=== PATIENT | male | born 1945 | race African-American/Black ===

== ENCOUNTER 2016-08-15 20:26 | Inpatient (IN) | payer MEDICAID, MEDICARE ==
[~2016-08-15] VITALS: Ht 175.3 cm; Wt 67.1 kg
[2016-08-15 20:23] VITALS: BP 127/107
[~2016-08-15 20:26] MED LIST: ADVAIR 100-501 EACH INH; ADVAIR 250-501 EACH INH; ALDACTONE25 MG ORAL; AMLODIPINE BESYL5 MG ORAL; ANTI-ITCH28 G1 TP; ASPIR 8181 MG ORAL; ASPIRIN81 MG ORAL; ATARAX25 MG ORAL; CEPHALEXIN250 MG ORAL; COREG25 MG ORAL; FUROSEMIDE20 M1 ORAL; FUROSEMIDE40 MG ORAL; HYDROCHLOROTHIA25 MG ORAL; LISINOPRIL10 MG ORAL; LISINOPRIL5 MG ORAL; NORCO 5-325 TA1 EAC1 ORAL; NORCO 5-325 TA1 EACH ORAL; TRAMADOL HCL50 MG ORAL; ZOFRAN ODT4 MG ORAL
[2016-08-15 21:15] LABS: BASOPHILS % (AUTO) 1.4 % (0.0-2.0); EOSINOPHILS % (AUTO) 1.1 % (0.0-3.0); LYMPHOCYTES % (AUTO) 50.2 % (20.0-45.0); MEAN CORPUSCULAR HEMOGLOBIN 34.8 PG (27.0-31.0); MEAN CORPUSCULAR HGB CONC 33.9 G/DL (32.0-36.0); MEAN CORPUSCULAR VOLUME 103 FL (80-99); MEAN PLATELET VOLUME 8.1 FL (6.5-10.1); MONOCYTES % (AUTO) 10.8 % (1.0-10.0); NEUTROPHILS % (AUTO) 36.4 % (45.0-75.0); PLATELET COUNT 177 K/UL (150-450); RED BLOOD COUNT 4.26 M/UL (4.70-6.10); RED CELL DISTRIBUTION WIDTH 13.6 % (11.6-14.8); WHITE BLOOD COUNT 6.7 K/UL (4.8-10.8)
[2016-08-15 22:02] LABS: TROPONIN I < 0.30 ng/mL (<=0.30)
[2016-08-15 22:06] LABS: ALANINE AMINOTRANSFERASE 31 U/L (3-41); ANION GAP 14 (5-15); ASPARTATE AMINO TRANSFERASE 52 U/L (5-40); CALCIUM 9.3 mg/dL (8.6-10.2); CARBON DIOXIDE 25 mEQ/L (20-30); CHLORIDE 107 mEQ/L (98-107); CREATININE 1.2 mg/dL (0.7-1.2); HEMOLYSIS 29; POTASSIUM 4.4 mEQ/L (3.4-4.9); SODIUM 146 mEQ/L (135-145); TOTAL PROTEIN 6.8 g/dL (6.6-8.7)
[2016-08-15 22:16] LABS: CKMB 2.5 ng/mL (< 6.7)
[2016-08-15 22:17] LABS: APPEARANCE,URINE SLIGHTLY CLOUDY; KETONES,URINE NEGATIVE (NEGATIVE); LEUKOCYTE ESTERASE ,URINE 2+ (NEGATIVE); NITRITE,URINE NEGATIVE (NEGATIVE); PH,URINE 5 (4.5-8.0); PROTEIN,URINE 3+ (NEGATIVE); UROBILINOGEN,URINE 1 MG/DL (0.0-1.0)
[2016-08-15 22:29] LABS: BACTERIA,URINE FEW /HPF; RBC,URINE 0 /HPF (0 - 0); WBC,URINE 40-60 /HPF (0 - 0)
[2016-08-15 22:50] VITALS: BP 157/79
--- NOTE | 2016-08-15 23:09 | Emergency Room Report ---
History of Present Illness General Chief Complaint: Dyspnea/Respdistress Source: Patient, EMS (YARELI ROMO M.D.) Present Illness HPI 71-year-old male presents ED complaining of shortness of breath. States symptoms started today. EMS states patient is on home oxygen but patient states suddenly today he fell more short of breath. Notes history of COPD. Denies any fevers or chills. Denies cough. Denies chest pain or shortness of breath. No other aggravating relieving factors. Denies any other associated symptoms (YARELI ROMO M.D.) Allergies: Coded Allergies: No Known Allergies (Unverified , 12/12/15) Patient History Past Medical History: HTN, CAD, CVA/TIA Past Surgical History: none, pacemaker Pertinent Family History: none Social History: Denies: alcohol use, drug use, smoking Immunizations: UTD Reviewed Nursing Documentation: PMH: Agreed, PSxH: Agreed (YARELI ROMO M.D.) Nursing Documentation-PMH Hx Cardiac Problems: Yes - Quadrupal bipass 2012, Left foot fracture 2016 Hx Hypertension: Yes Hx Pacemaker: Yes - L chest Hx COPD: Yes Hx Cancer: No Hx Gastrointestinal Problems: No Hx Cerebrovascular Accident: Yes - 2009 (YARELI ROMO M.D.) Review of Systems All Other Systems: negative except mentioned in HPI (YARELI ROMO M.D.) Physical Exam Vital Signs Date Time Temp Pulse Resp B/P Pulse Ox O2 Delivery O2 Flow Rate FiO2 08/15/16 20:12 69 22 127/107 90 Nasal Cannula 2.0 08/15/16 20:23 98.2 Sp02 EP Interpretation: reviewed, normal General Appearance: no apparent distress, alert, GCS 15, non-toxic Head: normocephalic, atraumatic Eyes: bilateral eye PERRL, bilateral eye normal inspection ENT: hearing grossly normal, normal pharynx, no angioedema, normal voice Neck: full range of motion, supple/symm/no masses Respiratory: chest non-tender, lungs clear, normal breath sounds, speaking full sentences Cardiovascular #1: regular rate, rhythm, no edema Cardiovascular #2: 2+ carotid (R), 2+ carotid (L), 2+ radial (R), 2+ radial (L) , 2+ dorsalis pedis (R), 2+ dorsalis pedis (L) Gastrointestinal: normal bowel sounds, non tender, soft, non-distended, no guarding, no rebound Rectal: deferred Genitourinary: normal inspection, no CVA tenderness Musculoskeletal: back normal, gait/station normal, normal range of motion, non- tender Neurologic: alert, oriented x3, responsive, motor strength/tone normal, sensory intact, speech normal Psychiatric: judgement/insight normal, memory normal, mood/affect normal, no suicidal/homicidal ideation Reflexes: 3+ bicep (R), 3+ bicep (L), 3+ tricep (R), 3+ tricep (L), 3+ knee (R) , 3+ knee (L) Skin: normal color, no rash, warm/dry, well hydrated Lymphatic: no adenopathy (YARELI ROMO M.D.) Medical Decision Making Diagnostic Impression: Primary Impression: CHF exacerbation Qualified Codes: I50.9 - Heart failure, unspecified Additional Impressions: COPD exacerbation Shortness of breath Pneumonia Labs Test 08/15/16 20:55 08/15/16 21:40 White Blood Count 6.7 K/UL (4.8-10.8) Red Blood Count 4.26 M/UL (4.70-6.10) Hemoglobin 14.8 G/DL (14.2-18.0) Hematocrit 43.7 % (42.0-52.0) Mean Corpuscular Volume 103 FL (80-99) Mean Corpuscular Hemoglobin 34.8 PG (27.0-31.0) Mean Corpuscular Hemoglobin Concent 33.9 G/DL (32.0-36.0) Red Cell Distribution Width 13.6 % (11.6-14.8) Platelet Count 177 K/UL (150-450) Mean Platelet Volume 8.1 FL (6.5-10.1) Neutrophils (%) (Auto) 36.4 % (45.0-75.0) Lymphocytes (%) (Auto) 50.2 % (20.0-45.0) Monocytes (%) (Auto) 10.8 % (1.0-10.0) Eosinophils (%) (Auto) 1.1 % (0.0-3.0) Basophils (%) (Auto) 1.4 % (0.0-2.0) D-Dimer 1181 ng/mL (<500) Sodium Level 146 mEQ/L (135-145) Potassium Level 4.4 mEQ/L (3.4-4.9) Chloride Level 107 mEQ/L (98-107) Carbon Dioxide Level 25 mEQ/L (20-30) Anion Gap 14 (5-15) Blood Urea Nitrogen 22 mg/dL (7-23) Creatinine 1.2 mg/dL (0.7-1.2) Estimat Glomerular Filtration Rate mL/min (>60) Glucose Level 89 mg/dL (74-106) Lactic Acid Level 1.30 mmol/L (0.66-2.22) Calcium Level 9.3 mg/dL (8.6-10.2) Total Bilirubin 0.6 mg/dL (0.0-1.2) Aspartate Amino Transf (AST/SGOT) 52 U/L (5-40) Alanine Aminotransferase (ALT/SGPT) 31 U/L (3-41) Alkaline Phosphatase 97 U/L (40-129) Total Creatine Kinase 51 U/L (38-174) Creatine Kinase MB 2.5 ng/mL (< 6.7) Creatine Kinase MB Relative Index 4.9 Troponin I < 0.30 ng/mL (<=0.30) Pro-B-Type Natriuretic Peptide 9311 pg/mL (0-125) Total Protein 6.8 g/dL (6.6-8.7) Albumin 3.5 g/dL (3.5-5.2) Globulin 3.3 g/dL Albumin/Globulin Ratio 1.0 (1.0-2.7) Urine Color Yellow Urine Appearance Slightly cloudy Urine pH 5 (4.5-8.0) Urine Specific [place] 1.025 (1.005-1.035) Urine Protein 3+ (NEGATIVE) Urine Glucose (UA) Negative (NEGATIVE) Urine Ketones Negative (NEGATIVE) Urine Occult Blood 1+ (NEGATIVE) Urine Nitrite Negative (NEGATIVE) Urine Bilirubin Negative (NEGATIVE) Urine Urobilinogen 1 MG/DL (0.0-1.0) Urine Leukocyte Esterase 2+ (NEGATIVE) Urine RBC 0 /HPF (0 - 0) Urine WBC 40-60 /HPF (0 - 0) Urine Squamous Epithelial Cells None /LPF (NONE/OCC) Urine Bacteria Few /HPF (NONE) (YARELI ROMO M.D.) ER Course received signout from Dr Romo to endorse this 71 YO M with acute on chronic CHF and also possible RLL infiltate fro admission VSS. Afebrile. Was tx with lasix and Levaquin UA also significant for large amount of WBCs - covered by levaquin. Never required BIPAP VS remained stable in ED Endorsed to Dr Olivarez at 1213am (and also to Dr Mishra who is covering) (DELORES STAHL M.D.) EKG Diagnostic Results Rate: normal Rhythm: NSR ST Segments: no acute changes ASA given to the pt in ED: No (YARELI ROMO M.D.) Rhythm Strip Diag. Results EP Interpretation: yes Rhythm: NSR, no PVC's, no ectopy (YARELI ROMO M.D.) EP Interpretation: yes Rate: 78 Rhythm: NSR, no PVC's, no ectopy (DELORES STAHL M.D.) Chest X-Ray Diagnostic Results EP Interpretation: Yes Findings: no pneumothorax, no acute cardiopulmonary disease, other - cardiomegaly. R and L sided effusion. pacemaker Number of Views: 1 (YARELI ROMO M.D.) EP Interpretation: Yes Findings: no pneumothorax, no acute cardiopulmonary disease, other - Bilateral pulm congestion. Possible RLL infilitate (DELORES STAHL M.D.) Last Vital Signs Date Time Temp Pulse Resp B/P Pulse Ox O2 Delivery O2 Flow Rate FiO2 08/15/16 22:50 98.2 79 30 157/79 100 Nasal Cannula 2.0 Status: improved (YARELI ROMO M.D.) Status: improved (DELORES STAHL M.D.) Disposition: ADMITTED INPATIENT Condition: Serious Referrals: NOT CHOSEN IPA/,REFERRING (PCP) YARELI ROMO M.D. Aug 15, 2016 23:09 DELORES STAHL M.D. Aug 16, 2016 00:14
[2016-08-15 23:51] VITALS: BP 157/79
[2016-08-16] VITALS (8 sets, daily range): BP systolic 98–150; BP diastolic 58–100
[2016-08-16] MEDS ORDERED: DuoNeb 0.5-3(2.5)mg/3ml neb HHN PRN (00:30)
[2016-08-16] MEDS ORDERED: Miralax 17gm pkt ORAL PRN (00:30)
[2016-08-16] MEDS: NovoLOG Insulin Flexpen SUBQ SCH ×4 (06:30→20:52)
[2016-08-16] MEDS ORDERED: Furosemide 40mg tab ORAL SCH (09:00)
[2016-08-16] MEDS: Carvedilol 25mg Tab ORAL SCH ×2 (09:00→20:50)
[2016-08-16] MEDS: Heparin 5000 units/ml inj SUBQ SCH ×2 (09:00→20:50)
--- NOTE | 2016-08-16 11:46 | Diagnostic Imaging Report ---
Indication: Shortness of breath Technique: XRAY CHEST 1 V Comparison: 07/02/16 Findings: Cardiac silhouette is prominent with mild interstitial edema. Left chest pacemaker and sternotomy wires are seen. Costophrenic angles are not included. Impression: Cardiomegaly and interstitial edema. Clinical correlation/followup recommended.
--- NOTE | 2016-08-16 15:34 | Consultation ---
History of Present Illness General Date patient seen: Aug 16, 2016 Time patient seen: 10:00 Chief Complaint: Dyspnea/Respdistress Referring physician: dr Estes Reason for Consultation: SOB Present Illness HPI 71 y/old male presents with increased SOB x 1 day patient is chronically O2 dependent, has oxygen at home, he was getting progressively worse and came for evaluation denies chest pain, palpitations, dizziness, syncope denies cough, wheezing, congestion, hemoptysis denies fevers, chills patient with underlying medical history of CHF, cardiomyopathy, COPD, CABG workup in ED revealed negative troponin ECG with NSR, CXR with cardiomegaly, interstitial edema,L chest pacemaker , possible RLL infiltrate pro BNP elevated - D dimer elevated prior ECHO in 2016 with EF 20-25% and RVSP of 48 c/w moderate pulmonary HTN patient admitted to [facility] for further management Allergies: Coded Allergies: No Known Allergies (Unverified , 12/12/15) Medication History Scheduled Aspirin* (Aspir 81*), 81 MG ORAL DAILY, (Reported) Carvedilol (Coreg), 25 MG ORAL EVERY 12 HOURS, (Reported) Fluticasone/Salmeterol (Advair 250-50 Diskus), 1 PUFF INH EVERY 12 HOURS, ( Reported) Fluticasone/Salmeterol (Advair 100-50 Diskus), PUFF INH EVERY 12 HOURS, ( Reported) Furosemide* (Lasix*), 40 MG ORAL DAILY Furosemide* (Lasix*), MG ORAL DAILY, (Reported) Hydrocortisone 2% Cream (Anti-Itch 2% Cream), 28 GM TP DAILY Hydroxyzine HCl (Hydroxyzine HCl), 25 MG ORAL FOUR TIMES A DAY Lisinopril (Lisinopril*), 2.5 MG ORAL DAILY, (Reported) Lisinopril (Lisinopril*), MG ORAL DAILY, (Reported) Spironolactone (Aldactone), 25 MG ORAL DAILY Scheduled PRN Hydrocodone Bit/Acetaminophen 5-325* ([place] 5-325 Tablet*), 1 TAB ORAL Q4H PRN for For Pain, (Reported) Tramadol Hcl* (Ultram*), 50 MG ORAL Q6H PRN for For Pain, (Reported) Patient History History Provided By: Patient Healthcare decision maker N Resuscitation status Full Code Advanced Directive on File Past Medical/Surgical History Past Medical/Surgical History: (1) History of CVA (cerebrovascular accident) (2) S/P CABG (coronary artery bypass graft) (3) Diabetes (4) CHF (congestive heart failure) (5) COPD (chronic obstructive pulmonary disease) (6) Cardiomyopathy (7) HTN (hypertension) (8) CAD (coronary artery disease) Review of Systems Constitutional: Reports: weakness Eye: Reports: no symptoms ENT: Reports: no symptoms Respiratory: Reports: see HPI Cardiovascular: Reports: see HPI Gastrointestinal: Reports: no symptoms Genitourinary: Reports: retention Musculoskeletal: Reports: no symptoms Skin: Reports: no symptoms Psychiatric: Reports: no symptoms Neurological: Reports: other Endocrine: Reports: other - DM Hematologic/Lymphatic: Reports: no symptoms Physical Exam General Appearance: no apparent distress, cachetic - A/A/O x 3 Lines, tubes and drains: peripheral HEENT: normocephalic, atraumatic, anicteric, mucous membranes moist Neck: non-tender, normal alignment, supple, normal inspection Respiratory/Chest: decreased breath sounds, other - left chest pacemaker Cardiovascular/Chest: normal rate, regular rhythm Abdomen: normal bowel sounds, non tender, soft, no organomegaly Extremities: normal range of motion, non-tender, no calf tenderness, normal capillary refill, other - trace edema Skin Exam: warm/dry Neurologic: no motor/sensory deficits, alert, oriented x 3, responsive Musculoskeletal: normal muscle bulk Last 24 Hour Vital Signs Date Time Temp Pulse Resp B/P Pulse Ox O2 Delivery O2 Flow Rate FiO2 08/16/16 12:00 97.2 56 20 98/58 98 Nasal Cannula 2.0 08/16/16 12:00 56 08/16/16 09:36 Nasal Cannula 2.0 28 08/16/16 09:36 63 20 Nasal Cannula 2.0 28 08/16/16 09:36 96 Nasal Cannula 2.0 28 08/16/16 09:00 69 141/73 08/16/16 08:00 59 08/16/16 08:00 97.5 59 20 141/73 99 Nasal Cannula 2.0 08/16/16 06:03 51 18 99 Nasal Cannula 2.0 08/16/16 05:54 47 18 99 Nasal Cannula 2.0 28 08/16/16 04:00 97.4 76 28 150/96 100 Nasal Cannula 2.0 08/16/16 03:54 76 08/16/16 02:35 97.2 86 24 150/94 100 Nasal Cannula 2.0 08/16/16 02:30 98.0 91 22 134/100 100 Nasal Cannula 2.0 08/16/16 01:53 98.0 91 22 134/100 100 Nasal Cannula 2.0 08/16/16 00:53 78 24 133/85 100 Nasal Cannula 2.0 08/15/16 23:51 98.0 84 18 157/79 100 Nasal Cannula 2.0 08/15/16 22:50 98.2 79 30 157/79 100 Nasal Cannula 2.0 08/15/16 21:12 81 19 Nasal Cannula 2.0 08/15/16 20:23 98.2 81 19 127/107 100 Nasal Cannula 2.0 08/15/16 20:12 69 22 127/107 90 Nasal Cannula 2.0 Intake and Output 08/15/16 08/16/16 19:00 07:00 Intake Total 690 ml Output Total 2150 ml Balance -1460 ml Intake Oral 540 ml IV Total 150 ml Output Urine Total 2150 ml # Bowel Movements 1 Laboratory Tests Test 08/15/16 20:55 08/15/16 21:40 White Blood Count 6.7 K/UL (4.8-10.8) Red Blood Count 4.26 M/UL (4.70-6.10) L Hemoglobin 14.8 G/DL (14.2-18.0) Hematocrit 43.7 % (42.0-52.0) Mean Corpuscular Volume 103 FL (80-99) H Mean Corpuscular Hemoglobin 34.8 PG (27.0-31.0) H Mean Corpuscular Hemoglobin Concent 33.9 G/DL (32.0-36.0) Red Cell Distribution Width 13.6 % (11.6-14.8) Platelet Count 177 K/UL (150-450) Mean Platelet Volume 8.1 FL (6.5-10.1) Neutrophils (%) (Auto) 36.4 % (45.0-75.0) L Lymphocytes (%) (Auto) 50.2 % (20.0-45.0) H Monocytes (%) (Auto) 10.8 % (1.0-10.0) H Eosinophils (%) (Auto) 1.1 % (0.0-3.0) Basophils (%) (Auto) 1.4 % (0.0-2.0) D-Dimer 1181 ng/mL (<500) H Sodium Level 146 mEQ/L (135-145) H Potassium Level 4.4 mEQ/L (3.4-4.9) Chloride Level 107 mEQ/L (98-107) Carbon Dioxide Level 25 mEQ/L (20-30) Anion Gap 14 (5-15) Blood Urea Nitrogen 22 mg/dL (7-23) Creatinine 1.2 mg/dL (0.7-1.2) Estimat Glomerular Filtration Rate mL/min (>60) Glucose Level 89 mg/dL (74-106) Lactic Acid Level 1.30 mmol/L (0.66-2.22) Calcium Level 9.3 mg/dL (8.6-10.2) Total Bilirubin 0.6 mg/dL (0.0-1.2) Aspartate Amino Transf (AST/SGOT) 52 U/L (5-40) H Alanine Aminotransferase (ALT/SGPT) 31 U/L (3-41) Alkaline Phosphatase 97 U/L (40-129) Total Creatine Kinase 51 U/L (38-174) Creatine Kinase MB 2.5 ng/mL (< 6.7) Creatine Kinase MB Relative Index 4.9 Troponin I < 0.30 ng/mL (<=0.30) Pro-B-Type Natriuretic Peptide 9311 pg/mL (0-125) H Total Protein 6.8 g/dL (6.6-8.7) Albumin 3.5 g/dL (3.5-5.2) Globulin 3.3 g/dL Albumin/Globulin Ratio 1.0 (1.0-2.7) Urine Color Yellow Urine Appearance Slightly cloudy Urine pH 5 (4.5-8.0) Urine Specific [place] 1.025 (1.005-1.035) Urine Protein 3+ (NEGATIVE) H Urine Glucose (UA) Negative (NEGATIVE) Urine Ketones Negative (NEGATIVE) Urine Occult Blood 1+ (NEGATIVE) H Urine Nitrite Negative (NEGATIVE) Urine Bilirubin Negative (NEGATIVE) Urine Urobilinogen 1 MG/DL (0.0-1.0) H Urine Leukocyte Esterase 2+ (NEGATIVE) H Urine RBC 0 /HPF (0 - 0) Urine WBC 40-60 /HPF (0 - 0) H Urine Squamous Epithelial Cells None /LPF (NONE/OCC) Urine Bacteria Few /HPF (NONE) Microbiology Date/Time Source Procedure Growth Status 08/15/16 21:40 Urine,Clean Catch Urine Culture - Preliminary Resulted Height (Feet): 5 Height (Inches): 9.00 Weight (Pounds): 148 Medications Current Medications Medications (Trade) Dose Ordered Sig/Elsa Route PRN Reason Start Time Stop Time Status Last Admin Dose Admin Acetaminophen (Tylenol) 650 mg Q4H PRN ORAL Fever 08/16/16 00:30 09/15/16 00:29 Albuterol/ Ipratropium (DuoNeb 0.5-3(2.5)mg/3ml) 3 ml EVERY 4 HOURS PRN HHN Shortness of Breath 08/16/16 00:30 08/21/16 00:29 Carvedilol (Coreg) 25 mg EVERY 12 HOURS ORAL 08/16/16 09:00 09/15/16 08:59 08/16/16 09:00 Dextrose (Dextrose 50%) STAT PRN IV Hypoglycemia 08/16/16 00:30 09/15/16 00:29 Furosemide (Lasix) 40 mg EVERY 8 HOURS IV 08/16/16 06:00 09/15/16 05:59 08/16/16 13:29 Heparin Sodium (Porcine) (Heparin 5000 units/ml) 5,000 units EVERY 12 HOURS SUBQ 08/16/16 09:00 09/15/16 08:59 08/16/16 09:00 Insulin Aspart BEFORE MEALS AND HS SUBQ 08/16/16 06:30 09/15/16 06:29 Levofloxacin (Levaquin) 100 ml @ 100 mls/hr Q24H IVPB 08/16/16 23:00 08/23/16 22:59 Ondansetron HCl (Zofran) 4 mg Q6H PRN IVP Nausea & Vomiting 08/16/16 00:30 09/15/16 00:29 08/16/16 10:40 Polyethylene Glycol (Miralax) 17 gm DAILYPRN PRN ORAL Constipation 08/16/16 00:30 09/15/16 00:29 Temazepam (Restoril) 15 mg HSPRN PRN ORAL Insomnia 08/16/16 00:30 08/23/16 00:29 Assessment/Plan Assessment/Plan ASSESSMENT acute on chronic respiratory failure chronic hypoxemia ( home O2 dependent) CHF exacerbation COPD possible PNA cardiomyopathy moderate pulmonary HTN CAD with hx of CABG HTN Hx of CVA/TIA pacemaker elevated D dimer Pyuria, possible UTI PLAN OF CARE [facility] O2 HHN titrate to keep sat above 92%, has O2 at home initial CXR with cardiomegaly and interstitial edema fup with CXR and pro BNP in am prior ECHO with EF 25-30% and RVSP of 48 c/w moderate pulmonary HTN repeat ECHO today cardio eval per PMD discretion medical management of CHF with BB and diuretic diuresis with Lasix , monitor renal parameters, lytes, I/O BP management with BB, optimize as needed continue ASA empiric abx, fup with urine cx and CXR venous Duplex BLE DVT prophylaxis case discussed and evaluated by supervising physician Naveed Fall),Roxann NIXON Aug 16, 2016 15:34
[2016-08-16 15:37] LABS: BASOPHILS % (AUTO) 1.6 % (0.0-2.0); EOSINOPHILS % (AUTO) 0.7 % (0.0-3.0); LYMPHOCYTES % (AUTO) 45.6 % (20.0-45.0); MEAN CORPUSCULAR HEMOGLOBIN 33.2 PG (27.0-31.0); MEAN CORPUSCULAR HGB CONC 32.2 G/DL (32.0-36.0); MEAN CORPUSCULAR VOLUME 103 FL (80-99); MEAN PLATELET VOLUME 7.9 FL (6.5-10.1); MONOCYTES % (AUTO) 14.1 % (1.0-10.0); PLATELET COUNT 158 K/UL (150-450); RED BLOOD COUNT 4.17 M/UL (4.70-6.10); RED CELL DISTRIBUTION WIDTH 13.5 % (11.6-14.8); WHITE BLOOD COUNT 6.6 K/UL (4.8-10.8)
[2016-08-16 16:28] LABS: ANION GAP 13 (5-15); CALCIUM 8.8 mg/dL (8.6-10.2); CARBON DIOXIDE 30 mEQ/L (20-30); CHLORIDE 101 mEQ/L (98-107); CREATININE 1.3 mg/dL (0.7-1.2); HEMOLYSIS 13; MAGNESIUM 1.7 mg/dL (1.7-2.5); PHOSPHORUS 4.1 mg/dL (2.5-4.8); POTASSIUM 3.5 mEQ/L (3.4-4.9); SODIUM 144 mEQ/L (135-145)
[2016-08-16 16:29] LABS: TROPONIN I < 0.30 ng/mL (<=0.30)
[2016-08-16 16:31] LABS: HEMOGLOBIN A1C 5.6 % (< 6.0)
[2016-08-16] MEDS: Aspirin EC 81mg tab ORAL SCH (17:06)
--- NOTE | 2016-08-16 17:26 | History & Physical ---
History and Physical History & Physicial Dictated fo Int Med - Dr Olivarez no. [id number]. SURINDER HELMS Aug 16, 2016 17:26
[2016-08-17] VITALS: BP 122/77
[2016-08-17 04:00] VITALS: BP 124/80
[2016-08-17] MEDS: NovoLOG Insulin Flexpen SUBQ SCH ×4 (05:48→22:38)
--- NOTE | 2016-08-17 07:07 | History and Physical Report ---
DATE OF ADMISSION: 08/15/2016 CHIEF COMPLAINT: The patient is a 71-year-old male with a history of congestive heart failure, presents with complaint of shortness of breath. HISTORY OF PRESENT ILLNESS: The patient states he began to have left shoulder pain one day prior to admission. Pain is constant. The patient denies chest pain or jaw pain. The patient states he has become increasingly short of breath. The patient is unable to walk more than a few feet without getting short of breath. The patient presented to [facility]. The patient was found to have a BNP elevated at 9311. The patient was admitted for shortness of breath and congestive heart failure. REVIEW OF SYSTEMS: Constitutional: The patient denies weight loss or gain. The patient denies fevers or chills. HEENT: The patient denies ear or throat pain. The patient has headache. Cardiovascular: The patient denies palpitations or chest pain. Chest: The patient complains of shortness of breath as above. The patient denies wheezes. Abdomen: The patient denies nausea, vomiting, or constipation. Genitourinary: The patient denies dysuria or increased frequency of urination. Neuromuscular: The patient denies seizures or generalized weakness. The patient does have a history of right hemiplegia. PAST MEDICAL HISTORY: Significant For 1. Congestive heart failure. 2. Hypertension. 3. Chronic obstructive pulmonary disease. 4. Coronary artery disease. 5. Right hemiplegia. 6. Cerebrovascular disease, status post cerebrovascular accident in 2009. 7. History of left renal calculus. PAST SURGICAL HISTORY: 1. Significant for coronary artery bypass graft in 03/2013. 2. Lithotripsy for left renal calculi. CURRENT MEDICATIONS: 1. Aspirin 81 mg one tablet p.o. daily. 2. Coreg 25 mg one tablet p.o. twice daily. 3. Advair 250/50 one puff p.o. twice daily. 4. Lasix 40 mg one tablet p.o. daily. 5. [place] 5/325 mg one tablet p.o. hours as needed. 6. Restoril 25 mg one tablet p.o. times a day. 7. Lisinopril 5 mg one tablet p.o. daily. 8. Spironolactone 25 mg one tablet p.o. daily. 9. Tramadol 50 mg one tablet p.o. every 6 hours as needed. ALLERGIES: No known drug allergies. 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 The patient denies tobacco use having quit 2012. The patient denies alcohol use having quit in 2012. PHYSICAL EXAMINATION: VITAL SIGNS: Temperature 97.5, respirations 20, pulse 59, blood pressure 141/73, pulse ox 99% on two liters nasal cannula. GENERAL: The patient is a well-developed and well-nourished thin-appearing male, in no apparent distress. HEENT: Eyes, pupils are equal and responsive to light and accommodation. Extraocular movements are intact. NECK: Supple without lymphadenopathy. CHEST: Crackles on bilateral bases. Otherwise, clear to auscultation without wheezes or rales. CARDIOVASCULAR: S1, S2. No murmurs, rubs, or gallops. ABDOMEN: Soft, nontender, and nondistended. Positive bowel sounds. No evidence of hepatosplenomegaly. Currently, no rebound or guarding. EXTREMITIES: Negative for clubbing, cyanosis, or edema. RECTAL/GENITAL: Refused. NEUROLOGICAL: Cranial nerves II through XII are grossly intact without focal deficits. Motor strength is 5/5 bilaterally. Deep tendon reflexes are 2+ plantar. LABORATORY STUDIES: WBC 6.7, hemoglobin 14.8, hematocrit 42.7, platelets 177,000. Sodium 146, potassium 4.4, chloride 107, CO2 25, BUN 22, creatinine 1.2, glucose 89. BNP elevated at 9311. Troponin normal at less than 0.3. ASSESSMENT: This is a 71-year-old male: 1. Shortness of breath. 2. Left shoulder pain. 3. Congestive heart failure. 4. Hypertension. 5. Chronic obstructive pulmonary disease. 6. Coronary artery disease. 7. Right hemiplegia. 8. Cerebrovascular disease. 9. History of renal calculus. TREATMENT: 1. Shortness of breath/congestive heart failure. Cardiology consultation with Dr. Pineda Crooks. An echocardiogram is pending. The patient is currently receiving intravenous Lasix. We will follow recommendation of Cardiology. 2. Left shoulder pain. Left shoulder x-ray is pending. 3. Hypertension. Continue Coreg as above. 4. Chronic obstructive pulmonary disease. Continue Advair as above. DuoNeb have been added as needed p.r.n every four hours. 5. Coronary artery disease as above. A Cardiology consultation was obtained with Dr. Pineda Crooks. Serial troponin levels will be run. 6. Right hemiplegia. A physical therapy consultation is pending. 7. Cerebrovascular disease, status post cerebrovascular accident. 8. History of renal calculi. Royce Davila M.D. DR: MIHIR JOB#: [id number] CC:
[2016-08-17 07:51] LABS: BASOPHILS % (AUTO) 0.8 % (0.0-2.0); EOSINOPHILS % (AUTO) 1.1 % (0.0-3.0); LYMPHOCYTES % (AUTO) 45.6 % (20.0-45.0); MEAN CORPUSCULAR HEMOGLOBIN 33.4 PG (27.0-31.0); MEAN CORPUSCULAR HGB CONC 32.6 G/DL (32.0-36.0); MEAN CORPUSCULAR VOLUME 102 FL (80-99); MEAN PLATELET VOLUME 8.4 FL (6.5-10.1); MONOCYTES % (AUTO) 14.3 % (1.0-10.0); NEUTROPHILS % (AUTO) 38.1 % (45.0-75.0); PLATELET COUNT 173 K/UL (150-450); RED BLOOD COUNT 4.39 M/UL (4.70-6.10); RED CELL DISTRIBUTION WIDTH 12.9 % (11.6-14.8); WHITE BLOOD COUNT 5.8 K/UL (4.8-10.8)
[2016-08-17 08:00] VITALS: BP 131/82
[2016-08-17 08:03] LABS: TROPONIN I < 0.30 ng/mL (<=0.30)
[2016-08-17] MEDS: Aspirin EC 81mg tab ORAL SCH (08:24)
[2016-08-17] MEDS: Carvedilol 25mg Tab ORAL SCH (08:25)
[2016-08-17] MEDS: Heparin 5000 units/ml inj SUBQ SCH ×2 (08:26→22:37)
[2016-08-17 08:30] LABS: ANION GAP 16 (5-15); CALCIUM 9.2 mg/dL (8.6-10.2); CARBON DIOXIDE 28 mEQ/L (20-30); CHLORIDE 99 mEQ/L (98-107); CREATININE 1.4 mg/dL (0.7-1.2); HEMOLYSIS 4; POTASSIUM 3.6 mEQ/L (3.4-4.9); SODIUM 143 mEQ/L (135-145)
--- NOTE | 2016-08-17 10:38 | Diagnostic Imaging Report ---
Indication: Dyspnea Comparison: 08/15/16 A single view chest radiograph was obtained. Findings: No definite infiltrate or pulmonary vascular congestion identified. Lungs are hyperexpanded. The heart is enlarged. The aorta is mildly enlarged consistent with atherosclerotic vascular disease. The bones are osteopenic. Impression: No acute disease
--- NOTE | 2016-08-17 11:33 | Consultation ---
Consult Note Assessment/Plan ID [facility] # [id number] TOOTIE ALVAREZ M.D. Aug 17, 2016 11:33
[2016-08-17 12:00] VITALS: BP 104/66
--- NOTE | 2016-08-17 13:06 | Internal Med Progress Note ---
Subjective Date of Service: Aug 17, 2016 Physician Name Surinder Helms Attending Physician Barrett Olivarez MD Current Medications Medications (Trade) Dose Ordered Sig/Elsa Route PRN Reason Start Time Stop Time Status Last Admin Dose Admin Acetaminophen (Tylenol) 650 mg Q4H PRN ORAL Fever 08/16/16 00:30 09/15/16 00:29 Albuterol/ Ipratropium (DuoNeb 0.5-3(2.5)mg/3ml) 3 ml EVERY 4 HOURS PRN HHN Shortness of Breath 08/16/16 00:30 08/21/16 00:29 Aspirin (Ecotrin) 81 mg DAILY ORAL 08/16/16 17:00 09/15/16 16:59 08/17/16 08:24 Carvedilol (Coreg) 25 mg EVERY 12 HOURS ORAL 08/16/16 09:00 09/15/16 08:59 08/17/16 08:25 Dextrose (Dextrose 50%) STAT PRN IV Hypoglycemia 08/16/16 00:30 09/15/16 00:29 Furosemide (Lasix) 40 mg EVERY 8 HOURS IV 08/16/16 06:00 09/15/16 05:59 08/17/16 05:40 Heparin Sodium (Porcine) (Heparin 5000 units/ml) 5,000 units EVERY 12 HOURS SUBQ 08/16/16 09:00 09/15/16 08:59 08/17/16 08:26 Insulin Aspart BEFORE MEALS AND HS SUBQ 08/16/16 06:30 09/15/16 06:29 08/16/16 20:52 Levofloxacin (Levaquin) 100 ml @ 100 mls/hr Q24H IVPB 08/16/16 23:00 08/23/16 22:59 08/16/16 22:28 Ondansetron HCl (Zofran) 4 mg Q6H PRN IVP Nausea & Vomiting 08/16/16 00:30 09/15/16 00:29 08/16/16 10:40 Polyethylene Glycol (Miralax) 17 gm DAILYPRN PRN ORAL Constipation 08/16/16 00:30 09/15/16 00:29 Temazepam (Restoril) 15 mg HSPRN PRN ORAL Insomnia 08/16/16 00:30 08/23/16 00:29 Allergies: Coded Allergies: No Known Allergies (Unverified , 5/19/16) ROS Limited/Unobtainable: No Constitutional: Reports: no symptoms HEENT: Reports: no symptoms Cardiovascular: Reports: no symptoms Respiratory: Reports: shortness of breath Gastrointestinal/Abdominal: Reports: no symptoms Genitourinary: Reports: no symptoms Neurologic/Psychiatric: Reports: no symptoms Subjective 71 YO M admitted with shortness of breath and congestive heart failure. Cover for Int Pool-Dr Olivarez. Objective Last Vital Signs Date Time Temp Pulse Resp B/P Pulse Ox O2 Delivery O2 Flow Rate FiO2 08/17/16 12:00 96.9 63 17 104/66 98 Nasal Cannula 2.0 08/16/16 22:03 28 General Appearance: WD/WN, alert, mild distress, thin EENT: PERRL/EOMI, normal ENT inspection Neck: non-tender, normal alignment, supple Cardiovascular: normal peripheral pulses, normal rate, regular rhythm, no gallop/murmur, no JVD Respiratory/Chest: no accessory muscle use, respiratory distress, crackles/ rales, rhonchi - bilaterally, expiratory wheezing Abdomen: normal bowel sounds, non tender, soft, no organomegaly, no mass Extremities: normal range of motion 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, no motor/sensory deficits Skin: normal pigmentation, warm/dry Laboratory Tests Test 08/16/16 14:55 08/17/16 06:35 White Blood Count 6.6 K/UL (4.8-10.8) 5.8 K/UL (4.8-10.8) Red Blood Count 4.17 M/UL (4.70-6.10) L 4.39 M/UL (4.70-6.10) L Hemoglobin 13.8 G/DL (14.2-18.0) L 14.6 G/DL (14.2-18.0) Hematocrit 43.0 % (42.0-52.0) 44.9 % (42.0-52.0) Mean Corpuscular Volume 103 FL (80-99) H 102 FL (80-99) H Mean Corpuscular Hemoglobin 33.2 PG (27.0-31.0) H 33.4 PG (27.0-31.0) H Mean Corpuscular Hemoglobin Concent 32.2 G/DL (32.0-36.0) 32.6 G/DL (32.0-36.0) Red Cell Distribution Width 13.5 % (11.6-14.8) 12.9 % (11.6-14.8) Platelet Count 158 K/UL (150-450) 173 K/UL (150-450) Mean Platelet Volume 7.9 FL (6.5-10.1) 8.4 FL (6.5-10.1) Neutrophils (%) (Auto) 38.0 % (45.0-75.0) L 38.1 % (45.0-75.0) L Lymphocytes (%) (Auto) 45.6 % (20.0-45.0) H 45.6 % (20.0-45.0) H Monocytes (%) (Auto) 14.1 % (1.0-10.0) H 14.3 % (1.0-10.0) H Eosinophils (%) (Auto) 0.7 % (0.0-3.0) 1.1 % (0.0-3.0) Basophils (%) (Auto) 1.6 % (0.0-2.0) 0.8 % (0.0-2.0) Sodium Level 144 mEQ/L (135-145) 143 mEQ/L (135-145) Potassium Level 3.5 mEQ/L (3.4-4.9) 3.6 mEQ/L (3.4-4.9) Chloride Level 101 mEQ/L (98-107) 99 mEQ/L (98-107) Carbon Dioxide Level 30 mEQ/L (20-30) 28 mEQ/L (20-30) Anion Gap 13 (5-15) 16 (5-15) H Blood Urea Nitrogen 21 mg/dL (7-23) 24 mg/dL (7-23) H Creatinine 1.3 mg/dL (0.7-1.2) H 1.4 mg/dL (0.7-1.2) H Estimat Glomerular Filtration Rate mL/min (>60) mL/min (>60) Glucose Level 102 mg/dL (74-106) 95 mg/dL (74-106) Hemoglobin A1c 5.6 % (< 6.0) Calcium Level 8.8 mg/dL (8.6-10.2) 9.2 mg/dL (8.6-10.2) Phosphorus Level 4.1 mg/dL (2.5-4.8) 5.0 mg/dL (2.5-4.8) H Magnesium Level 1.7 mg/dL (1.7-2.5) Troponin I < 0.30 ng/mL (<=0.30) < 0.30 ng/mL (<=0.30) Pro-B-Type Natriuretic Peptide 5443 pg/mL (0-125) H Albumin 3.6 g/dL (3.5-5.2) Microbiology Date/Time Source Procedure Growth Status 08/15/16 21:00 Blood Blood Culture - Preliminary NO GROWTH AFTER 24 HOURS Resulted 08/15/16 20:45 Blood Blood Culture - Preliminary NO GROWTH AFTER 24 HOURS Resulted 08/15/16 21:40 Urine,Clean Catch Urine Culture - Preliminary Gram Positive Cocci Resulted Intake and Output 08/16/16 08/17/16 19:00 07:00 Intake Total 620 ml 400 ml Output Total 3350 ml 2750 ml Balance -2730 ml -2350 ml Intake Oral 620 ml 350 ml IV Total 50 ml Output Urine Total 3350 ml 2750 ml # Bowel Movements 1 Assessment/Plan Problem List: (1) Hemiplegia affecting right dominant side (2) CHF exacerbation Assessment & Plan: EF=20-25%. Await cardiology consult. (3) Shortness of breath (4) HTN (hypertension) Assessment & Plan: Cont coreg (5) COPD (chronic obstructive pulmonary disease) Assessment & Plan: Cont duoneb and levaquin (6) Cardiomyopathy (7) CAD (coronary artery disease) (8) Nephrolithiasis (9) Cerebral vascular disease Status: not improved SURINDER HELMS Aug 17, 2016 13:06
[2016-08-17 16:00] VITALS: BP 110/73
[2016-08-17] MEDS ORDERED: NS 275ml ONE (16:37)
[2016-08-17] MEDS ORDERED: Tubing IV Secondary IV ONE (16:37)
[2016-08-17] MEDS ORDERED: Morphine Sulfate 4mg/ml Inj IVP PRN (17:30)
--- NOTE | 2016-08-17 17:56 | Cardiac Electrophysiology PN ---
Subjective Subjective [id number]. EF 25%, CABG , SJ ICD, CHF, Cocaine use. Objective Last 24 Hour Vital Signs Date Time Temp Pulse Resp B/P Pulse Ox O2 Delivery O2 Flow Rate FiO2 08/17/16 16:00 97.0 63 15 110/73 99 Nasal Cannula 2.0 08/17/16 12:00 96.9 63 17 104/66 98 Nasal Cannula 2.0 08/17/16 12:00 70 08/17/16 08:25 64 131/82 08/17/16 08:00 96.6 64 17 131/82 98 Nasal Cannula 2.0 08/17/16 08:00 80 08/17/16 04:00 70 08/17/16 04:00 97.0 66 20 124/80 100 Nasal Cannula 2.0 08/17/16 00:00 78 08/17/16 00:00 97.9 65 20 122/77 99 Nasal Cannula 2.0 08/16/16 22:03 Nasal Cannula 2.0 28 08/16/16 22:03 68 18 Nasal Cannula 2.0 28 08/16/16 22:03 97 Nasal Cannula 2.0 28 08/16/16 20:50 63 115/63 08/16/16 20:00 85 08/16/16 20:00 97.2 63 20 115/63 98 Nasal Cannula 2.0 Intake and Output 08/16/16 08/17/16 19:00 07:00 Intake Total 620 ml 400 ml Output Total 3350 ml 2750 ml Balance -2730 ml -2350 ml Intake Oral 620 ml 350 ml IV Total 50 ml Output Urine Total 3350 ml 2750 ml # Bowel Movements 1 Laboratory Tests Test 08/17/16 06:35 White Blood Count 5.8 K/UL (4.8-10.8) Red Blood Count 4.39 M/UL (4.70-6.10) L Hemoglobin 14.6 G/DL (14.2-18.0) Hematocrit 44.9 % (42.0-52.0) Mean Corpuscular Volume 102 FL (80-99) H Mean Corpuscular Hemoglobin 33.4 PG (27.0-31.0) H Mean Corpuscular Hemoglobin Concent 32.6 G/DL (32.0-36.0) Red Cell Distribution Width 12.9 % (11.6-14.8) Platelet Count 173 K/UL (150-450) Mean Platelet Volume 8.4 FL (6.5-10.1) Neutrophils (%) (Auto) 38.1 % (45.0-75.0) L Lymphocytes (%) (Auto) 45.6 % (20.0-45.0) H Monocytes (%) (Auto) 14.3 % (1.0-10.0) H Eosinophils (%) (Auto) 1.1 % (0.0-3.0) Basophils (%) (Auto) 0.8 % (0.0-2.0) Sodium Level 143 mEQ/L (135-145) Potassium Level 3.6 mEQ/L (3.4-4.9) Chloride Level 99 mEQ/L (98-107) Carbon Dioxide Level 28 mEQ/L (20-30) Anion Gap 16 (5-15) H Blood Urea Nitrogen 24 mg/dL (7-23) H Creatinine 1.4 mg/dL (0.7-1.2) H Estimat Glomerular Filtration Rate mL/min (>60) Glucose Level 95 mg/dL (74-106) Calcium Level 9.2 mg/dL (8.6-10.2) Phosphorus Level 5.0 mg/dL (2.5-4.8) H Troponin I < 0.30 ng/mL (<=0.30) Pro-B-Type Natriuretic Peptide 5443 pg/mL (0-125) H Albumin 3.6 g/dL (3.5-5.2) Microbiology Date/Time Source Procedure Growth Status 08/15/16 21:00 Blood Blood Culture - Preliminary NO GROWTH AFTER 24 HOURS Resulted 08/15/16 20:45 Blood Blood Culture - Preliminary NO GROWTH AFTER 24 HOURS Resulted 08/15/16 21:40 Urine,Clean Catch Urine Culture - Preliminary Gram Positive Cocci Resulted BRYAN BOYD Aug 17, 2016 17:56
[2016-08-17 20:00] VITALS: BP 132/88
[2016-08-18] VITALS: BP 127/88
--- NOTE | 2016-08-18 01:17 | Consultation ---
DATE OF CONSULTATION: 08/17/2016 CARDIOLOGY CONSULTATION REFERRING PHYSICIAN: Barrett Olivarez M.D. REASON FOR CONSULTATION: Management of the patient's congestive heart failure as well as evaluation of the patient's defibrillator. HISTORY OF PRESENT ILLNESS: The patient is a very pleasant 71-year-old gentleman with history of hypertension, congestive heart failure with a history of defibrillator implantation, who has had a recent of foot fracture. The patient came to emergency room with increasing shortness of breath and dyspnea on exertion. His labs show BNP of more than 9000 and a Cardiology consultation was obtained for further evaluation and management. His troponin, however, was negative. REVIEW OF SYSTEMS: Review of systems was thoroughly performed and was negative other than what was mentioned in the history of present illness. PAST MEDICAL HISTORY: 1. Hypertension. 2. Congestive heart failure, ejection fraction only 10%. 3. History of coronary artery bypass graft in 2012. 4. History of [employer] defibrillator implantation in 2013. 5. History of SVT. 6. History of CVA. 7. History of cocaine use. FAMILY HISTORY: Noncontributory. PHYSICAL EXAMINATION: VITAL SIGNS: Blood pressure is 110/70, pulse is 60, respirations 16, and he is afebrile. HEAD AND NECK: No JVD. LUNGS: Decreased breath sounds. CARDIOVASCULAR: Regular S1 and S2 with no gallop or murmur. ABDOMEN: Soft. EXTREMITIES: There is 1+ pitting edema. LABORATORY AND DIAGNOSTIC DATA: His echocardiogram on 07/03/2016 shows ejection fraction only 25%. His chest x-ray showed blunting of right costophrenic angle and left-sided dual chamber defibrillator implantation. ASSESSMENT AND PLAN: 1. Congestive heart failure with ejection fraction of 25% with more than 5000. Continue current medical regimen including Lasix 40 mg IV daily. In the meantime, I would discontinue Coreg, as the patient has history of cocaine use. Check urine toxicology screen. If the urine toxicology screen is negative, then we will resume his Coreg. In the meantime, put him on lisinopril, Lasix, and Aldactone and watch his potassium carefully, as his creatinine is 1.4. 2. Status post [employer] defibrillator implantation. 3. History of cocaine use. 4. History of coronary artery bypass graft in 2012. 5. History of cerebrovascular accident in 2009. Thank you very much, Dr. Olivarez, for allowing me to participate in the care of this patient. Please do not hesitate to contact me for any questions regarding my evaluation. Pineda Crooks M.D. DR: STANTON JOB#: [id number] CC:
--- NOTE | 2016-08-18 01:37 | Consultation ---
DATE OF CONSULTATION: INFECTIOUS DISEASE CONSULTATION CONSULTING PHYSICIAN: Heber Samson M.D. REASON FOR CONSULTATION: Evaluation of patient for possible pneumonia, bronchitis and antibiotic management. HISTORY OF PRESENT ILLNESS: The patient is a 71-year-old old male with multiple medical problems, who was admitted to this medical center due to shortness of breath. The patient has some sputum production. Infectious Disease consultation has been requested for further evaluation of the patient's antibiotic management. PAST MEDICAL HISTORY: 1. CHF. 2. Hypertension. 3. COPD. 4. Coronary artery disease. 5. History of right hemiplegia. 6. History of CVA. 7. History of left renal calculi. 8. History of fracture of the left leg . PAST SURGICAL HISTORY: Significant for bypass surgery and . MEDICATIONS: The patient is on Levaquin. ALLERGIES: No known drug allergies. SOCIAL HISTORY: Significant for smoking, quit in 2012. PHYSICAL EXAMINATION: VITAL SIGNS: Temperature 96.6 degrees, blood pressure 131/82, pulse 64, respiratory rate 18. HEENT: Mild pale conjunctivae. No icterus. NECK: No lymphadenopathy. CHEST: Coarse breathing sounds. HEART: S1 and S2. ABDOMEN: Soft and nontender. EXTREMITIES: No cyanosis. The patient's left leg is in the cast. NEUROLOGIC: Awake and alert. LABORATORY AND DIAGNOSTIC DATA: White blood cells 5.8, hemoglobin 14 and platelet 173,000. Urinalysis unremarkable. BUN 24 and creatinine 1.4. ALT, AST, and alkaline phosphatase unremarkable. Urine culture is growing gram-positive cocci. Blood culture is pending. Chest x-ray showed no acute pulmonary disease. Doppler of the lower extremity, no DVT. ASSESSMENT: The patient is a 71-year-old male with multiple medical problems as below, who was admitted to this medical center with shortness of breath, cough and sputum production. The patient had x-ray is unremarkable. The patient underlying viral bronchitis appropriately on Levaquin. The patient may benefit from ruling out influenza. PLAN: 1. We will continue the patient on Levaquin. 2. Monitor CBC. 3. Monitor BMP. 4. Monitor cultures (blood, urine and sputum). 5. Rapid influenza test. 6. Monitor chest x-ray. Based on patient's clinical course and laboratories, we do further recommendations. Thank you, Dr. Mishra and for allowing me to participate in the care of this patient. I will follow the patient during this hospitalization. Heber Samson M.D. DR: JOSE JOB#: [id number] CC:
[2016-08-18 04:00] VITALS: BP 111/77
[2016-08-18] MEDS: NovoLOG Insulin Flexpen SUBQ SCH ×4 (06:12→20:32)
[2016-08-18 07:41] VITALS: BP 130/82
--- NOTE | 2016-08-18 08:22 | Infectious Diseases Prog Note ---
Assessment/Plan Assessment/Plan ASSESSMENT: 71 y/o male with: // COPD exacerbation r/o influenza - SCx NRF - CXR 08/17: No definite infiltrate or pulmonary vascular congestion identified. 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 breathing improved Objective Vital Signs Last 24 Hour Vital Signs Date Time Temp Pulse Resp B/P Pulse Ox O2 Delivery O2 Flow Rate FiO2 08/18/16 07:41 97.0 73 20 130/82 98 Nasal Cannula 2.0 08/18/16 04:00 97.7 70 18 111/77 96 Nasal Cannula 2.0 08/18/16 04:00 91 08/18/16 00:00 90 08/18/16 00:00 97.7 71 18 127/88 97 Nasal Cannula 2.0 08/17/16 20:06 Nasal Cannula 2.0 28 08/17/16 20:06 47 18 Nasal Cannula 2.0 28 08/17/16 20:06 97 Nasal Cannula 2.0 28 08/17/16 20:00 95.9 42 15 132/88 98 Nasal Cannula 2.0 08/17/16 20:00 88 08/17/16 16:00 74 08/17/16 16:00 97.0 63 15 110/73 99 Nasal Cannula 2.0 08/17/16 12:00 96.9 63 17 104/66 98 Nasal Cannula 2.0 08/17/16 12:00 70 08/17/16 08:25 64 131/82 Height (Feet): 5 Height (Inches): 9.00 Weight (Pounds): 148 General Appearance: no acute distress Respiratory/Chest: no respiratory distress Cardiovascular: normal rate, regular rhythm Abdomen: normal bowel sounds, soft, non tender, non distended Microbiology Date/Time Source Procedure Growth Status 08/15/16 21:00 Blood Blood Culture - Preliminary NO GROWTH AFTER 48 HOURS Resulted 08/15/16 20:45 Blood Blood Culture - Preliminary NO GROWTH AFTER 48 HOURS Resulted 08/17/16 06:49 Sputum Gram Stain Pending Resulted 08/17/16 06:49 Sputum Sputum Culture - Preliminary NORMAL ANEESH PRESENT Resulted 08/15/16 21:40 Urine,Clean Catch Urine Culture - Preliminary Gram Positive Cocci Resulted Laboratory Tests Test 08/17/16 18:20 Urine Opiates Screen Positive (NEGATIVE) H Urine Barbiturates Screen Negative (NEGATIVE) Phencyclidine (PCP) Screen Negative (NEGATIVE) Urine Amphetamines Screen Negative (NEGATIVE) Urine Benzodiazepines Screen Negative (NEGATIVE) Urine Cocaine Screen Negative (NEGATIVE) Urine Marijuana (THC) Screen Negative (NEGATIVE) Current Medications Medications (Trade) Dose Ordered Sig/Elsa Route PRN Reason Start Time Stop Time Status Last Admin Dose Admin Acetaminophen (Tylenol) 650 mg Q4H PRN ORAL Fever 08/16/16 00:30 09/15/16 00:29 Albuterol/ Ipratropium (DuoNeb 0.5-3(2.5)mg/3ml) 3 ml EVERY 4 HOURS PRN HHN Shortness of Breath 08/16/16 00:30 08/21/16 00:29 Aspirin (Ecotrin) 81 mg DAILY ORAL 08/16/16 17:00 09/15/16 16:59 08/17/16 08:24 Carvedilol (Coreg) 3.125 mg EVERY 12 HOURS ORAL 08/18/16 09:00 09/17/16 08:59 Dextrose (Dextrose 50%) STAT PRN IV Hypoglycemia 08/16/16 00:30 09/15/16 00:29 Furosemide (Lasix) 40 mg DAILY IV 08/18/16 09:00 09/17/16 08:59 Heparin Sodium (Porcine) (Heparin 5000 units/ml) 5,000 units EVERY 12 HOURS SUBQ 08/16/16 09:00 09/15/16 08:59 08/17/16 22:37 Insulin Aspart BEFORE MEALS AND HS SUBQ 08/16/16 06:30 09/15/16 06:29 08/18/16 06:12 Levofloxacin (Levaquin) 100 ml @ 100 mls/hr Q24H IVPB 08/16/16 23:00 08/23/16 22:59 08/17/16 22:35 Lisinopril (Zestril) 10 mg DAILY ORAL 08/18/16 09:00 09/17/16 08:59 Morphine Sulfate (Morphine Sulfate) 4 mg Q4H PRN IVP For Pain 08/17/16 17:30 08/24/16 17:29 08/17/16 17:15 Ondansetron HCl (Zofran) 4 mg Q6H PRN IVP Nausea & Vomiting 08/16/16 00:30 09/15/16 00:29 08/18/16 06:13 Polyethylene Glycol (Miralax) 17 gm DAILYPRN PRN ORAL Constipation 08/16/16 00:30 09/15/16 00:29 Spironolactone (Aldactone) 25 mg DAILY ORAL 08/18/16 09:00 09/17/16 08:59 Temazepam (Restoril) 15 mg HSPRN PRN ORAL Insomnia 08/16/16 00:30 08/23/16 00:29 WESLEY WRIGHT Aug 18, 2016 08:22
[2016-08-18 08:32] LABS: BASOPHILS % (AUTO) 0.9 % (0.0-2.0); EOSINOPHILS % (AUTO) 0.3 % (0.0-3.0); LYMPHOCYTES % (AUTO) 38.4 % (20.0-45.0); MEAN CORPUSCULAR HEMOGLOBIN 33.5 PG (27.0-31.0); MEAN CORPUSCULAR HGB CONC 33.5 G/DL (32.0-36.0); MEAN CORPUSCULAR VOLUME 100 FL (80-99); MEAN PLATELET VOLUME 7.4 FL (6.5-10.1); MONOCYTES % (AUTO) 13.8 % (1.0-10.0); NEUTROPHILS % (AUTO) 46.6 % (45.0-75.0); PLATELET COUNT 178 K/UL (150-450); RED BLOOD COUNT 4.66 M/UL (4.70-6.10); RED CELL DISTRIBUTION WIDTH 12.6 % (11.6-14.8)
[2016-08-18 08:44] LABS: TROPONIN I < 0.30 ng/mL (<=0.30)
[2016-08-18] MEDS: Lisinopril 10mg tab ORAL SCH (08:46)
[2016-08-18] MEDS: Spironolactone 25mg tab ORAL SCH (08:46)
[2016-08-18] MEDS: Aspirin EC 81mg tab ORAL SCH (08:46)
[2016-08-18] MEDS: Heparin 5000 units/ml inj SUBQ SCH ×2 (08:47→20:30)
[2016-08-18 09:00] LABS: ANION GAP 15 (5-15); CALCIUM 9.2 mg/dL (8.6-10.2); CARBON DIOXIDE 27 mEQ/L (20-30); CHLORIDE 96 mEQ/L (98-107); CREATININE 1.2 mg/dL (0.7-1.2); HEMOLYSIS 8; SODIUM 138 mEQ/L (135-145)
--- NOTE | 2016-08-18 09:33 | Cardiology Report ---
APPROVED REPORT EKG Measurement Heart [id number] Sinus rhythm as well as atrial paced on demand with frequent premature ventricular complexes Voltage criteria for left ventricular hypertrophy Cannot rule out Septal infarct, age undetermined T wave abnormality, consider lateral ischemia Prolonged QT Abnormal ECG
[2016-08-18 12:47] VITALS: BP 119/56
--- NOTE | 2016-08-18 15:14 | Cardiac Electrophysiology PN ---
Assessment/Plan Assessment/Plan 1. Congestive heart failure with ejection fraction of 25% with BNP more than 5500.Now down to 3700. Continue Lasix 40 mg IV daily. Resume Coreg, as the patient toxicology screen was negative for cocaine.Continue lisinopril, and Aldactone and watch his potassium carefully, as his creatinine is 1.4. 2. Status post [employer] defibrillator implantation. 3. History of cocaine use.Urine Tox screen is negaive for Cocaine. 4. History of coronary artery bypass graft in 2012. 5. History of cerebrovascular accident in 2009. 6. CKD. Creatinine down to 1.[address] Mishra Subjective Subjective Alert in NAD. No chest pain or SOB. Objective Last 24 Hour Vital Signs Date Time Temp Pulse Resp B/P Pulse Ox O2 Delivery O2 Flow Rate FiO2 08/18/16 14:30 Nasal Cannula 2.0 28 08/18/16 14:30 62 18 Nasal Cannula 2.0 28 08/18/16 14:30 97 Nasal Cannula 2.0 28 08/18/16 12:47 97.0 64 20 119/56 97 Nasal Cannula 2.0 08/18/16 08:46 73 130/82 08/18/16 08:46 130/82 08/18/16 08:00 76 08/18/16 07:41 97.0 73 20 130/82 98 Nasal Cannula 2.0 08/18/16 04:00 97.7 70 18 111/77 96 Nasal Cannula 2.0 08/18/16 04:00 91 08/18/16 00:00 90 08/18/16 00:00 97.7 71 18 127/88 97 Nasal Cannula 2.0 08/17/16 20:06 Nasal Cannula 2.0 28 08/17/16 20:06 47 18 Nasal Cannula 2.0 28 08/17/16 20:06 97 Nasal Cannula 2.0 28 08/17/16 20:00 95.9 42 15 132/88 98 Nasal Cannula 2.0 08/17/16 20:00 88 08/17/16 16:00 74 08/17/16 16:00 97.0 63 15 110/73 99 Nasal Cannula 2.0 Intake and Output 08/17/16 08/18/16 19:00 07:00 Intake Total 560 ml 240 ml Output Total 180 ml 500 ml Balance 380 ml -260 ml Intake Oral 560 ml 240 ml Output Urine Total 180 ml 500 ml # Voids 3 4 Laboratory Tests Test 08/17/16 18:20 08/18/16 07:10 Urine Opiates Screen Positive (NEGATIVE) H Urine Barbiturates Screen Negative (NEGATIVE) Phencyclidine (PCP) Screen Negative (NEGATIVE) Urine Amphetamines Screen Negative (NEGATIVE) Urine Benzodiazepines Screen Negative (NEGATIVE) Urine Cocaine Screen Negative (NEGATIVE) Urine Marijuana (THC) Screen Negative (NEGATIVE) White Blood Count 9.0 K/UL (4.8-10.8) # Red Blood Count 4.66 M/UL (4.70-6.10) L Hemoglobin 15.6 G/DL (14.2-18.0) Hematocrit 46.6 % (42.0-52.0) Mean Corpuscular Volume 100 FL (80-99) H Mean Corpuscular Hemoglobin 33.5 PG (27.0-31.0) H Mean Corpuscular Hemoglobin Concent 33.5 G/DL (32.0-36.0) Red Cell Distribution Width 12.6 % (11.6-14.8) Platelet Count 178 K/UL (150-450) Mean Platelet Volume 7.4 FL (6.5-10.1) Neutrophils (%) (Auto) 46.6 % (45.0-75.0) Lymphocytes (%) (Auto) 38.4 % (20.0-45.0) Monocytes (%) (Auto) 13.8 % (1.0-10.0) H Eosinophils (%) (Auto) 0.3 % (0.0-3.0) Basophils (%) (Auto) 0.9 % (0.0-2.0) Sodium Level 138 mEQ/L (135-145) Potassium Level 4.0 mEQ/L (3.4-4.9) Chloride Level 96 mEQ/L (98-107) L Carbon Dioxide Level 27 mEQ/L (20-30) Anion Gap 15 (5-15) Blood Urea Nitrogen 22 mg/dL (7-23) Creatinine 1.2 mg/dL (0.7-1.2) Estimat Glomerular Filtration Rate mL/min (>60) Glucose Level 104 mg/dL (74-106) Calcium Level 9.2 mg/dL (8.6-10.2) Troponin I < 0.30 ng/mL (<=0.30) Pro-B-Type Natriuretic Peptide 3767 pg/mL (0-125) H Microbiology Date/Time Source Procedure Growth Status 08/15/16 21:00 Blood Blood Culture - Preliminary NO GROWTH AFTER 48 HOURS Resulted 08/15/16 20:45 Blood Blood Culture - Preliminary NO GROWTH AFTER 48 HOURS Resulted 08/17/16 06:49 Sputum Gram Stain - Final Resulted 08/17/16 06:49 Sputum Sputum Culture - Preliminary NORMAL ANEESH PRESENT Resulted 08/15/16 21:40 Urine,Clean Catch Urine Culture - Final Enterococcus Faecalis Complete Objective HEAD AND NECK: Mild JVD. LUNGS: Decreased breath sounds. CARDIOVASCULAR: Regular S1 and S2 with no gallop or murmur. ABDOMEN: Soft. EXTREMITIES: There is 1+ pitting edema. BRYAN BOYD Aug 18, 2016 15:14
[2016-08-18 16:00] VITALS: BP 100/58
--- NOTE | 2016-08-18 17:42 | Internal Med Progress Note ---
Subjective Date of Service: Aug 18, 2016 Physician Name Surinder Helms Attending Physician Barrett Olivarez MD Current Medications Medications (Trade) Dose Ordered Sig/Elsa Route PRN Reason Start Time Stop Time Status Last Admin Dose Admin Acetaminophen (Tylenol) 650 mg Q4H PRN ORAL Fever 08/16/16 00:30 09/15/16 00:29 Albuterol/ Ipratropium (DuoNeb 0.5-3(2.5)mg/3ml) 3 ml EVERY 4 HOURS PRN HHN Shortness of Breath 08/16/16 00:30 08/21/16 00:29 Aspirin (Ecotrin) 81 mg DAILY ORAL 08/16/16 17:00 09/15/16 16:59 08/18/16 08:46 Carvedilol (Coreg) 3.125 mg EVERY 12 HOURS ORAL 08/18/16 09:00 09/17/16 08:59 08/18/16 08:46 Dextrose (Dextrose 50%) STAT PRN IV Hypoglycemia 08/16/16 00:30 09/15/16 00:29 Furosemide (Lasix) 40 mg DAILY IV 08/18/16 09:00 09/17/16 08:59 08/18/16 08:45 Heparin Sodium (Porcine) (Heparin 5000 units/ml) 5,000 units EVERY 12 HOURS SUBQ 08/16/16 09:00 09/15/16 08:59 08/18/16 08:47 Insulin Aspart BEFORE MEALS AND HS SUBQ 08/16/16 06:30 09/15/16 06:29 08/18/16 06:12 Levofloxacin (Levaquin) 100 ml @ 100 mls/hr Q24H IVPB 08/16/16 23:00 08/23/16 22:59 08/17/16 22:35 Lisinopril (Zestril) 10 mg DAILY ORAL 08/18/16 09:00 09/17/16 08:59 08/18/16 08:46 Morphine Sulfate (Morphine Sulfate) 4 mg Q4H PRN IVP For Pain 08/17/16 17:30 08/24/16 17:29 08/17/16 17:15 Ondansetron HCl (Zofran) 4 mg Q6H PRN IVP Nausea & Vomiting 08/16/16 00:30 09/15/16 00:29 08/18/16 06:13 Polyethylene Glycol (Miralax) 17 gm DAILYPRN PRN ORAL Constipation 08/16/16 00:30 09/15/16 00:29 Spironolactone (Aldactone) 25 mg DAILY ORAL 08/18/16 09:00 09/17/16 08:59 08/18/16 08:46 Temazepam (Restoril) 15 mg HSPRN PRN ORAL Insomnia 08/16/16 00:30 08/23/16 00:29 Allergies: Coded Allergies: No Known Allergies (Unverified , 12/12/15) ROS Limited/Unobtainable: No Constitutional: Reports: no symptoms HEENT: Reports: no symptoms Cardiovascular: Reports: no symptoms Respiratory: Reports: shortness of breath Gastrointestinal/Abdominal: Reports: no symptoms Genitourinary: Reports: no symptoms Neurologic/Psychiatric: Reports: no symptoms Subjective 71 YO M admitted with shortness of breath and congestive heart failure. Cover for Int Pool-Dr Olivarez. Objective Last Vital Signs Date Time Temp Pulse Resp B/P Pulse Ox O2 Delivery O2 Flow Rate FiO2 08/18/16 16:00 97.8 60 21 100/58 97 Nasal Cannula 2.0 08/18/16 14:30 28 Laboratory Tests Test 08/17/16 18:20 08/18/16 07:10 Urine Opiates Screen Positive (NEGATIVE) H Urine Barbiturates Screen Negative (NEGATIVE) Phencyclidine (PCP) Screen Negative (NEGATIVE) Urine Amphetamines Screen Negative (NEGATIVE) Urine Benzodiazepines Screen Negative (NEGATIVE) Urine Cocaine Screen Negative (NEGATIVE) Urine Marijuana (THC) Screen Negative (NEGATIVE) White Blood Count 9.0 K/UL (4.8-10.8) # Red Blood Count 4.66 M/UL (4.70-6.10) L Hemoglobin 15.6 G/DL (14.2-18.0) Hematocrit 46.6 % (42.0-52.0) Mean Corpuscular Volume 100 FL (80-99) H Mean Corpuscular Hemoglobin 33.5 PG (27.0-31.0) H Mean Corpuscular Hemoglobin Concent 33.5 G/DL (32.0-36.0) Red Cell Distribution Width 12.6 % (11.6-14.8) Platelet Count 178 K/UL (150-450) Mean Platelet Volume 7.4 FL (6.5-10.1) Neutrophils (%) (Auto) 46.6 % (45.0-75.0) Lymphocytes (%) (Auto) 38.4 % (20.0-45.0) Monocytes (%) (Auto) 13.8 % (1.0-10.0) H Eosinophils (%) (Auto) 0.3 % (0.0-3.0) Basophils (%) (Auto) 0.9 % (0.0-2.0) Sodium Level 138 mEQ/L (135-145) Potassium Level 4.0 mEQ/L (3.4-4.9) Chloride Level 96 mEQ/L (98-107) L Carbon Dioxide Level 27 mEQ/L (20-30) Anion Gap 15 (5-15) Blood Urea Nitrogen 22 mg/dL (7-23) Creatinine 1.2 mg/dL (0.7-1.2) Estimat Glomerular Filtration Rate mL/min (>60) Glucose Level 104 mg/dL (74-106) Calcium Level 9.2 mg/dL (8.6-10.2) Troponin I < 0.30 ng/mL (<=0.30) Pro-B-Type Natriuretic Peptide 3767 pg/mL (0-125) H Microbiology Date/Time Source Procedure Growth Status 08/15/16 21:00 Blood Blood Culture - Preliminary NO GROWTH AFTER 48 HOURS Resulted 08/15/16 20:45 Blood Blood Culture - Preliminary NO GROWTH AFTER 48 HOURS Resulted 08/17/16 06:49 Sputum Gram Stain - Final Resulted 08/17/16 06:49 Sputum Sputum Culture - Preliminary NORMAL ANEESH PRESENT Resulted 08/15/16 21:40 Urine,Clean Catch Urine Culture - Final Enterococcus Faecalis Complete Intake and Output 08/17/16 08/18/16 19:00 07:00 Intake Total 560 ml 240 ml Output Total 180 ml 500 ml Balance 380 ml -260 ml Intake Oral 560 ml 240 ml Output Urine Total 180 ml 500 ml # Voids 3 4 Objective General Appearance: WD/WN, alert, mild distress, thin EENT: PERRL/EOMI, normal ENT inspection Neck: non-tender, normal alignment, supple Cardiovascular: normal peripheral pulses, normal rate, regular rhythm, no gallop/murmur, no JVD Respiratory/Chest: no accessory muscle use, respiratory distress, crackles/ rales, rhonchi - bilaterally, expiratory wheezing Abdomen: normal bowel sounds, non tender, soft, no organomegaly, no mass Extremities: normal range of motion 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 See cardiology consult. (3) Shortness of breath (4) HTN (hypertension) Assessment & Plan: Cont coreg (5) COPD (chronic obstructive pulmonary disease) Assessment & Plan: Cont duoneb and levaquin (6) Cardiomyopathy (7) CAD (coronary artery disease) (8) Nephrolithiasis (9) Cerebral vascular disease (10) UTI (urinary tract infection) due to Enterococcus Assessment & Plan: Resistant to levaquin. Start macrobid Status: not improved SURINDER HELMS Aug 18, 2016 17:42
[2016-08-18 20:00] VITALS: BP 110/65
--- NOTE | 2016-08-18 22:34 | Pulmonology Progress Note ---
Assessment/Plan Problems: (1) CHF exacerbation (2) Cardiomyopathy (3) COPD exacerbation (4) S/P CABG (coronary artery bypass graft) (5) AICD (automatic cardioverter/defibrillator) present (6) Cerebral vascular disease (7) Hemiplegia affecting right dominant side Assessment/Plan on Levofloxacin daily lasix IV dailly check sputum chest pt check echo cardioloty to follow optimize cardiac meds Subjective ROS Limited/Unobtainable: No Allergies: Coded Allergies: No Known Allergies (Unverified , 12/12/15) Objective Last 24 Hour Vital Signs Date Time Temp Pulse Resp B/P Pulse Ox O2 Delivery O2 Flow Rate FiO2 08/18/16 20:32 60 95/70 08/18/16 20:04 Nasal Cannula 2.0 28 08/18/16 20:03 97 Nasal Cannula 2.0 28 08/18/16 20:03 59 18 Nasal Cannula 2.0 28 08/18/16 20:00 97.5 60 20 110/65 98 Nasal Cannula 2.0 08/18/16 16:00 97.8 60 21 100/58 97 Nasal Cannula 2.0 08/18/16 16:00 72 08/18/16 14:30 Nasal Cannula 2.0 28 08/18/16 14:30 62 18 Nasal Cannula 2.0 28 08/18/16 14:30 97 Nasal Cannula 2.0 28 08/18/16 12:47 97.0 64 20 119/56 97 Nasal Cannula 2.0 08/18/16 08:46 73 130/82 08/18/16 08:46 130/82 08/18/16 08:00 76 08/18/16 07:41 97.0 73 20 130/82 98 Nasal Cannula 2.0 08/18/16 04:00 97.7 70 18 111/77 96 Nasal Cannula 2.0 08/18/16 04:00 91 08/18/16 00:00 90 08/18/16 00:00 97.7 71 18 127/88 97 Nasal Cannula 2.0 Intake and Output 08/17/16 08/18/16 19:00 07:00 Intake Total 560 ml 240 ml Output Total 180 ml 500 ml Balance 380 ml -260 ml Intake Oral 560 ml 240 ml Output Urine Total 180 ml 500 ml # Voids 3 4 General Appearance: WD/WN HEENT: normocephalic, atraumatic Respiratory/Chest: chest wall non-tender, crackles/rales Cardiovascular: normal peripheral pulses Abdomen: normal bowel sounds, soft, non tender Extremities: no cyanosis 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, no motor/sensory deficits Microbiology Date/Time Source Procedure Growth Status 08/17/16 06:49 Sputum Gram Stain - Final Resulted 08/17/16 06:49 Sputum Sputum Culture - Preliminary NORMAL ANEESH PRESENT Resulted Laboratory Tests 08/18/16 07:10: White Blood Count 9.0#, Red Blood Count 4.66L, Hemoglobin 15.6, Hematocrit 46.6 , Mean Corpuscular Volume 100H, Mean Corpuscular Hemoglobin 33.5H, Mean Corpuscular Hemoglobin Concent 33.5, Red Cell Distribution Width 12.6, Platelet Count 178, Mean Platelet Volume 7.4, Neutrophils (%) (Auto) 46.6, Lymphocytes (% ) (Auto) 38.4, Monocytes (%) (Auto) 13.8H, Eosinophils (%) (Auto) 0.3, Basophils (%) (Auto) 0.9, Sodium Level 138, Potassium Level 4.0, Chloride Level 96L, Carbon Dioxide Level 27, Anion Gap 15, Blood Urea Nitrogen 22, Creatinine 1.2, Estimat Glomerular Filtration Rate , Glucose Level 104, Calcium Level 9.2, Troponin I < 0.30, Pro-B-Type Natriuretic Peptide 3767H Current Medications Medications (Trade) Dose Ordered Sig/Elsa Route PRN Reason Start Time Stop Time Status Last Admin Dose Admin Acetaminophen (Tylenol) 650 mg Q4H PRN ORAL Fever 08/16/16 00:30 09/15/16 00:29 Albuterol/ Ipratropium (DuoNeb 0.5-3(2.5)mg/3ml) 3 ml EVERY 4 HOURS PRN HHN Shortness of Breath 08/16/16 00:30 08/21/16 00:29 Aspirin (Ecotrin) 81 mg DAILY ORAL 08/16/16 17:00 09/15/16 16:59 08/18/16 08:46 Carvedilol (Coreg) 3.125 mg EVERY 12 HOURS ORAL 08/18/16 09:00 09/17/16 08:59 08/18/16 08:46 Dextrose (Dextrose 50%) STAT PRN IV Hypoglycemia 08/16/16 00:30 2/21/17 00:29 Furosemide (Lasix) 40 mg DAILY IV 08/18/16 09:00 09/17/16 08:59 08/18/16 08:45 Heparin Sodium (Porcine) (Heparin 5000 units/ml) 5,000 units EVERY 12 HOURS SUBQ 08/16/16 09:00 09/15/16 08:59 08/18/16 20:30 Insulin Aspart BEFORE MEALS AND HS SUBQ 08/16/16 06:30 09/15/16 06:29 08/18/16 06:12 Levofloxacin (Levaquin) 100 ml @ 100 mls/hr Q24H IVPB 08/16/16 23:00 08/23/16 22:59 08/17/16 22:35 Lisinopril (Zestril) 10 mg DAILY ORAL 08/18/16 09:00 09/17/16 08:59 08/18/16 08:46 Morphine Sulfate (Morphine Sulfate) 4 mg Q4H PRN IVP For Pain 08/17/16 17:30 08/24/16 17:29 08/17/16 17:15 Nitrofurantoin (Macrobid) 100 mg Q12HR@0700,1900 ORAL 08/18/16 19:00 09/17/16 18:59 08/18/16 20:24 Ondansetron HCl (Zofran) 4 mg Q6H PRN IVP Nausea & Vomiting 08/16/16 00:30 09/15/16 00:29 08/18/16 06:13 Polyethylene Glycol (Miralax) 17 gm DAILYPRN PRN ORAL Constipation 08/16/16 00:30 09/15/16 00:29 Spironolactone (Aldactone) 25 mg DAILY ORAL 08/18/16 09:00 09/17/16 08:59 08/18/16 08:46 Temazepam (Restoril) 15 mg HSPRN PRN ORAL Insomnia 08/16/16 00:30 08/23/16 00:29 MURRAY NELSON Aug 18, 2016 22:34
[2016-08-19 00:26] VITALS: BP 100/73
[2016-08-19 04:30] VITALS: BP 99/65
[2016-08-19] MEDS: NovoLOG Insulin Flexpen SUBQ SCH ×4 (05:58→21:00)
[2016-08-19 07:37] LABS: LYMPHOCYTES % (AUTO) 49.9 % (20.0-45.0); MEAN CORPUSCULAR HEMOGLOBIN 33.5 PG (27.0-31.0); MEAN CORPUSCULAR HGB CONC 33.2 G/DL (32.0-36.0); MEAN CORPUSCULAR VOLUME 101 FL (80-99); MONOCYTES % (AUTO) 17.1 % (1.0-10.0); PLATELET COUNT 191 K/UL (150-450); RED BLOOD COUNT 4.23 M/UL (4.70-6.10); RED CELL DISTRIBUTION WIDTH 13.9 % (11.6-14.8); WHITE BLOOD COUNT 7.2 K/UL (4.8-10.8)
[2016-08-19 07:49] LABS: ANION GAP 13 (5-15); CALCIUM 8.7 mg/dL (8.6-10.2); CARBON DIOXIDE 31 mEQ/L (20-30); CHLORIDE 97 mEQ/L (98-107); CREATININE 1.6 mg/dL (0.7-1.2); HEMOLYSIS 4; POTASSIUM 3.5 mEQ/L (3.4-4.9); SODIUM 141 mEQ/L (135-145)
[2016-08-19 08:29] VITALS: BP 136/84
[2016-08-19] MEDS: Lisinopril 10mg tab ORAL SCH (08:58)
[2016-08-19] MEDS: Spironolactone 25mg tab ORAL SCH (08:58)
[2016-08-19] MEDS: Aspirin EC 81mg tab ORAL SCH (08:58)
[2016-08-19] MEDS: Heparin 5000 units/ml inj SUBQ SCH ×2 (08:59→21:49)
--- NOTE | 2016-08-19 11:46 | Internal Med Progress Note ---
Subjective Date of Service: Aug 19, 2016 Physician Name Surinder Helms Attending Physician Barrett Olivarez MD Current Medications Medications (Trade) Dose Ordered Sig/Elsa Route PRN Reason Start Time Stop Time Status Last Admin Dose Admin Acetaminophen (Tylenol) 650 mg Q4H PRN ORAL Fever 08/16/16 00:30 09/15/16 00:29 Albuterol/ Ipratropium (DuoNeb 0.5-3(2.5)mg/3ml) 3 ml EVERY 4 HOURS PRN HHN Shortness of Breath 08/16/16 00:30 08/21/16 00:29 Aspirin (Ecotrin) 81 mg DAILY ORAL 08/16/16 17:00 09/15/16 16:59 08/19/16 08:58 Carvedilol (Coreg) 3.125 mg EVERY 12 HOURS ORAL 08/18/16 09:00 09/17/16 08:59 08/19/16 08:58 Dextrose (Dextrose 50%) STAT PRN IV Hypoglycemia 08/16/16 00:30 09/15/16 00:29 Furosemide (Lasix) 40 mg DAILY IV 08/18/16 09:00 09/17/16 08:59 08/19/16 08:58 Heparin Sodium (Porcine) (Heparin 5000 units/ml) 5,000 units EVERY 12 HOURS SUBQ 08/16/16 09:00 09/15/16 08:59 08/19/16 08:59 Insulin Aspart (NovoLOG) BEFORE MEALS AND HS SUBQ 08/16/16 06:30 09/15/16 06:29 08/18/16 06:12 Levofloxacin (Levaquin) 50 ml @ 50 mls/hr Q24H IVPB 08/19/16 23:00 08/20/16 23:59 Lisinopril (Zestril) 10 mg DAILY ORAL 08/18/16 09:00 09/17/16 08:59 08/19/16 08:58 Morphine Sulfate (Morphine Sulfate) 4 mg Q4H PRN IVP For Pain 08/17/16 17:30 08/24/16 17:29 08/17/16 17:15 Nitrofurantoin 100 mg 100 mg Q12HR@0700,1900 ORAL 08/18/16 19:00 09/17/16 18:59 08/19/16 06:00 Ondansetron HCl (Zofran) 4 mg Q6H PRN IVP Nausea & Vomiting 08/16/16 00:30 09/15/16 00:29 08/18/16 06:13 Polyethylene Glycol (Miralax) 17 gm DAILYPRN PRN ORAL Constipation 08/16/16 00:30 09/15/16 00:29 Spironolactone (Aldactone) 25 mg DAILY ORAL 08/18/16 09:00 09/17/16 08:59 08/19/16 08:58 Temazepam (Restoril) 15 mg HSPRN PRN ORAL Insomnia 08/16/16 00:30 08/23/16 00:29 Allergies: Coded Allergies: No Known Allergies (Unverified , 12/12/15) ROS Limited/Unobtainable: No Constitutional: Reports: no symptoms HEENT: Reports: no symptoms Cardiovascular: Reports: no symptoms Respiratory: Reports: shortness of breath Gastrointestinal/Abdominal: Reports: no symptoms Genitourinary: Reports: no symptoms Neurologic/Psychiatric: Reports: no symptoms Subjective 71 YO M admitted with shortness of breath and congestive heart failure. Cover for Int Med-Dr Olivarez. Await residential facility placement Objective Last Vital Signs Date Time Temp Pulse Resp B/P Pulse Ox O2 Delivery O2 Flow Rate FiO2 08/19/16 08:58 71 136/84 08/19/16 08:29 97.0 20 99 Nasal Cannula 2.0 08/19/16 07:51 28 Laboratory Tests Test 08/19/16 05:30 White Blood Count 7.2 K/UL (4.8-10.8) Red Blood Count 4.23 M/UL (4.70-6.10) L Hemoglobin 14.1 G/DL (14.2-18.0) L Hematocrit 42.6 % (42.0-52.0) Mean Corpuscular Volume 101 FL (80-99) H Mean Corpuscular Hemoglobin 33.5 PG (27.0-31.0) H Mean Corpuscular Hemoglobin Concent 33.2 G/DL (32.0-36.0) Red Cell Distribution Width 13.9 % (11.6-14.8) Platelet Count 191 K/UL (150-450) Mean Platelet Volume 8.0 FL (6.5-10.1) Neutrophils (%) (Auto) 31.0 % (45.0-75.0) L Lymphocytes (%) (Auto) 49.9 % (20.0-45.0) H Monocytes (%) (Auto) 17.1 % (1.0-10.0) H Eosinophils (%) (Auto) 1.0 % (0.0-3.0) Basophils (%) (Auto) 1.0 % (0.0-2.0) Sodium Level 141 mEQ/L (135-145) Potassium Level 3.5 mEQ/L (3.4-4.9) Chloride Level 97 mEQ/L (98-107) L Carbon Dioxide Level 31 mEQ/L (20-30) H Anion Gap 13 (5-15) Blood Urea Nitrogen 30 mg/dL (7-23) H Creatinine 1.6 mg/dL (0.7-1.2) H Estimat Glomerular Filtration Rate mL/min (>60) Glucose Level 73 mg/dL (74-106) L Calcium Level 8.7 mg/dL (8.6-10.2) Microbiology Date/Time Source Procedure Growth Status 08/17/16 06:49 Sputum Gram Stain - Final Complete 08/17/16 06:49 Sputum Sputum Culture - Final NORMAL UPPER RESPIRATORY ANEESH PRESENT Complete Intake and Output 08/18/16 08/19/16 19:00 07:00 Intake Total 480 ml 360 ml Output Total 700 ml 1050 ml Balance -220 ml -690 ml Intake Oral 480 ml 260 ml IV Total 100 ml Output Urine Total 700 ml 1050 ml # Voids 2 Objective General Appearance: WD/WN, alert, mild distress, thin EENT: PERRL/EOMI, normal ENT inspection Neck: non-tender, normal alignment, supple Cardiovascular: normal peripheral pulses, normal rate, regular rhythm, no gallop/murmur, no JVD Respiratory/Chest: no accessory muscle use, respiratory distress, crackles/ rales, rhonchi - bilaterally, expiratory wheezing Abdomen: normal bowel sounds, non tender, soft, no organomegaly, no mass Extremities: normal range of motion 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 See cardiology consult. (3) Shortness of breath (4) HTN (hypertension) Assessment & Plan: Cont coreg (5) COPD (chronic obstructive pulmonary disease) Assessment & Plan: Cont duoneb and levaquin (6) Cardiomyopathy (7) CAD (coronary artery disease) (8) Nephrolithiasis (9) Cerebral vascular disease (10) UTI (urinary tract infection) due to Enterococcus Assessment & Plan: Resistant to levaquin. Start macrobid. ?need for macrobid and levaquin?-see ID note. Status: stable Assessment/Plan Discharge planning: SNF when bed available. SURINDER HELMS Aug 19, 2016 11:46
[2016-08-19 11:50] VITALS: BP 123/76
--- NOTE | 2016-08-19 13:47 | Cardiology Report ---
APPROVED REPORT EXAM: Two-dimensional and M-mode echocardiogram with Doppler and color Doppler. INDICATION Left ventricular function M-Mode DIMENSIONS IVSd0.7 (0.7-1.1cm)Left Atrium (MM)4.9 (1.6-4.0cm) LVDd6.9 (3.5-5.6cm)Aortic Root3.2 (2.0-3.7cm) PWd0.8 (0.7-1.1cm)Aortic Cusp Exc.1.6 (1.5-2.0cm) LVDs5.7 (2.5-4.0cm) PWs1.3 cm Mild left ventricular enlargement. Global left ventricular wall akinesia except the mid inferolateral wall which is hypokinetic. Left ventricular ejection fraction is estimated to be 20-25%. No evidence of left ventricular hypertrophy. No evidence of pericardial fat or effusion. Severe left atrial enlargement by 2D. Mild right atrial and right ventricular enlargement by 2D. Mild focal aortic valve sclerosis with adequate cusp excursion Thickened mitral valve leaflets with normal excursion. Mitral annulus and aortic root calcification. Pulmonic valve is well visualized. Normal tricuspid valve structure. IVC dilated at 2.5cm with minimal physiologic collapse. RA pressure of 10mmHg. Probable pacemaker wire present in the right side chambers. A color flow and spectral Doppler study was performed and revealed: No aortic regurgitation. Moderate mitral regurgitation. Left ventricular diastolic dysfunction grade III. Moderate tricuspid regurgitation. Tricuspid systolic velocities suggests peak right ventricular systolic pressure of 48 mmHg Consistent with moderate pulmonary hypertension.
--- NOTE | 2016-08-19 15:18 | Pulmonology Progress Note ---
Assessment/Plan Problems: (1) CHF exacerbation (2) Cardiomyopathy (3) COPD exacerbation (4) S/P CABG (coronary artery bypass graft) (5) AICD (automatic cardioverter/defibrillator) present (6) Cerebral vascular disease (7) Hemiplegia affecting right dominant side Assessment/Plan on Levofloxacin daily dc lasix IV bun rising resume lasix in one or two days check sputum chest pt check echo cardioloty to follow optimize cardiac meds Subjective ROS Limited/Unobtainable: No Constitutional: Reports: no symptoms HEENT: Repors: no symptoms Respiratory: Reports: no symptoms Cardiovascular: Reports: no symptoms Allergies: Coded Allergies: No Known Allergies (Unverified , 12/12/15) Objective Last 24 Hour Vital Signs Date Time Temp Pulse Resp B/P Pulse Ox O2 Delivery O2 Flow Rate FiO2 08/19/16 12:00 68 08/19/16 11:50 97.5 66 20 123/76 100 Nasal Cannula 2.0 08/19/16 08:58 71 136/84 08/19/16 08:58 136/84 08/19/16 08:29 97.0 71 20 136/84 99 Nasal Cannula 2.0 08/19/16 08:00 69 08/19/16 07:51 Nasal Cannula 2.0 28 08/19/16 07:50 68 18 Nasal Cannula 2.0 28 08/19/16 07:50 97 Nasal Cannula 2.0 28 08/19/16 04:30 97.1 60 20 99/65 97 Room Air 08/19/16 04:00 65 08/19/16 00:26 97.3 72 20 100/73 98 Room Air 08/18/16 23:51 80 08/18/16 20:32 60 95/70 08/18/16 20:04 Nasal Cannula 2.0 28 08/18/16 20:03 97 Nasal Cannula 2.0 28 08/18/16 20:03 59 18 Nasal Cannula 2.0 28 08/18/16 20:00 97.5 60 20 110/65 98 Nasal Cannula 2.0 08/18/16 20:00 62 08/18/16 16:00 97.8 60 21 100/58 97 Nasal Cannula 2.0 08/18/16 16:00 72 Intake and Output 08/18/16 08/19/16 19:00 07:00 Intake Total 480 ml 360 ml Output Total 700 ml 1050 ml Balance -220 ml -690 ml Intake Oral 480 ml 260 ml IV Total 100 ml Output Urine Total 700 ml 1050 ml # Voids 2 General Appearance: WD/WN HEENT: normocephalic Respiratory/Chest: chest wall non-tender Cardiovascular: normal peripheral pulses, normal rate Abdomen: normal bowel sounds, soft, non tender 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 Microbiology Date/Time Source Procedure Growth Status 08/17/16 06:49 Sputum Gram Stain - Final Complete 08/17/16 06:49 Sputum Sputum Culture - Final NORMAL UPPER RESPIRATORY AENESH PRESENT Complete Laboratory Tests 08/19/16 05:30: White Blood Count 7.2, Red Blood Count 4.23L, Hemoglobin 14.1L, Hematocrit 42.6 , Mean Corpuscular Volume 101H, Mean Corpuscular Hemoglobin 33.5H, Mean Corpuscular Hemoglobin Concent 33.2, Red Cell Distribution Width 13.9, Platelet Count 191, Mean Platelet Volume 8.0, Neutrophils (%) (Auto) 31.0L, Lymphocytes ( %) (Auto) 49.9H, Monocytes (%) (Auto) 17.1H, Eosinophils (%) (Auto) 1.0, Basophils (%) (Auto) 1.0, Sodium Level 141, Potassium Level 3.5, Chloride Level 97L, Carbon Dioxide Level 31H, Anion Gap 13, Blood Urea Nitrogen 30H, Creatinine 1.6H, Estimat Glomerular Filtration Rate , Glucose Level 73L, Calcium Level 8.7 Current Medications Medications (Trade) Dose Ordered Sig/Elsa Route PRN Reason Start Time Stop Time Status Last Admin Dose Admin Acetaminophen (Tylenol) 650 mg Q4H PRN ORAL Fever 08/16/16 00:30 09/15/16 00:29 Albuterol/ Ipratropium (DuoNeb 0.5-3(2.5)mg/3ml) 3 ml EVERY 4 HOURS PRN HHN Shortness of Breath 08/16/16 00:30 08/21/16 00:29 Aspirin (Ecotrin) 81 mg DAILY ORAL 08/16/16 17:00 09/15/16 16:59 08/19/16 08:58 Carvedilol (Coreg) 3.125 mg EVERY 12 HOURS ORAL 08/18/16 09:00 09/17/16 08:59 08/19/16 08:58 Dextrose (Dextrose 50%) STAT PRN IV Hypoglycemia 08/16/16 00:30 09/15/16 00:29 Furosemide (Lasix) 40 mg DAILY IV 08/18/16 09:00 09/17/16 08:59 08/19/16 08:58 Heparin Sodium (Porcine) (Heparin 5000 units/ml) 5,000 units EVERY 12 HOURS SUBQ 08/16/16 09:00 09/15/16 08:59 08/19/16 08:59 Insulin Aspart (NovoLOG) BEFORE MEALS AND HS SUBQ 08/16/16 06:30 09/15/16 06:29 08/18/16 06:12 Levofloxacin (Levaquin) 50 ml @ 50 mls/hr Q24H IVPB 08/19/16 23:00 08/20/16 23:59 Lisinopril (Zestril) 10 mg DAILY ORAL 08/18/16 09:00 09/17/16 08:59 08/19/16 08:58 Morphine Sulfate (Morphine Sulfate) 4 mg Q4H PRN IVP For Pain 08/17/16 17:30 08/24/16 17:29 08/17/16 17:15 Nitrofurantoin 100 mg 100 mg Q12HR@0700,1900 ORAL 08/18/16 19:00 09/17/16 18:59 08/19/16 06:00 Ondansetron HCl (Zofran) 4 mg Q6H PRN IVP Nausea & Vomiting 08/16/16 00:30 09/15/16 00:29 08/18/16 06:13 Polyethylene Glycol (Miralax) 17 gm DAILYPRN PRN ORAL Constipation 08/16/16 00:30 09/15/16 00:29 Spironolactone (Aldactone) 25 mg DAILY ORAL 08/18/16 09:00 09/17/16 08:59 08/19/16 08:58 Temazepam (Restoril) 15 mg HSPRN PRN ORAL Insomnia 08/16/16 00:30 08/23/16 00:29 MURRAY NELSON Aug 19, 2016 15:18
[2016-08-19 16:00] VITALS: BP 106/76
--- NOTE | 2016-08-19 16:57 | Cardiac Electrophysiology PN ---
Assessment/Plan Assessment/Plan 1. Congestive heart failure with ejection fraction of 25% with BNP more than 5500.Now down to 3700. Continue Lasix 40 mg IV daily, Coreg,lisinopril and Aldactone 2. Status post [facility] [facility] defibrillator implantation. 3. History of cocaine use.Urine Tox screen is negative for Cocaine. 4. History of coronary artery bypass graft in 2012. 5. History of cerebrovascular accident in 2009. 6. CKD. Creatinine down to 1.2 DW RN Subjective Subjective Alert in NAD. No chest pain or SOB. Short runs of NSVT. No ICD shock Objective Last 24 Hour Vital Signs Date Time Temp Pulse Resp B/P Pulse Ox O2 Delivery O2 Flow Rate FiO2 08/19/16 16:00 97.6 64 20 106/76 97 Nasal Cannula 2.0 08/19/16 12:00 68 08/19/16 11:50 97.5 66 20 123/76 100 Nasal Cannula 2.0 08/19/16 08:58 71 136/84 08/19/16 08:58 136/84 08/19/16 08:29 97.0 71 20 136/84 99 Nasal Cannula 2.0 08/19/16 08:00 69 08/19/16 07:51 Nasal Cannula 2.0 28 08/19/16 07:50 68 18 Nasal Cannula 2.0 28 08/19/16 07:50 97 Nasal Cannula 2.0 28 08/19/16 04:30 97.1 60 20 99/65 97 Room Air 08/19/16 04:00 65 08/19/16 00:26 97.3 72 20 100/73 98 Room Air 08/18/16 23:51 80 08/18/16 20:32 60 95/70 08/18/16 20:04 Nasal Cannula 2.0 28 08/18/16 20:03 97 Nasal Cannula 2.0 28 08/18/16 20:03 59 18 Nasal Cannula 2.0 28 08/18/16 20:00 97.5 60 20 110/65 98 Nasal Cannula 2.0 08/18/16 20:00 62 Intake and Output 08/18/16 08/19/16 19:00 07:00 Intake Total 480 ml 360 ml Output Total 700 ml 1050 ml Balance -220 ml -690 ml Intake Oral 480 ml 260 ml IV Total 100 ml Output Urine Total 700 ml 1050 ml # Voids 2 Laboratory Tests Test 08/19/16 05:30 White Blood Count 7.2 K/UL (4.8-10.8) Red Blood Count 4.23 M/UL (4.70-6.10) L Hemoglobin 14.1 G/DL (14.2-18.0) L Hematocrit 42.6 % (42.0-52.0) Mean Corpuscular Volume 101 FL (80-99) H Mean Corpuscular Hemoglobin 33.5 PG (27.0-31.0) H Mean Corpuscular Hemoglobin Concent 33.2 G/DL (32.0-36.0) Red Cell Distribution Width 13.9 % (11.6-14.8) Platelet Count 191 K/UL (150-450) Mean Platelet Volume 8.0 FL (6.5-10.1) Neutrophils (%) (Auto) 31.0 % (45.0-75.0) L Lymphocytes (%) (Auto) 49.9 % (20.0-45.0) H Monocytes (%) (Auto) 17.1 % (1.0-10.0) H Eosinophils (%) (Auto) 1.0 % (0.0-3.0) Basophils (%) (Auto) 1.0 % (0.0-2.0) Sodium Level 141 mEQ/L (135-145) Potassium Level 3.5 mEQ/L (3.4-4.9) Chloride Level 97 mEQ/L (98-107) L Carbon Dioxide Level 31 mEQ/L (20-30) H Anion Gap 13 (5-15) Blood Urea Nitrogen 30 mg/dL (7-23) H Creatinine 1.6 mg/dL (0.7-1.2) H Estimat Glomerular Filtration Rate mL/min (>60) Glucose Level 73 mg/dL (74-106) L Calcium Level 8.7 mg/dL (8.6-10.2) Microbiology Date/Time Source Procedure Growth Status 08/17/16 06:49 Sputum Gram Stain - Final Complete 08/17/16 06:49 Sputum Sputum Culture - Final NORMAL UPPER RESPIRATORY ANEESH PRESENT Complete Objective HEAD AND NECK: Mild JVD. LUNGS: Decreased breath sounds. CARDIOVASCULAR: Regular S1 and S2 with no gallop or murmur. ABDOMEN: Soft. EXTREMITIES: There is 1+ pitting edema. BRYAN BOYD Aug 19, 2016 16:57
--- NOTE | 2016-08-19 19:16 | Infectious Diseases Prog Note ---
Assessment/Plan Assessment/Plan ASSESSMENT: 71 y/o male with: // COPD exacerbation r/o influenza - SCx NRF - CXR 08/17: No definite infiltrate or pulmonary vascular congestion identified. 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 // CKD3 // NKDA // Full Code PLAN: - continue levaquin d# 4 / 5 , DC Nitrofurantoin - f/u cultures, influenza - monitor CBC, temperatures - monitor BMP - monitor CXR Subjective Constitutional: Denies: anorexia, chills, drenching sweats, fatigue, fever, no symptoms, other Allergies: Coded Allergies: No Known Allergies (Unverified , 12/12/15) Objective Vital Signs Last 24 Hour Vital Signs Date Time Temp Pulse Resp B/P Pulse Ox O2 Delivery O2 Flow Rate FiO2 08/19/16 16:00 97.6 64 20 106/76 97 Nasal Cannula 2.0 08/19/16 12:00 68 08/19/16 11:50 97.5 66 20 123/76 100 Nasal Cannula 2.0 08/19/16 08:58 71 136/84 08/19/16 08:58 136/84 08/19/16 08:29 97.0 71 20 136/84 99 Nasal Cannula 2.0 08/19/16 08:00 69 08/19/16 07:51 Nasal Cannula 2.0 28 08/19/16 07:50 68 18 Nasal Cannula 2.0 28 08/19/16 07:50 97 Nasal Cannula 2.0 28 08/19/16 04:30 97.1 60 20 99/65 97 Room Air 08/19/16 04:00 65 08/19/16 00:26 97.3 72 20 100/73 98 Room Air 08/18/16 23:51 80 08/18/16 20:32 60 95/70 08/18/16 20:04 Nasal Cannula 2.0 28 08/18/16 20:03 97 Nasal Cannula 2.0 28 08/18/16 20:03 59 18 Nasal Cannula 2.0 28 08/18/16 20:00 97.5 60 20 110/65 98 Nasal Cannula 2.0 08/18/16 20:00 62 Height (Feet): 5 Height (Inches): 9.00 Weight (Pounds): 148 HEENT: anicteric Respiratory/Chest: lungs clear Breasts: no masses Abdomen: soft, non tender Microbiology Date/Time Source Procedure Growth Status 08/17/16 06:49 Sputum Gram Stain - Final Complete 08/17/16 06:49 Sputum Sputum Culture - Final NORMAL UPPER RESPIRATORY ANEESH PRESENT Complete Laboratory Tests Test 08/19/16 05:30 White Blood Count 7.2 K/UL (4.8-10.8) Red Blood Count 4.23 M/UL (4.70-6.10) L Hemoglobin 14.1 G/DL (14.2-18.0) L Hematocrit 42.6 % (42.0-52.0) Mean Corpuscular Volume 101 FL (80-99) H Mean Corpuscular Hemoglobin 33.5 PG (27.0-31.0) H Mean Corpuscular Hemoglobin Concent 33.2 G/DL (32.0-36.0) Red Cell Distribution Width 13.9 % (11.6-14.8) Platelet Count 191 K/UL (150-450) Mean Platelet Volume 8.0 FL (6.5-10.1) Neutrophils (%) (Auto) 31.0 % (45.0-75.0) L Lymphocytes (%) (Auto) 49.9 % (20.0-45.0) H Monocytes (%) (Auto) 17.1 % (1.0-10.0) H Eosinophils (%) (Auto) 1.0 % (0.0-3.0) Basophils (%) (Auto) 1.0 % (0.0-2.0) Sodium Level 141 mEQ/L (135-145) Potassium Level 3.5 mEQ/L (3.4-4.9) Chloride Level 97 mEQ/L (98-107) L Carbon Dioxide Level 31 mEQ/L (20-30) H Anion Gap 13 (5-15) Blood Urea Nitrogen 30 mg/dL (7-23) H Creatinine 1.6 mg/dL (0.7-1.2) H Estimat Glomerular Filtration Rate mL/min (>60) Glucose Level 73 mg/dL (74-106) L Calcium Level 8.7 mg/dL (8.6-10.2) Current Medications Medications (Trade) Dose Ordered Sig/Elsa Route PRN Reason Start Time Stop Time Status Last Admin Dose Admin Acetaminophen (Tylenol) 650 mg Q4H PRN ORAL Fever 08/16/16 00:30 09/15/16 00:29 Albuterol/ Ipratropium (DuoNeb 0.5-3(2.5)mg/3ml) 3 ml EVERY 4 HOURS PRN HHN Shortness of Breath 08/16/16 00:30 08/21/16 00:29 Aspirin (Ecotrin) 81 mg DAILY ORAL 08/16/16 17:00 09/15/16 16:59 08/19/16 08:58 Carvedilol (Coreg) 3.125 mg EVERY 12 HOURS ORAL 08/18/16 09:00 09/17/16 08:59 08/19/16 08:58 Dextrose (Dextrose 50%) STAT PRN IV Hypoglycemia 08/16/16 00:30 09/15/16 00:29 Heparin Sodium (Porcine) (Heparin 5000 units/ml) 5,000 units EVERY 12 HOURS SUBQ 08/16/16 09:00 09/15/16 08:59 08/19/16 08:59 Insulin Aspart (NovoLOG) BEFORE MEALS AND HS SUBQ 08/16/16 06:30 09/15/16 06:29 08/19/16 17:18 Levofloxacin (Levaquin) 50 ml @ 50 mls/hr Q24H IVPB 08/19/16 23:00 08/20/16 23:59 Lisinopril (Zestril) 10 mg DAILY ORAL 08/18/16 09:00 09/17/16 08:59 08/19/16 08:58 Morphine Sulfate (Morphine Sulfate) 4 mg Q4H PRN IVP For Pain 08/17/16 17:30 08/24/16 17:29 08/17/16 17:15 Nitrofurantoin 100 mg 100 mg Q12HR@0700,1900 ORAL 08/18/16 19:00 09/17/16 18:59 08/19/16 18:41 Ondansetron HCl (Zofran) 4 mg Q6H PRN IVP Nausea & Vomiting 08/16/16 00:30 09/15/16 00:29 08/18/16 06:13 Polyethylene Glycol (Miralax) 17 gm DAILYPRN PRN ORAL Constipation 08/16/16 00:30 09/15/16 00:29 Spironolactone (Aldactone) 25 mg DAILY ORAL 08/18/16 09:00 09/17/16 08:59 08/19/16 08:58 Temazepam (Restoril) 15 mg HSPRN PRN ORAL Insomnia 08/16/16 00:30 08/23/16 00:29 TOOTIE ALVAREZ M.D. Aug 19, 2016 19:16
[2016-08-19 20:00] VITALS: BP 129/85
[2016-08-19] MEDS ORDERED: Levofloxacin 250mg/D5W 50ml IVPB SCH (23:00)
[2016-08-20] VITALS: BP 119/76
[2016-08-20] MEDS ORDERED: Miralax 17gm pkt ORAL PRN (00:30)
[2016-08-20] MEDS ORDERED: DuoNeb 0.5-3(2.5)mg/3ml neb HHN PRN (01:00)
[2016-08-20] MEDS ORDERED: Morphine Sulfate 4mg/ml Inj IVP PRN (01:30)
[2016-08-20 04:00] VITALS: BP 136/75
[2016-08-20] MEDS: NovoLOG Insulin Flexpen SUBQ SCH ×4 (06:30→22:53)
[2016-08-20 08:00] VITALS: BP 100/62
[2016-08-20] MEDS: Aspirin EC 81mg tab ORAL SCH (08:48)
[2016-08-20] MEDS: Lisinopril 10mg tab ORAL SCH (08:49)
[2016-08-20] MEDS: Heparin 5000 units/ml inj SUBQ SCH ×2 (08:50→22:52)
[2016-08-20] MEDS: Spironolactone 25mg tab ORAL SCH (08:50)
--- NOTE | 2016-08-20 10:57 | Infectious Diseases Prog Note ---
Assessment/Plan Assessment/Plan ASSESSMENT: 71 y/o male with: // COPD exacerbation r/o influenza - SCx NRF SP Rx - CXR 08/17: No definite infiltrate or pulmonary vascular congestion identified. 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 // CKD3 // NKDA // Full Code PLAN: - DC levaquin d# 5 / 5 , DC Nitrofurantoin , monitor pt off of AB Rx - monitor CBC, temperatures - monitor BMP - monitor CXR Subjective Constitutional: Denies: anorexia, chills, drenching sweats, fatigue, fever, no symptoms, other Allergies: Coded Allergies: No Known Allergies (Unverified , 12/12/15) Objective Vital Signs Last 24 Hour Vital Signs Date Time Temp Pulse Resp B/P Pulse Ox O2 Delivery O2 Flow Rate FiO2 08/20/16 08:49 136/75 08/20/16 08:48 78 136/75 08/20/16 08:20 69 18 Nasal Cannula 2.0 28 08/20/16 08:20 Nasal Cannula 2.0 28 08/20/16 08:20 96 Nasal Cannula 2.0 28 08/20/16 08:00 97.8 68 19 100/62 98 Room Air 08/20/16 04:00 97.7 78 20 136/75 100 Nasal Cannula 2.0 08/20/16 00:00 97.2 71 20 119/76 98 Nasal Cannula 2.0 08/19/16 21:47 72 129/85 08/19/16 20:00 79 08/19/16 20:00 97.8 72 21 129/85 97 Nasal Cannula 2.0 08/19/16 19:32 66 18 Nasal Cannula 2.0 28 08/19/16 19:32 97 Nasal Cannula 2.0 28 08/19/16 19:32 Nasal Cannula 2.0 28 08/19/16 16:00 97.6 64 20 106/76 97 Nasal Cannula 2.0 08/19/16 16:00 83 08/19/16 12:00 68 08/19/16 11:50 97.5 66 20 123/76 100 Nasal Cannula 2.0 Height (Feet): 5 Height (Inches): 9.00 Weight (Pounds): 148 HEENT: anicteric Respiratory/Chest: normal breath sounds Cardiovascular: no JVD Abdomen: non distended Current Medications Medications (Trade) Dose Ordered Sig/Elsa Route PRN Reason Start Time Stop Time Status Last Admin Dose Admin Acetaminophen (Tylenol) 650 mg Q4H PRN ORAL Fever 08/20/16 01:57 09/19/16 01:56 Albuterol/ Ipratropium (DuoNeb 0.5-3(2.5)mg/3ml) 3 ml Q4H PRN HHN Shortness of Breath 08/20/16 01:00 08/25/16 00:59 Aspirin (Ecotrin) 81 mg DAILY ORAL 08/20/16 09:00 09/19/16 08:59 08/20/16 08:48 Carvedilol (Coreg) 3.125 mg EVERY 12 HOURS ORAL 08/20/16 09:00 09/19/16 08:59 08/20/16 08:48 Dextrose (Dextrose 50%) STAT PRN IV Hypoglycemia 08/20/16 01:58 09/19/16 01:57 Heparin Sodium (Porcine) (Heparin 5000 units/ml) 5,000 units EVERY 12 HOURS SUBQ 08/20/16 09:00 09/19/16 08:59 08/20/16 08:50 Insulin Aspart (NovoLOG) BEFORE MEALS AND HS SUBQ 08/20/16 06:30 09/19/16 06:29 Levofloxacin (Levaquin) 50 ml @ 50 mls/hr Q24H IVPB 08/20/16 23:00 08/27/16 22:59 Lisinopril (Zestril) 10 mg DAILY ORAL 08/20/16 09:00 09/19/16 08:59 08/20/16 08:49 Morphine Sulfate (Morphine Sulfate) 4 mg Q4H PRN IVP For Pain 08/20/16 01:30 08/27/16 01:29 Ondansetron HCl (Zofran) 4 mg Q6H PRN IVP Nausea & Vomiting 08/20/16 02:01 09/19/16 02:00 Polyethylene Glycol (Miralax) 17 gm DAILYPRN PRN ORAL Constipation 08/20/16 00:30 09/19/16 00:29 Spironolactone (Aldactone) 25 mg DAILY ORAL 08/20/16 09:00 09/19/16 08:59 08/20/16 08:50 Temazepam (Restoril) 15 mg HSPRN PRN ORAL Insomnia 08/20/16 00:30 08/27/16 00:29 TOOTIE ALVAREZ M.D. Aug 20, 2016 10:57
[2016-08-20 12:00] VITALS: BP 106/75
[2016-08-20 16:00] VITALS: BP 112/76
--- NOTE | 2016-08-20 16:58 | Internal Med Progress Note ---
Subjective Date of Service: Aug 20, 2016 Physician Name Royce Helms Attending Physician Barrett Olivarez MD Current Medications Medications (Trade) Dose Ordered Sig/Elsa Route PRN Reason Start Time Stop Time Status Last Admin Dose Admin Acetaminophen (Tylenol) 650 mg Q4H PRN ORAL Fever 08/20/16 01:57 09/19/16 01:56 Albuterol/ Ipratropium (DuoNeb 0.5-3(2.5)mg/3ml) 3 ml Q4H PRN HHN Shortness of Breath 08/20/16 01:00 08/25/16 00:59 Aspirin (Ecotrin) 81 mg DAILY ORAL 08/20/16 09:00 09/19/16 08:59 08/20/16 08:48 Carvedilol (Coreg) 3.125 mg EVERY 12 HOURS ORAL 08/20/16 09:00 09/19/16 08:59 08/20/16 08:48 Dextrose (Dextrose 50%) STAT PRN IV Hypoglycemia 08/20/16 01:58 09/19/16 01:57 Heparin Sodium (Porcine) (Heparin 5000 units/ml) 5,000 units EVERY 12 HOURS SUBQ 08/20/16 09:00 09/19/16 08:59 08/20/16 08:50 Insulin Aspart (NovoLOG) BEFORE MEALS AND HS SUBQ 08/20/16 06:30 09/19/16 06:29 Lisinopril (Zestril) 10 mg DAILY ORAL 08/20/16 09:00 09/19/16 08:59 08/20/16 08:49 Morphine Sulfate (Morphine Sulfate) 4 mg Q4H PRN IVP For Pain 08/20/16 01:30 08/27/16 01:29 Ondansetron HCl (Zofran) 4 mg Q6H PRN IVP Nausea & Vomiting 08/20/16 02:01 09/19/16 02:00 Polyethylene Glycol (Miralax) 17 gm DAILYPRN PRN ORAL Constipation 08/20/16 00:30 09/19/16 00:29 Spironolactone (Aldactone) 25 mg DAILY ORAL 08/20/16 09:00 09/19/16 08:59 08/20/16 08:50 Temazepam (Restoril) 15 mg HSPRN PRN ORAL Insomnia 08/20/16 00:30 08/27/16 00:29 Allergies: Coded Allergies: No Known Allergies (Unverified , 12/12/15) ROS Limited/Unobtainable: No Constitutional: Reports: no symptoms HEENT: Reports: no symptoms Respiratory: Reports: no symptoms Gastrointestinal/Abdominal: Reports: no symptoms Genitourinary: Reports: no symptoms Neurologic/Psychiatric: Reports: no symptoms Subjective 71 YO M admitted with shortness of breath and congestive heart failure. Cover for Int Med-Dr Olivarez. Await [facility] facility placement Objective Last Vital Signs Date Time Temp Pulse Resp B/P Pulse Ox O2 Delivery O2 Flow Rate FiO2 08/20/16 16:00 97.5 62 20 112/76 99 Room Air 08/20/16 08:20 2.0 28 Intake and Output 08/19/16 08/20/16 19:00 07:00 Intake Total 480 ml 260 ml Output Total 600 ml 1050 ml Balance -120 ml -790 ml Intake Oral 480 ml 260 ml Output Urine Total 600 ml 1050 ml # Bowel Movements 3 Objective General Appearance: WD/WN, alert, mild distress, thin EENT: PERRL/EOMI, normal ENT inspection Neck: non-tender, normal alignment, supple Cardiovascular: normal peripheral pulses, normal rate, regular rhythm, no gallop/murmur, no JVD Respiratory/Chest: no accessory muscle use, respiratory distress, crackles/ rales, rhonchi - bilaterally, expiratory wheezing Abdomen: normal bowel sounds, non tender, soft, no organomegaly, no mass Extremities: normal range of motion Neurologic: 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 See cardiology consult. (3) Shortness of breath (4) HTN (hypertension) Assessment & Plan: Cont coreg (5) COPD (chronic obstructive pulmonary disease) Assessment & Plan: Cont duoneb. D/C levaquin per ID (6) Cardiomyopathy (7) CAD (coronary artery disease) (8) Nephrolithiasis (9) Cerebral vascular disease (10) UTI (urinary tract infection) due to Enterococcus Assessment & Plan: Resistant to levaquin. D/C macrobid --see ID note. Status: progressing Assessment/Plan Discharge planning: SNF when bed available. ROYCE HELMS Aug 20, 2016 16:58
--- NOTE | 2016-08-20 17:39 | Cardiac Electrophysiology PN ---
Assessment/Plan Assessment/Plan 1. Congestive heart failure with ejection fraction of 25% with BNP more than 5500.Now down to 3700. Continue Coreg, lisinopril and Aldactone. Change Lasix to po40 daily. 2. Status post [facility] [facility] defibrillator implantation. 3. History of cocaine use.Urine Tox screen is negative for Cocaine. 4. History of coronary artery bypass graft in 2012. 5. History of cerebrovascular accident in 2009. 6. CKD. Creatinine down to 1.2 DW RN Subjective Subjective Alert in NAD. No chest pain or SOB. Transferred to nonmonitored bed. Objective Last 24 Hour Vital Signs Date Time Temp Pulse Resp B/P Pulse Ox O2 Delivery O2 Flow Rate FiO2 08/20/16 16:00 97.5 62 20 112/76 99 Room Air 08/20/16 12:00 97.7 70 20 106/75 100 Room Air 08/20/16 08:49 136/75 08/20/16 08:48 78 136/75 08/20/16 08:20 69 18 Nasal Cannula 2.0 28 08/20/16 08:20 Nasal Cannula 2.0 28 08/20/16 08:20 96 Nasal Cannula 2.0 28 08/20/16 08:00 97.8 68 19 100/62 98 Room Air 08/20/16 04:00 97.7 78 20 136/75 100 Nasal Cannula 2.0 08/20/16 00:00 97.2 71 20 119/76 98 Nasal Cannula 2.0 08/19/16 21:47 72 129/85 08/19/16 20:00 79 08/19/16 20:00 97.8 72 21 129/85 97 Nasal Cannula 2.0 08/19/16 19:32 66 18 Nasal Cannula 2.0 28 08/19/16 19:32 97 Nasal Cannula 2.0 28 08/19/16 19:32 Nasal Cannula 2.0 28 Intake and Output 08/19/16 08/20/16 19:00 07:00 Intake Total 480 ml 260 ml Output Total 600 ml 1050 ml Balance -120 ml -790 ml Intake Oral 480 ml 260 ml Output Urine Total 600 ml 1050 ml # Bowel Movements 3 Labs Test 08/19/16 05:30 White Blood Count 7.2 K/UL (4.8-10.8) Red Blood Count 4.23 M/UL (4.70-6.10) Hemoglobin 14.1 G/DL (14.2-18.0) Hematocrit 42.6 % (42.0-52.0) Mean Corpuscular Volume 101 FL (80-99) Mean Corpuscular Hemoglobin 33.5 PG (27.0-31.0) Mean Corpuscular Hemoglobin Concent 33.2 G/DL (32.0-36.0) Red Cell Distribution Width 13.9 % (11.6-14.8) Platelet Count 191 K/UL (150-450) Mean Platelet Volume 8.0 FL (6.5-10.1) Neutrophils (%) (Auto) 31.0 % (45.0-75.0) Lymphocytes (%) (Auto) 49.9 % (20.0-45.0) Monocytes (%) (Auto) 17.1 % (1.0-10.0) Eosinophils (%) (Auto) 1.0 % (0.0-3.0) Basophils (%) (Auto) 1.0 % (0.0-2.0) Sodium Level 141 mEQ/L (135-145) Potassium Level 3.5 mEQ/L (3.4-4.9) Chloride Level 97 mEQ/L (98-107) Carbon Dioxide Level 31 mEQ/L (20-30) Anion Gap 13 (5-15) Blood Urea Nitrogen 30 mg/dL (7-23) Creatinine 1.6 mg/dL (0.7-1.2) Estimat Glomerular Filtration Rate mL/min (>60) Glucose Level 73 mg/dL (74-106) Calcium Level 8.7 mg/dL (8.6-10.2) Current Medications Medications (Trade) Dose Ordered Sig/Elsa Route PRN Reason Start Time Stop Time Status Last Admin Dose Admin Acetaminophen (Tylenol) 650 mg Q4H PRN ORAL Fever 08/20/16 01:57 09/19/16 01:56 Albuterol/ Ipratropium (DuoNeb 0.5-3(2.5)mg/3ml) 3 ml Q4H PRN HHN Shortness of Breath 08/20/16 01:00 08/25/16 00:59 Aspirin (Ecotrin) 81 mg DAILY ORAL 08/20/16 09:00 09/19/16 08:59 08/20/16 08:48 Carvedilol (Coreg) 3.125 mg EVERY 12 HOURS ORAL 08/20/16 09:00 09/19/16 08:59 08/20/16 08:48 Dextrose (Dextrose 50%) STAT PRN IV Hypoglycemia 08/20/16 01:58 09/19/16 01:57 Heparin Sodium (Porcine) (Heparin 5000 units/ml) 5,000 units EVERY 12 HOURS SUBQ 08/20/16 09:00 09/19/16 08:59 08/20/16 08:50 Insulin Aspart (NovoLOG) BEFORE MEALS AND HS SUBQ 08/20/16 06:30 09/19/16 06:29 Lisinopril (Zestril) 10 mg DAILY ORAL 08/20/16 09:00 09/19/16 08:59 08/20/16 08:49 Morphine Sulfate (Morphine Sulfate) 4 mg Q4H PRN IVP For Pain 08/20/16 01:30 08/27/16 01:29 Ondansetron HCl (Zofran) 4 mg Q6H PRN IVP Nausea & Vomiting 08/20/16 02:01 09/19/16 02:00 Polyethylene Glycol (Miralax) 17 gm DAILYPRN PRN ORAL Constipation 08/20/16 00:30 09/19/16 00:29 Spironolactone (Aldactone) 25 mg DAILY ORAL 08/20/16 09:00 09/19/16 08:59 08/20/16 08:50 Temazepam (Restoril) 15 mg HSPRN PRN ORAL Insomnia 08/20/16 00:30 08/27/16 00:29 Objective HEAD AND NECK: Mild JVD. LUNGS: Decreased breath sounds. CARDIOVASCULAR: Regular S1 and S2 with no gallop or murmur. ABDOMEN: Soft. EXTREMITIES: There is 1+ pitting edema.Left ankle in Cast. BRYAN BOYD Aug 20, 2016 17:39
--- NOTE | 2016-08-20 17:53 | Pulmonology Progress Note ---
Assessment/Plan Problems: (1) CHF exacerbation (2) Cardiomyopathy (3) COPD exacerbation (4) S/P CABG (coronary artery bypass graft) (5) AICD (automatic cardioverter/defibrillator) present (6) Cerebral vascular disease (7) Hemiplegia affecting right dominant side Assessment/Plan K is high resume lasix in one or two days check sputum chest pt dc/ planning in progress Subjective ROS Limited/Unobtainable: No Interval Events: improving Allergies: Coded Allergies: No Known Allergies (Unverified , 12/12/15) Objective Last 24 Hour Vital Signs Date Time Temp Pulse Resp B/P Pulse Ox O2 Delivery O2 Flow Rate FiO2 08/20/16 16:00 97.5 62 20 112/76 99 Room Air 08/20/16 12:00 97.7 70 20 106/75 100 Room Air 08/20/16 08:49 136/75 08/20/16 08:48 78 136/75 08/20/16 08:20 69 18 Nasal Cannula 2.0 28 08/20/16 08:20 Nasal Cannula 2.0 28 08/20/16 08:20 96 Nasal Cannula 2.0 28 08/20/16 08:00 97.8 68 19 100/62 98 Room Air 08/20/16 04:00 97.7 78 20 136/75 100 Nasal Cannula 2.0 08/20/16 00:00 97.2 71 20 119/76 98 Nasal Cannula 2.0 08/19/16 21:47 72 129/85 08/19/16 20:00 79 08/19/16 20:00 97.8 72 21 129/85 97 Nasal Cannula 2.0 08/19/16 19:32 66 18 Nasal Cannula 2.0 28 08/19/16 19:32 97 Nasal Cannula 2.0 28 08/19/16 19:32 Nasal Cannula 2.0 28 Intake and Output 08/19/16 08/20/16 19:00 07:00 Intake Total 480 ml 260 ml Output Total 600 ml 1050 ml Balance -120 ml -790 ml Intake Oral 480 ml 260 ml Output Urine Total 600 ml 1050 ml # Bowel Movements 3 General Appearance: WD/WN HEENT: normocephalic Respiratory/Chest: chest wall non-tender, lungs clear Cardiovascular: normal peripheral pulses, normal rate Abdomen: normal bowel sounds, soft, non tender Genitourinary: normal external genitalia Extremities: no clubbing Neurologic/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: 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 Current Medications Medications (Trade) Dose Ordered Sig/Elsa Route PRN Reason Start Time Stop Time Status Last Admin Dose Admin Acetaminophen (Tylenol) 650 mg Q4H PRN ORAL Fever 08/20/16 01:57 09/19/16 01:56 Albuterol/ Ipratropium (DuoNeb 0.5-3(2.5)mg/3ml) 3 ml Q4H PRN HHN Shortness of Breath 08/20/16 01:00 08/25/16 00:59 Aspirin (Ecotrin) 81 mg DAILY ORAL 08/20/16 09:00 09/19/16 08:59 08/20/16 08:48 Carvedilol (Coreg) 3.125 mg EVERY 12 HOURS ORAL 08/20/16 09:00 09/19/16 08:59 08/20/16 08:48 Dextrose (Dextrose 50%) STAT PRN IV Hypoglycemia 08/20/16 01:58 09/19/16 01:57 Furosemide (Lasix) 40 mg DAILY ORAL 08/21/16 09:00 09/20/16 08:59 Heparin Sodium (Porcine) (Heparin 5000 units/ml) 5,000 units EVERY 12 HOURS SUBQ 08/20/16 09:00 09/19/16 08:59 08/20/16 08:50 Insulin Aspart (NovoLOG) BEFORE MEALS AND HS SUBQ 08/20/16 06:30 09/19/16 06:29 Lisinopril (Zestril) 10 mg DAILY ORAL 08/20/16 09:00 09/19/16 08:59 08/20/16 08:49 Morphine Sulfate (Morphine Sulfate) 4 mg Q4H PRN IVP For Pain 08/20/16 01:30 08/27/16 01:29 Ondansetron HCl (Zofran) 4 mg Q6H PRN IVP Nausea & Vomiting 08/20/16 02:01 09/19/16 02:00 Polyethylene Glycol (Miralax) 17 gm DAILYPRN PRN ORAL Constipation 08/20/16 00:30 09/19/16 00:29 Spironolactone (Aldactone) 25 mg DAILY ORAL 08/20/16 09:00 09/19/16 08:59 08/20/16 08:50 Temazepam (Restoril) 15 mg HSPRN PRN ORAL Insomnia 08/20/16 00:30 08/27/16 00:29 MURRAY NELSON Aug 20, 2016 17:53
[2016-08-20 20:00] VITALS: BP 135/85
[2016-08-21] VITALS: BP 123/57
[2016-08-21 04:00] VITALS: BP 120/78
[2016-08-21] MEDS: NovoLOG Insulin Flexpen SUBQ SCH ×4 (06:20→21:07)
[2016-08-21 07:32] LABS: BASOPHILS % (AUTO) 0.9 % (0.0-2.0); LYMPHOCYTES % (AUTO) 48.1 % (20.0-45.0); MEAN CORPUSCULAR HEMOGLOBIN 32.5 PG (27.0-31.0); MEAN CORPUSCULAR HGB CONC 31.7 G/DL (32.0-36.0); MEAN CORPUSCULAR VOLUME 103 FL (80-99); MEAN PLATELET VOLUME 8.4 FL (6.5-10.1); MONOCYTES % (AUTO) 18.4 % (1.0-10.0); NEUTROPHILS % (AUTO) 31.6 % (45.0-75.0); PLATELET COUNT 208 K/UL (150-450); RED BLOOD COUNT 4.66 M/UL (4.70-6.10); RED CELL DISTRIBUTION WIDTH 13.7 % (11.6-14.8); WHITE BLOOD COUNT 6.4 K/UL (4.8-10.8)
[2016-08-21 08:00] VITALS: BP 108/67
[2016-08-21 08:11] LABS: ANION GAP 11 (5-15); CALCIUM 9.4 mg/dL (8.6-10.2); CARBON DIOXIDE 29 mEQ/L (20-30); CHLORIDE 102 mEQ/L (98-107); CREATININE 1.2 mg/dL (0.7-1.2); HEMOLYSIS 47; POTASSIUM 5.6 mEQ/L (3.4-4.9); SODIUM 142 mEQ/L (135-145)
[2016-08-21] MEDS: Lisinopril 10mg tab ORAL SCH (08:21)
[2016-08-21] MEDS: Furosemide 40mg tab ORAL SCH (08:21)
[2016-08-21] MEDS: Spironolactone 25mg tab ORAL SCH (08:21)
[2016-08-21] MEDS: Aspirin EC 81mg tab ORAL SCH (08:22)
[2016-08-21] MEDS: Heparin 5000 units/ml inj SUBQ SCH ×2 (08:31→21:12)
--- NOTE | 2016-08-21 09:21 | Infectious Diseases Prog Note ---
Assessment/Plan Assessment/Plan ASSESSMENT: 71 y/o male with: // COPD exacerbation r/o influenza - SCx NRF SP Rx - CXR 08/17: No definite infiltrate or pulmonary vascular congestion identified. 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 // CKD3 // NKDA // Full Code PLAN: - monitor pt off of AB Rx ( 08/21 SP levaquin d# 5 / ) - monitor CBC, temperatures - monitor BMP - monitor CXR Subjective Allergies: Coded Allergies: No Known Allergies (Unverified , 12/12/15) Objective Vital Signs Last 24 Hour Vital Signs Date Time Temp Pulse Resp B/P Pulse Ox O2 Delivery O2 Flow Rate FiO2 08/21/16 08:21 108/67 08/21/16 08:21 67 108/67 08/21/16 08:00 97.7 67 20 108/67 99 Nasal Cannula 08/21/16 04:00 97.2 69 20 120/78 99 Nasal Cannula 2.0 08/21/16 00:00 97.9 76 20 123/57 97 Nasal Cannula 2.0 08/20/16 23:21 96 Room Air 08/20/16 23:21 62 18 Room Air 08/20/16 23:21 Room Air 08/20/16 22:49 62 112/76 08/20/16 20:00 98.1 50 20 135/85 100 Room Air 08/20/16 16:00 97.5 62 20 112/76 99 Room Air 08/20/16 12:00 97.7 70 20 106/75 100 Room Air Height (Feet): 5 Height (Inches): 9.00 Weight (Pounds): 148 Laboratory Tests Test 08/21/16 06:20 White Blood Count 6.4 K/UL (4.8-10.8) Red Blood Count 4.66 M/UL (4.70-6.10) L Hemoglobin 15.1 G/DL (14.2-18.0) Hematocrit 47.8 % (42.0-52.0) Mean Corpuscular Volume 103 FL (80-99) H Mean Corpuscular Hemoglobin 32.5 PG (27.0-31.0) H Mean Corpuscular Hemoglobin Concent 31.7 G/DL (32.0-36.0) L Red Cell Distribution Width 13.7 % (11.6-14.8) Platelet Count 208 K/UL (150-450) Mean Platelet Volume 8.4 FL (6.5-10.1) Neutrophils (%) (Auto) 31.6 % (45.0-75.0) L Lymphocytes (%) (Auto) 48.1 % (20.0-45.0) H Monocytes (%) (Auto) 18.4 % (1.0-10.0) H Eosinophils (%) (Auto) 1.0 % (0.0-3.0) Basophils (%) (Auto) 0.9 % (0.0-2.0) Sodium Level 142 mEQ/L (135-145) Potassium Level 5.6 mEQ/L (3.4-4.9) H Chloride Level 102 mEQ/L (98-107) Carbon Dioxide Level 29 mEQ/L (20-30) Anion Gap 11 (5-15) Blood Urea Nitrogen 26 mg/dL (7-23) H Creatinine 1.2 mg/dL (0.7-1.2) Estimat Glomerular Filtration Rate mL/min (>60) Glucose Level 89 mg/dL (74-106) Calcium Level 9.4 mg/dL (8.6-10.2) Current Medications Medications (Trade) Dose Ordered Sig/Elsa Route PRN Reason Start Time Stop Time Status Last Admin Dose Admin Acetaminophen (Tylenol) 650 mg Q4H PRN ORAL Fever 08/20/16 01:57 09/19/16 01:56 Albuterol/ Ipratropium (DuoNeb 0.5-3(2.5)mg/3ml) 3 ml Q4H PRN HHN Shortness of Breath 08/20/16 01:00 08/25/16 00:59 Aspirin (Ecotrin) 81 mg DAILY ORAL 08/20/16 09:00 09/19/16 08:59 08/21/16 08:22 Carvedilol (Coreg) 3.125 mg EVERY 12 HOURS ORAL 08/20/16 09:00 09/19/16 08:59 08/20/16 22:49 Dextrose (Dextrose 50%) STAT PRN IV Hypoglycemia 08/20/16 01:58 09/19/16 01:57 Furosemide (Lasix) 40 mg DAILY ORAL 08/21/16 09:00 09/20/16 08:59 Heparin Sodium (Porcine) (Heparin 5000 units/ml) 5,000 units EVERY 12 HOURS SUBQ 08/20/16 09:00 09/19/16 08:59 08/21/16 08:31 Insulin Aspart (NovoLOG) BEFORE MEALS AND HS SUBQ 08/20/16 06:30 09/19/16 06:29 08/20/16 22:53 Lisinopril (Zestril) 10 mg DAILY ORAL 08/20/16 09:00 09/19/16 08:59 08/20/16 08:49 Morphine Sulfate (Morphine Sulfate) 4 mg Q4H PRN IVP For Pain 08/20/16 01:30 08/27/16 01:29 Ondansetron HCl (Zofran) 4 mg Q6H PRN IVP Nausea & Vomiting 08/20/16 02:01 09/19/16 02:00 Polyethylene Glycol (Miralax) 17 gm DAILYPRN PRN ORAL Constipation 08/20/16 00:30 09/19/16 00:29 Spironolactone (Aldactone) 25 mg DAILY ORAL 08/20/16 09:00 09/19/16 08:59 08/20/16 08:50 Temazepam (Restoril) 15 mg HSPRN PRN ORAL Insomnia 08/20/16 00:30 08/27/16 00:29 TOOTIE ALVAREZ M.D. Aug 21, 2016 09:21
[2016-08-21 12:00] VITALS: BP 123/83
[2016-08-21] MEDS ORDERED: Sodium Polystyrene Sulfonate 15gm Powder ORAL ONE (14:30)
[2016-08-21 16:00] VITALS: BP 135/78
--- NOTE | 2016-08-21 16:18 | Pulmonology Progress Note ---
Assessment/Plan Problems: (1) CHF exacerbation (2) Cardiomyopathy (3) COPD exacerbation (4) S/P CABG (coronary artery bypass graft) (5) AICD (automatic cardioverter/defibrillator) present (6) Cerebral vascular disease (7) Hemiplegia affecting right dominant side Assessment/Plan check sputum chest pt check echo cardioloty to follow optimize cardiac meds Subjective ROS Limited/Unobtainable: No Constitutional: Reports: no symptoms HEENT: Repors: no symptoms Respiratory: Reports: no symptoms Cardiovascular: Reports: no symptoms Gastrointestinal/Abdominal: Reports: no symptoms Allergies: Coded Allergies: No Known Allergies (Unverified , 12/12/15) Objective Last 24 Hour Vital Signs Date Time Temp Pulse Resp B/P Pulse Ox O2 Delivery O2 Flow Rate FiO2 08/21/16 12:00 98.1 69 19 123/83 99 Nasal Cannula 08/21/16 08:21 108/67 08/21/16 08:21 67 108/67 08/21/16 08:00 97.7 67 20 108/67 99 Nasal Cannula 08/21/16 07:55 Room Air 08/21/16 07:50 69 18 Room Air 08/21/16 07:50 96 Room Air 21 08/21/16 04:00 97.2 69 20 120/78 99 Nasal Cannula 2.0 08/21/16 00:00 97.9 76 20 123/57 97 Nasal Cannula 2.0 08/20/16 23:21 96 Room Air 08/20/16 23:21 62 18 Room Air 08/20/16 23:21 Room Air 08/20/16 22:49 62 112/76 08/20/16 20:00 98.1 50 20 135/85 100 Room Air Intake and Output 08/20/16 08/21/16 19:00 07:00 Intake Total 1870 ml 1080 ml Output Total 303 ml 1100 ml Balance 1567 ml -20 ml Intake Oral 1870 ml 1080 ml Output Urine Total 303 ml 1100 ml # Voids 3 General Appearance: WD/WN HEENT: normocephalic, anicteric Respiratory/Chest: chest wall non-tender, lungs clear Cardiovascular: normal peripheral pulses, normal rate Abdomen: normal bowel sounds, soft, non tender Genitourinary: normal external genitalia Extremities: no cyanosis 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, no motor/sensory deficits Laboratory Tests 08/21/16 06:20: White Blood Count 6.4, Red Blood Count 4.66L, Hemoglobin 15.1, Hematocrit 47.8, Mean Corpuscular Volume 103H, Mean Corpuscular Hemoglobin 32.5H, Mean Corpuscular Hemoglobin Concent 31.7L, Red Cell Distribution Width 13.7, Platelet Count 208, Mean Platelet Volume 8.4, Neutrophils (%) (Auto) 31.6L, Lymphocytes (%) (Auto) 48.1H, Monocytes (%) (Auto) 18.4H, Eosinophils (%) (Auto ) 1.0, Basophils (%) (Auto) 0.9, Sodium Level 142, Potassium Level 5.6H, Chloride Level 102, Carbon Dioxide Level 29, Anion Gap 11, Blood Urea Nitrogen 26H, Creatinine 1.2, Estimat Glomerular Filtration Rate , Glucose Level 89, Calcium Level 9.4 Current Medications Medications (Trade) Dose Ordered Sig/Elsa Route PRN Reason Start Time Stop Time Status Last Admin Dose Admin Acetaminophen (Tylenol) 650 mg Q4H PRN ORAL Fever 08/20/16 01:57 09/19/16 01:56 Albuterol/ Ipratropium (DuoNeb 0.5-3(2.5)mg/3ml) 3 ml Q4H PRN HHN Shortness of Breath 08/20/16 01:00 08/25/16 00:59 Aspirin (Ecotrin) 81 mg DAILY ORAL 08/20/16 09:00 09/19/16 08:59 08/21/16 08:22 Carvedilol (Coreg) 3.125 mg EVERY 12 HOURS ORAL 08/20/16 09:00 09/19/16 08:59 08/20/16 22:49 Dextrose (Dextrose 50%) STAT PRN IV Hypoglycemia 08/20/16 01:58 09/19/16 01:57 Furosemide (Lasix) 40 mg DAILY ORAL 08/21/16 09:00 09/20/16 08:59 Heparin Sodium (Porcine) (Heparin 5000 units/ml) 5,000 units EVERY 12 HOURS SUBQ 08/20/16 09:00 09/19/16 08:59 08/21/16 08:31 Insulin Aspart (NovoLOG) BEFORE MEALS AND HS SUBQ 08/20/16 06:30 09/19/16 06:29 08/20/16 22:53 Lisinopril (Zestril) 10 mg DAILY ORAL 08/20/16 09:00 09/19/16 08:59 08/20/16 08:49 Morphine Sulfate (Morphine Sulfate) 4 mg Q4H PRN IVP For Pain 08/20/16 01:30 08/27/16 01:29 Ondansetron HCl (Zofran) 4 mg Q6H PRN IVP Nausea & Vomiting 08/20/16 02:01 09/19/16 02:00 Polyethylene Glycol (Miralax) 17 gm DAILYPRN PRN ORAL Constipation 08/20/16 00:30 09/19/16 00:29 Temazepam (Restoril) 15 mg HSPRN PRN ORAL Insomnia 08/20/16 00:30 08/27/16 00:29 MURRAY NELSON Aug 21, 2016 16:18
--- NOTE | 2016-08-21 18:06 | Internal Med Progress Note ---
Subjective Date of Service: Aug 21, 2016 Physician Name Surinder Helms Attending Physician Barrett Olivarez MD Current Medications Medications (Trade) Dose Ordered Sig/Elsa Route PRN Reason Start Time Stop Time Status Last Admin Dose Admin Acetaminophen (Tylenol) 650 mg Q4H PRN ORAL Fever 08/20/16 01:57 09/19/16 01:56 Albuterol/ Ipratropium (DuoNeb 0.5-3(2.5)mg/3ml) 3 ml Q4H PRN HHN Shortness of Breath 08/20/16 01:00 08/25/16 00:59 Aspirin (Ecotrin) 81 mg DAILY ORAL 08/20/16 09:00 09/19/16 08:59 08/21/16 08:22 Carvedilol (Coreg) 3.125 mg EVERY 12 HOURS ORAL 08/20/16 09:00 09/19/16 08:59 08/20/16 22:49 Dextrose (Dextrose 50%) STAT PRN IV Hypoglycemia 08/20/16 01:58 09/19/16 01:57 Furosemide (Lasix) 40 mg DAILY ORAL 08/21/16 09:00 09/20/16 08:59 Heparin Sodium (Porcine) (Heparin 5000 units/ml) 5,000 units EVERY 12 HOURS SUBQ 08/20/16 09:00 09/19/16 08:59 08/21/16 08:31 Insulin Aspart (NovoLOG) BEFORE MEALS AND HS SUBQ 08/20/16 06:30 09/19/16 06:29 08/21/16 17:32 Lisinopril (Zestril) 10 mg DAILY ORAL 08/20/16 09:00 09/19/16 08:59 08/20/16 08:49 Morphine Sulfate (Morphine Sulfate) 4 mg Q4H PRN IVP For Pain 08/20/16 01:30 08/27/16 01:29 Ondansetron HCl (Zofran) 4 mg Q6H PRN IVP Nausea & Vomiting 08/20/16 02:01 09/19/16 02:00 Polyethylene Glycol (Miralax) 17 gm DAILYPRN PRN ORAL Constipation 08/20/16 00:30 09/19/16 00:29 Temazepam (Restoril) 15 mg HSPRN PRN ORAL Insomnia 08/20/16 00:30 08/27/16 00:29 Allergies: Coded Allergies: No Known Allergies (Unverified , 12/12/15) ROS Limited/Unobtainable: No Constitutional: Reports: no symptoms HEENT: Reports: no symptoms Cardiovascular: Reports: no symptoms Respiratory: Reports: shortness of breath Gastrointestinal/Abdominal: Reports: no symptoms Genitourinary: Reports: no symptoms Neurologic/Psychiatric: Reports: no symptoms Subjective 71 YO M admitted with shortness of breath and congestive heart failure. Cover for [facility] Lanza-Dr Olivarez. Await detention facility placement Objective Last Vital Signs Date Time Temp Pulse Resp B/P Pulse Ox O2 Delivery O2 Flow Rate FiO2 08/21/16 16:00 96.8 74 22 135/78 100 Nasal Cannula 2.0 08/21/16 07:50 21 Laboratory Tests Test 08/21/16 06:20 White Blood Count 6.4 K/UL (4.8-10.8) Red Blood Count 4.66 M/UL (4.70-6.10) L Hemoglobin 15.1 G/DL (14.2-18.0) Hematocrit 47.8 % (42.0-52.0) Mean Corpuscular Volume 103 FL (80-99) H Mean Corpuscular Hemoglobin 32.5 PG (27.0-31.0) H Mean Corpuscular Hemoglobin Concent 31.7 G/DL (32.0-36.0) L Red Cell Distribution Width 13.7 % (11.6-14.8) Platelet Count 208 K/UL (150-450) Mean Platelet Volume 8.4 FL (6.5-10.1) Neutrophils (%) (Auto) 31.6 % (45.0-75.0) L Lymphocytes (%) (Auto) 48.1 % (20.0-45.0) H Monocytes (%) (Auto) 18.4 % (1.0-10.0) H Eosinophils (%) (Auto) 1.0 % (0.0-3.0) Basophils (%) (Auto) 0.9 % (0.0-2.0) Sodium Level 142 mEQ/L (135-145) Potassium Level 5.6 mEQ/L (3.4-4.9) H Chloride Level 102 mEQ/L (98-107) Carbon Dioxide Level 29 mEQ/L (20-30) Anion Gap 11 (5-15) Blood Urea Nitrogen 26 mg/dL (7-23) H Creatinine 1.2 mg/dL (0.7-1.2) Estimat Glomerular Filtration Rate mL/min (>60) Glucose Level 89 mg/dL (74-106) Calcium Level 9.4 mg/dL (8.6-10.2) Intake and Output 08/20/16 08/21/16 19:00 07:00 Intake Total 1870 ml 1080 ml Output Total 303 ml 1100 ml Balance 1567 ml -20 ml Intake Oral 1870 ml 1080 ml Output Urine Total 303 ml 1100 ml # Voids 3 Objective General Appearance: WD/WN, alert, mild distress, thin EENT: PERRL/EOMI, normal ENT inspection Neck: non-tender, normal alignment, supple Cardiovascular: normal peripheral pulses, normal rate, regular rhythm, no gallop/murmur, no JVD Respiratory/Chest: no accessory muscle use, respiratory distress, crackles/ rales, rhonchi - bilaterally, expiratory wheezing Abdomen: normal bowel sounds, non tender, soft, no organomegaly, no mass Extremities: normal range of motion 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 See cardiology consult. (3) Shortness of breath (4) HTN (hypertension) Assessment & Plan: Cont coreg (5) COPD (chronic obstructive pulmonary disease) Assessment & Plan: Cont duoneb. D/C levaquin per ID (6) Cardiomyopathy (7) CAD (coronary artery disease) (8) Nephrolithiasis (9) Cerebral vascular disease (10) UTI (urinary tract infection) due to Enterococcus Assessment & Plan: Resistant to levaquin. D/C macrobid --see ID note. Status: stable Assessment/Plan Discharge planning: SNF when bed available. SURINDER HELMS Aug 21, 2016 18:06
--- NOTE | 2016-08-21 18:36 | Cardiac Electrophysiology PN ---
Assessment/Plan Assessment/Plan 1. Congestive heart failure with ejection fraction of 25% with BNP more than 5500.Down to 3700. Continue Coreg, lisinopril , Aldactone and Lasix po 40 daily. 2. Status post [facility] [facility] defibrillator implantation. 3. History of cocaine use.Urine Tox screen is negative for Cocaine. 4. History of coronary artery bypass graft in 2012. 5. History of cerebrovascular accident in 2009. 6. CKD. Creatinine down to 1.2 DW RN Subjective Subjective Alert in NAD. No chest pain or SOB. Off tele. Objective Last 24 Hour Vital Signs Date Time Temp Pulse Resp B/P Pulse Ox O2 Delivery O2 Flow Rate FiO2 08/21/16 16:00 96.8 74 22 135/78 100 Nasal Cannula 2.0 08/21/16 12:00 98.1 69 19 123/83 99 Nasal Cannula 08/21/16 08:21 108/67 08/21/16 08:21 67 108/67 08/21/16 08:00 97.7 67 20 108/67 99 Nasal Cannula 08/21/16 07:55 Room Air 08/21/16 07:50 69 18 Room Air 08/21/16 07:50 96 Room Air 21 08/21/16 04:00 97.2 69 20 120/78 99 Nasal Cannula 2.0 08/21/16 00:00 97.9 76 20 123/57 97 Nasal Cannula 2.0 08/20/16 23:21 96 Room Air 08/20/16 23:21 62 18 Room Air 08/20/16 23:21 Room Air 08/20/16 22:49 62 112/76 08/20/16 20:00 98.1 50 20 135/85 100 Room Air Intake and Output 08/20/16 08/21/16 19:00 07:00 Intake Total 1870 ml 1080 ml Output Total 303 ml 1100 ml Balance 1567 ml -20 ml Intake Oral 1870 ml 1080 ml Output Urine Total 303 ml 1100 ml # Voids 3 Laboratory Tests Test 08/21/16 06:20 White Blood Count 6.4 K/UL (4.8-10.8) Red Blood Count 4.66 M/UL (4.70-6.10) L Hemoglobin 15.1 G/DL (14.2-18.0) Hematocrit 47.8 % (42.0-52.0) Mean Corpuscular Volume 103 FL (80-99) H Mean Corpuscular Hemoglobin 32.5 PG (27.0-31.0) H Mean Corpuscular Hemoglobin Concent 31.7 G/DL (32.0-36.0) L Red Cell Distribution Width 13.7 % (11.6-14.8) Platelet Count 208 K/UL (150-450) Mean Platelet Volume 8.4 FL (6.5-10.1) Neutrophils (%) (Auto) 31.6 % (45.0-75.0) L Lymphocytes (%) (Auto) 48.1 % (20.0-45.0) H Monocytes (%) (Auto) 18.4 % (1.0-10.0) H Eosinophils (%) (Auto) 1.0 % (0.0-3.0) Basophils (%) (Auto) 0.9 % (0.0-2.0) Sodium Level 142 mEQ/L (135-145) Potassium Level 5.6 mEQ/L (3.4-4.9) H Chloride Level 102 mEQ/L (98-107) Carbon Dioxide Level 29 mEQ/L (20-30) Anion Gap 11 (5-15) Blood Urea Nitrogen 26 mg/dL (7-23) H Creatinine 1.2 mg/dL (0.7-1.2) Estimat Glomerular Filtration Rate mL/min (>60) Glucose Level 89 mg/dL (74-106) Calcium Level 9.4 mg/dL (8.6-10.2) Objective HEAD AND NECK: Mild JVD. LUNGS: Decreased breath sounds. CARDIOVASCULAR: Regular S1 and S2 with no gallop or murmur. ABDOMEN: Soft. EXTREMITIES: 1+ pitting edema.Left ankle in Cast. BRYAN BOYD Aug 21, 2016 18:36
[2016-08-21 20:00] VITALS: BP 120/88
[2016-08-22] VITALS: BP 118/87
[2016-08-22 04:00] VITALS: BP 125/70
[2016-08-22] MEDS: NovoLOG Insulin Flexpen SUBQ SCH ×4 (06:21→20:33)
[2016-08-22 06:51] LABS: BASOPHILS % (AUTO) 0.8 % (0.0-2.0); MEAN CORPUSCULAR HEMOGLOBIN 33.4 PG (27.0-31.0); MEAN CORPUSCULAR HGB CONC 33.2 G/DL (32.0-36.0); MEAN CORPUSCULAR VOLUME 101 FL (80-99); MEAN PLATELET VOLUME 8.1 FL (6.5-10.1); MONOCYTES % (AUTO) 17.6 % (1.0-10.0); NEUTROPHILS % (AUTO) 34.6 % (45.0-75.0); PLATELET COUNT 204 K/UL (150-450); RED BLOOD COUNT 4.36 M/UL (4.70-6.10); RED CELL DISTRIBUTION WIDTH 13.5 % (11.6-14.8); WHITE BLOOD COUNT 6.9 K/UL (4.8-10.8)
[2016-08-22 07:17] LABS: ANION GAP 14 (5-15); CARBON DIOXIDE 24 mEQ/L (20-30); CHLORIDE 104 mEQ/L (98-107); CREATININE 1.3 mg/dL (0.7-1.2); HEMOLYSIS 8; POTASSIUM 4.7 mEQ/L (3.4-4.9); SODIUM 142 mEQ/L (135-145)
[2016-08-22 08:14] VITALS: BP 132/81
[2016-08-22] MEDS: Furosemide 40mg tab ORAL SCH (08:42)
[2016-08-22] MEDS: Aspirin EC 81mg tab ORAL SCH (08:42)
[2016-08-22] MEDS: Heparin 5000 units/ml inj SUBQ SCH ×2 (08:44→20:35)
[2016-08-22] MEDS: Lisinopril 10mg tab ORAL SCH (08:45)
[2016-08-22 12:20] VITALS: BP 120/78
--- NOTE | 2016-08-22 14:05 | Internal Med Progress Note ---
Subjective Date of Service: Aug 22, 2016 Physician Name Surinder Helms Attending Physician Barrett Olivarez MD Current Medications Medications (Trade) Dose Ordered Sig/Elsa Route PRN Reason Start Time Stop Time Status Last Admin Dose Admin Acetaminophen (Tylenol) 650 mg Q4H PRN ORAL Fever 08/20/16 01:57 09/19/16 01:56 Albuterol/ Ipratropium (DuoNeb 0.5-3(2.5)mg/3ml) 3 ml Q4H PRN HHN Shortness of Breath 08/20/16 01:00 08/25/16 00:59 08/22/16 03:35 Aspirin (Ecotrin) 81 mg DAILY ORAL 08/20/16 09:00 09/19/16 08:59 08/22/16 08:42 Carvedilol (Coreg) 3.125 mg EVERY 12 HOURS ORAL 08/20/16 09:00 09/19/16 08:59 08/22/16 08:42 Dextrose (Dextrose 50%) STAT PRN IV Hypoglycemia 08/20/16 01:58 09/19/16 01:57 Furosemide (Lasix) 40 mg DAILY ORAL 08/21/16 09:00 09/20/16 08:59 08/22/16 08:42 Heparin Sodium (Porcine) (Heparin 5000 units/ml) 5,000 units EVERY 12 HOURS SUBQ 08/20/16 09:00 09/19/16 08:59 08/22/16 08:44 Insulin Aspart (NovoLOG) BEFORE MEALS AND HS SUBQ 08/20/16 06:30 09/19/16 06:29 08/21/16 21:07 Lisinopril (Zestril) 10 mg DAILY ORAL 08/20/16 09:00 09/19/16 08:59 08/22/16 08:45 Morphine Sulfate (Morphine Sulfate) 4 mg Q4H PRN IVP For Pain 08/20/16 01:30 08/27/16 01:29 Ondansetron HCl (Zofran) 4 mg Q6H PRN IVP Nausea & Vomiting 08/20/16 02:01 09/19/16 02:00 Polyethylene Glycol (Miralax) 17 gm DAILYPRN PRN ORAL Constipation 08/20/16 00:30 09/19/16 00:29 Temazepam (Restoril) 15 mg HSPRN PRN ORAL Insomnia 08/20/16 00:30 08/27/16 00:29 Allergies: Coded Allergies: No Known Allergies (Unverified , 12/12/15) ROS Limited/Unobtainable: No Constitutional: Reports: no symptoms HEENT: Reports: no symptoms Cardiovascular: Reports: no symptoms Respiratory: Reports: shortness of breath Gastrointestinal/Abdominal: Reports: no symptoms Genitourinary: Reports: no symptoms Neurologic/Psychiatric: Reports: no symptoms Subjective 71 YO M admitted with shortness of breath and congestive heart failure. Cover for Int Pool-Dr Olivarez. Await [facility] facility placement Objective Last Vital Signs Date Time Temp Pulse Resp B/P Pulse Ox O2 Delivery O2 Flow Rate FiO2 08/22/16 12:20 96.6 72 19 120/78 99 Nasal Cannula 2.0 08/22/16 03:38 28 Laboratory Tests Test 08/22/16 05:00 White Blood Count 6.9 K/UL (4.8-10.8) Red Blood Count 4.36 M/UL (4.70-6.10) L Hemoglobin 14.6 G/DL (14.2-18.0) Hematocrit 43.9 % (42.0-52.0) Mean Corpuscular Volume 101 FL (80-99) H Mean Corpuscular Hemoglobin 33.4 PG (27.0-31.0) H Mean Corpuscular Hemoglobin Concent 33.2 G/DL (32.0-36.0) Red Cell Distribution Width 13.5 % (11.6-14.8) Platelet Count 204 K/UL (150-450) Mean Platelet Volume 8.1 FL (6.5-10.1) Neutrophils (%) (Auto) 34.6 % (45.0-75.0) L Lymphocytes (%) (Auto) 46.0 % (20.0-45.0) H Monocytes (%) (Auto) 17.6 % (1.0-10.0) H Eosinophils (%) (Auto) 1.0 % (0.0-3.0) Basophils (%) (Auto) 0.8 % (0.0-2.0) Sodium Level 142 mEQ/L (135-145) Potassium Level 4.7 mEQ/L (3.4-4.9) Chloride Level 104 mEQ/L (98-107) Carbon Dioxide Level 24 mEQ/L (20-30) Anion Gap 14 (5-15) Blood Urea Nitrogen 29 mg/dL (7-23) H Creatinine 1.3 mg/dL (0.7-1.2) H Estimat Glomerular Filtration Rate mL/min (>60) Glucose Level 91 mg/dL (74-106) Calcium Level 9.0 mg/dL (8.6-10.2) Intake and Output 08/21/16 08/22/16 19:00 07:00 Intake Total 940 ml 480 ml Output Total 350 ml Balance 940 ml 130 ml Intake Oral 940 ml 480 ml Output Urine Total 350 ml # Voids 5 2 # Bowel Movements 4 Objective General Appearance: WD/WN, alert, mild distress, thin EENT: PERRL/EOMI, normal ENT inspection Neck: non-tender, normal alignment, supple Cardiovascular: normal peripheral pulses, normal rate, regular rhythm, no gallop/murmur, no JVD Respiratory/Chest: no accessory muscle use, respiratory distress, crackles/ rales, rhonchi - bilaterally, expiratory wheezing Abdomen: normal bowel sounds, non tender, soft, no organomegaly, no mass Extremities: normal range of motion 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 See cardiology consult. (3) Shortness of breath (4) HTN (hypertension) Assessment & Plan: Cont coreg (5) COPD (chronic obstructive pulmonary disease) Assessment & Plan: Cont duoneb. D/C levaquin per ID (6) Cardiomyopathy (7) CAD (coronary artery disease) (8) Nephrolithiasis (9) Cerebral vascular disease (10) UTI (urinary tract infection) due to Enterococcus Assessment & Plan: D/C antibiotics --see ID note. Status: stable Assessment/Plan Discharge planning: SNF when bed available. SURINDER HELMS Aug 22, 2016 14:05
[2016-08-22 16:00] VITALS: BP 126/81
[2016-08-22 20:01] VITALS: BP 125/92
--- NOTE | 2016-08-22 22:02 | Pulmonology Progress Note ---
Assessment/Plan Problems: (1) CHF exacerbation (2) Cardiomyopathy (3) COPD exacerbation (4) S/P CABG (coronary artery bypass graft) (5) AICD (automatic cardioverter/defibrillator) present (6) Cerebral vascular disease (7) Hemiplegia affecting right dominant side Assessment/Plan improving respiratory treatment titrate fio2 to sat of 92% continue diuretics check sputum chest pt dc/ planning in progress Subjective ROS Limited/Unobtainable: No Constitutional: Reports: no symptoms HEENT: Repors: no symptoms Respiratory: Reports: no symptoms Allergies: Coded Allergies: No Known Allergies (Unverified , 12/12/15) Objective Last 24 Hour Vital Signs Date Time Temp Pulse Resp B/P Pulse Ox O2 Delivery O2 Flow Rate FiO2 08/22/16 20:34 94 125/92 08/22/16 20:01 98.2 94 21 125/92 98 Nasal Cannula 2.5 08/22/16 19:58 91 18 Nasal Cannula 2.0 08/22/16 19:58 Nasal Cannula 2.0 08/22/16 19:58 98 Nasal Cannula 2.0 08/22/16 16:00 97.9 69 23 126/81 100 Nasal Cannula 2.5 08/22/16 12:20 96.6 72 19 120/78 99 Nasal Cannula 2.0 08/22/16 08:45 132/81 08/22/16 08:42 78 132/81 08/22/16 08:14 97.7 78 20 132/81 100 Room Air 08/22/16 08:05 Nasal Cannula 2.0 08/22/16 08:05 85 18 Nasal Cannula 3.0 08/22/16 08:05 99 Nasal Cannula 2.0 08/22/16 04:00 97.6 47 20 125/70 100 Room Air 08/22/16 03:39 55 18 100 Nasal Cannula 2.0 08/22/16 03:38 46 18 98 Nasal Cannula 2.0 08/22/16 00:00 96.7 82 20 118/87 97 Nasal Cannula 2.0 Intake and Output 08/21/16 08/22/16 19:00 07:00 Intake Total 940 ml 480 ml Output Total 350 ml Balance 940 ml 130 ml Intake Oral 940 ml 480 ml Output Urine Total 350 ml # Voids 5 2 # Bowel Movements 4 General Appearance: WD/WN HEENT: normocephalic Respiratory/Chest: chest wall non-tender Cardiovascular: normal peripheral pulses Abdomen: normal bowel sounds, no organomegaly Genitourinary: normal external genitalia Skin: no ulcers Neurologic/Psychiatric: no motor/sensory deficits Laboratory Tests 08/22/16 05:00: White Blood Count 6.9, Red Blood Count 4.36L, Hemoglobin 14.6, Hematocrit 43.9, Mean Corpuscular Volume 101H, Mean Corpuscular Hemoglobin 33.4H, Mean Corpuscular Hemoglobin Concent 33.2, Red Cell Distribution Width 13.5, Platelet Count 204, Mean Platelet Volume 8.1, Neutrophils (%) (Auto) 34.6L, Lymphocytes ( %) (Auto) 46.0H, Monocytes (%) (Auto) 17.6H, Eosinophils (%) (Auto) 1.0, Basophils (%) (Auto) 0.8, Sodium Level 142, Potassium Level 4.7, Chloride Level 104, Carbon Dioxide Level 24, Anion Gap 14, Blood Urea Nitrogen 29H, Creatinine 1.3H, Estimat Glomerular Filtration Rate , Glucose Level 91, Calcium Level 9.0 Current Medications Medications (Trade) Dose Ordered Sig/Elsa Route PRN Reason Start Time Stop Time Status Last Admin Dose Admin Acetaminophen (Tylenol) 650 mg Q4H PRN ORAL Fever 08/20/16 01:57 09/19/16 01:56 Albuterol/ Ipratropium (DuoNeb 0.5-3(2.5)mg/3ml) 3 ml Q4H PRN HHN Shortness of Breath 08/20/16 01:00 08/25/16 00:59 08/22/16 03:35 Aspirin (Ecotrin) 81 mg DAILY ORAL 08/20/16 09:00 09/19/16 08:59 08/22/16 08:42 Carvedilol (Coreg) 3.125 mg EVERY 12 HOURS ORAL 08/20/16 09:00 09/19/16 08:59 08/22/16 20:34 Dextrose (Dextrose 50%) STAT PRN IV Hypoglycemia 08/20/16 01:58 09/19/16 01:57 Furosemide (Lasix) 40 mg DAILY ORAL 08/21/16 09:00 09/20/16 08:59 08/22/16 08:42 Heparin Sodium (Porcine) (Heparin 5000 units/ml) 5,000 units EVERY 12 HOURS SUBQ 08/20/16 09:00 09/19/16 08:59 08/22/16 20:35 Insulin Aspart (NovoLOG) BEFORE MEALS AND HS SUBQ 08/20/16 06:30 09/19/16 06:29 08/22/16 20:33 Lisinopril (Zestril) 10 mg DAILY ORAL 08/20/16 09:00 09/19/16 08:59 08/22/16 08:45 Morphine Sulfate (Morphine Sulfate) 4 mg Q4H PRN IVP For Pain 08/20/16 01:30 08/27/16 01:29 Ondansetron HCl (Zofran) 4 mg Q6H PRN IVP Nausea & Vomiting 08/20/16 02:01 09/19/16 02:00 Polyethylene Glycol (Miralax) 17 gm DAILYPRN PRN ORAL Constipation 08/20/16 00:30 09/19/16 00:29 Temazepam (Restoril) 15 mg HSPRN PRN ORAL Insomnia 08/20/16 00:30 08/27/16 00:29 MURRAY NELSON Aug 22, 2016 22:02
--- NOTE | 2016-08-22 22:18 | Cardiac Electrophysiology PN ---
Assessment/Plan Assessment/Plan 1. Congestive heart failure with ejection fraction of 25% with BNP more than 5500.Down to 3700. Continue Coreg, lisinopril , Aldactone and Lasix. 2. Status post [facility] defibrillator implantation with Nl Fx. 3. History of cocaine use.Urine Tox screen is negative for Cocaine. 4. History of coronary artery bypass graft in 2012. 5. History of cerebrovascular accident in 2009. 6. CKD. Creatinine down to 1.2 DW RN Subjective Subjective Alert in NAD on nonmonitored bed. No chest pain or SOB or palpitations Objective Last 24 Hour Vital Signs Date Time Temp Pulse Resp B/P Pulse Ox O2 Delivery O2 Flow Rate FiO2 08/22/16 20:34 94 125/92 08/22/16 20:01 98.2 94 21 125/92 98 Nasal Cannula 2.5 08/22/16 19:58 91 18 Nasal Cannula 2.0 28 08/22/16 19:58 Nasal Cannula 2.0 28 08/22/16 19:58 98 Nasal Cannula 2.0 28 08/22/16 16:00 97.9 69 23 126/81 100 Nasal Cannula 2.5 08/22/16 12:20 96.6 72 19 120/78 99 Nasal Cannula 2.0 08/22/16 08:45 132/81 08/22/16 08:42 78 132/81 08/22/16 08:14 97.7 78 20 132/81 100 Room Air 08/22/16 08:05 Nasal Cannula 2.0 08/22/16 08:05 85 18 Nasal Cannula 3.0 08/22/16 08:05 99 Nasal Cannula 2.0 08/22/16 04:00 97.6 47 20 125/70 100 Room Air 08/22/16 03:39 55 18 100 Nasal Cannula 2.0 08/22/16 03:38 46 18 98 Nasal Cannula 2.0 28 08/22/16 00:00 96.7 82 20 118/87 97 Nasal Cannula 2.0 Intake and Output 08/21/16 08/22/16 19:00 07:00 Intake Total 940 ml 480 ml Output Total 350 ml Balance 940 ml 130 ml Intake Oral 940 ml 480 ml Output Urine Total 350 ml # Voids 5 2 # Bowel Movements 4 Laboratory Tests Test 08/22/16 05:00 White Blood Count 6.9 K/UL (4.8-10.8) Red Blood Count 4.36 M/UL (4.70-6.10) L Hemoglobin 14.6 G/DL (14.2-18.0) Hematocrit 43.9 % (42.0-52.0) Mean Corpuscular Volume 101 FL (80-99) H Mean Corpuscular Hemoglobin 33.4 PG (27.0-31.0) H Mean Corpuscular Hemoglobin Concent 33.2 G/DL (32.0-36.0) Red Cell Distribution Width 13.5 % (11.6-14.8) Platelet Count 204 K/UL (150-450) Mean Platelet Volume 8.1 FL (6.5-10.1) Neutrophils (%) (Auto) 34.6 % (45.0-75.0) L Lymphocytes (%) (Auto) 46.0 % (20.0-45.0) H Monocytes (%) (Auto) 17.6 % (1.0-10.0) H Eosinophils (%) (Auto) 1.0 % (0.0-3.0) Basophils (%) (Auto) 0.8 % (0.0-2.0) Sodium Level 142 mEQ/L (135-145) Potassium Level 4.7 mEQ/L (3.4-4.9) Chloride Level 104 mEQ/L (98-107) Carbon Dioxide Level 24 mEQ/L (20-30) Anion Gap 14 (5-15) Blood Urea Nitrogen 29 mg/dL (7-23) H Creatinine 1.3 mg/dL (0.7-1.2) H Estimat Glomerular Filtration Rate mL/min (>60) Glucose Level 91 mg/dL (74-106) Calcium Level 9.0 mg/dL (8.6-10.2) Objective HEAD AND NECK: Mild JVD. LUNGS: Decreased breath sounds. CARDIOVASCULAR: Regular S1 and S2 with no gallop or murmur.ICD in left subclavian. ABDOMEN: Soft. EXTREMITIES: no pitting edema.Left ankle in Cast. BRYAN BOYD Aug 22, 2016 22:18
[2016-08-23] VITALS: BP 120/88
[2016-08-23 04:00] VITALS: BP 121/70
[2016-08-23] MEDS: NovoLOG Insulin Flexpen SUBQ SCH ×4 (06:32→21:06)
[2016-08-23 07:12] LABS: BASOPHILS % (AUTO) 1.2 % (0.0-2.0); EOSINOPHILS % (AUTO) 0.8 % (0.0-3.0); LYMPHOCYTES % (AUTO) 42.2 % (20.0-45.0); MEAN CORPUSCULAR HEMOGLOBIN 33.3 PG (27.0-31.0); MEAN CORPUSCULAR HGB CONC 32.8 G/DL (32.0-36.0); MEAN CORPUSCULAR VOLUME 102 FL (80-99); MEAN PLATELET VOLUME 8.1 FL (6.5-10.1); MONOCYTES % (AUTO) 15.4 % (1.0-10.0); NEUTROPHILS % (AUTO) 40.3 % (45.0-75.0); PLATELET COUNT 199 K/UL (150-450); RED BLOOD COUNT 4.28 M/UL (4.70-6.10); RED CELL DISTRIBUTION WIDTH 13.1 % (11.6-14.8); WHITE BLOOD COUNT 6.9 K/UL (4.8-10.8)
[2016-08-23 07:45] LABS: ANION GAP 14 (5-15); CALCIUM 9.3 mg/dL (8.6-10.2); CARBON DIOXIDE 28 mEQ/L (20-30); CHLORIDE 100 mEQ/L (98-107); CREATININE 1.3 mg/dL (0.7-1.2); HEMOLYSIS 7; SODIUM 142 mEQ/L (135-145)
[2016-08-23 08:00] VITALS: BP 119/89
[2016-08-23] MEDS: Furosemide 40mg tab ORAL SCH (08:21)
[2016-08-23] MEDS: Aspirin EC 81mg tab ORAL SCH (08:21)
[2016-08-23] MEDS: Lisinopril 10mg tab ORAL SCH (08:21)
[2016-08-23] MEDS: Heparin 5000 units/ml inj SUBQ SCH ×2 (08:29→21:11)
[2016-08-23 12:00] VITALS: BP 110/71
--- NOTE | 2016-08-23 14:06 | Internal Med Progress Note ---
Subjective Date of Service: Aug 23, 2016 Physician Name Surinder Helms Attending Physician Barrett Olivarez MD Current Medications Medications (Trade) Dose Ordered Sig/Elsa Route PRN Reason Start Time Stop Time Status Last Admin Dose Admin Acetaminophen (Tylenol) 650 mg Q4H PRN ORAL Fever 08/20/16 01:57 09/19/16 01:56 Albuterol/ Ipratropium (DuoNeb 0.5-3(2.5)mg/3ml) 3 ml Q4H PRN HHN Shortness of Breath 08/20/16 01:00 08/25/16 00:59 08/22/16 03:35 Aspirin (Ecotrin) 81 mg DAILY ORAL 08/20/16 09:00 09/19/16 08:59 08/23/16 08:21 Carvedilol (Coreg) 3.125 mg EVERY 12 HOURS ORAL 08/20/16 09:00 09/19/16 08:59 08/22/16 20:34 Dextrose (Dextrose 50%) STAT PRN IV Hypoglycemia 08/20/16 01:58 09/19/16 01:57 Furosemide (Lasix) 40 mg DAILY ORAL 08/21/16 09:00 09/20/16 08:59 08/23/16 08:21 Heparin Sodium (Porcine) (Heparin 5000 units/ml) 5,000 units EVERY 12 HOURS SUBQ 08/20/16 09:00 09/19/16 08:59 08/23/16 08:29 Insulin Aspart (NovoLOG) BEFORE MEALS AND HS SUBQ 08/20/16 06:30 09/19/16 06:29 08/23/16 06:32 Lisinopril (Zestril) 10 mg DAILY ORAL 08/20/16 09:00 09/19/16 08:59 08/23/16 08:21 Morphine Sulfate (Morphine Sulfate) 4 mg Q4H PRN IVP For Pain 08/20/16 01:30 08/27/16 01:29 Ondansetron HCl (Zofran) 4 mg Q6H PRN IVP Nausea & Vomiting 08/20/16 02:01 09/19/16 02:00 Polyethylene Glycol (Miralax) 17 gm DAILYPRN PRN ORAL Constipation 08/20/16 00:30 09/19/16 00:29 Temazepam (Restoril) 15 mg HSPRN PRN ORAL Insomnia 08/20/16 00:30 08/27/16 00:29 Allergies: Coded Allergies: No Known Allergies (Unverified , 12/12/15) ROS Limited/Unobtainable: No Constitutional: Reports: no symptoms HEENT: Reports: no symptoms Cardiovascular: Reports: no symptoms Respiratory: Reports: shortness of breath Gastrointestinal/Abdominal: Reports: no symptoms Genitourinary: Reports: no symptoms Neurologic/Psychiatric: Reports: no symptoms Subjective 71 YO M admitted with shortness of breath and congestive heart failure. Cover for Int Pool-Dr Olivarez. Await residential facility placement Objective Last Vital Signs Date Time Temp Pulse Resp B/P Pulse Ox O2 Delivery O2 Flow Rate FiO2 08/23/16 12:00 98.5 77 19 110/71 98 Room Air 08/23/16 07:31 2.0 28 Laboratory Tests Test 08/23/16 05:45 White Blood Count 6.9 K/UL (4.8-10.8) Red Blood Count 4.28 M/UL (4.70-6.10) L Hemoglobin 14.3 G/DL (14.2-18.0) Hematocrit 43.5 % (42.0-52.0) Mean Corpuscular Volume 102 FL (80-99) H Mean Corpuscular Hemoglobin 33.3 PG (27.0-31.0) H Mean Corpuscular Hemoglobin Concent 32.8 G/DL (32.0-36.0) Red Cell Distribution Width 13.1 % (11.6-14.8) Platelet Count 199 K/UL (150-450) Mean Platelet Volume 8.1 FL (6.5-10.1) Neutrophils (%) (Auto) 40.3 % (45.0-75.0) L Lymphocytes (%) (Auto) 42.2 % (20.0-45.0) Monocytes (%) (Auto) 15.4 % (1.0-10.0) H Eosinophils (%) (Auto) 0.8 % (0.0-3.0) Basophils (%) (Auto) 1.2 % (0.0-2.0) Sodium Level 142 mEQ/L (135-145) Potassium Level 4.0 mEQ/L (3.4-4.9) Chloride Level 100 mEQ/L (98-107) Carbon Dioxide Level 28 mEQ/L (20-30) Anion Gap 14 (5-15) Blood Urea Nitrogen 27 mg/dL (7-23) H Creatinine 1.3 mg/dL (0.7-1.2) H Estimat Glomerular Filtration Rate mL/min (>60) Glucose Level 142 mg/dL (74-106) H Calcium Level 9.3 mg/dL (8.6-10.2) Intake and Output 08/22/16 08/23/16 19:00 07:00 Intake Total 360 ml 600 ml Output Total 280 ml 950 ml Balance 80 ml -350 ml Intake Oral 360 ml 600 ml Output Urine Total 280 ml 950 ml # Voids 1 5 # Bowel Movements 1 Objective General Appearance: WD/WN, alert, mild distress, thin EENT: PERRL/EOMI, normal ENT inspection Neck: non-tender, normal alignment, supple Cardiovascular: normal peripheral pulses, normal rate, regular rhythm, no gallop/murmur, no JVD Respiratory/Chest: no accessory muscle use, respiratory distress, crackles/ rales, rhonchi - bilaterally, expiratory wheezing Abdomen: normal bowel sounds, non tender, soft, no organomegaly, no mass Extremities: normal range of motion Neurologic: 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 See cardiology consult. (3) Shortness of breath (4) HTN (hypertension) Assessment & Plan: Cont coreg (5) COPD (chronic obstructive pulmonary disease) Assessment & Plan: Cont duoneb. D/C levaquin per ID (6) Cardiomyopathy (7) CAD (coronary artery disease) (8) Nephrolithiasis (9) Cerebral vascular disease (10) UTI (urinary tract infection) due to Enterococcus Assessment & Plan: D/C antibiotics --see ID note. Status: progressing Assessment/Plan Discharge planning: SNF when bed available. SURINDER HELMS Aug 23, 2016 14:06
--- NOTE | 2016-08-23 14:11 | Infectious Diseases Prog Note ---
Assessment/Plan Assessment/Plan ASSESSMENT: 71 y/o male with: // COPD exacerbation r/o influenza - SCx NRF SP Rx - CXR 08/17: No definite infiltrate or pulmonary vascular congestion identified. 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 // PCT // CKD3 // NKDA // Full Code PLAN: - monitor pt off of AB Rx ( 08/21 SP levaquin d# 5 / ) - monitor CBC, temperatures - monitor BMP - monitor CXR Subjective Constitutional: Denies: anorexia, chills, drenching sweats, fatigue, fever, no symptoms, other Allergies: Coded Allergies: No Known Allergies (Unverified , 12/12/15) Objective Vital Signs Last 24 Hour Vital Signs Date Time Temp Pulse Resp B/P Pulse Ox O2 Delivery O2 Flow Rate FiO2 08/23/16 12:00 98.5 77 19 110/71 98 Room Air 08/23/16 09:00 77 110/71 08/23/16 08:21 119/89 08/23/16 08:00 96.8 69 19 119/89 99 Room Air 08/23/16 07:31 98 Nasal Cannula 2.0 28 08/23/16 07:31 77 18 Nasal Cannula 2.0 28 08/23/16 07:31 Nasal Cannula 2.0 28 08/23/16 04:00 97.7 90 18 121/70 100 Nasal Cannula 2.5 08/23/16 00:00 97.3 68 18 120/88 100 Nasal Cannula 2.5 08/22/16 20:34 94 125/92 08/22/16 20:01 98.2 94 21 125/92 98 Nasal Cannula 2.5 08/22/16 19:58 91 18 Nasal Cannula 2.0 28 08/22/16 19:58 Nasal Cannula 2.0 28 08/22/16 19:58 98 Nasal Cannula 2.0 28 08/22/16 16:00 97.9 69 23 126/81 100 Nasal Cannula 2.5 Height (Feet): 5 Height (Inches): 9.00 Weight (Pounds): 148 HEENT: atraumatic Respiratory/Chest: lungs clear, normal breath sounds Cardiovascular: normal rate, regular rhythm Abdomen: soft, non tender, no organomegaly Laboratory Tests Test 08/23/16 05:45 White Blood Count 6.9 K/UL (4.8-10.8) Red Blood Count 4.28 M/UL (4.70-6.10) L Hemoglobin 14.3 G/DL (14.2-18.0) Hematocrit 43.5 % (42.0-52.0) Mean Corpuscular Volume 102 FL (80-99) H Mean Corpuscular Hemoglobin 33.3 PG (27.0-31.0) H Mean Corpuscular Hemoglobin Concent 32.8 G/DL (32.0-36.0) Red Cell Distribution Width 13.1 % (11.6-14.8) Platelet Count 199 K/UL (150-450) Mean Platelet Volume 8.1 FL (6.5-10.1) Neutrophils (%) (Auto) 40.3 % (45.0-75.0) L Lymphocytes (%) (Auto) 42.2 % (20.0-45.0) Monocytes (%) (Auto) 15.4 % (1.0-10.0) H Eosinophils (%) (Auto) 0.8 % (0.0-3.0) Basophils (%) (Auto) 1.2 % (0.0-2.0) Sodium Level 142 mEQ/L (135-145) Potassium Level 4.0 mEQ/L (3.4-4.9) Chloride Level 100 mEQ/L (98-107) Carbon Dioxide Level 28 mEQ/L (20-30) Anion Gap 14 (5-15) Blood Urea Nitrogen 27 mg/dL (7-23) H Creatinine 1.3 mg/dL (0.7-1.2) H Estimat Glomerular Filtration Rate mL/min (>60) Glucose Level 142 mg/dL (74-106) H Calcium Level 9.3 mg/dL (8.6-10.2) Current Medications Medications (Trade) Dose Ordered Sig/Elsa Route PRN Reason Start Time Stop Time Status Last Admin Dose Admin Acetaminophen (Tylenol) 650 mg Q4H PRN ORAL Fever 08/20/16 01:57 09/19/16 01:56 Albuterol/ Ipratropium (DuoNeb 0.5-3(2.5)mg/3ml) 3 ml Q4H PRN HHN Shortness of Breath 08/20/16 01:00 08/25/16 00:59 08/22/16 03:35 Aspirin (Ecotrin) 81 mg DAILY ORAL 08/20/16 09:00 09/19/16 08:59 08/23/16 08:21 Carvedilol (Coreg) 3.125 mg EVERY 12 HOURS ORAL 08/20/16 09:00 09/19/16 08:59 08/22/16 20:34 Dextrose (Dextrose 50%) STAT PRN IV Hypoglycemia 08/20/16 01:58 09/19/16 01:57 Furosemide (Lasix) 40 mg DAILY ORAL 08/21/16 09:00 09/20/16 08:59 08/23/16 08:21 Heparin Sodium (Porcine) (Heparin 5000 units/ml) 5,000 units EVERY 12 HOURS SUBQ 08/20/16 09:00 09/19/16 08:59 08/23/16 08:29 Insulin Aspart (NovoLOG) BEFORE MEALS AND HS SUBQ 08/20/16 06:30 09/19/16 06:29 08/23/16 06:32 Lisinopril (Zestril) 10 mg DAILY ORAL 08/20/16 09:00 09/19/16 08:59 08/23/16 08:21 Morphine Sulfate (Morphine Sulfate) 4 mg Q4H PRN IVP For Pain 08/20/16 01:30 08/27/16 01:29 Ondansetron HCl (Zofran) 4 mg Q6H PRN IVP Nausea & Vomiting 08/20/16 02:01 09/19/16 02:00 Polyethylene Glycol (Miralax) 17 gm DAILYPRN PRN ORAL Constipation 08/20/16 00:30 09/19/16 00:29 Temazepam (Restoril) 15 mg HSPRN PRN ORAL Insomnia 08/20/16 00:30 08/27/16 00:29 TOOTIE ALVAREZ M.D. Aug 23, 2016 14:11
[2016-08-23 16:00] VITALS: BP 92/66
[2016-08-23 20:00] VITALS: BP 121/80
--- NOTE | 2016-08-23 21:54 | Pulmonology Progress Note ---
Assessment/Plan Problems: (1) CHF exacerbation (2) Cardiomyopathy (3) COPD exacerbation (4) S/P CABG (coronary artery bypass graft) (5) AICD (automatic cardioverter/defibrillator) present (6) Cerebral vascular disease (7) Hemiplegia affecting right dominant side Assessment/Plan improving respiratory treatment titrate fio2 to sat of 92% continue diuretics check sputum chest pt dc/ planning in progress Subjective ROS Limited/Unobtainable: No Constitutional: Reports: no symptoms HEENT: Repors: no symptoms Respiratory: Reports: no symptoms Allergies: Coded Allergies: No Known Allergies (Unverified , 12/12/15) Objective Last 24 Hour Vital Signs Date Time Temp Pulse Resp B/P Pulse Ox O2 Delivery O2 Flow Rate FiO2 08/23/16 21:07 96 121/80 08/23/16 20:00 98.1 96 18 121/80 100 Nasal Cannula 2.0 08/23/16 17:45 74 18 Nasal Cannula 2.0 08/23/16 17:40 97 Nasal Cannula 2.0 28 08/23/16 17:40 Nasal Cannula 2.0 08/23/16 16:00 97.0 76 20 92/66 95 Nasal Cannula 2.0 08/23/16 12:00 98.5 77 19 110/71 98 Room Air 08/23/16 09:00 77 110/71 08/23/16 08:21 119/89 08/23/16 08:00 96.8 69 19 119/89 99 Room Air 08/23/16 07:31 98 Nasal Cannula 2.0 08/23/16 07:31 77 18 Nasal Cannula 2.0 08/23/16 07:31 Nasal Cannula 2.0 08/23/16 04:00 97.7 90 18 121/70 100 Nasal Cannula 2.5 08/23/16 00:00 97.3 68 18 120/88 100 Nasal Cannula 2.5 Intake and Output 08/22/16 08/23/16 19:00 07:00 Intake Total 360 ml 600 ml Output Total 280 ml 950 ml Balance 80 ml -350 ml Intake Oral 360 ml 600 ml Output Urine Total 280 ml 950 ml # Voids 1 5 # Bowel Movements 1 General Appearance: WD/WN HEENT: normocephalic Respiratory/Chest: chest wall non-tender, lungs clear Cardiovascular: normal peripheral pulses Abdomen: normal bowel sounds Genitourinary: normal external genitalia Neurologic/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: 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 normal, no motor/sensory deficits Lymphatic: no neck adenopathy Laboratory Tests 08/23/16 05:45: White Blood Count 6.9, Red Blood Count 4.28L, Hemoglobin 14.3, Hematocrit 43.5, Mean Corpuscular Volume 102H, Mean Corpuscular Hemoglobin 33.3H, Mean Corpuscular Hemoglobin Concent 32.8, Red Cell Distribution Width 13.1, Platelet Count 199, Mean Platelet Volume 8.1, Neutrophils (%) (Auto) 40.3L, Lymphocytes ( %) (Auto) 42.2, Monocytes (%) (Auto) 15.4H, Eosinophils (%) (Auto) 0.8, Basophils (%) (Auto) 1.2, Sodium Level 142, Potassium Level 4.0, Chloride Level 100, Carbon Dioxide Level 28, Anion Gap 14, Blood Urea Nitrogen 27H, Creatinine 1.3H, Estimat Glomerular Filtration Rate , Glucose Level 142H, Calcium Level 9.3 Current Medications Medications (Trade) Dose Ordered Sig/Elsa Route PRN Reason Start Time Stop Time Status Last Admin Dose Admin Acetaminophen (Tylenol) 650 mg Q4H PRN ORAL Fever 08/20/16 01:57 09/19/16 01:56 Albuterol/ Ipratropium (DuoNeb 0.5-3(2.5)mg/3ml) 3 ml Q4H PRN HHN Shortness of Breath 08/20/16 01:00 08/25/16 00:59 08/22/16 03:35 Aspirin (Ecotrin) 81 mg DAILY ORAL 08/20/16 09:00 09/19/16 08:59 08/23/16 08:21 Carvedilol (Coreg) 3.125 mg EVERY 12 HOURS ORAL 08/20/16 09:00 09/19/16 08:59 08/23/16 21:07 Dextrose (Dextrose 50%) STAT PRN IV Hypoglycemia 08/20/16 01:58 09/19/16 01:57 Furosemide (Lasix) 40 mg DAILY ORAL 08/21/16 09:00 09/20/16 08:59 08/23/16 08:21 Heparin Sodium (Porcine) (Heparin 5000 units/ml) 5,000 units EVERY 12 HOURS SUBQ 08/20/16 09:00 09/19/16 08:59 08/23/16 21:11 Insulin Aspart (NovoLOG) BEFORE MEALS AND HS SUBQ 08/20/16 06:30 09/19/16 06:29 08/23/16 21:06 Lisinopril (Zestril) 10 mg DAILY ORAL 08/20/16 09:00 09/19/16 08:59 08/23/16 08:21 Morphine Sulfate (Morphine Sulfate) 4 mg Q4H PRN IVP For Pain 08/20/16 01:30 08/27/16 01:29 Ondansetron HCl (Zofran) 4 mg Q6H PRN IVP Nausea & Vomiting 08/20/16 02:01 09/19/16 02:00 Polyethylene Glycol (Miralax) 17 gm DAILYPRN PRN ORAL Constipation 08/20/16 00:30 09/19/16 00:29 Temazepam (Restoril) 15 mg HSPRN PRN ORAL Insomnia 08/20/16 00:30 08/27/16 00:29 MURRAY NELSON Aug 23, 2016 21:54
[2016-08-24] VITALS: BP 129/95
[2016-08-24 04:00] VITALS: BP 124/79
[2016-08-24] MEDS: NovoLOG Insulin Flexpen SUBQ SCH ×4 (06:30→20:25)
[2016-08-24 06:54] LABS: BASOPHILS % (AUTO) 1.7 % (0.0-2.0); EOSINOPHILS % (AUTO) 1.2 % (0.0-3.0); LYMPHOCYTES % (AUTO) 52.8 % (20.0-45.0); MEAN CORPUSCULAR HEMOGLOBIN 33.9 PG (27.0-31.0); MEAN CORPUSCULAR HGB CONC 32.6 G/DL (32.0-36.0); MEAN CORPUSCULAR VOLUME 104 FL (80-99); MONOCYTES % (AUTO) 16.7 % (1.0-10.0); NEUTROPHILS % (AUTO) 27.6 % (45.0-75.0); PLATELET COUNT 198 K/UL (150-450); RED BLOOD COUNT 4.19 M/UL (4.70-6.10); RED CELL DISTRIBUTION WIDTH 13.5 % (11.6-14.8); WHITE BLOOD COUNT 8.5 K/UL (4.8-10.8)
[2016-08-24 08:00] VITALS: BP 122/81
[2016-08-24 08:15] LABS: ANION GAP 15 (5-15); CALCIUM 9.6 mg/dL (8.6-10.2); CARBON DIOXIDE 28 mEQ/L (20-30); CHLORIDE 101 mEQ/L (98-107); CREATININE 1.4 mg/dL (0.7-1.2); POTASSIUM 4.7 mEQ/L (3.4-4.9); SODIUM 144 mEQ/L (135-145)
[2016-08-24 08:16] LABS: HEMOLYSIS 15
[2016-08-24] MEDS: Heparin 5000 units/ml inj SUBQ SCH ×2 (09:03→20:33)
[2016-08-24] MEDS: Aspirin EC 81mg tab ORAL SCH (09:04)
[2016-08-24] MEDS: Lisinopril 10mg tab ORAL SCH (09:04)
[2016-08-24] MEDS: Furosemide 40mg tab ORAL SCH (09:04)
--- NOTE | 2016-08-24 11:40 | Internal Med Progress Note ---
Subjective Date of Service: Aug 24, 2016 Physician Name Royce Helms Attending Physician Barrett Olivarez MD Current Medications Medications (Trade) Dose Ordered Sig/Elsa Route PRN Reason Start Time Stop Time Status Last Admin Dose Admin Acetaminophen (Tylenol) 650 mg Q4H PRN ORAL Fever 08/20/16 01:57 09/19/16 01:56 Albuterol/ Ipratropium (DuoNeb 0.5-3(2.5)mg/3ml) 3 ml Q4H PRN HHN Shortness of Breath 08/20/16 01:00 08/25/16 00:59 08/22/16 03:35 Aspirin (Ecotrin) 81 mg DAILY ORAL 08/20/16 09:00 09/19/16 08:59 08/24/16 09:04 Carvedilol (Coreg) 3.125 mg EVERY 12 HOURS ORAL 08/20/16 09:00 09/19/16 08:59 08/24/16 09:04 Dextrose (Dextrose 50%) STAT PRN IV Hypoglycemia 08/20/16 01:58 09/19/16 01:57 Furosemide (Lasix) 40 mg DAILY ORAL 08/21/16 09:00 09/20/16 08:59 08/24/16 09:04 Heparin Sodium (Porcine) (Heparin 5000 units/ml) 5,000 units EVERY 12 HOURS SUBQ 08/20/16 09:00 09/19/16 08:59 08/24/16 09:03 Insulin Aspart (NovoLOG) BEFORE MEALS AND HS SUBQ 08/20/16 06:30 09/19/16 06:29 08/23/16 21:06 Lisinopril (Zestril) 10 mg DAILY ORAL 08/20/16 09:00 09/19/16 08:59 08/24/16 09:04 Morphine Sulfate (Morphine Sulfate) 4 mg Q4H PRN IVP For Pain 08/20/16 01:30 08/27/16 01:29 Ondansetron HCl (Zofran) 4 mg Q6H PRN IVP Nausea & Vomiting 08/20/16 02:01 09/19/16 02:00 Polyethylene Glycol (Miralax) 17 gm DAILYPRN PRN ORAL Constipation 08/20/16 00:30 09/19/16 00:29 Temazepam (Restoril) 15 mg HSPRN PRN ORAL Insomnia 08/20/16 00:30 08/27/16 00:29 Allergies: Coded Allergies: No Known Allergies (Unverified , 12/12/15) ROS Limited/Unobtainable: No Constitutional: Reports: no symptoms HEENT: Reports: no symptoms Cardiovascular: Reports: no symptoms Respiratory: Reports: no symptoms Gastrointestinal/Abdominal: Reports: no symptoms Genitourinary: Reports: no symptoms Neurologic/Psychiatric: Reports: no symptoms Subjective 71 YO M admitted with shortness of breath and congestive heart failure. Cover for Int Med-Dr Olivarez. Await retirement facility placement Objective Last Vital Signs Date Time Temp Pulse Resp B/P Pulse Ox O2 Delivery O2 Flow Rate FiO2 08/24/16 09:04 122/81 08/24/16 09:04 88 08/24/16 08:06 18 Nasal Cannula 2.0 28 08/24/16 08:05 99 08/24/16 08:00 97.7 Laboratory Tests Test 08/24/16 05:25 White Blood Count 8.5 K/UL (4.8-10.8) Red Blood Count 4.19 M/UL (4.70-6.10) L Hemoglobin 14.2 G/DL (14.2-18.0) Hematocrit 43.6 % (42.0-52.0) Mean Corpuscular Volume 104 FL (80-99) H Mean Corpuscular Hemoglobin 33.9 PG (27.0-31.0) H Mean Corpuscular Hemoglobin Concent 32.6 G/DL (32.0-36.0) Red Cell Distribution Width 13.5 % (11.6-14.8) Platelet Count 198 K/UL (150-450) Mean Platelet Volume 8.0 FL (6.5-10.1) Neutrophils (%) (Auto) 27.6 % (45.0-75.0) L Lymphocytes (%) (Auto) 52.8 % (20.0-45.0) H Monocytes (%) (Auto) 16.7 % (1.0-10.0) H Eosinophils (%) (Auto) 1.2 % (0.0-3.0) Basophils (%) (Auto) 1.7 % (0.0-2.0) Sodium Level 144 mEQ/L (135-145) Potassium Level 4.7 mEQ/L (3.4-4.9) Chloride Level 101 mEQ/L (98-107) Carbon Dioxide Level 28 mEQ/L (20-30) Anion Gap 15 (5-15) Blood Urea Nitrogen 32 mg/dL (7-23) H Creatinine 1.4 mg/dL (0.7-1.2) H Estimat Glomerular Filtration Rate mL/min (>60) Glucose Level 87 mg/dL (74-106) Calcium Level 9.6 mg/dL (8.6-10.2) Intake and Output 08/23/16 08/24/16 19:00 07:00 Intake Total 940 ml 510 ml Output Total 400 ml 475 ml Balance 540 ml 35 ml Intake Oral 940 ml 510 ml Output Urine Total 400 ml 475 ml Objective General Appearance: WD/WN, alert, mild distress, thin EENT: PERRL/EOMI, normal ENT inspection Neck: non-tender, normal alignment, supple Cardiovascular: normal peripheral pulses, normal rate, regular rhythm, no gallop/murmur, no JVD Respiratory/Chest: no accessory muscle use, respiratory distress, crackles/ rales, rhonchi - bilaterally, expiratory wheezing Abdomen: normal bowel sounds, non tender, soft, no organomegaly, no mass Extremities: normal range of motion Neurologic: 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 See cardiology consult. (3) Shortness of breath (4) HTN (hypertension) Assessment & Plan: Cont coreg (5) COPD (chronic obstructive pulmonary disease) Assessment & Plan: Cont duoneb. D/C levaquin per ID (6) Cardiomyopathy (7) CAD (coronary artery disease) (8) Nephrolithiasis (9) Cerebral vascular disease (10) UTI (urinary tract infection) due to Enterococcus Assessment & Plan: D/C antibiotics --see ID note. Status: stable Assessment/Plan Discharge planning: SNF when bed available. ROYCE HELMS Aug 24, 2016 11:40
[2016-08-24 12:00] VITALS: BP 124/95
[2016-08-24 16:13] VITALS: BP 114/75
--- NOTE | 2016-08-24 18:32 | Infectious Diseases Prog Note ---
Assessment/Plan Assessment/Plan ASSESSMENT: 71 y/o male with: // COPD exacerbation r/o influenza - SCx NRF SP Rx - CXR 08/17: No definite infiltrate or pulmonary vascular congestion identified. 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 // CKD3 // NKDA // Full Code PLAN: - monitor pt off of AB Rx ( 08/21 SP levaquin d# 5 / ) - monitor CBC, temperatures - monitor BMP - monitor CXR Subjective Constitutional: Denies: anorexia, chills, drenching sweats, fatigue, fever, no symptoms, other Allergies: Coded Allergies: No Known Allergies (Unverified , 12/12/15) Objective Vital Signs Last 24 Hour Vital Signs Date Time Temp Pulse Resp B/P Pulse Ox O2 Delivery O2 Flow Rate FiO2 08/24/16 16:13 98.2 72 22 114/75 99 Nasal Cannula 2.0 08/24/16 12:00 97.5 70 18 124/95 100 Nasal Cannula 2.0 08/24/16 09:04 122/81 08/24/16 09:04 88 122/81 08/24/16 08:06 88 18 Nasal Cannula 2.0 28 08/24/16 08:05 99 Nasal Cannula 2.0 28 08/24/16 08:05 Nasal Cannula 2.0 28 08/24/16 08:00 97.7 71 20 122/81 100 Nasal Cannula 2.0 08/24/16 04:00 97.9 79 18 124/79 97 Room Air 08/24/16 00:00 98.1 87 18 129/95 99 Nasal Cannula 2.0 08/23/16 21:07 96 121/80 08/23/16 20:00 98.1 96 18 121/80 100 Nasal Cannula 2.0 Height (Feet): 5 Height (Inches): 9.00 Weight (Pounds): 148 HEENT: mucous membranes moist Respiratory/Chest: no respiratory distress Cardiovascular: no gallop/murmur Genitourinary: normal external genitalia Laboratory Tests Test 08/24/16 05:25 White Blood Count 8.5 K/UL (4.8-10.8) Red Blood Count 4.19 M/UL (4.70-6.10) L Hemoglobin 14.2 G/DL (14.2-18.0) Hematocrit 43.6 % (42.0-52.0) Mean Corpuscular Volume 104 FL (80-99) H Mean Corpuscular Hemoglobin 33.9 PG (27.0-31.0) H Mean Corpuscular Hemoglobin Concent 32.6 G/DL (32.0-36.0) Red Cell Distribution Width 13.5 % (11.6-14.8) Platelet Count 198 K/UL (150-450) Mean Platelet Volume 8.0 FL (6.5-10.1) Neutrophils (%) (Auto) 27.6 % (45.0-75.0) L Lymphocytes (%) (Auto) 52.8 % (20.0-45.0) H Monocytes (%) (Auto) 16.7 % (1.0-10.0) H Eosinophils (%) (Auto) 1.2 % (0.0-3.0) Basophils (%) (Auto) 1.7 % (0.0-2.0) Sodium Level 144 mEQ/L (135-145) Potassium Level 4.7 mEQ/L (3.4-4.9) Chloride Level 101 mEQ/L (98-107) Carbon Dioxide Level 28 mEQ/L (20-30) Anion Gap 15 (5-15) Blood Urea Nitrogen 32 mg/dL (7-23) H Creatinine 1.4 mg/dL (0.7-1.2) H Estimat Glomerular Filtration Rate mL/min (>60) Glucose Level 87 mg/dL (74-106) Calcium Level 9.6 mg/dL (8.6-10.2) Current Medications Medications (Trade) Dose Ordered Sig/Elsa Route PRN Reason Start Time Stop Time Status Last Admin Dose Admin Acetaminophen (Tylenol) 650 mg Q4H PRN ORAL Fever 08/20/16 01:57 09/19/16 01:56 Albuterol/ Ipratropium (DuoNeb 0.5-3(2.5)mg/3ml) 3 ml Q4H PRN HHN Shortness of Breath 08/20/16 01:00 08/25/16 00:59 08/22/16 03:35 Aspirin (Ecotrin) 81 mg DAILY ORAL 08/20/16 09:00 09/19/16 08:59 08/24/16 09:04 Carvedilol (Coreg) 3.125 mg EVERY 12 HOURS ORAL 08/20/16 09:00 09/19/16 08:59 08/24/16 09:04 Dextrose (Dextrose 50%) STAT PRN IV Hypoglycemia 08/20/16 01:58 09/19/16 01:57 Furosemide (Lasix) 40 mg DAILY ORAL 08/21/16 09:00 09/20/16 08:59 08/24/16 09:04 Heparin Sodium (Porcine) (Heparin 5000 units/ml) 5,000 units EVERY 12 HOURS SUBQ 08/20/16 09:00 09/19/16 08:59 08/24/16 09:03 Insulin Aspart (NovoLOG) BEFORE MEALS AND HS SUBQ 08/20/16 06:30 09/19/16 06:29 08/24/16 17:00 Lisinopril (Zestril) 10 mg DAILY ORAL 08/20/16 09:00 09/19/16 08:59 08/24/16 09:04 Morphine Sulfate (Morphine Sulfate) 4 mg Q4H PRN IVP For Pain 08/20/16 01:30 08/27/16 01:29 Ondansetron HCl (Zofran) 4 mg Q6H PRN IVP Nausea & Vomiting 08/20/16 02:01 09/19/16 02:00 Polyethylene Glycol (Miralax) 17 gm DAILYPRN PRN ORAL Constipation 08/20/16 00:30 09/19/16 00:29 Temazepam (Restoril) 15 mg HSPRN PRN ORAL Insomnia 08/20/16 00:30 08/27/16 00:29 TOOTIE ALVAREZ M.D. Aug 24, 2016 18:32
[2016-08-24 19:58] VITALS: BP 121/77
--- NOTE | 2016-08-24 20:15 | Cardiac Electrophysiology PN ---
Assessment/Plan Assessment/Plan 1. CHF with EF of 25% and BNP more than 5500.Down to 3700. Continue Coreg, lisinopril and Lasix.Aldactone DCed for hyperkalemia. 2. Status post [facility] defibrillator implantation with Nl Fx. 3. History of cocaine use.Urine Tox screen is negative for Cocaine. 4. History of coronary artery bypass graft in 2012. 5. History of cerebrovascular accident in 2009. 6. CKD. Creatinine down to 1.2 DW RN Subjective Subjective Alert in NAD. No chest pain or SOB or palpitations.Awaiting placement. Objective Last 24 Hour Vital Signs Date Time Temp Pulse Resp B/P Pulse Ox O2 Delivery O2 Flow Rate FiO2 08/24/16 20:03 Nasal Cannula 2.0 28 08/24/16 20:02 89 18 Nasal Cannula 2.0 28 08/24/16 20:02 99 Nasal Cannula 2.0 28 08/24/16 19:58 99.1 99 22 121/77 97 Nasal Cannula 2.0 08/24/16 16:13 98.2 72 22 114/75 99 Nasal Cannula 2.0 08/24/16 12:00 97.5 70 18 124/95 100 Nasal Cannula 2.0 08/24/16 09:04 122/81 08/24/16 09:04 88 122/81 08/24/16 08:06 88 18 Nasal Cannula 2.0 28 08/24/16 08:05 99 Nasal Cannula 2.0 28 08/24/16 08:05 Nasal Cannula 2.0 28 08/24/16 08:00 97.7 71 20 122/81 100 Nasal Cannula 2.0 08/24/16 04:00 97.9 79 18 124/79 97 Room Air 08/24/16 00:00 98.1 87 18 129/95 99 Nasal Cannula 2.0 08/23/16 21:07 96 121/80 Intake and Output 08/23/16 08/24/16 18:59 06:59 Intake Total 940 ml 510 ml Output Total 400 ml 475 ml Balance 540 ml 35 ml Intake Oral 940 ml 510 ml Output Urine Total 400 ml 475 ml Laboratory Tests Test 08/24/16 05:25 White Blood Count 8.5 K/UL (4.8-10.8) Red Blood Count 4.19 M/UL (4.70-6.10) L Hemoglobin 14.2 G/DL (14.2-18.0) Hematocrit 43.6 % (42.0-52.0) Mean Corpuscular Volume 104 FL (80-99) H Mean Corpuscular Hemoglobin 33.9 PG (27.0-31.0) H Mean Corpuscular Hemoglobin Concent 32.6 G/DL (32.0-36.0) Red Cell Distribution Width 13.5 % (11.6-14.8) Platelet Count 198 K/UL (150-450) Mean Platelet Volume 8.0 FL (6.5-10.1) Neutrophils (%) (Auto) 27.6 % (45.0-75.0) L Lymphocytes (%) (Auto) 52.8 % (20.0-45.0) H Monocytes (%) (Auto) 16.7 % (1.0-10.0) H Eosinophils (%) (Auto) 1.2 % (0.0-3.0) Basophils (%) (Auto) 1.7 % (0.0-2.0) Sodium Level 144 mEQ/L (135-145) Potassium Level 4.7 mEQ/L (3.4-4.9) Chloride Level 101 mEQ/L (98-107) Carbon Dioxide Level 28 mEQ/L (20-30) Anion Gap 15 (5-15) Blood Urea Nitrogen 32 mg/dL (7-23) H Creatinine 1.4 mg/dL (0.7-1.2) H Estimat Glomerular Filtration Rate mL/min (>60) Glucose Level 87 mg/dL (74-106) Calcium Level 9.6 mg/dL (8.6-10.2) Objective HEAD AND NECK: Mild JVD. LUNGS: Decreased breath sounds. CARDIOVASCULAR: Regular S1 and S2 with no gallop .ICD in left subclavian. ABDOMEN: Soft. EXTREMITIES: Left ankle in Cast. BRYAN BOYD Aug 24, 2016 20:15
[2016-08-25] VITALS: BP 136/97
[2016-08-25 04:00] VITALS: BP 137/73
[2016-08-25] MEDS: NovoLOG Insulin Flexpen SUBQ SCH ×4 (06:30→20:37)
[2016-08-25 07:19] LABS: BASOPHILS % (AUTO) 1.1 % (0.0-2.0); EOSINOPHILS % (AUTO) 0.9 % (0.0-3.0); LYMPHOCYTES % (AUTO) 50.2 % (20.0-45.0); MEAN CORPUSCULAR HEMOGLOBIN 34.1 PG (27.0-31.0); MEAN CORPUSCULAR HGB CONC 33.5 G/DL (32.0-36.0); MEAN CORPUSCULAR VOLUME 102 FL (80-99); MEAN PLATELET VOLUME 8.1 FL (6.5-10.1); MONOCYTES % (AUTO) 17.8 % (1.0-10.0); PLATELET COUNT 201 K/UL (150-450); RED BLOOD COUNT 4.31 M/UL (4.70-6.10); RED CELL DISTRIBUTION WIDTH 13.3 % (11.6-14.8); WHITE BLOOD COUNT 9.2 K/UL (4.8-10.8)
[2016-08-25 07:39] LABS: ANION GAP 13 (5-15); CALCIUM 9.3 mg/dL (8.6-10.2); CARBON DIOXIDE 27 mEQ/L (20-30); CHLORIDE 102 mEQ/L (98-107); CREATININE 1.3 mg/dL (0.7-1.2); HEMOLYSIS 8; POTASSIUM 4.5 mEQ/L (3.4-4.9); SODIUM 142 mEQ/L (135-145)
[2016-08-25 08:00] VITALS: BP 135/74
[2016-08-25] MEDS: Aspirin EC 81mg tab ORAL SCH (09:15)
[2016-08-25] MEDS: Furosemide 40mg tab ORAL SCH (09:15)
[2016-08-25] MEDS: Lisinopril 10mg tab ORAL SCH (09:15)
[2016-08-25] MEDS: Heparin 5000 units/ml inj SUBQ SCH ×2 (09:36→20:00)
--- NOTE | 2016-08-25 09:57 | Cardiac Electrophysiology PN ---
Assessment/Plan Assessment/Plan 1. CHF with EF of 25% and BNP more than 5500. Continue Coreg, lisinopril and Lasix.Off Aldactone for hyperkalemia. 2. Status post [employer] defibrillator implantation with Nl Fx. 3. History of cocaine use.Urine Tox screen is negative for Cocaine. 4. History of coronary artery bypass graft in 2012. 5. History of cerebrovascular accident in 2009. 6. CKD. Creatinine down to 1.2 DW RN Subjective Subjective Alert in NAD. No chest pain or SOB . Still has left foot pain.Awaiting placement. Objective Last 24 Hour Vital Signs Date Time Temp Pulse Resp B/P Pulse Ox O2 Delivery O2 Flow Rate FiO2 08/25/16 09:41 100 135/74 08/25/16 09:15 135/74 08/25/16 08:55 99 Nasal Cannula 2.0 28 08/25/16 08:55 Nasal Cannula 2.0 28 08/25/16 08:00 97.2 100 19 135/74 99 Nasal Cannula 2.0 08/25/16 04:00 97.7 45 18 137/73 99 Nasal Cannula 2.0 08/25/16 00:00 98.4 83 18 136/97 97 Nasal Cannula 2.0 08/24/16 21:30 97.3 08/24/16 21:03 99.1 08/24/16 20:32 89 121/77 08/24/16 20:03 Nasal Cannula 2.0 28 08/24/16 20:02 89 18 Nasal Cannula 2.0 28 08/24/16 20:02 99 Nasal Cannula 2.0 28 08/24/16 19:58 99.1 99 22 121/77 97 Nasal Cannula 2.0 08/24/16 16:13 98.2 72 22 114/75 99 Nasal Cannula 2.0 08/24/16 12:00 97.5 70 18 124/95 100 Nasal Cannula 2.0 Intake and Output 08/24/16 08/25/16 19:00 07:00 Intake Total 720 ml 1360 ml Output Total 500 ml 700 ml Balance 220 ml 660 ml Intake Oral 720 ml 1360 ml Output Urine Total 500 ml 700 ml # Voids 4 Laboratory Tests Test 08/25/16 05:25 White Blood Count 9.2 K/UL (4.8-10.8) Red Blood Count 4.31 M/UL (4.70-6.10) L Hemoglobin 14.7 G/DL (14.2-18.0) Hematocrit 43.8 % (42.0-52.0) Mean Corpuscular Volume 102 FL (80-99) H Mean Corpuscular Hemoglobin 34.1 PG (27.0-31.0) H Mean Corpuscular Hemoglobin Concent 33.5 G/DL (32.0-36.0) Red Cell Distribution Width 13.3 % (11.6-14.8) Platelet Count 201 K/UL (150-450) Mean Platelet Volume 8.1 FL (6.5-10.1) Neutrophils (%) (Auto) 30.0 % (45.0-75.0) L Lymphocytes (%) (Auto) 50.2 % (20.0-45.0) H Monocytes (%) (Auto) 17.8 % (1.0-10.0) H Eosinophils (%) (Auto) 0.9 % (0.0-3.0) Basophils (%) (Auto) 1.1 % (0.0-2.0) Sodium Level 142 mEQ/L (135-145) Potassium Level 4.5 mEQ/L (3.4-4.9) Chloride Level 102 mEQ/L (98-107) Carbon Dioxide Level 27 mEQ/L (20-30) Anion Gap 13 (5-15) Blood Urea Nitrogen 28 mg/dL (7-23) H Creatinine 1.3 mg/dL (0.7-1.2) H Estimat Glomerular Filtration Rate mL/min (>60) Glucose Level 79 mg/dL (74-106) Calcium Level 9.3 mg/dL (8.6-10.2) Objective HEAD AND NECK: Mild JVD. LUNGS: Decreased breath sounds. CARDIOVASCULAR: Regular S1 and S2 with no gallop .ICD in left subclavian. ABDOMEN: Soft. EXTREMITIES: Left ankle in Cast. BRYAN BOYD Aug 25, 2016 09:57
--- NOTE | 2016-08-25 10:02 | Infectious Diseases Prog Note ---
Assessment/Plan Assessment/Plan ASSESSMENT: 71 y/o male with: // COPD exacerbation r/o influenza - SCx NRF SP Rx - CXR 08/17: No definite infiltrate or pulmonary vascular congestion identified. 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 // CKD3 // NKDA // Full Code PLAN: - monitor pt off of AB Rx ( 08/21 SP levaquin d# 5 / ) - monitor CBC, temperatures - monitor BMP - monitor CXR Subjective Constitutional: Denies: anorexia, chills, drenching sweats, fatigue, fever, no symptoms, other Allergies: Coded Allergies: No Known Allergies (Unverified , 12/12/15) Objective Vital Signs Last 24 Hour Vital Signs Date Time Temp Pulse Resp B/P Pulse Ox O2 Delivery O2 Flow Rate FiO2 08/25/16 09:41 100 135/74 08/25/16 09:15 135/74 08/25/16 08:55 99 Nasal Cannula 2.0 28 08/25/16 08:55 Nasal Cannula 2.0 28 08/25/16 08:00 97.2 100 19 135/74 99 Nasal Cannula 2.0 08/25/16 04:00 97.7 45 18 137/73 99 Nasal Cannula 2.0 08/25/16 00:00 98.4 83 18 136/97 97 Nasal Cannula 2.0 08/24/16 21:30 97.3 08/24/16 21:03 99.1 08/24/16 20:32 89 121/77 08/24/16 20:03 Nasal Cannula 2.0 28 08/24/16 20:02 89 18 Nasal Cannula 2.0 28 08/24/16 20:02 99 Nasal Cannula 2.0 28 08/24/16 19:58 99.1 99 22 121/77 97 Nasal Cannula 2.0 08/24/16 16:13 98.2 72 22 114/75 99 Nasal Cannula 2.0 08/24/16 12:00 97.5 70 18 124/95 100 Nasal Cannula 2.0 Height (Feet): 5 Height (Inches): 9.00 Weight (Pounds): 148 HEENT: atraumatic Respiratory/Chest: lungs clear Cardiovascular: regular rhythm Abdomen: soft, non tender Laboratory Tests Test 08/25/16 05:25 White Blood Count 9.2 K/UL (4.8-10.8) Red Blood Count 4.31 M/UL (4.70-6.10) L Hemoglobin 14.7 G/DL (14.2-18.0) Hematocrit 43.8 % (42.0-52.0) Mean Corpuscular Volume 102 FL (80-99) H Mean Corpuscular Hemoglobin 34.1 PG (27.0-31.0) H Mean Corpuscular Hemoglobin Concent 33.5 G/DL (32.0-36.0) Red Cell Distribution Width 13.3 % (11.6-14.8) Platelet Count 201 K/UL (150-450) Mean Platelet Volume 8.1 FL (6.5-10.1) Neutrophils (%) (Auto) 30.0 % (45.0-75.0) L Lymphocytes (%) (Auto) 50.2 % (20.0-45.0) H Monocytes (%) (Auto) 17.8 % (1.0-10.0) H Eosinophils (%) (Auto) 0.9 % (0.0-3.0) Basophils (%) (Auto) 1.1 % (0.0-2.0) Sodium Level 142 mEQ/L (135-145) Potassium Level 4.5 mEQ/L (3.4-4.9) Chloride Level 102 mEQ/L (98-107) Carbon Dioxide Level 27 mEQ/L (20-30) Anion Gap 13 (5-15) Blood Urea Nitrogen 28 mg/dL (7-23) H Creatinine 1.3 mg/dL (0.7-1.2) H Estimat Glomerular Filtration Rate mL/min (>60) Glucose Level 79 mg/dL (74-106) Calcium Level 9.3 mg/dL (8.6-10.2) Current Medications Medications (Trade) Dose Ordered Sig/Elsa Route PRN Reason Start Time Stop Time Status Last Admin Dose Admin Acetaminophen (Tylenol) 650 mg Q4H PRN ORAL Fever 08/20/16 01:57 09/19/16 01:56 Aspirin (Ecotrin) 81 mg DAILY ORAL 08/20/16 09:00 09/19/16 08:59 08/25/16 09:15 Carvedilol (Coreg) 3.125 mg EVERY 12 HOURS ORAL 08/20/16 09:00 09/19/16 08:59 08/25/16 09:41 Dextrose (Dextrose 50%) STAT PRN IV Hypoglycemia 08/20/16 01:58 09/19/16 01:57 Furosemide (Lasix) 40 mg DAILY ORAL 08/21/16 09:00 09/20/16 08:59 08/25/16 09:15 Heparin Sodium (Porcine) (Heparin 5000 units/ml) 5,000 units EVERY 12 HOURS SUBQ 08/20/16 09:00 09/19/16 08:59 08/25/16 09:36 Insulin Aspart (NovoLOG) BEFORE MEALS AND HS SUBQ 08/20/16 06:30 09/19/16 06:29 08/24/16 17:00 Lisinopril (Zestril) 10 mg DAILY ORAL 08/20/16 09:00 09/19/16 08:59 08/25/16 09:15 Morphine Sulfate (Morphine Sulfate) 4 mg Q4H PRN IVP For Pain 08/20/16 01:30 08/27/16 01:29 08/24/16 20:33 Ondansetron HCl (Zofran) 4 mg Q6H PRN IVP Nausea & Vomiting 08/20/16 02:01 09/19/16 02:00 Polyethylene Glycol (Miralax) 17 gm DAILYPRN PRN ORAL Constipation 08/20/16 00:30 09/19/16 00:29 Temazepam (Restoril) 15 mg HSPRN PRN ORAL Insomnia 08/20/16 00:30 08/27/16 00:29 TOOTIE ALVAREZ M.D. Aug 25, 2016 10:02
[2016-08-25 12:00] VITALS: BP 116/75
[2016-08-25 16:00] VITALS: BP 116/65
[2016-08-25] MEDS ORDERED: LISINOPRIL5 MG ORAL (16:31)
--- NOTE | 2016-08-25 16:37 | Discharge Summary ---
Discharge Summary Hospital Course Date of Admission Aug 15, 2016 at 23:40 Date of Discharge Admitting Diagnosis shortness of breath HPI Smith Bravo Jr Rocky is a 71 year old male who was admitted on Aug 15, 2016 at 23:40 for Shortness Of Breath Hospital Course Dictated for Int Med-Dr Olivarez no. [id number]. Discharge Discharge Disposition Patient was discharged to Home with Home Health(06) Discharge Diagnoses: SURINDER HELMS Aug 25, 2016 16:37
[2016-08-25 20:00] VITALS: BP 91/64
--- NOTE | 2016-08-25 23:36 | Pulmonology Progress Note ---
Assessment/Plan Problems: (1) CHF exacerbation (2) Cardiomyopathy (3) COPD exacerbation (4) S/P CABG (coronary artery bypass graft) (5) AICD (automatic cardioverter/defibrillator) present (6) Cerebral vascular disease (7) Hemiplegia affecting right dominant side Assessment/Plan improving respiratory treatment titrate fio2 to sat of 92% continue diuretics check sputum chest pt dc/ planning in progress Subjective ROS Limited/Unobtainable: No Respiratory: Reports: dyspnea at rest, dyspnea on exertion, productive cough, shortness of breath Cardiovascular: Reports: chest pain, palpitations Allergies: Coded Allergies: No Known Allergies (Verified , 06/28/10) Objective Last 24 Hour Vital Signs Date Time Temp Pulse Resp B/P Pulse Ox O2 Delivery O2 Flow Rate FiO2 08/25/16 20:32 99 Nasal Cannula 2.0 28 08/25/16 20:32 Nasal Cannula 2.0 28 08/25/16 20:00 97.9 72 22 91/64 98 Room Air 08/25/16 19:59 80 116/65 08/25/16 16:00 97.5 80 18 116/65 100 Nasal Cannula 2.0 08/25/16 12:00 97.0 75 20 116/75 100 Nasal Cannula 2.0 08/25/16 09:41 100 135/74 08/25/16 09:15 135/74 08/25/16 08:55 99 Nasal Cannula 2.0 28 08/25/16 08:55 Nasal Cannula 2.0 28 08/25/16 08:00 97.2 100 19 135/74 99 Nasal Cannula 2.0 08/25/16 04:00 97.7 45 18 137/73 99 Nasal Cannula 2.0 08/25/16 00:00 98.4 83 18 136/97 97 Nasal Cannula 2.0 Intake and Output 08/24/16 08/25/16 19:00 07:00 Intake Total 720 ml 1360 ml Output Total 500 ml 700 ml Balance 220 ml 660 ml Intake Oral 720 ml 1360 ml Output Urine Total 500 ml 700 ml # Voids 4 General Appearance: no acute distress HEENT: normocephalic, atraumatic, mucous membranes moist Respiratory/Chest: chest wall non-tender, decreased breath sounds, accessory muscle use, crackles/rales Cardiovascular: JVD, bradycardia Abdomen: normal bowel sounds, soft, non tender, no organomegaly, non distended Genitourinary: normal external genitalia Extremities: other - peripheral edema 2+ Skin: rash, lesions Neurologic/Psychiatric: systems lead II-XII grossly normal, no motor/sensory deficits Laboratory Tests 08/25/16 05:25: White Blood Count 9.2, Red Blood Count 4.31L, Hemoglobin 14.7, Hematocrit 43.8, Mean Corpuscular Volume 102H, Mean Corpuscular Hemoglobin 34.1H, Mean Corpuscular Hemoglobin Concent 33.5, Red Cell Distribution Width 13.3, Platelet Count 201, Mean Platelet Volume 8.1, Neutrophils (%) (Auto) 30.0L, Lymphocytes ( %) (Auto) 50.2H, Monocytes (%) (Auto) 17.8H, Eosinophils (%) (Auto) 0.9, Basophils (%) (Auto) 1.1, Sodium Level 142, Potassium Level 4.5, Chloride Level 102, Carbon Dioxide Level 27, Anion Gap 13, Blood Urea Nitrogen 28H, Creatinine 1.3H, Estimat Glomerular Filtration Rate , Glucose Level 79, Calcium Level 9.3 Current Medications Medications (Trade) Dose Ordered Sig/Elsa Route PRN Reason Start Time Stop Time Status Last Admin Dose Admin Acetaminophen (Tylenol) 650 mg Q4H PRN ORAL Fever 08/20/16 01:57 09/19/16 01:56 Aspirin (Ecotrin) 81 mg DAILY ORAL 08/20/16 09:00 09/19/16 08:59 08/25/16 09:15 Carvedilol (Coreg) 3.125 mg EVERY 12 HOURS ORAL 08/20/16 09:00 09/19/16 08:59 08/25/16 19:59 Dextrose (Dextrose 50%) STAT PRN IV Hypoglycemia 08/20/16 01:58 09/19/16 01:57 Furosemide (Lasix) 40 mg DAILY ORAL 08/21/16 09:00 09/20/16 08:59 08/25/16 09:15 Heparin Sodium (Porcine) (Heparin 5000 units/ml) 5,000 units EVERY 12 HOURS SUBQ 08/20/16 09:00 09/19/16 08:59 08/25/16 20:00 Insulin Aspart (NovoLOG) BEFORE MEALS AND HS SUBQ 08/20/16 06:30 09/19/16 06:29 08/25/16 16:48 Lisinopril (Zestril) 10 mg DAILY ORAL 08/20/16 09:00 09/19/16 08:59 08/25/16 09:15 Morphine Sulfate (Morphine Sulfate) 4 mg Q4H PRN IVP For Pain 08/20/16 01:30 08/27/16 01:29 08/24/16 20:33 Ondansetron HCl (Zofran) 4 mg Q6H PRN IVP Nausea & Vomiting 08/20/16 02:01 09/19/16 02:00 Polyethylene Glycol (Miralax) 17 gm DAILYPRN PRN ORAL Constipation 08/20/16 00:30 09/19/16 00:29 Temazepam (Restoril) 15 mg HSPRN PRN ORAL Insomnia 08/20/16 00:30 08/27/16 00:29 MURRAY NELSON Aug 25, 2016 23:36
[2016-08-26] VITALS: BP 128/74
[2016-08-26 04:00] VITALS: BP 139/80
[2016-08-26] MEDS: NovoLOG Insulin Flexpen SUBQ SCH ×2 (06:04→11:30)
--- NOTE | 2016-08-26 07:09 | Discharge Summary ---
DATE OF ADMISSION: 08/15/2016 DATE OF DISCHARGE: 08/25/2016 ADMITTING DIAGNOSES: 1. Shortness of breath. 2. Left shoulder pain. 3. Congestive heart failure. 4. Hypertension. 5. Chronic obstructive pulmonary disease. 6. Coronary artery disease. 7. Right hemiplegia. 8. Cerebrovascular disease. 9. History of renal calculi. DISCHARGE DIAGNOSES: 1. Urinary tract infection. 2. Shortness of breath. 3. Left shoulder pain. 4. Congestive heart failure. 5. Hypertension. 6. Chronic obstructive pulmonary disease. 7. Coronary artery disease. 8. Right hemiplegia. 9. Cerebrovascular disease. 10. History of renal calculi. HOSPITAL COURSE BY PROBLEM LIST: 1. Urinary tract infection. Urine culture grew Enterococcus. An Infectious Disease consultation was obtained with Dr. Samson. The patient was placed on Macrobid 100 mg twice daily. The patient has completed seven-day course of Macrobid. The patient is to follow up with Dr. Samson as an outpatient. 2. Shortness of breath. A Pulmonary consultation was obtained with Dr. Lucy Mishra. The patient was placed on albuterol nebulizer q.4 h. p.r.n. The patient was also started on Solu-Medrol. The patient is to follow up with Dr. Mishra as an outpatient. 3. Congestive heart failure. A Cardiology consultation was obtained with Dr. Pineda Crooks. Spironolactone was discontinued, the patient had hyperkalemia. The patient was started on Coreg 3.125 mg one tablet p.o. q.12 h. The patient is to follow up with Dr. Crooks as an outpatient. 4. Hypertension. The patient remained on lisinopril 10 mg one tablet p.o. daily and Coreg 3.125 mg one tablet p.o. daily. The patient is to follow up with Dr. Crooks as an outpatient. 5. Chronic obstructive pulmonary disease. As above, a Pulmonary consultation was obtained with Dr. Lucy Mishra. The patient was placed initially on intravenous Solu-Medrol. The patient is to be discharged home today on albuterol nebulizer q.4 h. p.r.n. 6. Coronary artery disease. As above, a Cardiology consultation was obtained with Dr. Pineda Crooks. 7. Right hemiplegia. 8. History of cerebrovascular disease. 9. History of renal calculi. DISCHARGE MEDICATIONS: Please refer to discharge medication list. DISCHARGE INSTRUCTIONS: The patient was initially scheduled to be transferred to rehabilitation of . The patient refused placement in a correction facility. The patient will therefore be discharged home today, 08/25/2016 with home health. Royce Davila M.D. DR: EUGENIA JOB#: [id number] CC:
[2016-08-26 08:00] VITALS: BP 98/68
[2016-08-26] MEDS: Furosemide 40mg tab ORAL SCH (09:00)
[2016-08-26] MEDS: Lisinopril 10mg tab ORAL SCH (09:00)
[2016-08-26] MEDS: Aspirin EC 81mg tab ORAL SCH (09:04)
[2016-08-26] MEDS: Heparin 5000 units/ml inj SUBQ SCH (09:05)
--- NOTE | 2016-08-26 09:31 | Infectious Diseases Prog Note ---
Assessment/Plan Assessment/Plan ASSESSMENT: 71 y/o male with: // COPD exacerbation r/o influenza - SCx NRF SP Rx - CXR 08/17: No definite infiltrate or pulmonary vascular congestion identified. 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 // OVERSIZE LOAD PILOT ESCORT // CKD3 // NKDA // Full Code PLAN: - monitor pt off of AB Rx ( 08/21 SP levaquin d# 5 / 5 ) - monitor CBC, temperatures - monitor BMP - monitor CXR Subjective Constitutional: Denies: anorexia, chills, drenching sweats, fatigue, fever, no symptoms, other Allergies: Coded Allergies: No Known Allergies (Unverified , 12/12/15) Objective Vital Signs Last 24 Hour Vital Signs Date Time Temp Pulse Resp B/P Pulse Ox O2 Delivery O2 Flow Rate FiO2 08/26/16 08:00 97.0 76 18 98/68 98 Room Air 08/26/16 04:00 96.6 75 16 139/80 100 Room Air 08/26/16 00:00 97.0 80 16 128/74 100 Room Air 08/25/16 20:32 99 Nasal Cannula 2.0 28 08/25/16 20:32 Nasal Cannula 2.0 28 08/25/16 20:00 97.9 72 22 91/64 98 Room Air 08/25/16 19:59 80 116/65 08/25/16 16:00 97.5 80 18 116/65 100 Nasal Cannula 2.0 08/25/16 12:00 97.0 75 20 116/75 100 Nasal Cannula 2.0 08/25/16 09:41 100 135/74 Height (Feet): 5 Height (Inches): 9.00 Weight (Pounds): 148 HEENT: atraumatic Respiratory/Chest: normal breath sounds Cardiovascular: regular rhythm Abdomen: no organomegaly Current Medications Medications (Trade) Dose Ordered Sig/Elsa Route PRN Reason Start Time Stop Time Status Last Admin Dose Admin Acetaminophen (Tylenol) 650 mg Q4H PRN ORAL Fever 08/20/16 01:57 09/19/16 01:56 Aspirin (Ecotrin) 81 mg DAILY ORAL 08/20/16 09:00 09/19/16 08:59 08/26/16 09:04 Carvedilol (Coreg) 3.125 mg EVERY 12 HOURS ORAL 08/20/16 09:00 09/19/16 08:59 08/25/16 19:59 Dextrose (Dextrose 50%) STAT PRN IV Hypoglycemia 08/20/16 01:58 09/19/16 01:57 Furosemide (Lasix) 40 mg DAILY ORAL 08/21/16 09:00 09/20/16 08:59 08/25/16 09:15 Heparin Sodium (Porcine) (Heparin 5000 units/ml) 5,000 units EVERY 12 HOURS SUBQ 08/20/16 09:00 09/19/16 08:59 08/26/16 09:05 Insulin Aspart (NovoLOG) BEFORE MEALS AND HS SUBQ 08/20/16 06:30 09/19/16 06:29 08/26/16 06:04 Lisinopril (Zestril) 10 mg DAILY ORAL 08/20/16 09:00 09/19/16 08:59 08/25/16 09:15 Morphine Sulfate (Morphine Sulfate) 4 mg Q4H PRN IVP For Pain 08/20/16 01:30 08/27/16 01:29 08/24/16 20:33 Ondansetron HCl (Zofran) 4 mg Q6H PRN IVP Nausea & Vomiting 08/20/16 02:01 09/19/16 02:00 Polyethylene Glycol (Miralax) 17 gm DAILYPRN PRN ORAL Constipation 08/20/16 00:30 09/19/16 00:29 Temazepam (Restoril) 15 mg HSPRN PRN ORAL Insomnia 08/20/16 00:30 08/27/16 00:29 TOOTIE ALVAREZ M.D. Aug 26, 2016 09:31
[2016-08-26 11:57] VITALS: BP 114/78
--- NOTE | 2016-08-26 12:29 | Internal Med Progress Note ---
Subjective Date of Service: Aug 26, 2016 Physician Name Royce Helms Attending Physician Barrett Olivarez MD Current Medications Medications (Trade) Dose Ordered Sig/Elsa Route PRN Reason Start Time Stop Time Status Last Admin Dose Admin Acetaminophen (Tylenol) 650 mg Q4H PRN ORAL Fever 08/20/16 01:57 09/19/16 01:56 Aspirin (Ecotrin) 81 mg DAILY ORAL 08/20/16 09:00 09/19/16 08:59 08/26/16 09:04 Carvedilol (Coreg) 3.125 mg EVERY 12 HOURS ORAL 08/20/16 09:00 09/19/16 08:59 08/25/16 19:59 Dextrose (Dextrose 50%) STAT PRN IV Hypoglycemia 08/20/16 01:58 09/19/16 01:57 Furosemide (Lasix) 40 mg DAILY ORAL 08/21/16 09:00 09/20/16 08:59 08/25/16 09:15 Heparin Sodium (Porcine) (Heparin 5000 units/ml) 5,000 units EVERY 12 HOURS SUBQ 08/20/16 09:00 09/19/16 08:59 08/26/16 09:05 Insulin Aspart (NovoLOG) BEFORE MEALS AND HS SUBQ 08/20/16 06:30 09/19/16 06:29 08/26/16 06:04 Lisinopril (Zestril) 10 mg DAILY ORAL 08/20/16 09:00 09/19/16 08:59 08/25/16 09:15 Morphine Sulfate (Morphine Sulfate) 4 mg Q4H PRN IVP For Pain 08/20/16 01:30 08/27/16 01:29 08/24/16 20:33 Ondansetron HCl (Zofran) 4 mg Q6H PRN IVP Nausea & Vomiting 08/20/16 02:01 09/19/16 02:00 Polyethylene Glycol (Miralax) 17 gm DAILYPRN PRN ORAL Constipation 08/20/16 00:30 09/19/16 00:29 Temazepam (Restoril) 15 mg HSPRN PRN ORAL Insomnia 08/20/16 00:30 08/27/16 00:29 Allergies: Coded Allergies: No Known Allergies (Unverified , 12/12/15) ROS Limited/Unobtainable: No Constitutional: Reports: no symptoms HEENT: Reports: no symptoms Cardiovascular: Reports: no symptoms Respiratory: Reports: no symptoms Gastrointestinal/Abdominal: Reports: no symptoms Genitourinary: Reports: no symptoms Neurologic/Psychiatric: Reports: no symptoms Subjective 71 YO M admitted with shortness of breath and congestive heart failure. Cover for Int Med-Dr Olivarez. Patient refusedt nursing home facility placement. Await discharge home with home health Objective Last Vital Signs Date Time Temp Pulse Resp B/P Pulse Ox O2 Delivery O2 Flow Rate FiO2 08/26/16 11:57 97.7 63 18 114/78 100 Nasal Cannula 2.0 08/26/16 07:51 28 Intake and Output 08/25/16 08/26/16 19:00 07:00 Intake Total 480 ml 500 ml Output Total 250 ml Balance 480 ml 250 ml Intake Oral 480 ml 500 ml Output Urine Total 250 ml # Voids 2 6 # Bowel Movements 2 Objective General Appearance: WD/WN, alert, mild distress, thin EENT: PERRL/EOMI, normal ENT inspection Neck: non-tender, normal alignment, supple Cardiovascular: normal peripheral pulses, normal rate, regular rhythm, no gallop/murmur, no JVD Respiratory/Chest: no accessory muscle use, respiratory distress, crackles/ rales, rhonchi - bilaterally, expiratory wheezing Abdomen: normal bowel sounds, non tender, soft, no organomegaly, no mass Extremities: normal range of motion 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 See cardiology consult. (3) Shortness of breath (4) HTN (hypertension) Assessment & Plan: Cont coreg (5) COPD (chronic obstructive pulmonary disease) Assessment & Plan: Cont duoneb. D/C levaquin per ID (6) Cardiomyopathy (7) CAD (coronary artery disease) (8) Nephrolithiasis (9) Cerebral vascular disease (10) UTI (urinary tract infection) due to Enterococcus Assessment & Plan: D/C antibiotics --see ID note. Status: stable Assessment/Plan Discharge planning: Home with [facility] ROYCE HELMS Aug 26, 2016 12:29
[2016-08-26 16:09] VITALS: BP 110/68
--- NOTE | 2016-08-26 17:14 | Cardiac Electrophysiology PN ---
Assessment/Plan Assessment/Plan 1. CHF, EF of 25% and BNP more than 5500. Continue Coreg, lisinopril and Lasix.Off Aldactone for hyperkalemia. 2. Status post [facility] defibrillator implantation. 3. History of cocaine use in past 4. History of coronary artery bypass graft in 2012. 5. History of cerebrovascular accident in 2009. 6. CKD. Creatinine down to 1.2 DW RN DC planning today Subjective Subjective No chest pain or SOB . Expecting Dc today. Objective Last 24 Hour Vital Signs Date Time Temp Pulse Resp B/P Pulse Ox O2 Delivery O2 Flow Rate FiO2 08/26/16 16:09 97.2 71 18 110/68 98 Nasal Cannula 2.0 08/26/16 11:57 97.7 63 18 114/78 100 Nasal Cannula 2.0 08/26/16 08:00 97.0 76 18 98/68 98 Room Air 08/26/16 07:51 Nasal Cannula 2.0 28 08/26/16 07:50 99 Nasal Cannula 2.0 28 08/26/16 04:00 96.6 75 16 139/80 100 Room Air 08/26/16 00:00 97.0 80 16 128/74 100 Room Air 08/25/16 20:32 99 Nasal Cannula 2.0 28 08/25/16 20:32 Nasal Cannula 2.0 28 08/25/16 20:00 97.9 72 22 91/64 98 Room Air 08/25/16 19:59 80 116/65 Intake and Output 08/25/16 08/26/16 19:00 07:00 Intake Total 480 ml 500 ml Output Total 250 ml Balance 480 ml 250 ml Intake Oral 480 ml 500 ml Output Urine Total 250 ml # Voids 2 6 # Bowel Movements 2 Labs Test 08/25/16 05:25 White Blood Count 9.2 K/UL (4.8-10.8) Red Blood Count 4.31 M/UL (4.70-6.10) Hemoglobin 14.7 G/DL (14.2-18.0) Hematocrit 43.8 % (42.0-52.0) Mean Corpuscular Volume 102 FL (80-99) Mean Corpuscular Hemoglobin 34.1 PG (27.0-31.0) Mean Corpuscular Hemoglobin Concent 33.5 G/DL (32.0-36.0) Red Cell Distribution Width 13.3 % (11.6-14.8) Platelet Count 201 K/UL (150-450) Mean Platelet Volume 8.1 FL (6.5-10.1) Neutrophils (%) (Auto) 30.0 % (45.0-75.0) Lymphocytes (%) (Auto) 50.2 % (20.0-45.0) Monocytes (%) (Auto) 17.8 % (1.0-10.0) Eosinophils (%) (Auto) 0.9 % (0.0-3.0) Basophils (%) (Auto) 1.1 % (0.0-2.0) Sodium Level 142 mEQ/L (135-145) Potassium Level 4.5 mEQ/L (3.4-4.9) Chloride Level 102 mEQ/L (98-107) Carbon Dioxide Level 27 mEQ/L (20-30) Anion Gap 13 (5-15) Blood Urea Nitrogen 28 mg/dL (7-23) Creatinine 1.3 mg/dL (0.7-1.2) Estimat Glomerular Filtration Rate mL/min (>60) Glucose Level 79 mg/dL (74-106) Calcium Level 9.3 mg/dL (8.6-10.2) Objective HEAD AND NECK: Mild JVD. LUNGS: Decreased breath sounds. CARDIOVASCULAR: Regular S1 and S2 with no gallop .ICD in left subclavian. ABDOMEN: Soft. EXTREMITIES: Left ankle in Cast. BRYAN BOYD Aug 26, 2016 17:14
--- NOTE | 2016-08-27 12:58 | Diagnostic Imaging Report ---
APPROVED REPORT CPT Code: 06677 Present Symptoms Lower Extremity Pain: Bilateral BILATERAL: Imaging reveals a patent deep venous system bilaterally. There is no evidence of thrombus within the femoral, popliteal or tibial segments. The greater saphenous veins are also within normal limits. Doppler indicates normal spontaneous flow within these segments.
[2016-10-06] MEDS ORDERED: XARELTO15 MG ORAL (09:35)
[2016-10-06] MEDS ORDERED: PROAIR HFA8.5 GM INH (09:38)
[2016-10-06] MEDS ORDERED: SPIRONOLACTONE25 MG ORAL (09:38)
[2016-10-06] MEDS ORDERED: AMIODARONE HCL400 M1 ORAL (09:50)
[2016-10-06] MEDS ORDERED: XARELTO10 MG ORAL (09:50)
== END 2016-08-26 17:05 | disposition home health service (06) | DRG 194 ==
LOC: EDBD 20:26 → EMR 21:46 → EDBEDREQ 23:34 → 2W 23:40 → MERGE 23:40 → EDBEDREQ 08-16 02:07 → 2E 08-16 22:59 → 4W 08-20 01:42
DX: I13.0 Hypertensive heart and chronic kidney disease with heart failure and stage 1 through stage 4 chronic kidney disease, or unspecified chronic kidney disease (principal); J96.21 Acute and chronic respiratory failure with hypoxia; I42.9 Cardiomyopathy, unspecified; I27.2 Other secondary pulmonary hypertension; B95.2 Enterococcus as the cause of diseases classified elsewhere; E11.9 Type 2 diabetes mellitus without complications; J44.1 Chronic obstructive pulmonary disease with (acute) exacerbation; N39.0 Urinary tract infection, site not specified; I25.10 Atherosclerotic heart disease of native coronary artery without angina pectoris; Z95.0 Presence of cardiac pacemaker; Z95.1 Presence of aortocoronary bypass graft; Z87.442 Personal history of urinary calculi; I69.351 Hemiplegia and hemiparesis following cerebral infarction affecting right dominant side; N18.9 Chronic kidney disease, unspecified; Z79.82 Long term (current) use of aspirin; Z87.891 Personal history of nicotine dependence; E87.5 Hyperkalemia; Z99.81 Dependence on supplemental oxygen
CPT/HCPCS: 36415; 71010; 80048; 80053; 80069; 80300; 81003; 82550; 82553; 82962; 83036; 83605; 83735; 83880; 84100; 84484; 85025; 85379; 86710; 87040; 87070; 87086; 87181; 87205; 93005; 93306; 93970; 94640; 94664; 94760; J1815; J2405; J7620

== ENCOUNTER 2016-09-29 23:00 | Inpatient (IN) | payer MEDICARE, MEDICAID ==
[~2016-09-29] VITALS: Ht 172.7 cm; Wt 77.2 kg
[2016-09-29] MEDS ORDERED: Aspirin Baby 81mg ORAL ONE (23:15)
[2016-09-29 23:43] VITALS: BP 114/90
[2016-09-29 23:55] LABS: BASOPHILS % (AUTO) 1.1 % (0.0-2.0); EOSINOPHILS % (AUTO) 0.5 % (0.0-3.0); LYMPHOCYTES % (AUTO) 35.2 % (20.0-45.0); MEAN CORPUSCULAR HEMOGLOBIN 31.8 PG (27.0-31.0); MEAN CORPUSCULAR HGB CONC 31.4 G/DL (32.0-36.0); MEAN CORPUSCULAR VOLUME 101 FL (80-99); MEAN PLATELET VOLUME 8.7 FL (6.5-10.1); MONOCYTES % (AUTO) 11.8 % (1.0-10.0); NEUTROPHILS % (AUTO) 51.3 % (45.0-75.0); PLATELET COUNT 190 K/UL (150-450); RED BLOOD COUNT 4.63 M/UL (4.70-6.10); RED CELL DISTRIBUTION WIDTH 13.7 % (11.6-14.8); WHITE BLOOD COUNT 6.5 K/UL (4.8-10.8)
--- NOTE | 2016-09-30 00:41 | Emergency Room Report ---
History of Present Illness General Chief Complaint: Dyspnea/Respdistress Source: Patient, EMS Present Illness HPI Patient is a 71-year-old male presented after increased difficulty breathing. Patient prior history of COPD as well as cardiac disease. Patient was noted to have a gradual onset of worsening difficulty breathing. Patient had normally been using at 2 L of oxygen at home. Patient was noted to be markedly tachypneic. Allergies: Coded Allergies: No Known Allergies (Unverified , 09/29/16) Patient History Past Medical History: see triage record Reviewed Nursing Documentation: PMH: Agreed, PSxH: Agreed Nursing Documentation-PMH Hx Cardiac Problems: Yes - CABG x4 2013 Hx Pacemaker: Yes - Defibrilator Hx COPD: Yes Hx Cerebrovascular Accident: Yes - No deficits Review of Systems All Other Systems: negative except mentioned in HPI Physical Exam Vital Signs Date Time Temp Pulse Resp B/P Pulse Ox O2 Delivery O2 Flow Rate FiO2 09/29/16 23:01 97.5 101 18 115/61 92 Nasal Cannula 4.0 Sp02 EP Interpretation: reviewed, normal General Appearance: normal inspection, well appearing, no apparent distress, alert, GCS 15 Head: atraumatic ENT: normal ENT inspection, hearing grossly normal, normal voice Neck: normal inspection, full range of motion, supple, no bony tend Respiratory: normal inspection, lungs clear, normal breath sounds, no respiratory distress, no retraction, no wheezing Cardiovascular #1: regular rate, rhythm, no edema Gastrointestinal: normal inspection, normal bowel sounds, non tender, soft, no guarding, no hernia Genitourinary: no CVA tenderness Musculoskeletal: normal inspection, back normal, normal range of motion Neurologic: normal inspection, alert, oriented x3, responsive, 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 Differential included but was not limited to anemia, pneumonia, pneumothorax, myocardial infarction, pericardial effusion, congestive heart failure, acidosis. Because of complexity of patient's case laboratory testing and imaging studies were ordered. EKG interpreted by me showed normal sinus rhythm with a rate of [address] or T wave changes the patient was noted to have some lateral T-wave inversion with biatrial enlargement. The patient was placed on monitoring manager. Rhythm strip interpreted by me showed normal sinus rhythm with a rate of 95 without PVCs or ectopy. The patient presented a congestive heart failure exacerbation. Patient was given IV Lasix. The patient additionally has history of COPD. Chest x-ray one view and rhythm me showed cardiac enlargement with vascular congestion. There is no evident infiltrate noted. Dr. Barrett Olivarez was contacted for inpatient management Labs Test 09/29/16 23:40 09/30/16 00:23 White Blood Count 6.5 K/UL (4.8-10.8) Red Blood Count 4.63 M/UL (4.70-6.10) Hemoglobin 14.7 G/DL (14.2-18.0) Hematocrit 46.9 % (42.0-52.0) Mean Corpuscular Volume 101 FL (80-99) Mean Corpuscular Hemoglobin 31.8 PG (27.0-31.0) Mean Corpuscular Hemoglobin Concent 31.4 G/DL (32.0-36.0) Red Cell Distribution Width 13.7 % (11.6-14.8) Platelet Count 190 K/UL (150-450) Mean Platelet Volume 8.7 FL (6.5-10.1) Neutrophils (%) (Auto) 51.3 % (45.0-75.0) Lymphocytes (%) (Auto) 35.2 % (20.0-45.0) Monocytes (%) (Auto) 11.8 % (1.0-10.0) Eosinophils (%) (Auto) 0.5 % (0.0-3.0) Basophils (%) (Auto) 1.1 % (0.0-2.0) EKG Diagnostic Results Rate: normal Rhythm: NSR ST Segments: no acute changes Rhythm Strip Diag. Results EP Interpretation: yes Rhythm: NSR, no PVC's, no ectopy Chest X-Ray Diagnostic Results EP Interpretation: Yes Findings: no consolidation, no effusion, no pneumothorax, no acute cardiopulmonary disease Number of Views: 1 Last Vital Signs Date Time Temp Pulse Resp B/P Pulse Ox O2 Delivery O2 Flow Rate FiO2 09/29/16 23:01 97.5 101 18 115/61 92 Nasal Cannula 4.0 Status: unchanged Disposition: ADMITTED INPATIENT Condition: Serious Referrals: NOT CHOSEN IPA/,REFERRING (PCP) Tay Chiang Sep 30, 2016 00:41
[2016-09-30 00:45] LABS: INR 1.2 (0.9-1.1)
[2016-09-30 00:48] LABS: ALANINE AMINOTRANSFERASE 32 U/L (3-41); ALBUMIN/GLOBULIN RATIO 0.9 (1.0-2.7); ANION GAP 17 (5-15); ASPARTATE AMINO TRANSFERASE 57 U/L (5-40); CARBON DIOXIDE 24 mEQ/L (20-30); CHLORIDE 102 mEQ/L (98-107); CREATININE 1.3 mg/dL (0.7-1.2); HEMOLYSIS 1; POTASSIUM 3.6 mEQ/L (3.4-4.9); SODIUM 143 mEQ/L (135-145); TOTAL PROTEIN 6.8 g/dL (6.6-8.7); TROPONIN I < 0.30 ng/mL (<=0.30)
[2016-09-30 00:59] LABS: CKMB 2.2 ng/mL (< 6.7)
[2016-09-30] MEDS ORDERED: DuoNeb 0.5-3(2.5)mg/3ml neb HHN ONE (01:00)
[2016-09-30 02:30] VITALS: BP_SYST 138; BP_DIAS 67; BP_DIAS 93
[2016-09-30] MEDS ORDERED: ASPIRIN-LOW81 MG ORAL (02:44)
[2016-09-30] MEDS ORDERED: ANUSOL-HC30 GM RC (02:44)
[2016-09-30] MEDS ORDERED: LISINOPRIL2.5 MG ORAL ×2 (02:44→03:48)
[2016-09-30] MEDS ORDERED: FUROSEMIDE40 MG/5 ML ORAL (02:44)
[2016-09-30] MEDS ORDERED: POTASSIUM 25 M25 ME1 PO (02:44)
[2016-09-30] MEDS ORDERED: ADVAIR 250-501 EACH INH (03:48)
[2016-09-30] MEDS ORDERED: VENTOLIN HFA18 GM INH (03:48)
[2016-09-30 04:00] VITALS: BP 109/59
[2016-09-30] MEDS ORDERED: Miralax 17gm pkt ORAL PRN (05:00)
[2016-09-30 08:00] VITALS: BP 137/91
[2016-09-30] MEDS: Heparin 5000 units/ml inj SUBQ SCH ×2 (09:00→21:21)
--- NOTE | 2016-09-30 10:35 | Diagnostic Imaging Report ---
APPROVED REPORT CPT Code: 87587 Present Symptoms Shortness of breath Comments: Right leg swelling RIGHT LEG: Venous imaging reveals a patent deep venous system. There is no evidence of thrombus within the femoral, popliteal or tibial segments. The greater saphenous vein is also within normal limits. Doppler indicates normal spontaneous flow within these segments. LEFT LEG: Venous imaging reveals acute thrombus in the popliteal vein. Imaging also reveals patency of the common femoral and calf veins. The greater saphenous vein is also within normal limits. SANTI Flores was notified of abnormal results at 0940 hours
[2016-09-30 10:58] LABS: TROPONIN I < 0.30 ng/mL (<=0.30)
[2016-09-30 11:24] LABS: ABG PCO2 27.3 mmHg (35.0-45.0)
[2016-09-30 11:25] LABS: ABG ALLEN TEST POSITIVE; ABG BASE EXCESS 0.4
[2016-09-30] MEDS ORDERED: Promethazine/Codeine 5ml UD ORAL PRN (11:30)
--- NOTE | 2016-09-30 11:30 | Consultation ---
History of Present Illness General Date patient seen: Sep 30, 2016 Chief Complaint: Dyspnea/Respdistress Referring physician: Dr. Tidwell Reason for Consultation: Respiratory treatment Present Illness HPI 71-year-old male with endstage heart disease, EF of 10, emphysema, on home O2 presented with cc of difficulty breathing. He was just recently discharged after being treated for COPD exacerbation. Patient was noted to have a gradual onset of worsening difficulty breathing. He was in respiratory distress in ER and was put on BIPAP and admitted to [facility] for further treatment. Allergies: Coded Allergies: No Known Allergies (Unverified , 09/29/16) Medication History Scheduled Albuterol Sulfate (Ventolin Hfa), 1 PUFF INH EVERY 6 HOURS, (Reported) Aspirin (Aspirin EC), 81 MG ORAL DAILY, (Reported) Furosemide (Furosemide), 40 MG ORAL BID, (Reported) Lisinopril* (Lisinopril*), 2.5 MG ORAL DAILY, (Reported) Potassium Bicarbonate/Cit Ac (Potassium 25 Meq Tablet Eff), 20 MEQ PO DAILY, ( Reported) Scheduled PRN Fluticasone/Salmeterol (Advair 250-50 Diskus), 1 PUFF INH EVERY 12 HOURS PRN for Shortness of Breath, (Reported) Lisinopril* (Lisinopril*), 2.5 MG ORAL DAILY PRN for For High Blood Pressure, ( Reported) Miscellaneous Medications Hydrocortisone Hc 2.5% Cream (Anusol-Hc 2.5% Cream), 30 GM RC, (Reported) Patient History Healthcare decision maker Resuscitation status Full Code Advanced Directive on File No Family History Family History: (1) History of severe congestive heart failure (2) Emphysema lung Review of Systems All Other Systems: negative except mentioned in HPI Physical Exam General Appearance: cachetic Lines, tubes and drains: peripheral, central line HEENT: normocephalic, atraumatic Neck: non-tender, normal alignment Respiratory/Chest: chest wall non-tender, lungs clear Cardiovascular/Chest: normal peripheral pulses, normal rate Abdomen: normal bowel sounds, non tender Genitourinary/Rectal: normal genital exam, normal rectal exam Extremities: normal range of motion, non-tender Skin Exam: cyanotic Neurologic: no motor/sensory deficits Last 24 Hour Vital Signs Date Time Temp Pulse Resp B/P Pulse Ox O2 Delivery O2 Flow Rate FiO2 09/30/16 10:40 98 28 100 Facial 40 09/30/16 08:00 100 09/30/16 08:00 97.5 81 16 137/91 99 Nasal Cannula 09/30/16 07:45 96 16 Nasal Cannula 2.0 28 09/30/16 07:45 Nasal Cannula 2.0 28 09/30/16 07:45 98 Nasal Cannula 2.0 28 09/30/16 06:01 95 28 100 Facial 40 09/30/16 04:12 98 09/30/16 04:00 97.2 82 24 109/59 100 Nasal Cannula 2.0 09/30/16 02:39 92 09/30/16 02:30 97.3 94 24 138/67 100 Nasal Cannula 2.0 100 09/30/16 02:30 97.5 29 138/93 100 Nasal Cannula 2.0 28 09/30/16 02:30 97.5 29 138/93 100 Nasal Cannula 2.0 28 09/30/16 01:28 94 20 100 Nasal Cannula 2.0 28 09/30/16 01:22 94 16 Nasal Cannula 2.0 28 09/30/16 01:22 98 18 100 Nasal Cannula 2.0 28 09/29/16 23:43 97.5 32 114/90 98 Nasal Cannula 2.0 09/29/16 23:43 95 32 Nasal Cannula 2.0 09/29/16 23:01 97.5 101 18 115/61 92 Nasal Cannula 4.0 Intake and Output 09/29/16 09/30/16 19:00 07:00 Intake Total 300 ml Output Total 600 ml Balance -300 ml Intake Oral 300 ml Output Urine Total 600 ml Laboratory Tests Test 09/29/16 23:40 09/30/16 00:23 09/30/16 09:30 09/30/16 11:08 White Blood Count 6.5 K/UL (4.8-10.8) Red Blood Count 4.63 M/UL (4.70-6.10) L Hemoglobin 14.7 G/DL (14.2-18.0) Hematocrit 46.9 % (42.0-52.0) Mean Corpuscular Volume 101 FL (80-99) H Mean Corpuscular Hemoglobin 31.8 PG (27.0-31.0) H Mean Corpuscular Hemoglobin Concent 31.4 G/DL (32.0-36.0) L Red Cell Distribution Width 13.7 % (11.6-14.8) Platelet Count 190 K/UL (150-450) Mean Platelet Volume 8.7 FL (6.5-10.1) Neutrophils (%) (Auto) 51.3 % (45.0-75.0) Lymphocytes (%) (Auto) 35.2 % (20.0-45.0) Monocytes (%) (Auto) 11.8 % (1.0-10.0) H Eosinophils (%) (Auto) 0.5 % (0.0-3.0) Basophils (%) (Auto) 1.1 % (0.0-2.0) Prothrombin Time 12.0 SEC (9.30-11.50) H Prothromb Time International Ratio 1.2 (0.9-1.1) H Activated Partial Thromboplast Time 30 SEC (23-33) Sodium Level 143 mEQ/L (135-145) Potassium Level 3.6 mEQ/L (3.4-4.9) Chloride Level 102 mEQ/L (98-107) Carbon Dioxide Level 24 mEQ/L (20-30) Anion Gap 17 (5-15) H Blood Urea Nitrogen 18 mg/dL (7-23) Creatinine 1.3 mg/dL (0.7-1.2) H Estimat Glomerular Filtration Rate mL/min (>60) Glucose Level 109 mg/dL (74-106) H Calcium Level 9.0 mg/dL (8.6-10.2) Total Bilirubin 1.0 mg/dL (0.0-1.2) Aspartate Amino Transf (AST/SGOT) 57 U/L (5-40) H Alanine Aminotransferase (ALT/SGPT) 32 U/L (3-41) Alkaline Phosphatase 94 U/L (40-129) Total Creatine Kinase 46 U/L (38-174) Creatine Kinase MB 2.2 ng/mL (< 6.7) Creatine Kinase MB Relative Index 4.7 Troponin I < 0.30 ng/mL (<=0.30) < 0.30 ng/mL (<=0.30) Pro-B-Type Natriuretic Peptide 9599 pg/mL (0-125) H Total Protein 6.8 g/dL (6.6-8.7) Albumin 3.3 g/dL (3.5-5.2) L Globulin 3.5 g/dL Albumin/Globulin Ratio 0.9 (1.0-2.7) L Arterial Blood pH Pending Arterial Blood Partial Pressure CO2 Pending Arterial Blood Partial Pressure O2 Pending Arterial Blood HCO3 Pending Arterial Blood Oxygen Saturation Pending Arterial Blood Base Excess Pending Anam Test Pending Height (Feet): 5 Height (Inches): 8.00 Weight (Pounds): 144 Medications Current Medications Medications (Trade) Dose Ordered Sig/Elsa Route PRN Reason Start Time Stop Time Status Last Admin Dose Admin Acetaminophen (Tylenol) 650 mg Q4H PRN ORAL Fever 09/30/16 05:00 10/30/16 04:59 Albuterol/ Ipratropium (DuoNeb 0.5-3(2.5)mg/3ml) 3 ml Q4H PRN HHN Shortness of Breath 09/30/16 05:00 10/05/16 04:59 Dextrose (Dextrose 50%) STAT PRN IV Hypoglycemia 09/30/16 05:00 10/30/16 04:59 Furosemide (Lasix) 40 mg EVERY 8 HOURS IV 09/30/16 06:45 10/30/16 06:44 09/30/16 07:12 Heparin Sodium (Porcine) (Heparin 5000 units/ml) 5,000 units EVERY 12 HOURS SUBQ 09/30/16 09:00 10/30/16 08:59 09/30/16 09:00 Ondansetron HCl (Zofran) 4 mg Q6H PRN IVP Nausea & Vomiting 09/30/16 05:00 10/30/16 04:59 Polyethylene Glycol (Miralax) 17 gm DAILYPRN PRN ORAL Constipation 09/30/16 05:00 10/30/16 04:59 Temazepam (Restoril) 15 mg HSPRN PRN ORAL Insomnia 09/30/16 05:00 10/07/16 04:59 Assessment/Plan Problem List: (1) COPD exacerbation ICD Codes: J44.1 - Chronic obstructive pulmonary disease with (acute) exacerbation SNOMED: 886975647, 646788375 (2) Respiratory distress ICD Codes: R06.00 - Dyspnea, unspecified SNOMED: 057574008 (3) Emphysema lung ICD Codes: J43.9 - Emphysema, unspecified SNOMED: 32092110 Assessment/Plan respiratory treatment bipap prn optimize cardiac meds sputum for cultures doubt chf MURRAY NELSON Sep 30, 2016 11:30
[2016-09-30] MEDS: DuoNeb 0.5-3(2.5)mg/3ml neb HHN PRN ×2 (11:34→14:36)
[2016-09-30 12:00] VITALS: BP 132/93
[2016-09-30] MEDS: Solu-MEDROL 125mg Inj IVP SCH ×2 (12:16→18:48)
--- NOTE | 2016-09-30 12:43 | Diagnostic Imaging Report ---
Indication: Dyspnea Comparison: None A single view chest radiograph was obtained. Findings: Lungs are hyperexpanded. The heart is enlarged. There is a pacemaker present. Bones are osteopenic. Sternotomy noted. Impression: Cardiomegaly. COPD
--- NOTE | 2016-09-30 15:11 | Cardiology Report ---
APPROVED REPORT EXAM: Two-dimensional and M-mode echocardiogram with Doppler and color Doppler. INDICATION LV function M-Mode DIMENSIONS IVSd0.8 (0.7-1.1cm)Left Atrium (MM)5.7 (1.6-4.0cm) LVDd6.1 (3.5-5.6cm)Aortic Root2.6 (2.0-3.7cm) PWd1.1 (0.7-1.1cm)Aortic Cusp Exc.1.4 (1.5-2.0cm) LVDs5.5 (2.5-4.0cm) PWs1.3 cm Left ventricular enlargement. Severe global left ventricular hypokinesis. Abnormal septal motion. Echogenic density noted in LV apex - can not R/O LV apical thrombus. Left ventricular ejection fraction estimated to be less than 10 %. Increased E point-interventricular septal separation c/w left ventricular dysfunction. No evidence of left ventricular hypertrophy. No evidence of pericardial effusion. Moderate bi-atrial enlargement. Mild right ventricular enlargement. Moderate aortic valve calcification with decreased cusp excursion c/w mild aortic stenosis. Thickened mitral valve leaflets with normal excursion. Mitral annulus and aortic root calcification. Pulmonic valve not well visualized. Normal tricuspid valve structure. IVC dilated at 2.5 cm without physiologic collapse suggestive of RA pressure 20 mmHg. Pacemaker wire present in the right side chambers. A color flow and spectral Doppler study was performed and revealed: Mild aortic regurgitation. Peak aortic valve pressure gradient of 17 mm Hg and a mean of 9 mmHg. PG may be underestimated due to low systolic function. Aortic valve area 1.4 cm2 calculated by continuity equation. Moderate to severe mitral regurgitation. Mitral inflow indicates restrictive pattern, implying severely elevated left atrial pressure (Grade III). Moderate tricuspid regurgitation. Tricuspid systolic velocities suggests peak right ventricular systolic pressure of 66 mmHg, consistent with severe pulmonary hypertension. Trace pulmonic regurgitation present.
--- NOTE | 2016-09-30 15:32 | Cardiology Report ---
APPROVED REPORT EKG Measurement Heart [id number] Sinus rhythm with premature supraventricular complexes Left atrial enlargement Anteroseptal infarct, age undetermined Prolonged QT Abnormal ECG
[2016-09-30 16:00] VITALS: BP 130/83
--- NOTE | 2016-09-30 16:00 | History & Physical ---
History and Physical History & Physicial Dictated for Int Med-Dr Olivarez no. [id number]. SURINDER HELMS Sep 30, 2016 16:00
--- NOTE | 2016-09-30 16:29 | Cardiac Electrophysiology PN ---
Subjective Subjective [id number] Objective Last 24 Hour Vital Signs Date Time Temp Pulse Resp B/P Pulse Ox O2 Delivery O2 Flow Rate FiO2 09/30/16 16:00 97.3 95 20 130/83 99 Nasal Cannula 2.0 09/30/16 14:36 96 18 99 Nasal Cannula 2.0 28 09/30/16 14:36 96 18 99 Nasal Cannula 2.0 28 09/30/16 13:25 98 09/30/16 12:00 97.0 91 24 132/93 99 Nasal Cannula 16.0 09/30/16 11:39 193 09/30/16 11:34 96 18 100 Nasal Cannula 2.0 28 09/30/16 11:34 95 18 100 Nasal Cannula 2.0 28 09/30/16 10:40 98 28 100 Facial 40 09/30/16 08:00 100 09/30/16 08:00 97.5 81 16 137/91 99 Nasal Cannula 09/30/16 07:45 96 16 Nasal Cannula 2.0 28 09/30/16 07:45 Nasal Cannula 2.0 28 09/30/16 07:45 98 Nasal Cannula 2.0 28 09/30/16 06:01 95 28 100 Facial 40 09/30/16 04:12 98 09/30/16 04:00 97.2 82 24 109/59 100 Nasal Cannula 2.0 09/30/16 02:39 92 09/30/16 02:30 97.3 94 24 138/67 100 Nasal Cannula 2.0 100 09/30/16 02:30 97.5 29 138/93 100 Nasal Cannula 2.0 28 09/30/16 02:30 97.5 29 138/93 100 Nasal Cannula 2.0 28 09/30/16 01:28 94 20 100 Nasal Cannula 2.0 28 09/30/16 01:22 94 16 Nasal Cannula 2.0 28 09/30/16 01:22 98 18 100 Nasal Cannula 2.0 28 09/29/16 23:43 97.5 32 114/90 98 Nasal Cannula 2.0 09/29/16 23:43 95 32 Nasal Cannula 2.0 09/29/16 23:01 97.5 101 18 115/61 92 Nasal Cannula 4.0 Intake and Output 09/29/16 09/30/16 19:00 07:00 Intake Total 300 ml Output Total 600 ml Balance -300 ml Intake Oral 300 ml Output Urine Total 600 ml Laboratory Tests Test 09/29/16 23:40 09/30/16 00:23 09/30/16 09:30 09/30/16 11:08 White Blood Count 6.5 K/UL (4.8-10.8) Red Blood Count 4.63 M/UL (4.70-6.10) L Hemoglobin 14.7 G/DL (14.2-18.0) Hematocrit 46.9 % (42.0-52.0) Mean Corpuscular Volume 101 FL (80-99) H Mean Corpuscular Hemoglobin 31.8 PG (27.0-31.0) H Mean Corpuscular Hemoglobin Concent 31.4 G/DL (32.0-36.0) L Red Cell Distribution Width 13.7 % (11.6-14.8) Platelet Count 190 K/UL (150-450) Mean Platelet Volume 8.7 FL (6.5-10.1) Neutrophils (%) (Auto) 51.3 % (45.0-75.0) Lymphocytes (%) (Auto) 35.2 % (20.0-45.0) Monocytes (%) (Auto) 11.8 % (1.0-10.0) H Eosinophils (%) (Auto) 0.5 % (0.0-3.0) Basophils (%) (Auto) 1.1 % (0.0-2.0) Prothrombin Time 12.0 SEC (9.30-11.50) H Prothromb Time International Ratio 1.2 (0.9-1.1) H Activated Partial Thromboplast Time 30 SEC (23-33) Sodium Level 143 mEQ/L (135-145) Potassium Level 3.6 mEQ/L (3.4-4.9) Chloride Level 102 mEQ/L (98-107) Carbon Dioxide Level 24 mEQ/L (20-30) Anion Gap 17 (5-15) H Blood Urea Nitrogen 18 mg/dL (7-23) Creatinine 1.3 mg/dL (0.7-1.2) H Estimat Glomerular Filtration Rate mL/min (>60) Glucose Level 109 mg/dL (74-106) H Calcium Level 9.0 mg/dL (8.6-10.2) Total Bilirubin 1.0 mg/dL (0.0-1.2) Aspartate Amino Transf (AST/SGOT) 57 U/L (5-40) H Alanine Aminotransferase (ALT/SGPT) 32 U/L (3-41) Alkaline Phosphatase 94 U/L (40-129) Total Creatine Kinase 46 U/L (38-174) Creatine Kinase MB 2.2 ng/mL (< 6.7) Creatine Kinase MB Relative Index 4.7 Troponin I < 0.30 ng/mL (<=0.30) < 0.30 ng/mL (<=0.30) Pro-B-Type Natriuretic Peptide 9599 pg/mL (0-125) H Total Protein 6.8 g/dL (6.6-8.7) Albumin 3.3 g/dL (3.5-5.2) L Globulin 3.5 g/dL Albumin/Globulin Ratio 0.9 (1.0-2.7) L Arterial Blood pH 7.521 (7.350-7.450) Arterial Blood Partial Pressure CO2 27.3 mmHg (35.0-45.0) L Arterial Blood Partial Pressure O2 183.1 mmHg (75.0-100.0) H Arterial Blood HCO3 21.8 mmol/L (22.0-26.0) L Arterial Blood Oxygen Saturation 99.4 % (92.0-98.0) H Arterial Blood Base Excess 0.4 Anam Test Positive BRYAN BOYD Sep 30, 2016 16:29
--- NOTE | 2016-09-30 18:37 | Cardiology Progress Note ---
Assessment/Plan Assessment/Plan acute systolic heart failure cm cad possible lv thrombus dvt poplitiel vein pt see and exmained after my visit with pt on review of the chart i noted is followed by [facility] as well anticoagulation for ? lv thrombus and dvt would hold off on ionotropic support for now due to ? thrombus unless contrast echo (nto available at this hospital) excludes dr braxton will follow [id number] Objective Last 24 Hour Vital Signs Date Time Temp Pulse Resp B/P Pulse Ox O2 Delivery O2 Flow Rate FiO2 09/30/16 16:00 97.3 95 20 130/83 99 Nasal Cannula 2.0 09/30/16 14:36 96 18 99 Nasal Cannula 2.0 28 09/30/16 14:36 96 18 99 Nasal Cannula 2.0 28 09/30/16 13:25 98 09/30/16 12:00 97.0 91 24 132/93 99 Nasal Cannula 16.0 09/30/16 11:39 193 09/30/16 11:34 96 18 100 Nasal Cannula 2.0 28 09/30/16 11:34 95 18 100 Nasal Cannula 2.0 28 09/30/16 10:40 98 28 100 Facial 40 09/30/16 08:00 100 09/30/16 08:00 97.5 81 16 137/91 99 Nasal Cannula 09/30/16 07:45 96 16 Nasal Cannula 2.0 28 09/30/16 07:45 Nasal Cannula 2.0 28 09/30/16 07:45 98 Nasal Cannula 2.0 28 09/30/16 06:01 95 28 100 Facial 40 09/30/16 04:12 98 09/30/16 04:00 97.2 82 24 109/59 100 Nasal Cannula 2.0 09/30/16 02:39 92 09/30/16 02:30 97.3 94 24 138/67 100 Nasal Cannula 2.0 100 09/30/16 02:30 97.5 29 138/93 100 Nasal Cannula 2.0 28 09/30/16 02:30 97.5 29 138/93 100 Nasal Cannula 2.0 28 09/30/16 01:28 94 20 100 Nasal Cannula 2.0 28 09/30/16 01:22 94 16 Nasal Cannula 2.0 28 09/30/16 01:22 98 18 100 Nasal Cannula 2.0 28 3/7/17 23:43 97.5 32 114/90 98 Nasal Cannula 2.0 09/29/16 23:43 95 32 Nasal Cannula 2.0 09/29/16 23:01 97.5 101 18 115/61 92 Nasal Cannula 4.0 Intake and Output 09/29/16 09/30/16 19:00 07:00 Intake Total 300 ml Output Total 600 ml Balance -300 ml Intake Oral 300 ml Output Urine Total 600 ml Laboratory Tests Test 09/29/16 23:40 09/30/16 00:23 09/30/16 09:30 09/30/16 11:08 White Blood Count 6.5 K/UL (4.8-10.8) Red Blood Count 4.63 M/UL (4.70-6.10) L Hemoglobin 14.7 G/DL (14.2-18.0) Hematocrit 46.9 % (42.0-52.0) Mean Corpuscular Volume 101 FL (80-99) H Mean Corpuscular Hemoglobin 31.8 PG (27.0-31.0) H Mean Corpuscular Hemoglobin Concent 31.4 G/DL (32.0-36.0) L Red Cell Distribution Width 13.7 % (11.6-14.8) Platelet Count 190 K/UL (150-450) Mean Platelet Volume 8.7 FL (6.5-10.1) Neutrophils (%) (Auto) 51.3 % (45.0-75.0) Lymphocytes (%) (Auto) 35.2 % (20.0-45.0) Monocytes (%) (Auto) 11.8 % (1.0-10.0) H Eosinophils (%) (Auto) 0.5 % (0.0-3.0) Basophils (%) (Auto) 1.1 % (0.0-2.0) Prothrombin Time 12.0 SEC (9.30-11.50) H Prothromb Time International Ratio 1.2 (0.9-1.1) H Activated Partial Thromboplast Time 30 SEC (23-33) Sodium Level 143 mEQ/L (135-145) Potassium Level 3.6 mEQ/L (3.4-4.9) Chloride Level 102 mEQ/L (98-107) Carbon Dioxide Level 24 mEQ/L (20-30) Anion Gap 17 (5-15) H Blood Urea Nitrogen 18 mg/dL (7-23) Creatinine 1.3 mg/dL (0.7-1.2) H Estimat Glomerular Filtration Rate mL/min (>60) Glucose Level 109 mg/dL (74-106) H Calcium Level 9.0 mg/dL (8.6-10.2) Total Bilirubin 1.0 mg/dL (0.0-1.2) Aspartate Amino Transf (AST/SGOT) 57 U/L (5-40) H Alanine Aminotransferase (ALT/SGPT) 32 U/L (3-41) Alkaline Phosphatase 94 U/L (40-129) Total Creatine Kinase 46 U/L (38-174) Creatine Kinase MB 2.2 ng/mL (< 6.7) Creatine Kinase MB Relative Index 4.7 Troponin I < 0.30 ng/mL (<=0.30) < 0.30 ng/mL (<=0.30) Pro-B-Type Natriuretic Peptide 9599 pg/mL (0-125) H Total Protein 6.8 g/dL (6.6-8.7) Albumin 3.3 g/dL (3.5-5.2) L Globulin 3.5 g/dL Albumin/Globulin Ratio 0.9 (1.0-2.7) L Arterial Blood pH 7.521 (7.350-7.450) Arterial Blood Partial Pressure CO2 27.3 mmHg (35.0-45.0) L Arterial Blood Partial Pressure O2 183.1 mmHg (75.0-100.0) H Arterial Blood HCO3 21.8 mmol/L (22.0-26.0) L Arterial Blood Oxygen Saturation 99.4 % (92.0-98.0) H Arterial Blood Base Excess 0.4 Anam Test Positive Test 09/30/16 16:20 Activated Partial Thromboplast Time 30 SEC (23-33) NEERU LARSON Sep 30, 2016 18:37
[2016-09-30 19:00] VITALS: BP 140/106
[2016-09-30] MEDS: Heparin 25,000u/D5W 500ml 500 ML IV SCH (19:10)
--- NOTE | 2016-09-30 20:18 | History and Physical Report ---
DATE OF ADMISSION: 09/30/2016 CHIEF COMPLAINT: The patient is a 71-year-old male, presents with chief complaint of shortness of breath. HISTORY OF PRESENT ILLNESS: The patient has a history of congestive heart failure as well as coronary disease. The patient presented to [facility] emergency room complaining of one-day history of shortness of breath. This is been increasing over the last day. The patient uses home oxygen. The patient states even with oxygen at two liters, he is still short of breath. The patient presented to [facility] emergency room. The patient is found to have elevated BNP. The patient was admitted for congestive heart failure, acute exacerbation versus chronic obstructive pulmonary disease acute exacerbation. PAST MEDICAL HISTORY: Significant for 1. Chronic obstructive pulmonary disease. 2. Coronary artery disease. PAST SURGICAL HISTORY: Significant for 1. Coronary artery bypass graft in 2014. 2. Pacemaker implantation. MEDICATIONS: Current medications 1. Albuterol metered dose inhaler two puffs p.o. q.6 h. p.r.n. 2. Aspirin 81 mg one tablet p.o. daily. 3. Advair 250/50 mcg one puff p.o. twice daily. 4. Lasix 40 mg one tablet p.o. twice daily. 5. Lisinopril 2.5 mg one tablet p.o. daily. 6. Potassium bicarbonate one tablet p.o. daily. ALLERGIES: No known drug allergies. SOCIAL HISTORY: The patient is single and lives alone. The patient admits to previous tobacco use. The patient denies alcohol use. REVIEW OF SYSTEMS: Unable to assess, as the patient is currently on BiPAP. PHYSICAL EXAMINATION: GENERAL: The patient is well developed and well nourished male, who is acutely short of breath. VITAL SIGNS: Temperature 97.2 degrees, pulse 82, blood pressure 109/59, respiratory rate 24. HEENT: Eyes, pupils are equal and responsive to light and accommodation. Extraocular movements are intact. NECK: Supple. No lymphadenopathy. CHEST: Diffuse wheezes heard in the bilateral lung dotson. Otherwise, clear to auscultation bilaterally without wheezes or rales. CARDIOVASCULAR: Regular rhythm and rate. S1 and S2 normal without murmurs, rubs, or gallops. ABDOMEN: Soft, nontender, and nondistended. Positive bowel sounds. No evidence of hepatosplenomegaly currently. EXTREMITIES: Negative for clubbing, cyanosis, or edema. RECTAL/GENITAL: Refused. NEUROLOGICALLY: Cranial nerves II through XII are grossly intact without focal deficits. Motor strength is 5/5 bilaterally. Deep tendon reflexes are 2+ plantar. LABORATORY AND DIAGNOSTIC DATA: WBC 6.5, hemoglobin 14.7, hematocrit 46.9, platelets 190,000. Sodium 143, potassium 3.6, chloride 102, CO2 24, BUN 18, creatinine 1.3 and glucose 109. BNP elevated at 9599. Troponin less than 0.3. Arterial blood gas, pH 7.521, pCO2 27.3, pO2 103.1, bicarbonate 21.8 and base excess +0.4. ASSESSMENT: This is a 71-year-old male 1. Acute shortness of breath. 2. Respiratory failure. 3. Congestive heart failure. 4. Coronary artery disease. 5. Hypertension. 6. Chronic obstructive pulmonary disease. TREATMENT: 1. Respiratory failure/shortness of breath. Pulmonary consultation was obtained with Dr. Lucy Mishra. The patient is currently on BiPAP. The patient was currently on BiPAP. The patient requires intubation if respiratory status does not improve. We will follow recommendations of Pulmonary. The patient has been started empirically on albuterol nebulizer q.4 h. p.r.n. A chest x-ray is pending. 2. Congestive heart failure. Cardiology consultation obtained with Dr. Pineda Crooks. Initial BNP was elevated over 9000. The patient is currently receiving Lasix. We will follow recommendation of Cardiology. An echocardiogram is pending. 3. Coronary artery disease. See congestive heart failure as above. 4. Hypertension. Continue lisinopril as above. Royce Davila M.D. DR: PEPITO JOB#: [id number] CC:
[2016-09-30] MEDS: Theophylline ER 100mg ORAL SCH (21:20)
--- NOTE | 2016-09-30 23:28 | Consultation ---
DATE OF CONSULTATION: 09/30/2016 REFERRING PHYSICIAN: Barrett Olivarez M.D. REASON FOR CONSULTATION: congestive heart failure and evaluation the patient's defibrillator. HISTORY OF PRESENT ILLNESS: The patient is a very pleasant, 71-year-old gentleman under my cardiology care with history of hypertension and ischemic cardiomyopathy, history of coronary artery bypass graft in 2012 as well as history of defibrillator implantation was also recently hospitalized for exacerbation of congestive heart failure. The patient presented to the emergency room with increasing shortness of breath. On telemetry, the patient also was having runs of tachycardia with the rate of about 180 beats per minute supraventricular tachycardia. The patient was admitted to telemetry floor and Cardiology consultation was obtained for further evaluation and management. REVIEW OF SYSTEMS: Review of systems was thoroughly performed and was negative other than what was mentioned in the history of present illness PAST MEDICAL HISTORY: 1. Hypertension. 2. Severe ischemic cardiomyopathy with ejection fraction of only 10%. 3. Status post defibrillator implantation. 4. Chronic obstructive pulmonary disease. MEDICATIONS: Include lisinopril, Lasix, aspirin, and albuterol. PHYSICAL EXAMINATION: VITAL SIGNS: Showed blood pressure of 130/83, pulse 95, respirations 18, and temperature 97.3. HEENT: Positive JVD. LUNGS: Decreased breath sounds. CARDIOVASCULAR: Shows regular S1 and S2 with no gallop or murmur. ABDOMEN: Soft. EXTREMITIES: A 1+ pitting edema. Laboratory And Diagnostic Data: His labs show white count 6.5, hemoglobin 14.7, hematocrit 46.9, and platelet count 190,000. Sodium 142, potassium 3.3, glucose of 109. Troponin negative x2. BNP 10,000. His echocardiogram showed ejection fraction of 10%, no pericardial effusion with 1.4, moderate to severe mitral regurgitation and moderate tricuspid regurgitation. Telemetry strip showed runs of ventricular tachycardia at 11:40 a.m. at rate to 150 to 200 beats per minute. ASSESSMENT AND PLAN: 1. Long runs of nonsustained ventricular tachycardia. The patient shock from his defibrillator. We will try to find the brand of his defibrillator and interrogate that as old old records have not been emerged. 2. Severe cardiomyopathy. I will be hold off on Coreg in view of class 4 heart failure as well as history of chronic obstructive pulmonary disease; however, we will resume his lisinopril. I would like to add Lasix. 3. Status post defibrillator implantation. We will try to interrogate device for further evaluation. 4. Severe chronic obstructive pulmonary disease under management of Dr. Mishra on theophylline, Solu-Medrol, and albuterol. Thank you very much, Dr. Olivarez, for allowing me to participate in the care of this patient. Please do not hesitate to contact me if you have any questions regarding my evaluation. Pineda Crooks M.D. DR: Sherry JOB#: [id number] CC:
[2016-10-01] VITALS: BP 126/80
[2016-10-01] MEDS: Solu-MEDROL 125mg Inj IVP SCH ×2 (00:08→05:28)
[2016-10-01 04:00] VITALS: BP 142/81
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
[2016-10-01 06:17] LABS: BASOPHILS % (AUTO) 0.2 % (0.0-2.0); EOSINOPHILS % (AUTO) 0.1 % (0.0-3.0); LYMPHOCYTES % (AUTO) 23.7 % (20.0-45.0); MEAN CORPUSCULAR HEMOGLOBIN 32.8 PG (27.0-31.0); MEAN CORPUSCULAR HGB CONC 32.7 G/DL (32.0-36.0); MEAN CORPUSCULAR VOLUME 100 FL (80-99); MEAN PLATELET VOLUME 8.9 FL (6.5-10.1); MONOCYTES % (AUTO) 2.6 % (1.0-10.0); NEUTROPHILS % (AUTO) 73.4 % (45.0-75.0); PLATELET COUNT 198 K/UL (150-450); RED BLOOD COUNT 4.19 M/UL (4.70-6.10); RED CELL DISTRIBUTION WIDTH 13.7 % (11.6-14.8); WHITE BLOOD COUNT 4.2 K/UL (4.8-10.8)
[2016-10-01 07:00] LABS: ANION GAP 19 (5-15); CALCIUM 8.8 mg/dL (8.6-10.2); CARBON DIOXIDE 23 mEQ/L (20-30); CHLORIDE 101 mEQ/L (98-107); CREATININE 1.3 mg/dL (0.7-1.2); HEMOLYSIS 1; PHOSPHORUS 3.4 mg/dL (2.5-4.8); SODIUM 143 mEQ/L (135-145)
[2016-10-01 08:00] VITALS: BP 128/80
[2016-10-01 08:39] LABS: TROPONIN I < 0.30 ng/mL (<=0.30)
[2016-10-01] MEDS ORDERED: Lisinopril 2.5mg tab ORAL SCH (09:00)
[2016-10-01] MEDS ORDERED: Spironolactone 25mg tab ORAL SCH (09:00)
--- NOTE | 2016-10-01 10:25 | Diagnostic Imaging Report ---
Indication: Abnormal renal function tests Technique: Grayscale and duplex images of the kidneys, retroperitoneum, and bladder were obtained. Comparison:None Findings: Right kidney measures 9.8 cm in length. Left kidney measures 10.1 cm in length. Both kidneys demonstrate normal echogenicity. No hydronephrosis. Echogenic foci are seen in the renal sinuses bilaterally, may reflect small nonobstructive calculi. Largest on the right measures 6 mm diameter. There is minimal bilateral perinephric fluid. Normal inferior vena cava. Bladder is normal. Incidentally noted is a right-sided pleural effusion Impression: Negative for hydronephrosis Possible nonobstructive bilateral calyceal calculi Incidental finding right-sided pleural effusion.
--- NOTE | 2016-10-01 11:32 | Diagnostic Imaging Report ---
Indication: DYSPNEA Technique: One view of the chest Comparison: 09/29/2016 Findings: There is a left chest AICD again demonstrated. The heart is enlarged. Right-sided pleural effusion and right basilar hazy opacity persists, slightly increased. Impression: Suspect increasing right pleural fluid and hazy bibasilar parenchymal disease, over 2 days Other stable findings as described
[2016-10-01 12:00] VITALS: BP 94/63
--- NOTE | 2016-10-01 12:42 | Pulmonology Progress Note ---
Assessment/Plan Problems: (1) COPD exacerbation (2) Respiratory distress (3) Emphysema lung Assessment/Plan respiratory treatment IV heparin decrease solumedrol BIPAP prn might go to telemetry on IV heparin Subjective ROS Limited/Unobtainable: No Constitutional: Reports: no symptoms HEENT: Repors: no symptoms Allergies: Coded Allergies: No Known Allergies (Unverified , 09/29/16) Objective Last 24 Hour Vital Signs Date Time Temp Pulse Resp B/P Pulse Ox O2 Delivery O2 Flow Rate FiO2 10/01/16 08:35 139/97 10/01/16 08:00 92 10/01/16 08:00 95.5 83 19 128/80 100 Nasal Cannula 2.0 10/01/16 06:40 98 Nasal Cannula 2.0 28 10/01/16 06:40 Nasal Cannula 2.0 28 10/01/16 06:40 95 16 Nasal Cannula 2.0 28 10/01/16 04:00 91 10/01/16 04:00 97.9 93 24 142/81 98 Nasal Cannula 2.0 10/01/16 00:00 97.0 101 24 126/80 99 Nasal Cannula 2.0 10/01/16 00:00 92 09/30/16 20:32 102 16 Nasal Cannula 2.0 28 09/30/16 20:31 98 Nasal Cannula 2.0 28 09/30/16 20:31 Nasal Cannula 2.0 28 09/30/16 20:00 97 09/30/16 19:00 97.0 98 20 140/106 100 Nasal Cannula 2.0 09/30/16 16:00 102 09/30/16 16:00 97.3 95 20 130/83 99 Nasal Cannula 2.0 09/30/16 14:36 96 18 99 Nasal Cannula 2.0 28 09/30/16 14:36 96 18 99 Nasal Cannula 2.0 28 09/30/16 13:25 98 Intake and Output 09/30/16 10/01/16 19:00 07:00 Intake Total 428.4 ml Output Total 600 ml 200 ml Balance -600 ml 228.4 ml Intake Oral 240 ml IV Total 188.4 ml Output Urine Total 600 ml 200 ml # Voids 2 3 General Appearance: WD/WN HEENT: normocephalic, atraumatic Respiratory/Chest: chest wall non-tender, lungs clear Cardiovascular: normal peripheral pulses, normal rate Abdomen: normal bowel sounds, soft, non tender Extremities: no cyanosis, no clubbing Skin: no rash 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 Complete Laboratory Tests 09/30/16 16:20: Activated Partial Thromboplast Time 30 10/01/16 00:45: Activated Partial Thromboplast Time 70H 10/01/16 03:50: White Blood Count 4.2L, Red Blood Count 4.19L, Hemoglobin 13.8L, Hematocrit 42.1 , Mean Corpuscular Volume 100H, Mean Corpuscular Hemoglobin 32.8H, Mean Corpuscular Hemoglobin Concent 32.7, Red Cell Distribution Width 13.7, Platelet Count 198, Mean Platelet Volume 8.9, Neutrophils (%) (Auto) 73.4, Lymphocytes (% ) (Auto) 23.7, Monocytes (%) (Auto) 2.6, Eosinophils (%) (Auto) 0.1, Basophils ( %) (Auto) 0.2, Sodium Level 143, Potassium Level 4.0, Chloride Level 101, Carbon Dioxide Level 23, Anion Gap 19H, Blood Urea Nitrogen 26H, Creatinine 1.3H , Estimat Glomerular Filtration Rate , Glucose Level 182H, Calcium Level 8.8, Phosphorus Level 3.4, Troponin I < 0.30, Pro-B-Type Natriuretic Peptide 9757H, Albumin 3.0L Current Medications Medications (Trade) Dose Ordered Sig/Elsa Route PRN Reason Start Time Stop Time Status Last Admin Dose Admin Acetaminophen (Tylenol) 650 mg Q4H PRN ORAL Fever 09/30/16 05:00 10/30/16 04:59 Albuterol/ Ipratropium (DuoNeb 0.5-3(2.5)mg/3ml) 3 ml Q4H PRN HHN Shortness of Breath 09/30/16 05:00 10/05/16 04:59 09/30/16 14:36 Dextrose (Dextrose 50%) STAT PRN IV Hypoglycemia 09/30/16 05:00 10/30/16 04:59 Furosemide (Lasix) 40 mg DAILY IV 10/01/16 09:00 10/31/16 08:59 10/01/16 08:35 Heparin Sodium/ Dextrose (Heparin) 500 ml @ 15.703 mls/ hr adjust per protocol IV 09/30/16 16:00 10/30/16 15:59 09/30/16 19:10 Lisinopril (Zestril) 2.5 mg DAILY ORAL 10/01/16 09:00 10/31/16 08:59 10/01/16 08:35 Methylprednisolone Sodium Succinate (Solu-MEDROL) 60 mg DAILY IVP 10/02/16 09:00 11/01/16 08:59 Ondansetron HCl (Zofran) 4 mg Q6H PRN IVP Nausea & Vomiting 09/30/16 05:00 10/30/16 04:59 Polyethylene Glycol (Miralax) 17 gm DAILYPRN PRN ORAL Constipation 09/30/16 05:00 10/30/16 04:59 Promethazine HCl/ Codeine (Phenergan with Codeine) 5 ml Q4H PRN ORAL For Cough 09/30/16 11:30 10/30/16 11:29 Spironolactone (Aldactone) 25 mg DAILY ORAL 10/01/16 09:00 10/31/16 08:59 10/01/16 08:35 Temazepam (Restoril) 15 mg HSPRN PRN ORAL Insomnia 09/30/16 05:00 10/07/16 04:59 10/01/16 00:53 Theophylline 100 mg 100 mg Q24H ORAL 09/30/16 21:00 10/30/16 20:59 09/30/16 21:20 MURRAY NELSON Oct 01, 2016 12:42
--- NOTE | 2016-10-01 15:42 | Internal Med Progress Note ---
Subjective Date of Service: Oct 01, 2016 Physician Name Surinder Helms Attending Physician Barrett Olivarez MD Current Medications Medications (Trade) Dose Ordered Sig/Elsa Route PRN Reason Start Time Stop Time Status Last Admin Dose Admin Acetaminophen (Tylenol) 650 mg Q4H PRN ORAL Fever 09/30/16 05:00 10/30/16 04:59 Albuterol/ Ipratropium (DuoNeb 0.5-3(2.5)mg/3ml) 3 ml Q4H PRN HHN Shortness of Breath 09/30/16 05:00 10/05/16 04:59 09/30/16 14:36 Dextrose (Dextrose 50%) STAT PRN IV Hypoglycemia 09/30/16 05:00 10/30/16 04:59 Furosemide (Lasix) 40 mg DAILY IV 10/01/16 09:00 10/31/16 08:59 10/01/16 08:35 Heparin Sodium/ Dextrose (Heparin) 500 ml @ 15.703 mls/ hr adjust per protocol IV 09/30/16 16:00 10/30/16 15:59 09/30/16 19:10 Lisinopril (Zestril) 2.5 mg DAILY ORAL 10/01/16 09:00 10/31/16 08:59 10/01/16 08:35 Methylprednisolone Sodium Succinate (Solu-MEDROL) 60 mg DAILY IVP 10/02/16 09:00 11/01/16 08:59 Ondansetron HCl (Zofran) 4 mg Q6H PRN IVP Nausea & Vomiting 09/30/16 05:00 10/30/16 04:59 Polyethylene Glycol (Miralax) 17 gm DAILYPRN PRN ORAL Constipation 09/30/16 05:00 10/30/16 04:59 Promethazine HCl/ Codeine (Phenergan with Codeine) 5 ml Q4H PRN ORAL For Cough 09/30/16 11:30 10/30/16 11:29 Spironolactone (Aldactone) 25 mg DAILY ORAL 10/01/16 09:00 10/31/16 08:59 10/01/16 08:35 Temazepam (Restoril) 15 mg HSPRN PRN ORAL Insomnia 09/30/16 05:00 10/07/16 04:59 10/01/16 00:53 Theophylline 100 mg 100 mg Q24H ORAL 09/30/16 21:00 10/30/16 20:59 09/30/16 21:20 Allergies: Coded Allergies: No Known Allergies (Unverified , 09/29/16) ROS Limited/Unobtainable: No Constitutional: Reports: no symptoms HEENT: Reports: no symptoms Cardiovascular: Reports: no symptoms Respiratory: Reports: shortness of breath Gastrointestinal/Abdominal: Reports: no symptoms Genitourinary: Reports: no symptoms Neurologic/Psychiatric: Reports: no symptoms Subjective 71 YO M admitted with shortness of breath and mele heart failure. Now DVT left popliteal vein. On heparin drip. Off BIPAP; tolerating nasal canula. Cover for Int Med-Dr Olivarez. JOSE ANGEL Objective Last Vital Signs Date Time Temp Pulse Resp B/P Pulse Ox O2 Delivery O2 Flow Rate FiO2 10/01/16 12:00 96.3 84 19 94/63 100 Nasal Cannula 2.0 10/01/16 06:40 28 General Appearance: WD/WN, alert, moderate distress EENT: PERRL/EOMI, normal ENT inspection Neck: non-tender, normal alignment, supple, normal inspection Cardiovascular: normal peripheral pulses, normal rate, regular rhythm, no gallop/murmur, no JVD Respiratory/Chest: respiratory distress, crackles/rales, rhonchi - bilaterally , expiratory wheezing Abdomen: normal bowel sounds, non tender, soft, no organomegaly, no mass, abnormal bowel sounds Extremities: normal range of motion 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, no motor/sensory deficits Skin: normal pigmentation, warm/dry Laboratory Tests Test 09/30/16 16:20 10/01/16 00:45 10/01/16 03:50 Activated Partial Thromboplast Time 30 SEC (23-33) 70 SEC (23-33) H White Blood Count 4.2 K/UL (4.8-10.8) L Red Blood Count 4.19 M/UL (4.70-6.10) L Hemoglobin 13.8 G/DL (14.2-18.0) L Hematocrit 42.1 % (42.0-52.0) Mean Corpuscular Volume 100 FL (80-99) H Mean Corpuscular Hemoglobin 32.8 PG (27.0-31.0) H Mean Corpuscular Hemoglobin Concent 32.7 G/DL (32.0-36.0) Red Cell Distribution Width 13.7 % (11.6-14.8) Platelet Count 198 K/UL (150-450) Mean Platelet Volume 8.9 FL (6.5-10.1) Neutrophils (%) (Auto) 73.4 % (45.0-75.0) Lymphocytes (%) (Auto) 23.7 % (20.0-45.0) Monocytes (%) (Auto) 2.6 % (1.0-10.0) Eosinophils (%) (Auto) 0.1 % (0.0-3.0) Basophils (%) (Auto) 0.2 % (0.0-2.0) Sodium Level 143 mEQ/L (135-145) Potassium Level 4.0 mEQ/L (3.4-4.9) Chloride Level 101 mEQ/L (98-107) Carbon Dioxide Level 23 mEQ/L (20-30) Anion Gap 19 (5-15) H Blood Urea Nitrogen 26 mg/dL (7-23) H Creatinine 1.3 mg/dL (0.7-1.2) H Estimat Glomerular Filtration Rate mL/min (>60) Glucose Level 182 mg/dL (74-106) H Calcium Level 8.8 mg/dL (8.6-10.2) Phosphorus Level 3.4 mg/dL (2.5-4.8) Troponin I < 0.30 ng/mL (<=0.30) Pro-B-Type Natriuretic Peptide 9757 pg/mL (0-125) H Albumin 3.0 g/dL (3.5-5.2) L Microbiology Date/Time Source Procedure Growth Status 09/30/16 19:30 Sputum Gram Stain - Final Resulted 09/30/16 19:30 Sputum Sputum Culture Pending Resulted 09/30/16 02:45 Rectum VRE Culture - Final NO VANCOMYCIN RESISTANT ENTEROCOCCUS ... Complete Intake and Output 09/30/16 10/01/16 19:00 07:00 Intake Total 428.4 ml Output Total 600 ml 200 ml Balance -600 ml 228.4 ml Intake Oral 240 ml IV Total 188.4 ml Output Urine Total 600 ml 200 ml # Voids 2 3 Assessment/Plan Problem List: (1) Respiratory failure Assessment & Plan: Off BIPAP; tolerating nasal canula. See pulmonary note. (2) Shortness of breath (3) CAD (coronary artery disease) (4) HTN (hypertension) Assessment & Plan: Cont lisinopril. (5) Cardiomyopathy (6) COPD exacerbation (7) CHF exacerbation Assessment & Plan: EF < 10%. See cardiology note. (8) AICD (automatic cardioverter/defibrillator) present Assessment & Plan: Await interrogation-See cardiology note. (9) DVT, popliteal, acute Assessment & Plan: On heparin drip. Await heme consult for anticoagulation recs. Status: not improved SURINDER HELMS Oct 01, 2016 15:42
[2016-10-01 15:58] VITALS: BP 111/67
--- NOTE | 2016-10-01 16:25 | Cardiac Electrophysiology PN ---
Assessment/Plan Assessment/Plan 1. Long runs of nonsustained ventricular tachycardia. The patient did not get shock from his defibrillator as likely wasn't long enough.No syncope. 2. Status post SJ defibrillator implantation. We will interrogate device for further evaluation. 3. Severe cardiomyopathy. Hold off on Coreg in view of class 4 heart failure and chronic obstructive pulmonary disease; Continue lisinopril, Lasix. 4. Severe chronic obstructive pulmonary disease on theophylline, Solu-Medrol, and albuterol. PANCHO RN and Dr Davila Subjective Subjective Had short run of VT again overnight.No chest pain. SOB better. Objective Last 24 Hour Vital Signs Date Time Temp Pulse Resp B/P Pulse Ox O2 Delivery O2 Flow Rate FiO2 10/01/16 15:58 97.8 95 19 111/67 98 Nasal Cannula 2.0 10/01/16 12:00 96.3 84 19 94/63 100 Nasal Cannula 2.0 10/01/16 12:00 92 10/01/16 08:35 139/97 10/01/16 08:00 92 10/01/16 08:00 95.5 83 19 128/80 100 Nasal Cannula 2.0 10/01/16 06:40 98 Nasal Cannula 2.0 28 10/01/16 06:40 Nasal Cannula 2.0 28 10/01/16 06:40 95 16 Nasal Cannula 2.0 28 10/01/16 04:00 91 10/01/16 04:00 97.9 93 24 142/81 98 Nasal Cannula 2.0 10/01/16 00:00 97.0 101 24 126/80 99 Nasal Cannula 2.0 10/01/16 00:00 92 09/30/16 20:32 102 16 Nasal Cannula 2.0 28 09/30/16 20:31 98 Nasal Cannula 2.0 28 09/30/16 20:31 Nasal Cannula 2.0 28 09/30/16 20:00 97 09/30/16 19:00 97.0 98 20 140/106 100 Nasal Cannula 2.0 Intake and Output 09/30/16 10/01/16 19:00 07:00 Intake Total 428.4 ml Output Total 600 ml 200 ml Balance -600 ml 228.4 ml Intake Oral 240 ml IV Total 188.4 ml Output Urine Total 600 ml 200 ml # Voids 2 3 Laboratory Tests Test 09/30/16 16:20 10/01/16 00:45 10/01/16 03:50 Activated Partial Thromboplast Time 30 SEC (23-33) 70 SEC (23-33) H White Blood Count 4.2 K/UL (4.8-10.8) L Red Blood Count 4.19 M/UL (4.70-6.10) L Hemoglobin 13.8 G/DL (14.2-18.0) L Hematocrit 42.1 % (42.0-52.0) Mean Corpuscular Volume 100 FL (80-99) H Mean Corpuscular Hemoglobin 32.8 PG (27.0-31.0) H Mean Corpuscular Hemoglobin Concent 32.7 G/DL (32.0-36.0) Red Cell Distribution Width 13.7 % (11.6-14.8) Platelet Count 198 K/UL (150-450) Mean Platelet Volume 8.9 FL (6.5-10.1) Neutrophils (%) (Auto) 73.4 % (45.0-75.0) Lymphocytes (%) (Auto) 23.7 % (20.0-45.0) Monocytes (%) (Auto) 2.6 % (1.0-10.0) Eosinophils (%) (Auto) 0.1 % (0.0-3.0) Basophils (%) (Auto) 0.2 % (0.0-2.0) Sodium Level 143 mEQ/L (135-145) Potassium Level 4.0 mEQ/L (3.4-4.9) Chloride Level 101 mEQ/L (98-107) Carbon Dioxide Level 23 mEQ/L (20-30) Anion Gap 19 (5-15) H Blood Urea Nitrogen 26 mg/dL (7-23) H Creatinine 1.3 mg/dL (0.7-1.2) H Estimat Glomerular Filtration Rate mL/min (>60) Glucose Level 182 mg/dL (74-106) H Calcium Level 8.8 mg/dL (8.6-10.2) Phosphorus Level 3.4 mg/dL (2.5-4.8) Troponin I < 0.30 ng/mL (<=0.30) Pro-B-Type Natriuretic Peptide 9757 pg/mL (0-125) H Albumin 3.0 g/dL (3.5-5.2) L Microbiology Date/Time Source Procedure Growth Status 09/30/16 19:30 Sputum Gram Stain - Final Resulted 09/30/16 19:30 Sputum Sputum Culture Pending Resulted 09/30/16 02:45 Rectum VRE Culture - Final NO VANCOMYCIN RESISTANT ENTEROCOCCUS ... Complete Objective HEENT: Mild JVD. LUNGS: Decreased breath sounds. CARDIOVASCULAR: Shows regular S1 and S2 with no gallop or murmur.ICD left subclavian intact ABDOMEN: Soft. EXTREMITIES: A 1+ pitting edema. BRYAN BOYD Oct 01, 2016 16:25
[2016-10-01] MEDS ORDERED: Warfarin Sodium 5mg ORAL SCH (17:00)
[2016-10-01 19:36] LABS: BAND NEUTROPHILS % (MANUAL) 6 % (0-8); BASOPHILS % (MANUAL) 0 % (0-2); EOSINOPHILS % (MANUAL) 0 % (0-3); LYMPHOCYTES % (MANUAL) 26 % (20-45); NEUTROPHILS % (MANUAL) 63 % (45-75); PLATELET ESTIMATE ADEQUATE; PLATELET MORPHOLOGY NORMAL; TOTAL CELLS COUNTED 100
[2016-10-01 20:00] VITALS: BP 122/92
[2016-10-01 21:00] LABS: PATH BLOOD SMEAR/OMC SENT TO PATHOLOGIST
[2016-10-01] MEDS: Theophylline ER 100mg ORAL SCH (21:09)
[2016-10-01] MEDS: Heparin 25,000u/D5W 500ml 500 ML IV SCH (22:56)
[2016-10-02] VITALS: BP 123/90
[2016-10-02 04:00] VITALS: BP 133/73
[2016-10-02] MEDS: DuoNeb 0.5-3(2.5)mg/3ml neb HHN PRN (05:22)
[2016-10-02 06:18] LABS: MEAN CORPUSCULAR HEMOGLOBIN 32.5 PG (27.0-31.0); MEAN CORPUSCULAR HGB CONC 32.4 G/DL (32.0-36.0); MEAN CORPUSCULAR VOLUME 100 FL (80-99); PLATELET COUNT 246 K/UL (150-450); RED BLOOD COUNT 4.49 M/UL (4.70-6.10); RED CELL DISTRIBUTION WIDTH 13.5 % (11.6-14.8); WHITE BLOOD COUNT 15.9 K/UL (4.8-10.8)
[2016-10-02] MEDS ORDERED: DuoNeb 0.5-3(2.5)mg/3ml neb HHN PRN (06:33)
[2016-10-02] MEDS ORDERED: Miralax 17gm pkt ORAL PRN (06:34)
[2016-10-02 06:48] LABS: ALANINE AMINOTRANSFERASE 37 U/L (3-41); ALBUMIN/GLOBULIN RATIO 0.9 (1.0-2.7); ANION GAP 20 (5-15); ASPARTATE AMINO TRANSFERASE 59 U/L (5-40); CALCIUM 9.2 mg/dL (8.6-10.2); CARBON DIOXIDE 23 mEQ/L (20-30); CHLORIDE 96 mEQ/L (98-107); CREATININE 1.2 mg/dL (0.7-1.2); HEMOLYSIS 5; POTASSIUM 3.6 mEQ/L (3.4-4.9); SODIUM 139 mEQ/L (135-145); TOTAL PROTEIN 6.9 g/dL (6.6-8.7)
[2016-10-02] MEDS ORDERED: Heparin 25,000u/D5W 500ml 500 ML IV SCH ×2 (07:00→07:56)
[2016-10-02 07:02] LABS: INR 1.2 (0.9-1.1); PROTHROMBIN TIME 12.4 SEC (9.30-11.50)
[2016-10-02 07:28] LABS: TROPONIN I < 0.30 ng/mL (<=0.30)
[2016-10-02] MEDS ORDERED: Promethazine/Codeine 5ml UD ORAL PRN (07:30)
[2016-10-02 08:00] VITALS: BP 107/66
[2016-10-02] MEDS ORDERED: Heparin 5000 units/ml inj IV ONE (08:00)
[2016-10-02 08:06] LABS: BAND NEUTROPHILS % (MANUAL) 4 % (0-8); BASOPHILS % (MANUAL) 0 % (0-2); EOSINOPHILS % (MANUAL) 1 % (0-3); LYMPHOCYTES % (MANUAL) 11 % (20-45); NEUTROPHILS % (MANUAL) 76 % (45-75); PLATELET ESTIMATE ADEQUATE; PLATELET MORPHOLOGY NORMAL; TOTAL CELLS COUNTED 100
[2016-10-02] MEDS: Solu-MEDROL 125mg Inj IVP SCH (08:35)
[2016-10-02] MEDS: Spironolactone 25mg tab ORAL SCH (08:36)
[2016-10-02] MEDS: Lisinopril 2.5mg tab ORAL SCH (08:42)
[2016-10-02] MEDS ORDERED: Solu-MEDROL 125mg Inj IVP SCH (09:00)
--- NOTE | 2016-10-02 10:25 | General Progress Note ---
Assessment/Plan Assessment/Plan CONSULTATION NOTE still not in system Assessment: 1. Popliteal right leg dvt now on lovenox and coumadin, likely related to immobilization from recent fracture. Does not need a hypercoag w/u 2. Leukocytosis - likely from methylprednisone 3. Respiratory failure now off BIPAP on NC 4. Shortness of breath 5. CHF exacerbation Recommendations: 1. Continue coumadin for total of 3 months 2. Start lovenox 3. INR goal between 2-3 4. F/U on healthcare economics consultant recs 5. Peripheral smear reviewed 6. Continue PT/OT 7. Outpatient f/u in heme clinic to determine if clot resolves with D-dimer and US in 3 months Sincerely, Raphael Jones MD Subjective Constitutional: Reports: no symptoms HEENT: Reports: no symptoms Cardiovascular: Reports: no symptoms Respiratory: Reports: no symptoms Gastrointestinal/Abdominal: Reports: poor appetite Genitourinary: Reports: no symptoms Neurologic/Psychiatric: Reports: no symptoms Endocrine: Reports: no symptoms Hematologic/Lymphatic: Reports: anemia Allergies: Coded Allergies: No Known Allergies (Unverified , 09/29/16) Subjective stable, no complaints overnight, no fevers or chills reported Objective Last 24 Hour Vital Signs Date Time Temp Pulse Resp B/P Pulse Ox O2 Delivery O2 Flow Rate FiO2 10/02/16 08:42 108/79 10/02/16 08:00 95.9 94 17 107/66 99 Nasal Cannula 2.0 10/02/16 07:38 Nasal Cannula 2.0 10/02/16 07:37 99 Nasal Cannula 2.0 10/02/16 07:22 92 18 Nasal Cannula 2.0 10/02/16 04:00 94 10/02/16 04:00 97.0 99 24 133/73 99 Nasal Cannula 2.0 10/02/16 00:00 98.0 96 20 123/90 100 Nasal Cannula 2.0 10/01/16 20:00 101 10/01/16 20:00 97.9 94 19 122/92 99 Nasal Cannula 2.0 10/01/16 19:00 99 Nasal Cannula 2.0 28 10/01/16 19:00 86 16 Nasal Cannula 2.0 28 10/01/16 19:00 Nasal Cannula 2.0 28 10/01/16 16:00 95 10/01/16 15:58 97.8 95 19 111/67 98 Nasal Cannula 2.0 10/01/16 12:00 96.3 84 19 94/63 100 Nasal Cannula 2.0 10/01/16 12:00 92 Intake and Output 10/01/16 10/02/16 19:00 07:00 Intake Total 588.4 ml 441.3 ml Output Total 675 ml 1000 ml Balance -86.6 ml -558.7 ml Intake Oral 400 ml 300 ml IV Total 188.4 ml 141.3 ml Output Urine Total 675 ml 1000 ml # Voids 2 # Bowel Movements 1 1 Laboratory Tests 10/02/16 03:45: White Blood Count 15.9#H, Red Blood Count 4.49L, Hemoglobin 14.6, Hematocrit 45.1, Mean Corpuscular Volume 100H, Mean Corpuscular Hemoglobin 32.5H, Mean Corpuscular Hemoglobin Concent 32.4, Red Cell Distribution Width 13.5, Platelet Count 246, Mean Platelet Volume 9.0, Neutrophils (%) (Auto) , Lymphocytes (%) ( Auto) , Monocytes (%) (Auto) , Eosinophils (%) (Auto) , Basophils (%) (Auto) , Differential Total Cells Counted 100, Neutrophils % (Manual) 76H, Lymphocytes % (Manual) 11L, Monocytes % (Manual) 8, Eosinophils % (Manual) 1, Basophils % ( Manual) 0, Band Neutrophils 4, Platelet Estimate Adequate, Platelet Morphology Normal, Red Blood Cell Morphology Normal, Prothrombin Time 12.4H, Prothromb Time International Ratio 1.2H, Activated Partial Thromboplast Time 52H, Sodium Level 139, Potassium Level 3.6, Chloride Level 96L, Carbon Dioxide Level 23, Anion Gap 20H, Blood Urea Nitrogen 31H, Creatinine 1.2, Estimat Glomerular Filtration Rate , Glucose Level 110H, Calcium Level 9.2, Total Bilirubin 0.6, Aspartate Amino Transf (AST/SGOT) 59H, Alanine Aminotransferase (ALT/SGPT) 37, Alkaline Phosphatase 103, Troponin I < 0.30, Pro-B-Type Natriuretic Peptide 6058H, Total Protein 6.9, Albumin 3.4L, Globulin 3.5, Albumin/Globulin Ratio 0.9L Height (Feet): 5 Height (Inches): 8.00 Weight (Pounds): 170 General Appearance: no apparent distress EENT: TMs normal Neck: supple Cardiovascular: regular rhythm Respiratory/Chest: normal breath sounds Abdomen: soft Extremities: non-tender Edema: 1+ Leg (L), 1+ Leg (R) Edema: mild edema Neurologic: alert Skin: warm/dry Raphael Jones Oct 02, 2016 10:25
[2016-10-02 12:00] VITALS: BP 121/75
[2016-10-02] MEDS ORDERED: Enoxaparin 80mg Inj SUBQ SCH (12:00)
--- NOTE | 2016-10-02 13:33 | Diagnostic Imaging Report ---
Indication: Pain Comparison: None Findings: 3 views of the left foot were obtained. Marked erosion of the first MTP joint demonstrated. There is sclerosis and soft tissue swelling. Findings could be due to inflammatory or septic arthritis. Please correlate clinically. Vascular calcifications are noted. Impression: Erosive changes involving the first MTP joint. Inflammatory versus infectious arthritis
--- NOTE | 2016-10-02 13:55 | Diagnostic Imaging Report ---
Indication: Dyspnea Comparison: 10/01/16 A single view chest radiograph was obtained. Findings: There is blunting of the right costophrenic angle consistent with a small effusion. Pulmonary vascularity is prominent. Cardiac size is enlarged but stable. Impression: No change from one day
--- NOTE | 2016-10-02 14:52 | Cardiac Electrophysiology PN ---
Assessment/Plan Assessment/Plan 1. Long runs of nonsustained ventricular tachycardia.No shock from his defibrillator as likely wasn't long enough.No syncope. 2. Status post SJ defibrillator implantation. Interrogated device showed Nl Fx 3. Severe cardiomyopathy. Hold off on Coreg in view of class 4 heart failure and chronic obstructive pulmonary disease; Continue lisinopril,Aldactone and iv Lasix. 4. Severe chronic obstructive pulmonary disease on theophylline, Solu-Medrol, and albuterol. 5. LV Clot on Coumadin PANCHO RN and Dr Mishra Subjective Subjective NSVT again but no chest pain or SOB. Objective Last 24 Hour Vital Signs Date Time Temp Pulse Resp B/P Pulse Ox O2 Delivery O2 Flow Rate FiO2 10/02/16 12:00 97.7 88 18 121/75 98 Nasal Cannula 2.0 10/02/16 12:00 105 10/02/16 08:42 108/79 10/02/16 08:00 93 10/02/16 08:00 95.9 94 17 107/66 99 Nasal Cannula 2.0 10/02/16 07:38 Nasal Cannula 2.0 10/02/16 07:37 99 Nasal Cannula 2.0 10/02/16 07:22 92 18 Nasal Cannula 2.0 10/02/16 04:00 94 10/02/16 04:00 97.0 99 24 133/73 99 Nasal Cannula 2.0 10/02/16 00:00 98.0 96 20 123/90 100 Nasal Cannula 2.0 10/01/16 20:00 101 10/01/16 20:00 97.9 94 19 122/92 99 Nasal Cannula 2.0 10/01/16 19:00 99 Nasal Cannula 2.0 28 10/01/16 19:00 86 16 Nasal Cannula 2.0 28 10/01/16 19:00 Nasal Cannula 2.0 28 10/01/16 16:00 95 10/01/16 15:58 97.8 95 19 111/67 98 Nasal Cannula 2.0 Intake and Output 10/01/16 10/02/16 19:00 07:00 Intake Total 588.4 ml 441.3 ml Output Total 675 ml 1000 ml Balance -86.6 ml -558.7 ml Intake Oral 400 ml 300 ml IV Total 188.4 ml 141.3 ml Output Urine Total 675 ml 1000 ml # Voids 2 # Bowel Movements 1 1 Laboratory Tests Test 10/02/16 03:45 White Blood Count 15.9 K/UL (4.8-10.8) #H Red Blood Count 4.49 M/UL (4.70-6.10) L Hemoglobin 14.6 G/DL (14.2-18.0) Hematocrit 45.1 % (42.0-52.0) Mean Corpuscular Volume 100 FL (80-99) H Mean Corpuscular Hemoglobin 32.5 PG (27.0-31.0) H Mean Corpuscular Hemoglobin Concent 32.4 G/DL (32.0-36.0) Red Cell Distribution Width 13.5 % (11.6-14.8) Platelet Count 246 K/UL (150-450) Mean Platelet Volume 9.0 FL (6.5-10.1) Neutrophils (%) (Auto) % (45.0-75.0) Lymphocytes (%) (Auto) % (20.0-45.0) Monocytes (%) (Auto) % (1.0-10.0) Eosinophils (%) (Auto) % (0.0-3.0) Basophils (%) (Auto) % (0.0-2.0) Differential Total Cells Counted 100 Neutrophils % (Manual) 76 % (45-75) H Lymphocytes % (Manual) 11 % (20-45) L Monocytes % (Manual) 8 % (1-10) Eosinophils % (Manual) 1 % (0-3) Basophils % (Manual) 0 % (0-2) Band Neutrophils 4 % (0-8) Platelet Estimate Adequate Platelet Morphology Normal Red Blood Cell Morphology Normal Prothrombin Time 12.4 SEC (9.30-11.50) H Prothromb Time International Ratio 1.2 (0.9-1.1) H Activated Partial Thromboplast Time 52 SEC (23-33) H Sodium Level 139 mEQ/L (135-145) Potassium Level 3.6 mEQ/L (3.4-4.9) Chloride Level 96 mEQ/L (98-107) L Carbon Dioxide Level 23 mEQ/L (20-30) Anion Gap 20 (5-15) H Blood Urea Nitrogen 31 mg/dL (7-23) H Creatinine 1.2 mg/dL (0.7-1.2) Estimat Glomerular Filtration Rate mL/min (>60) Glucose Level 110 mg/dL (74-106) H Calcium Level 9.2 mg/dL (8.6-10.2) Total Bilirubin 0.6 mg/dL (0.0-1.2) Aspartate Amino Transf (AST/SGOT) 59 U/L (5-40) H Alanine Aminotransferase (ALT/SGPT) 37 U/L (3-41) Alkaline Phosphatase 103 U/L (40-129) Troponin I < 0.30 ng/mL (<=0.30) Pro-B-Type Natriuretic Peptide 6058 pg/mL (0-125) H Total Protein 6.9 g/dL (6.6-8.7) Albumin 3.4 g/dL (3.5-5.2) L Globulin 3.5 g/dL Albumin/Globulin Ratio 0.9 (1.0-2.7) L Microbiology Date/Time Source Procedure Growth Status 09/30/16 19:30 Sputum Gram Stain - Final Resulted 09/30/16 19:30 Sputum Sputum Culture - Preliminary NORMAL UPPER RESPIRATORY ANEESH AT 24 ... Resulted 09/30/16 02:45 Nasal Nares MRSA Culture - Final NO METHICILLIN RESISTANT STAPH AUREUS... Complete 09/30/16 02:45 Rectum VRE Culture - Final NO VANCOMYCIN RESISTANT ENTEROCOCCUS ... Complete Objective HEENT: Mild JVD. LUNGS: Decreased breath sounds. CARDIOVASCULAR: Shows regular S1 and S2 with no gallop or murmur. ICD left subclavian intact ABDOMEN: Soft. EXTREMITIES: A 1+ pitting edema. BRYAN BOYD Oct 02, 2016 14:52
[2016-10-02 16:00] VITALS: BP_SYST 114; BP_SYST 97; BP_DIAS 61; BP_DIAS 69
--- NOTE | 2016-10-02 16:41 | Diagnostic Imaging Report ---
Indication:Abnormal liver function tests Technique: Grayscale and duplex Doppler imaging of the abdomen performed. Comparison: None Findings: The liver is mildly enlarged measuring about 18 cm. The liver echogenicity is slightly heterogeneous. There is no obvious nodularity of the liver surface demonstrated. Suspected right renal calcifications possibly nonobstructive stones. Similar finding on the left. No hydronephrosis demonstrated. Small right pleural effusion noted. Aorta and pancreas are poorly seen on this study. Gallbladder wall is slightly thick. No gallstones are seen. The main portal vein is patent by Doppler showing appropriate flow direction and waveform. There is no splenomegaly. Impression: Mild heterogeneity of the liver which is slightly enlarged. Findings are nonspecific but could be due to liver disease. Suspected bilateral nonobstructive nephrolithiasis. Gallbladder wall thickening mild in degree nonspecific. Small right pleural effusion .
[2016-10-02] MEDS ORDERED: Warfarin Sodium 5mg ORAL ONE (17:00)
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
--- NOTE | 2016-10-02 17:52 | Internal Med Progress Note ---
Subjective Physician Name Barrett Olivarez Attending Physician Barrett Olivarez MD Current Medications Medications (Trade) Dose Ordered Sig/Elsa Route PRN Reason Start Time Stop Time Status Last Admin Dose Admin Acetaminophen (Tylenol) 650 mg Q4H PRN ORAL Fever 10/02/16 06:33 11/01/16 06:32 Albuterol/ Ipratropium (DuoNeb 0.5-3(2.5)mg/3ml) 3 ml Q4H PRN HHN Shortness of Breath 10/02/16 06:33 10/07/16 06:32 Dextrose (Dextrose 50%) STAT PRN IV Hypoglycemia 10/02/16 06:33 11/01/16 06:32 Enoxaparin Sodium (Lovenox) 80 mg EVERY 12 HOURS SUBQ 10/02/16 12:00 11/01/16 11:59 10/02/16 13:04 Furosemide (Lasix) 40 mg DAILY IV 10/02/16 09:00 11/01/16 08:59 10/02/16 08:35 Lisinopril (Zestril) 2.5 mg DAILY ORAL 10/02/16 09:00 11/01/16 08:59 Methylprednisolone Sodium Succinate (Solu-MEDROL) 60 mg DAILY IVP 10/02/16 09:00 11/01/16 08:59 10/02/16 08:35 Ondansetron HCl (Zofran) 4 mg Q6H PRN IVP Nausea & Vomiting 10/02/16 06:33 11/01/16 06:32 Polyethylene Glycol (Miralax) 17 gm DAILYPRN PRN ORAL Constipation 10/02/16 06:34 11/01/16 06:33 Promethazine HCl/ Codeine (Phenergan with Codeine) 5 ml Q4H PRN ORAL For Cough 10/02/16 07:30 11/01/16 07:29 Spironolactone (Aldactone) 25 mg DAILY ORAL 10/02/16 09:00 11/01/16 08:59 10/02/16 08:36 Temazepam (Restoril) 15 mg HSPRN PRN ORAL Insomnia 10/02/16 06:34 10/09/16 06:33 Theophylline (Yadiel-Dur) 100 mg Q24H ORAL 10/02/16 21:00 11/01/16 20:59 Warfarin Sodium (Coumadin per pharmacy) 1 ea DAILY PRN MISC Per rx protocol 10/02/16 09:00 11/01/16 08:59 Allergies: Coded Allergies: No Known Allergies (Verified , 06/28/10) Subjective awake, alert, responsive, ambulation in the room. Objective Last Vital Signs Date Time Temp Pulse Resp B/P Pulse Ox O2 Delivery O2 Flow Rate FiO2 10/02/16 12:00 97.7 88 18 121/75 98 Nasal Cannula 2.0 10/01/16 19:00 28 Laboratory Tests Test 10/02/16 03:45 10/02/16 14:18 White Blood Count 15.9 K/UL (4.8-10.8) #H Red Blood Count 4.49 M/UL (4.70-6.10) L Hemoglobin 14.6 G/DL (14.2-18.0) Hematocrit 45.1 % (42.0-52.0) Mean Corpuscular Volume 100 FL (80-99) H Mean Corpuscular Hemoglobin 32.5 PG (27.0-31.0) H Mean Corpuscular Hemoglobin Concent 32.4 G/DL (32.0-36.0) Red Cell Distribution Width 13.5 % (11.6-14.8) Platelet Count 246 K/UL (150-450) Mean Platelet Volume 9.0 FL (6.5-10.1) Neutrophils (%) (Auto) % (45.0-75.0) Lymphocytes (%) (Auto) % (20.0-45.0) Monocytes (%) (Auto) % (1.0-10.0) Eosinophils (%) (Auto) % (0.0-3.0) Basophils (%) (Auto) % (0.0-2.0) Differential Total Cells Counted 100 Neutrophils % (Manual) 76 % (45-75) H Lymphocytes % (Manual) 11 % (20-45) L Monocytes % (Manual) 8 % (1-10) Eosinophils % (Manual) 1 % (0-3) Basophils % (Manual) 0 % (0-2) Band Neutrophils 4 % (0-8) Platelet Estimate Adequate Platelet Morphology Normal Red Blood Cell Morphology Normal Prothrombin Time 12.4 SEC (9.30-11.50) H Prothromb Time International Ratio 1.2 (0.9-1.1) H Activated Partial Thromboplast Time 52 SEC (23-33) H 96 SEC (23-33) H Sodium Level 139 mEQ/L (135-145) Potassium Level 3.6 mEQ/L (3.4-4.9) Chloride Level 96 mEQ/L (98-107) L Carbon Dioxide Level 23 mEQ/L (20-30) Anion Gap 20 (5-15) H Blood Urea Nitrogen 31 mg/dL (7-23) H Creatinine 1.2 mg/dL (0.7-1.2) Estimat Glomerular Filtration Rate mL/min (>60) Glucose Level 110 mg/dL (74-106) H Calcium Level 9.2 mg/dL (8.6-10.2) Total Bilirubin 0.6 mg/dL (0.0-1.2) Aspartate Amino Transf (AST/SGOT) 59 U/L (5-40) H Alanine Aminotransferase (ALT/SGPT) 37 U/L (3-41) Alkaline Phosphatase 103 U/L (40-129) Troponin I < 0.30 ng/mL (<=0.30) Pro-B-Type Natriuretic Peptide 6058 pg/mL (0-125) H Total Protein 6.9 g/dL (6.6-8.7) Albumin 3.4 g/dL (3.5-5.2) L Globulin 3.5 g/dL Albumin/Globulin Ratio 0.9 (1.0-2.7) L Microbiology Date/Time Source Procedure Growth Status 09/30/16 19:30 Sputum Gram Stain - Final Resulted 09/30/16 19:30 Sputum Sputum Culture - Preliminary NORMAL UPPER RESPIRATORY ANEESH AT 24 ... Resulted 09/30/16 02:45 Nasal Nares MRSA Culture - Final NO METHICILLIN RESISTANT STAPH AUREUS... Complete 09/30/16 02:45 Rectum VRE Culture - Final NO VANCOMYCIN RESISTANT ENTEROCOCCUS ... Complete Intake and Output 10/01/16 10/02/16 19:00 07:00 Intake Total 588.4 ml 441.3 ml Output Total 675 ml 1000 ml Balance -86.6 ml -558.7 ml Intake Oral 400 ml 300 ml IV Total 188.4 ml 141.3 ml Output Urine Total 675 ml 1000 ml # Voids 2 # Bowel Movements 1 1 Objective GENERAL: The patient is well developed and well nourished male , HEENT: Eyes, pupils are equal and responsive to light and accommodation. Extraocular movements are intact. NECK: Supple. No lymphadenopathy. CHEST: No wheezes heard in the bilateral lung dotson. decrease air on bases. CARDIOVASCULAR: Regular rhythm and rate. S1 and S2 normal without murmurs ABDOMEN: Soft, nontender, and nondistended. Positive bowel sounds. EXTREMITIES: Negative for clubbing, cyanosis,decrease edema. RECTAL/GENITAL: Refused. NEUROLOGICALLY: Cranial nerves II through XII are grossly intact without focal deficits. Motor strength is 5/5 bilaterally. Assessment/Plan Assessment/Plan ASSESSMENT: 1. Acute shortness of breath. 2. Respiratory failure. 3. Congestive heart failure. 4. Coronary artery disease. 5. Hypertension. 6. Acute Chronic obstructive pulmonary disease. Plan: Lovenox Inj Solumedral 60mg IV daily Monitor labs and cultures DC planning for AM Barrett Olivarez MD Oct 02, 2016 17:52
[2016-10-02] MEDS: Xarelto 10mg tab ORAL SCH (18:27)
[2016-10-02 20:00] VITALS: BP 114/69
[2016-10-02] MEDS ORDERED: Theophylline ER 100mg ORAL SCH (21:00)
--- NOTE | 2016-10-02 23:29 | Pulmonology Progress Note ---
Assessment/Plan Problems: (1) COPD exacerbation (2) Respiratory distress (3) Emphysema lung Assessment/Plan respiratory treatment IV heparin decrease solumedrol BIPAP prn might go to telemetry on IV heparin Subjective ROS Limited/Unobtainable: No Constitutional: Reports: anorexia, fatigue Respiratory: Reports: dyspnea at rest, dyspnea on exertion, pleuritic pain, productive cough, shortness of breath, sputum, wheezing Allergies: Coded Allergies: No Known Allergies (Verified , 06/28/10) Objective Last 24 Hour Vital Signs Date Time Temp Pulse Resp B/P Pulse Ox O2 Delivery O2 Flow Rate FiO2 10/02/16 20:00 97.0 92 20 114/69 98 Room Air 10/02/16 19:21 98 Nasal Cannula 2.0 28 10/02/16 19:21 Nasal Cannula 2.0 28 10/02/16 16:00 97.0 92 20 114/69 98 Nasal Cannula 3.0 10/02/16 16:00 98 10/02/16 16:00 98.1 90 16 97/61 98 Nasal Cannula 2.0 10/02/16 12:00 97.7 88 18 121/75 98 Nasal Cannula 2.0 10/02/16 12:00 105 10/02/16 08:42 108/79 10/02/16 08:00 93 10/02/16 08:00 95.9 94 17 107/66 99 Nasal Cannula 2.0 10/02/16 07:38 Nasal Cannula 2.0 10/02/16 07:37 99 Nasal Cannula 2.0 10/02/16 07:22 92 18 Nasal Cannula 2.0 10/02/16 04:00 94 10/02/16 04:00 97.0 99 24 133/73 99 Nasal Cannula 2.0 10/02/16 00:00 98.0 96 20 123/90 100 Nasal Cannula 2.0 Intake and Output 10/01/16 10/02/16 19:00 07:00 Intake Total 588.4 ml 441.3 ml Output Total 675 ml 1000 ml Balance -86.6 ml -558.7 ml Intake Oral 400 ml 300 ml IV Total 188.4 ml 141.3 ml Output Urine Total 675 ml 1000 ml # Voids 2 # Bowel Movements 1 1 General Appearance: no acute distress HEENT: normocephalic, atraumatic, PERRL Respiratory/Chest: chest wall non-tender, decreased breath sounds, accessory muscle use, rhonchi Cardiovascular: normal peripheral pulses, normal rate, regular rhythm, no JVD Abdomen: normal bowel sounds, soft, non tender, no organomegaly Genitourinary: normal external genitalia Extremities: no cyanosis Skin: no rash, no lesions 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 Resulted 09/30/16 02:45 Nasal Nares MRSA Culture - Final NO METHICILLIN RESISTANT STAPH AUREUS... Complete 09/30/16 02:45 Rectum VRE Culture - Final NO VANCOMYCIN RESISTANT ENTEROCOCCUS ... Complete Laboratory Tests 10/02/16 03:45: White Blood Count 15.9#H, Red Blood Count 4.49L, Hemoglobin 14.6, Hematocrit 45.1, Mean Corpuscular Volume 100H, Mean Corpuscular Hemoglobin 32.5H, Mean Corpuscular Hemoglobin Concent 32.4, Red Cell Distribution Width 13.5, Platelet Count 246, Mean Platelet Volume 9.0, Neutrophils (%) (Auto) , Lymphocytes (%) ( Auto) , Monocytes (%) (Auto) , Eosinophils (%) (Auto) , Basophils (%) (Auto) , Differential Total Cells Counted 100, Neutrophils % (Manual) 76H, Lymphocytes % (Manual) 11L, Monocytes % (Manual) 8, Eosinophils % (Manual) 1, Basophils % ( Manual) 0, Band Neutrophils 4, Platelet Estimate Adequate, Platelet Morphology Normal, Red Blood Cell Morphology Normal, Prothrombin Time 12.4H, Prothromb Time International Ratio 1.2H, Activated Partial Thromboplast Time 52H, Sodium Level 139, Potassium Level 3.6, Chloride Level 96L, Carbon Dioxide Level 23, Anion Gap 20H, Blood Urea Nitrogen 31H, Creatinine 1.2, Estimat Glomerular Filtration Rate , Glucose Level 110H, Calcium Level 9.2, Total Bilirubin 0.6, Aspartate Amino Transf (AST/SGOT) 59H, Alanine Aminotransferase (ALT/SGPT) 37, Alkaline Phosphatase 103, Troponin I < 0.30, Pro-B-Type Natriuretic Peptide 6058H, Total Protein 6.9, Albumin 3.4L, Globulin 3.5, Albumin/Globulin Ratio 0.9L 10/02/16 14:18: Activated Partial Thromboplast Time 96H Current Medications Medications (Trade) Dose Ordered Sig/Elsa Route PRN Reason Start Time Stop Time Status Last Admin Dose Admin Acetaminophen (Tylenol) 650 mg Q4H PRN ORAL Fever 10/02/16 06:33 11/01/16 06:32 Albuterol/ Ipratropium (DuoNeb 0.5-3(2.5)mg/3ml) 3 ml Q4H PRN HHN Shortness of Breath 10/02/16 06:33 10/07/16 06:32 Dextrose (Dextrose 50%) STAT PRN IV Hypoglycemia 10/02/16 06:33 11/01/16 06:32 Furosemide (Lasix) 40 mg DAILY IV 10/02/16 09:00 11/01/16 08:59 10/02/16 08:35 Lisinopril (Zestril) 2.5 mg DAILY ORAL 10/02/16 09:00 11/01/16 08:59 Methylprednisolone Sodium Succinate (Solu-MEDROL) 60 mg DAILY IVP 10/02/16 09:00 11/01/16 08:59 10/02/16 08:35 Ondansetron HCl (Zofran) 4 mg Q6H PRN IVP Nausea & Vomiting 10/02/16 06:33 11/01/16 06:32 Polyethylene Glycol (Miralax) 17 gm DAILYPRN PRN ORAL Constipation 10/02/16 06:34 11/01/16 06:33 Promethazine HCl/ Codeine (Phenergan with Codeine) 5 ml Q4H PRN ORAL For Cough 10/02/16 07:30 11/01/16 07:29 Rivaroxaban (Xarelto) 15 mg BID ORAL 10/02/16 19:00 11/01/16 18:59 10/02/16 18:27 Spironolactone (Aldactone) 25 mg DAILY ORAL 10/02/16 09:00 11/01/16 08:59 10/02/16 08:36 Temazepam (Restoril) 15 mg HSPRN PRN ORAL Insomnia 10/02/16 06:34 10/09/16 06:33 Theophylline (Yadiel-Dur) 100 mg Q24H ORAL 10/02/16 21:00 11/01/16 20:59 10/02/16 20:46 MURRAY NELSON Oct 02, 2016 23:29
[2016-10-03] VITALS: BP 125/87
[2016-10-03 04:00] VITALS: BP 108/77
[2016-10-03 07:16] LABS: INR 1.6 (0.9-1.1); PROTHROMBIN TIME 16.1 SEC (9.30-11.50)
[2016-10-03 07:51] VITALS: BP 132/88
[2016-10-03 07:56] LABS: ALANINE AMINOTRANSFERASE 40 U/L (3-41); ALBUMIN/GLOBULIN RATIO 0.9 (1.0-2.7); ANION GAP 19 (5-15); ASPARTATE AMINO TRANSFERASE 59 U/L (5-40); CALCIUM 9.3 mg/dL (8.6-10.2); CARBON DIOXIDE 21 mEQ/L (20-30); CHLORIDE 98 mEQ/L (98-107); CREATININE 1.5 mg/dL (0.7-1.2); HEMOLYSIS 39; MAGNESIUM 2.1 mg/dL (1.7-2.5); PHOSPHORUS 3.6 mg/dL (2.5-4.8); POTASSIUM 4.5 mEQ/L (3.4-4.9); SODIUM 138 mEQ/L (135-145); TOTAL PROTEIN 6.9 g/dL (6.6-8.7)
[2016-10-03] MEDS: Solu-MEDROL 125mg Inj IVP SCH (09:38)
[2016-10-03] MEDS: Lisinopril 2.5mg tab ORAL SCH (09:39)
[2016-10-03] MEDS: Spironolactone 25mg tab ORAL SCH (09:39)
[2016-10-03] MEDS: Xarelto 10mg tab ORAL SCH ×2 (09:39→17:19)
[2016-10-03 12:03] VITALS: BP 142/75
--- NOTE | 2016-10-03 13:04 | Pulmonology Progress Note ---
Assessment/Plan Problems: (1) COPD exacerbation (2) Respiratory distress (3) Emphysema lung Assessment/Plan dc IV solumedrol respiratory treatment BIPAP prn keep in teli because of episodes of PVC and dyspnea on lasix IV and Xarelto Subjective ROS Limited/Unobtainable: No Interval Events: episodes of dyspea, and panic attack Allergies: Coded Allergies: No Known Allergies (Verified , 06/28/10) Objective Last 24 Hour Vital Signs Date Time Temp Pulse Resp B/P Pulse Ox O2 Delivery O2 Flow Rate FiO2 10/03/16 12:03 97.0 99 20 142/75 100 Nasal Cannula 2.0 10/03/16 09:39 132/88 10/03/16 07:51 97.0 99 20 132/88 97 Nasal Cannula 2.0 10/03/16 07:15 Nasal Cannula 2.0 28 10/03/16 07:15 99 Nasal Cannula 2.0 28 10/03/16 04:46 101 24 100 Facial 30 10/03/16 04:25 93 22 100 Nasal Cannula 2.0 28 10/03/16 04:15 87 20 98 Nasal Cannula 2.0 28 10/03/16 04:00 96.9 78 20 108/77 100 Nasal Cannula 2.0 10/03/16 03:40 94 10/03/16 00:00 97.0 61 20 125/87 99 Nasal Cannula 2.0 10/02/16 23:31 93 10/02/16 20:00 97.0 92 20 114/69 98 Room Air 10/02/16 19:21 98 Nasal Cannula 2.0 28 10/02/16 19:21 Nasal Cannula 2.0 28 10/02/16 16:00 97.0 92 20 114/69 98 Nasal Cannula 3.0 10/02/16 16:00 98 10/02/16 16:00 98.1 90 16 97/61 98 Nasal Cannula 2.0 Intake and Output 10/02/16 10/03/16 19:00 07:00 Intake Total 460 ml Output Total 200 ml Balance 460 ml -200 ml Intake Oral 460 ml Output Urine Total 200 ml # Voids 3 4 # Bowel Movements 1 General Appearance: cachetic HEENT: normocephalic Respiratory/Chest: chest wall non-tender, decreased breath sounds, crackles/ rales Cardiovascular: normal peripheral pulses, normal rate Abdomen: normal bowel sounds, soft, non tender Genitourinary: normal external genitalia Extremities: no cyanosis Skin: no rash 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 Microbiology Date/Time Source Procedure Growth Status 09/30/16 19:30 Sputum Gram Stain - Final Complete 09/30/16 19:30 Sputum Sputum Culture - Final NORMAL UPPER RESPIRATORY ANEESH PRESENT Complete Laboratory Tests 10/02/16 14:18: Activated Partial Thromboplast Time 96H 10/03/16 05:15: Prothrombin Time 16.1H, Prothromb Time International Ratio 1.6H, Sodium Level 138, Potassium Level 4.5, Chloride Level 98, Carbon Dioxide Level 21, Anion Gap 19H, Blood Urea Nitrogen 40H, Creatinine 1.5H, Estimat Glomerular Filtration Rate , Glucose Level 118H, Calcium Level 9.3, Phosphorus Level 3.6, Magnesium Level 2.1, Total Bilirubin 0.6, Aspartate Amino Transf (AST/SGOT) 59H, Alanine Aminotransferase (ALT/SGPT) 40, Alkaline Phosphatase 92, Total Protein 6.9, Albumin 3.3L, Globulin 3.6, Albumin/Globulin Ratio 0.9L Current Medications Medications (Trade) Dose Ordered Sig/Elsa Route PRN Reason Start Time Stop Time Status Last Admin Dose Admin Acetaminophen (Tylenol) 650 mg Q4H PRN ORAL Fever 10/02/16 06:33 11/01/16 06:32 Albuterol/ Ipratropium (DuoNeb 0.5-3(2.5)mg/3ml) 3 ml Q4H PRN HHN Shortness of Breath 10/02/16 06:33 10/07/16 06:32 10/03/16 04:15 Dextrose (Dextrose 50%) STAT PRN IV Hypoglycemia 10/02/16 06:33 11/01/16 06:32 Furosemide (Lasix) 40 mg DAILY IV 10/02/16 09:00 11/01/16 08:59 10/03/16 09:37 Lisinopril (Zestril) 2.5 mg DAILY ORAL 10/02/16 09:00 11/01/16 08:59 10/03/16 09:39 Ondansetron HCl (Zofran) 4 mg Q6H PRN IVP Nausea & Vomiting 10/02/16 06:33 11/01/16 06:32 Polyethylene Glycol (Miralax) 17 gm DAILYPRN PRN ORAL Constipation 10/02/16 06:34 11/01/16 06:33 Prednisone (predniSONE) 40 mg DAILY ORAL 10/04/16 09:00 11/03/16 08:59 UNV Promethazine HCl/ Codeine (Phenergan with Codeine) 5 ml Q4H PRN ORAL For Cough 10/02/16 07:30 11/01/16 07:29 Rivaroxaban (Xarelto) 15 mg BID ORAL 10/02/16 19:00 11/01/16 18:59 10/03/16 09:39 Spironolactone (Aldactone) 25 mg DAILY ORAL 10/02/16 09:00 11/01/16 08:59 10/03/16 09:39 Temazepam (Restoril) 15 mg HSPRN PRN ORAL Insomnia 10/02/16 06:34 10/09/16 06:33 Theophylline (Yadiel-Dur) 100 mg Q24H ORAL 10/02/16 21:00 11/01/16 20:59 10/02/16 20:46 MURRAY NELSON Oct 03, 2016 13:04
--- NOTE | 2016-10-03 14:32 | Cardiac Electrophysiology PN ---
Assessment/Plan Assessment/Plan 1. Recurrent Long runs of nonsustained ventricular tachycardia.No shock from his defibrillator as likely wasn't long enough.No syncope. Start Amiodarone 400 mg po daily. 2. Status post SJ defibrillator implantation. Interrogated device showed Nl Fx 3. Severe cardiomyopathy. Hold off on Coreg in view of class 4 heart failure and chronic obstructive pulmonary disease; Continue lisinopril,Aldactone and iv Lasix. 4. Severe chronic obstructive pulmonary disease on theophylline, Solu-Medrol, and albuterol. 5. LV Clot on Coumadin DW RN Subjective Subjective Having frequent runs of VTs up to 15-20 beats. Alert with no chest pain or SOB.Walking in hallway. Objective Last 24 Hour Vital Signs Date Time Temp Pulse Resp B/P Pulse Ox O2 Delivery O2 Flow Rate FiO2 10/03/16 12:03 97.0 99 20 142/75 100 Nasal Cannula 2.0 10/03/16 09:39 132/88 10/03/16 07:51 97.0 99 20 132/88 97 Nasal Cannula 2.0 10/03/16 07:15 Nasal Cannula 2.0 28 10/03/16 07:15 99 Nasal Cannula 2.0 28 10/03/16 04:46 101 24 100 Facial 30 10/03/16 04:25 93 22 100 Nasal Cannula 2.0 28 10/03/16 04:15 87 20 98 Nasal Cannula 2.0 28 10/03/16 04:00 96.9 78 20 108/77 100 Nasal Cannula 2.0 10/03/16 03:40 94 10/03/16 00:00 97.0 61 20 125/87 99 Nasal Cannula 2.0 10/02/16 23:31 93 10/02/16 20:00 97.0 92 20 114/69 98 Room Air 10/02/16 19:21 98 Nasal Cannula 2.0 28 10/02/16 19:21 Nasal Cannula 2.0 28 10/02/16 16:00 97.0 92 20 114/69 98 Nasal Cannula 3.0 10/02/16 16:00 98 10/02/16 16:00 98.1 90 16 97/61 98 Nasal Cannula 2.0 Intake and Output 10/02/16 10/03/16 19:00 07:00 Intake Total 460 ml Output Total 200 ml Balance 460 ml -200 ml Intake Oral 460 ml Output Urine Total 200 ml # Voids 3 4 # Bowel Movements 1 Laboratory Tests Test 10/03/16 05:15 Prothrombin Time 16.1 SEC (9.30-11.50) H Prothromb Time International Ratio 1.6 (0.9-1.1) H Sodium Level 138 mEQ/L (135-145) Potassium Level 4.5 mEQ/L (3.4-4.9) Chloride Level 98 mEQ/L (98-107) Carbon Dioxide Level 21 mEQ/L (20-30) Anion Gap 19 (5-15) H Blood Urea Nitrogen 40 mg/dL (7-23) H Creatinine 1.5 mg/dL (0.7-1.2) H Estimat Glomerular Filtration Rate mL/min (>60) Glucose Level 118 mg/dL (74-106) H Calcium Level 9.3 mg/dL (8.6-10.2) Phosphorus Level 3.6 mg/dL (2.5-4.8) Magnesium Level 2.1 mg/dL (1.7-2.5) Total Bilirubin 0.6 mg/dL (0.0-1.2) Aspartate Amino Transf (AST/SGOT) 59 U/L (5-40) H Alanine Aminotransferase (ALT/SGPT) 40 U/L (3-41) Alkaline Phosphatase 92 U/L (40-129) Total Protein 6.9 g/dL (6.6-8.7) Albumin 3.3 g/dL (3.5-5.2) L Globulin 3.6 g/dL Albumin/Globulin Ratio 0.9 (1.0-2.7) L Microbiology Date/Time Source Procedure Growth Status 09/30/16 19:30 Sputum Gram Stain - Final Complete 09/30/16 19:30 Sputum Sputum Culture - Final NORMAL UPPER RESPIRATORY ANEESH PRESENT Complete Objective HEENT: Mild JVD. LUNGS: Decreased breath sounds. CARDIOVASCULAR: Regular S1 and S2 with no gallop or murmur. ICD left subclavian intact ABDOMEN: Soft. EXTREMITIES: A 1+ pitting edema. BRYAN BOYD Oct 03, 2016 14:32
[2016-10-03 16:21] VITALS: BP 122/66
[2016-10-03] MEDS ORDERED: Amiodarone 200mg tab ORAL SCH (16:30)
--- NOTE | 2016-10-03 17:29 | Internal Med Progress Note ---
Subjective Physician Name Barrett Olivarez Attending Physician Barrett Olivarez MD Current Medications Medications (Trade) Dose Ordered Sig/Elsa Route PRN Reason Start Time Stop Time Status Last Admin Dose Admin Acetaminophen (Tylenol) 650 mg Q4H PRN ORAL Fever 10/02/16 06:33 11/01/16 06:32 Albuterol/ Ipratropium (DuoNeb 0.5-3(2.5)mg/3ml) 3 ml Q4H PRN HHN Shortness of Breath 10/02/16 06:33 10/07/16 06:32 10/03/16 04:15 Amiodarone HCl (Cordarone) 400 mg QPM ORAL 10/03/16 16:30 11/02/16 16:29 Dextrose (Dextrose 50%) STAT PRN IV Hypoglycemia 10/02/16 06:33 11/01/16 06:32 Furosemide (Lasix) 40 mg DAILY IV 10/02/16 09:00 11/01/16 08:59 10/03/16 09:37 Lisinopril (Zestril) 2.5 mg DAILY ORAL 10/02/16 09:00 11/01/16 08:59 10/03/16 09:39 Ondansetron HCl (Zofran) 4 mg Q6H PRN IVP Nausea & Vomiting 10/02/16 06:33 11/01/16 06:32 Polyethylene Glycol (Miralax) 17 gm DAILYPRN PRN ORAL Constipation 10/02/16 06:34 11/01/16 06:33 Prednisone (predniSONE) 40 mg DAILY ORAL 10/04/16 09:00 11/03/16 08:59 Promethazine HCl/ Codeine (Phenergan with Codeine) 5 ml Q4H PRN ORAL For Cough 10/02/16 07:30 11/01/16 07:29 Rivaroxaban (Xarelto) 15 mg BID ORAL 10/02/16 19:00 11/01/16 18:59 10/03/16 09:39 Spironolactone (Aldactone) 25 mg DAILY ORAL 10/02/16 09:00 11/01/16 08:59 10/03/16 09:39 Temazepam (Restoril) 15 mg HSPRN PRN ORAL Insomnia 10/02/16 06:34 10/09/16 06:33 Theophylline (Yadiel-Dur) 100 mg Q24H ORAL 10/02/16 21:00 11/01/16 20:59 10/02/16 20:46 Allergies: Coded Allergies: No Known Allergies (Verified , 06/28/10) Subjective awake, alert, responsive, NAD Objective Last Vital Signs Date Time Temp Pulse Resp B/P Pulse Ox O2 Delivery O2 Flow Rate FiO2 10/03/16 16:21 97.0 96 20 122/66 99 Nasal Cannula 2.0 10/03/16 07:15 28 Laboratory Tests Test 10/03/16 05:15 Prothrombin Time 16.1 SEC (9.30-11.50) H Prothromb Time International Ratio 1.6 (0.9-1.1) H Sodium Level 138 mEQ/L (135-145) Potassium Level 4.5 mEQ/L (3.4-4.9) Chloride Level 98 mEQ/L (98-107) Carbon Dioxide Level 21 mEQ/L (20-30) Anion Gap 19 (5-15) H Blood Urea Nitrogen 40 mg/dL (7-23) H Creatinine 1.5 mg/dL (0.7-1.2) H Estimat Glomerular Filtration Rate mL/min (>60) Glucose Level 118 mg/dL (74-106) H Calcium Level 9.3 mg/dL (8.6-10.2) Phosphorus Level 3.6 mg/dL (2.5-4.8) Magnesium Level 2.1 mg/dL (1.7-2.5) Total Bilirubin 0.6 mg/dL (0.0-1.2) Aspartate Amino Transf (AST/SGOT) 59 U/L (5-40) H Alanine Aminotransferase (ALT/SGPT) 40 U/L (3-41) Alkaline Phosphatase 92 U/L (40-129) Total Protein 6.9 g/dL (6.6-8.7) Albumin 3.3 g/dL (3.5-5.2) L Globulin 3.6 g/dL Albumin/Globulin Ratio 0.9 (1.0-2.7) L Microbiology Date/Time Source Procedure Growth Status 09/30/16 19:30 Sputum Gram Stain - Final Complete 09/30/16 19:30 Sputum Sputum Culture - Final NORMAL UPPER RESPIRATORY ANEESH PRESENT Complete Intake and Output 10/02/16 10/03/16 19:00 07:00 Intake Total 460 ml Output Total 200 ml Balance 460 ml -200 ml Intake Oral 460 ml Output Urine Total 200 ml # Voids 3 4 # Bowel Movements 1 Objective GENERAL: The patient is well developed and well nourished male , HEENT: Eyes, pupils are equal and responsive to light and accommodation. Extraocular movements are intact. NECK: Supple. No lymphadenopathy. CHEST: No wheezes heard in the bilateral lung dotson. decrease air on bases. CARDIOVASCULAR: Regular rhythm and rate. S1 and S2 normal without murmurs ABDOMEN: Soft, nontender, and nondistended. Positive bowel sounds. EXTREMITIES: Negative for clubbing, cyanosis,decrease edema. RECTAL/GENITAL: Refused. NEUROLOGICALLY: Cranial nerves II through XII are grossly intact without focal deficits. Motor strength is 5/5 bilaterally. Assessment/Plan Assessment/Plan ASSESSMENT: 1. Acute shortness of breath. 2. Respiratory failure. 3. Congestive heart failure. 4. Coronary artery disease. 5. Hypertension. 6. Acute Chronic obstructive pulmonary disease. Plan: on Xarelto switch Prednisone DC planning home today Barrett Olivarez MD Oct 03, 2016 17:29
--- NOTE | 2016-10-03 17:54 | General Progress Note ---
Assessment/Plan Assessment/Plan ASSESSMENT: 1. Deep vein thrombosis of left popliteal vein. Begin the patient on heparin drip, does not require hypercoagulable workup. Also at this time begin the patient on Coumadin and continue it for a total of three months. The patient likely has deep vein thrombosis related to lack of recent movement given shortness of breath, which is potentially a reversible risk factor, however, the patient's shortness of breath likely will not improve with congestive heart failure, therefore, may consider longer term Coumadin based on evaluation in clinic in several months. 2. Leukopenia. 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 All workup is pending at this moment. 3. Thyroid problem versus again viral etiology. 4. Congestive heart failure history. 5. Emphysema. 6. Close monitor counts. 7. Continue IV iron. 8. Watch coagulopathy. 9. Ultrasound of the abdomen ordered. 10. Appreciate Pulmonary and Cardiology input. 11. Medications will be reviewed. 12. Steroids as needed. 13. Continue to follow with Hematology perspective Ryan Jones M.D. Subjective Constitutional: Reports: no symptoms HEENT: Reports: no symptoms Cardiovascular: Reports: no symptoms Respiratory: Reports: no symptoms Gastrointestinal/Abdominal: Reports: no symptoms Genitourinary: Reports: no symptoms Neurologic/Psychiatric: Reports: no symptoms Endocrine: Reports: no symptoms Hematologic/Lymphatic: Reports: no symptoms Allergies: Coded Allergies: No Known Allergies (Verified , 06/28/10) Objective Last 24 Hour Vital Signs Date Time Temp Pulse Resp B/P Pulse Ox O2 Delivery O2 Flow Rate FiO2 10/03/16 16:21 97.0 96 20 122/66 99 Nasal Cannula 2.0 10/03/16 12:03 97.0 99 20 142/75 100 Nasal Cannula 2.0 10/03/16 12:00 105 10/03/16 09:39 132/88 10/03/16 08:00 98 10/03/16 07:51 97.0 99 20 132/88 97 Nasal Cannula 2.0 10/03/16 07:15 Nasal Cannula 2.0 28 10/03/16 07:15 99 Nasal Cannula 2.0 28 10/03/16 04:46 101 24 100 Facial 30 10/03/16 04:25 93 22 100 Nasal Cannula 2.0 28 10/03/16 04:15 87 20 98 Nasal Cannula 2.0 28 10/03/16 04:00 96.9 78 20 108/77 100 Nasal Cannula 2.0 10/03/16 03:40 94 10/03/16 00:00 97.0 61 20 125/87 99 Nasal Cannula 2.0 10/02/16 23:31 93 10/02/16 20:00 97.0 92 20 114/69 98 Room Air 10/02/16 19:21 98 Nasal Cannula 2.0 28 10/02/16 19:21 Nasal Cannula 2.0 28 Intake and Output 10/02/16 10/03/16 19:00 07:00 Intake Total 460 ml Output Total 200 ml Balance 460 ml -200 ml Intake Oral 460 ml Output Urine Total 200 ml # Voids 3 4 # Bowel Movements 1 Laboratory Tests 10/03/16 05:15: Prothrombin Time 16.1H, Prothromb Time International Ratio 1.6H, Sodium Level 138, Potassium Level 4.5, Chloride Level 98, Carbon Dioxide Level 21, Anion Gap 19H, Blood Urea Nitrogen 40H, Creatinine 1.5H, Estimat Glomerular Filtration Rate , Glucose Level 118H, Calcium Level 9.3, Phosphorus Level 3.6, Magnesium Level 2.1, Total Bilirubin 0.6, Aspartate Amino Transf (AST/SGOT) 59H, Alanine Aminotransferase (ALT/SGPT) 40, Alkaline Phosphatase 92, Total Protein 6.9, Albumin 3.3L, Globulin 3.6, Albumin/Globulin Ratio 0.9L Height (Feet): 5 Height (Inches): 8.00 Weight (Pounds): 170 General Appearance: no apparent distress EENT: TMs normal Neck: supple Cardiovascular: normal rate Respiratory/Chest: lungs clear Abdomen: soft Pelvis: no masses Extremities: non-tender Edema: no edema noted Arm (L), no edema noted Arm (R), no edema noted Leg (L), no edema noted Leg (R), no edema noted Pedal (L), no edema noted Pedal (R), no edema noted Generalized Neurologic: alert Skin: warm/dry Lymphatic: normal anterior cervical (L), normal anterior cervical (R), normal axillary (L), normal axillary (R), normal inguinal (L), normal inguinal (R), normal other, normal posterior cervical (L), normal posterior cervical (R), normal submandibular (L), normal submandibular (R), normal supraclavicular (L), normal supraclavicular (R) RYAN JONES Oct 03, 2016 17:54
[2016-10-03] MEDS ORDERED: Tubing IV Secondary IV ONE (21:25)
[2016-10-03] MEDS ORDERED: NS 275ml ONE (21:25)
[2016-10-04] MEDS ORDERED: PredniSONE 20mg tab ORAL SCH (09:00)
[2016-10-06] MEDS ORDERED: XARELTO15 MG ORAL (09:35)
[2016-10-06] MEDS ORDERED: SPIRONOLACTONE25 MG ORAL (09:38)
[2016-10-06] MEDS ORDERED: PROAIR HFA8.5 GM INH (09:38)
[2016-10-06] MEDS ORDERED: XARELTO10 MG ORAL (09:50)
[2016-10-06] MEDS ORDERED: AMIODARONE HCL400 M1 ORAL (09:50)
--- NOTE | 2016-10-06 09:51 | Discharge Summary ---
Discharge Summary Hospital Course Date of Admission Sep 30, 2016 at 00:45 Date of Discharge Oct 03, 2016 at 21:26 Admitting Diagnosis chf exacerbation HPI Smith Hidalgo Jr is a 71 year old male who was admitted on Sep 30, 2016 at 00: 45 for Congestive Heart Failure Exacerbation Hospital Course dc summary #[id number] Discharge Medications New Medications: Albuterol Sulfate* (Proair Hfa*) 8.5 Gm Hfa.aer.ad 1 PUFF INH Q6H, #8.5 GM 0 Refills Amiodarone Hcl* (Amiodarone Hcl*) 400 Mg Tablet 400 MG ORAL DAILY, #30 TAB Rivaroxaban (Xarelto*) 10 Mg Tablet 15 MG ORAL BID, #42 TAB 0 Refills will need 15 mg po bid x 21 days, then 20 mg po daily x 3 months then 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 renal function frequently Spironolactone* (Aldactone*) 25 Mg Tablet 25 MG ORAL DAILY, #30 TAB Continued Medications: Albuterol Sulfate (Ventolin Hfa) 18 Gm Hfa.aer.ad 1 PUFF INH EVERY 6 HOURS for Shortness of Breath for 28 Days, #18 GM 0 Refills Amlodipine Besylate* (Amlodipine Besylate*) 5 Mg Tablet 5 MG ORAL DAILY, TAB Aspirin (Aspirin EC) 81 Mg Tablet.dr 81 MG ORAL DAILY, TAB Fluticasone/Salmeterol (Advair 250-50 Diskus) 1 Each Blst.w.dev 1 PUFF INH EVERY 12 HOURS, EA Furosemide (Furosemide) 40 Mg/5 Ml Solution 40 MG ORAL BID, ML Discharge Condition Upon Discharge: stable Discharge Disposition Patient was discharged to Home () Discharge Diagnoses: Discharge Instructions Discharge Instructions Special Instructions I have been assigned to complete a D/C Summary on this account. I was not involved in the patient management Roxann Lucio NP (Vanchtein) Oct 06, 2016 09:51
--- NOTE | 2016-10-07 01:18 | Discharge Summary 2 SIG ---
DATE OF ADMISSION: 09/30/2016 DATE OF DISCHARGE: 10/03/2016 REASON FOR ADMISSION: 71-year-old male presented after having difficulty breathing. The patient with a history of chronic obstructive pulmonary disease and cardiac disease. The patient usually oxygen-dependent at home. In ER he was noted to be mildly tachycardic and tachypneic. Pulse oximetry on 4 liters of oxygen was 92%. No leukocytosis. No fever. EKG revealed lateral T-wave inversion, atrial enlargement, and normal sinus rhythm. Chest x-ray revealed vascular congestion, but no infiltrate. The patient was given IV Lasix . Pro BNP was 9599. Troponin was negative. Work up also revealed evidence of mild renal insufficiency with BUN of 18 and creatinine 1.3. The patient required placement on BiPAP and transferred to [facility] for further management. ADMITTING DIAGNOSES: 1. Acute hypoxemic respiratory failure, requiring BiPAP. 2. Acute chronic obstructive pulmonary disease exacerbation. 3. Emphysema. 4. Congestive heart failure exacerbation. HOSPITAL COURSE: The patient was in [facility]. The patient was initially on BiPAP and pulmonary toilet provided. The patient started on IV steroids and Yadiel-Dur, antitussive provided as needed . Patient was able gradually weaned off from the BiPAP to oxygen via nasal cannula. Air Traffic Controller followed the patient, no evidence of infection. Chest x-ray with evidence of vascular congestion. The patient was on diuretics. Retina Subspecialist followed, echocardiogram revealed ejection fraction less than 10%, questionable left ventricular apical thrombus. Venous duplex of bilateral lower extremities revealed acute DVT left lower extremity. The patient started on heparin drip with bridge to Coumadin to bridge to therapeutic INR between 2 and 3. INR still subtherapeutic 1.6. Anticoagulation changed to Xarelto. The speech lang path followed patient for acute DVT. Per speech lang path, no need for workup for hypercoagulability. The patient will need to continue Xarelto for total of three months. Outpatient follow up with the speech lang path in three months for ultrasound of the lower extremity and D-dimer check. Retina Subspecialist followed the patient. According to white shoe ragger, the patient's beta-tamar was placed on hold due to the acute CHF exacerbation. The patient was continued with aspirin, Lasix, and Aldactone. No ED for now due to worsening renal failure. Renal parameters and electrolytes were closely monitored. Renal ultrasound was negative for hydronephrosis and pro BNP trending down. The last pro BNP 6058, creatinine was slightly up to 1.5, and Lasix dose decreased upon discharge. Due to rise in creatinine, improvement in respiratory status and up trend in leukocytosis, steroids were discontinued. Pulmonary toilet along with empiric antibiotics and Theophylline provided. Hepatitis panel revealed positive hepatitis C, recommended outpatient hepatitis C treatment. Abdominal ultrasound revealed mild heterogenicity of the liver, slightly enlarged, findings nonspecific but could be related to liver disease. On telemetry, the patient also noted to have nonsustained ventricular tachycardia . Retina Subspecialist started the patient on amiodarone and continue at home. The patient also had the AICD , which was interrogated in the hospital and showed normal functioning. The patient was stable for discharge by all specialists. DISCHARGE DIAGNOSES: 1. Acute hypoxemic respiratory failure, requiring BiPAP, resolved. 2. Acute chronic obstructive pulmonary disease exacerbation. 3. Emphysema. 4. Acute on chronic systolic congestive heart failure exacerbation. 5. Severe cardiomyopathy. 6. Recurrent nonsustained ventricular tachycardia episode. 7. History of coronary artery disease with coronary artery bypass graft. 8. Automatic implanted cardioverter defibrillator, status post interrogation. 9. Acute deep venous thrombosis of popliteal vein left lower extremity. 10. Possible left ventricular thrombus. 11. Hepatitis C. DISCHARGE MEDICATIONS: See medication reconciliation list. DISCHARGE INSTRUCTIONS: The patient discharged home. Followup with the primary doctor. Continue Xarelto as prescribed.Needs to follow up with the speech lang path in three months for venous duplex bilateral lower extremities and D-dimer check. Barrett Olivarez M.D. I have been assigned to dictate discharge summary on this account and I was not involved in the patient's management. Roxann Blantonjosi N.P. DR: Esthela JOB#: [id number] CC: KEYSHAWN
== END 2016-10-03 21:26 | disposition home or self-care (01) | DRG 194 ==
LOC: EDBD 23:00 → EMR 23:10 → MERGE 09-30 00:45 → 2W 09-30 00:45 → EDBEDREQ 09-30 02:05 → 2E 10-02 06:40
DX: I11.0 Hypertensive heart disease with heart failure (principal); J96.01 Acute respiratory failure with hypoxia; I47.2 Ventricular tachycardia; I82.432 Acute embolism and thrombosis of left popliteal vein; I50.23 Acute on chronic systolic (congestive) heart failure; I25.10 Atherosclerotic heart disease of native coronary artery without angina pectoris; J44.1 Chronic obstructive pulmonary disease with (acute) exacerbation; B19.20 Unspecified viral hepatitis C without hepatic coma; I25.5 Ischemic cardiomyopathy; Z79.82 Long term (current) use of aspirin; Z60.2 Problems related to living alone; Z95.1 Presence of aortocoronary bypass graft; Z95.810 Presence of automatic (implantable) cardiac defibrillator
CPT/HCPCS: 36415; 36600; 71010; 76700; 76775; 80048; 80053; 80069; 82550; 82553; 82803; 83735; 83880; 84100; 84484; 85007; 85025; 85060; 85610; 85730; 86703; 86705; 86709; 86803; 87070; 87081; 87205; 87340; 93005; 93306; 93970; 94640; 94664; 94760; J7620

== ENCOUNTER 2016-10-14 07:55 | Inpatient (IN) | payer MEDICARE, MEDICAID ==
[~2016-10-14] VITALS: Ht 167.6 cm; Wt 68.0 kg
[~2016-10-14 07:55] MED LIST changes: +AMIODARONE HCL400 M1 ORAL; +ANUSOL-HC30 GM RC; +ASPIRIN-LOW81 MG ORAL; +FUROSEMIDE40 MG/5 ML ORAL; +LISINOPRIL2.5 MG ORAL; +POTASSIUM 25 M25 ME1 PO; +PROAIR HFA8.5 GM INH; +SPIRONOLACTONE25 MG ORAL; +VENTOLIN HFA18 GM INH; +XARELTO10 MG ORAL; +XARELTO15 MG ORAL
--- NOTE | 2016-10-14 07:58 | Emergency Room Report ---
History of Present Illness General Source: Patient, Medical Record, EMS Present Illness HPI 71 YOM with PMHx COPD non-smoker, CAD s/p ?CABG with acute SOB this morning in setting of recent subjective fever/chills, dry cough for 2-3 days. EMS noted O2 sat 80% on RA at home. On 3L home O2. Per EMR: under different MRN, recent admission 09/30-10/03 for COPD and CHF exacerbation. EF 10%, severe cardiomyopathy. Found to left politeal DVT, started on Xarelto. INR was 1.5 on DC. Serum Cr 1.5 on DC. AICD was interrogated, normal function. Allergies: Coded Allergies: No Known Allergies (Verified , 06/28/10) Patient History Past Medical History: CAD, COPD, other - Hep C Past Surgical History: CABG Pertinent Family History: none Social History: Denies: alcohol use, drug use, smoking Immunizations: UTD Reviewed Nursing Documentation: PMH: Agreed, PSxH: Agreed Nursing Documentation-PMH Hx Cardiac Problems: Yes Hx Hypertension: Yes Hx Pacemaker: Yes - Defibrilator Hx Asthma: Yes Hx COPD: Yes Hx Cancer: No Hx Gastrointestinal Problems: No Hx Neurological Problems: Yes Hx Cerebrovascular Accident: Yes - 2009 with right sided weakness Review of Systems All Other Systems: negative except mentioned in HPI Physical Exam Sp02 EP Interpretation: reviewed, abnormal General Appearance: normal inspection, alert, GCS 15, non-toxic, moderate distress Head: normocephalic, atraumatic Eyes: bilateral eye EOMI, bilateral eye PERRL ENT: normal ENT inspection Neck: normal inspection, full range of motion, supple, no meningismus, no bony tend Respiratory: normal inspection, lungs clear, no wheezing, respiratory distress , accessory muscle use Cardiovascular #1: regular rate, rhythm, no edema Gastrointestinal: normal inspection, normal bowel sounds, non tender, soft, no guarding, no hernia Genitourinary: no CVA tenderness Musculoskeletal: normal inspection, back normal, normal range of motion, Mi' s Sign negative Neurologic: normal inspection, alert, oriented x3, responsive, enterprise analyst III-XII nml as tested, motor strength/tone normal, speech normal Psychiatric: normal inspection, judgement/insight normal, mood/affect normal Skin: normal inspection, normal color Procedures Critical Care Time Critical Care Time CC time of 35 minutes for this 71YOM who p/w acute SOB. DDx includes COPD exacerbation, ACS, PNA, PE Presents acute SOB warm, c/o intermittent 2 days of progressive SOB Patient immediately placed on awake overnight monitor with rhytm strip and STAT EKG was obtained which showed no acute ischemia VS showed hypoxia 85% on RA. Afebrile. No SIRS. Initial management indicated: CBC, CMP, troponin, BNP, BIPAP, CXR, nebs, steroids, empiric Abx Highly suspected: COPD exacerbation, +/- PNA vs CAD vs PE Possible interventions - BIPAP, additional Abx. CC time included frequent re-exams, interpretation of labs, imaging, adjustment of Abx Critical care time of 35 minutes does not include reportable procedures. Medical Decision Making Medicare Attestation I Delores Stahl MD hereby attest that the medical record entry for date of service, 06/29/16 accurately reflects signatures/notations that I made in my capacity as MD when I treated/diagnosed the above listed Medicare beneficiary. I attest that this information is true, accurate and complete to the best of my knowledge. I understand that any falsification, omission, or concealment of material fact may subject me to administrative, civil, or criminal liability. This patient warrants hospital admission for extreme of age and has a condition that cannot be treated as outpatient. Diagnostic Impression: Primary Impression: Dyspnea Qualified Codes: R06.09 - Other forms of dyspnea Additional Impression: Cocaine abuse ER Course O2 sat on RA after EMS given O2 is 85%. Labs: No leuks. H&H stable. Cocaine positive. INR pending at time of endorsement. ABG: No hypercarbia or acidosis. A: Dyspnea - patient improved on Bipap, nebs, got "claustrophobic" from BIPAP, was moved to Venti mask. Also given PO and IV ativan for anxiety as patient becomes tachypnic with nervous but is able to be calmed bedside. - CXR does not show acute PNA Empiric Azithro for COPD exacerbation given Blood Cx from July were negative Blood Cx today are pending I do not suspect infectious cause however patient was recently hospitalized - however lueks negative, afebrile. Will HOLD on additional Abx at this time Endorsed to Dr Mishra for [facility] at 930am EKG Diagnostic Results Rate: normal, other - PACs Rhythm: NSR ST Segments: no acute changes ASA given to the pt in ED: No Rhythm Strip Diag. Results EP Interpretation: yes Rate: 104 Rhythm: NSR, other - Multiple PVCs Chest X-Ray Diagnostic Results EP Interpretation: Yes Findings: no consolidation, no effusion, no pneumothorax, no acute cardiopulmonary disease Number of Views: 1 Status: improved Disposition: ADMITTED INPATIENT Condition: Critical DELORES STAHL M.D. Oct 14, 2016 07:58
[2016-10-14] MEDS ORDERED: Azithromycin 500 MG in NS 275 ML IV ONE (08:00)
[2016-10-14] MEDS ORDERED: Solu-MEDROL 125mg Inj IVP ONE (08:00)
[2016-10-14] MEDS ORDERED: Azithromycin Inj IV ONE (08:09)
[2016-10-14] MEDS: Albuterol ud Inhalation HHN SCH ×3 (08:15→08:30)
[2016-10-14] MEDS: Ipratropium 0.02% Inh Soln 2.5ml UD HHN SCH ×3 (08:15→08:30)
[2016-10-14 08:44] LABS: BASOPHILS % (AUTO) 0.8 % (0.0-2.0); EOSINOPHILS % (AUTO) 0.7 % (0.0-3.0); LYMPHOCYTES % (AUTO) 24.2 % (20.0-45.0); MEAN CORPUSCULAR HEMOGLOBIN 31.6 PG (27.0-31.0); MEAN CORPUSCULAR HGB CONC 31.4 G/DL (32.0-36.0); MEAN CORPUSCULAR VOLUME 101 FL (80-99); MEAN PLATELET VOLUME 8.4 FL (6.5-10.1); NEUTROPHILS % (AUTO) 67.3 % (45.0-75.0); PLATELET COUNT 217 K/UL (150-450); RED BLOOD COUNT 5.09 M/UL (4.70-6.10); RED CELL DISTRIBUTION WIDTH 14.3 % (11.6-14.8); WHITE BLOOD COUNT 10.2 K/UL (4.8-10.8)
[2016-10-14] MEDS ORDERED: LORazepam 0.5mg tab ORAL ONE (09:15)
[2016-10-14 09:23] LABS: ABG ALLEN TEST POSITIVE; ABG BASE EXCESS -5.1; ABG PCO2 37.9 mmHg (35.0-45.0)
[2016-10-14] MEDS ORDERED: XARELTO20 MG ORAL (09:38)
[2016-10-14] MEDS ORDERED: LISINOPRIL2.5 MG ORAL (09:39)
[2016-10-14] MEDS ORDERED: POTASSIUM CHLO20 ME1 ORAL (09:44)
[2016-10-14 09:46] LABS: TROPONIN I < 0.30 ng/mL (<=0.30)
[2016-10-14] MEDS ORDERED: FUROSEMIDE40 MG ORAL (09:46)
[2016-10-14 09:48] VITALS: BP 126/109
[2016-10-14 09:49] LABS: ALANINE AMINOTRANSFERASE 61 U/L (3-41); ALBUMIN/GLOBULIN RATIO 0.9 (1.0-2.7); ANION GAP 22 (5-15); ASPARTATE AMINO TRANSFERASE 78 U/L (5-40); CALCIUM 7.3 mg/dL (8.6-10.2); CARBON DIOXIDE 19 mEQ/L (20-30); CHLORIDE 107 mEQ/L (98-107); CREATININE 0.9 mg/dL (0.7-1.2); HEMOLYSIS 66; INR 1.8 (0.9-1.1); POTASSIUM 3.5 mEQ/L (3.4-4.9); PROTHROMBIN TIME 18.7 SEC (9.30-11.50); SODIUM 148 mEQ/L (135-145); TOTAL PROTEIN 5.7 g/dL (6.6-8.7)
[2016-10-14] MEDS ORDERED: PROCTOSOL-HC1 APPLIC TOPIC (09:54)
[2016-10-14 09:59] LABS: CKMB 2.7 ng/mL (< 6.7)
[2016-10-14] MEDS ORDERED: LORazepam Inj 2mg/ml 1ml IV ONE (10:00)
[2016-10-14 10:10] LABS: BILIRUBIN,DIRECT 0.5 mg/dL (0.1-0.3)
--- NOTE | 2016-10-14 10:28 | Diagnostic Imaging Report ---
Indication: Dyspnea Comparison: 03/15/15 A single view chest radiograph was obtained. Findings: No definite infiltrate or pulmonary vascular congestion identified. Sternotomy noted. Pacemaker noted. Lungs are hyperexpanded The heart is enlarged. The aorta is mildly enlarged consistent with atherosclerotic vascular disease. The bones are osteopenic. Impression: No acute disease COPD
[2016-10-14] MEDS ORDERED: DuoNeb 0.5-3(2.5)mg/3ml neb HHN PRN (10:45)
[2016-10-14 11:09] VITALS: BP 119/85
[2016-10-14] MEDS: NovoLOG Insulin Flexpen SUBQ SCH ×3 (11:30→22:06)
[2016-10-14] MEDS ORDERED: NovoLOG Insulin Flexpen SUBQ SCH (11:30)
[2016-10-14 12:00] VITALS: BP 135/69
[2016-10-14 12:57] LABS: BASOPHILS % (AUTO) 0.4 % (0.0-2.0); EOSINOPHILS % (AUTO) 0.5 % (0.0-3.0); LYMPHOCYTES % (AUTO) 35.3 % (20.0-45.0); MEAN CORPUSCULAR HEMOGLOBIN 31.7 PG (27.0-31.0); MEAN CORPUSCULAR HGB CONC 30.8 G/DL (32.0-36.0); MEAN CORPUSCULAR VOLUME 103 FL (80-99); MEAN PLATELET VOLUME 7.8 FL (6.5-10.1); MONOCYTES % (AUTO) 8.1 % (1.0-10.0); NEUTROPHILS % (AUTO) 55.8 % (45.0-75.0); PLATELET COUNT 230 K/UL (150-450); RED BLOOD COUNT 5.03 M/UL (4.70-6.10); RED CELL DISTRIBUTION WIDTH 14.3 % (11.6-14.8); WHITE BLOOD COUNT 13.5 K/UL (4.8-10.8)
--- NOTE | 2016-10-14 13:15 | Consultation ---
History of Present Illness General Date patient seen: Oct 14, 2016 Chief Complaint: Dyspnea/Respdistress Referring physician: Dr. Olivarez Reason for Consultation: dyspnea Present Illness HPI 71 year old male with hx of COPD, emphysema, EF of 10%, ICD with recurrent hospitalization presented with CC of acute SOB this morning with subjective fever/chills, dry cough for 2-3 days. EMS noted O2 sat 80% on RA at home. On 3L home O2. Patient was in respiratory failure in ER and was put on BIPAP and saturation has improved and pt was transferred to [facility]. Allergies: Coded Allergies: No Known Allergies (Verified , 06/28/10) Medication History Scheduled Albuterol Sulfate (Ventolin Hfa), 1 PUFF INH EVERY 6 HOURS, (Reported) Albuterol Sulfate* (Proair Hfa*), 1 PUFF INH Q6H Aspirin (Aspirin EC), 81 MG ORAL DAILY, (Reported) Fluticasone/Salmeterol (Advair 250-50 Diskus), 1 PUFF INH EVERY 12 HOURS, ( Reported) Furosemide* (Lasix*), 40 MG ORAL TWICE A DAY, (Reported) Lisinopril* (Lisinopril*), 2.5 MG ORAL DAILY, (Reported) Potassium Chloride* (K-Dur*), 20 MEQ ORAL DAILY, (Reported) Rivaroxaban (Xarelto), 15 MG ORAL BID, (Reported) Rivaroxaban (Xarelto), 20 MG ORAL DAILY START ON 10/27, (Reported) Scheduled PRN Hydrocortisone (Proctosol-Hc), 1 APPLIC TOPIC DAILY PRN for Itching, (Reported) Discontinued Medications Amiodarone Hcl* (Amiodarone Hcl*), 400 MG ORAL DAILY Discontinued Reason: Pt stopped taking med Amlodipine Besylate* (Amlodipine Besylate*), 5 MG ORAL DAILY, (Reported) Discontinued Reason: Therapy completed Furosemide (Furosemide), 40 MG ORAL BID, (Reported) Discontinued Reason: Medication dose changed Rivaroxaban (Xarelto*), 15 MG ORAL BID Discontinued Reason: Medication dose changed Spironolactone* (Aldactone*), 25 MG ORAL DAILY Discontinued Reason: Pt stopped taking med Patient History Healthcare decision maker Resuscitation status Advanced Directive on File Past Medical/Surgical History Past Medical/Surgical History: (1) CKD (chronic kidney disease) (2) Diabetes (3) CHF (congestive heart failure) (4) Cardiomyopathy (5) History of CVA (cerebrovascular accident) Review of Systems All Other Systems: negative except mentioned in HPI Physical Exam General Appearance: cachetic Lines, tubes and drains: peripheral HEENT: normocephalic, atraumatic Neck: non-tender, normal alignment Respiratory/Chest: chest wall non-tender, lungs clear Cardiovascular/Chest: normal peripheral pulses, normal rate Abdomen: normal bowel sounds, non tender Genitourinary/Rectal: normal genital exam Extremities: normal range of motion Last 24 Hour Vital Signs Date Time Temp Pulse Resp B/P Pulse Ox O2 Delivery O2 Flow Rate FiO2 10/14/16 11:55 103 22 96 6.0 35 10/14/16 11:39 94 22 119/75 99 Bi-pap 35 10/14/16 11:09 96.5 96 22 119/85 96 Bi-pap 35 10/14/16 10:11 98.7 10/14/16 09:48 102 22 126/109 94 Bi-pap 35 10/14/16 08:55 35 10/14/16 08:36 101 25 97 Facial 15.0 35 10/14/16 08:25 102 22 Bi-pap 40 10/14/16 08:23 94 24 100 Bi-pap 15.0 40 10/14/16 08:09 97 20 96 Bi-pap 15.0 40 10/14/16 08:09 40 10/14/16 08:09 97 20 96 Facial 15.0 40 10/14/16 08:09 97 20 Bi-pap 15.0 40 10/14/16 08:00 40 10/14/16 07:54 97.2 94 17 139/97 97 Non-Rebreather 10.0 Laboratory Tests Test 10/14/16 08:05 10/14/16 08:34 10/14/16 09:12 10/14/16 09:15 White Blood Count 10.2 K/UL (4.8-10.8) Red Blood Count 5.09 M/UL (4.70-6.10) Hemoglobin 16.1 G/DL (14.2-18.0) Hematocrit 51.2 % (42.0-52.0) Mean Corpuscular Volume 101 FL (80-99) H Mean Corpuscular Hemoglobin 31.6 PG (27.0-31.0) H Mean Corpuscular Hemoglobin Concent 31.4 G/DL (32.0-36.0) L Red Cell Distribution Width 14.3 % (11.6-14.8) Platelet Count 217 K/UL (150-450) Mean Platelet Volume 8.4 FL (6.5-10.1) Neutrophils (%) (Auto) 67.3 % (45.0-75.0) Lymphocytes (%) (Auto) 24.2 % (20.0-45.0) Monocytes (%) (Auto) 7.0 % (1.0-10.0) Eosinophils (%) (Auto) 0.7 % (0.0-3.0) Basophils (%) (Auto) 0.8 % (0.0-2.0) Urine Opiates Screen Negative (NEGATIVE) Urine Barbiturates Screen Negative (NEGATIVE) Phencyclidine (PCP) Screen Negative (NEGATIVE) Urine Amphetamines Screen Negative (NEGATIVE) Urine Benzodiazepines Screen Negative (NEGATIVE) Urine Cocaine Screen Positive (NEGATIVE) H Urine Marijuana (THC) Screen Negative (NEGATIVE) Prothrombin Time 18.7 SEC (9.30-11.50) H Prothromb Time International Ratio 1.8 (0.9-1.1) H D-Dimer 446 ng/mL (<500) Sodium Level 148 mEQ/L (135-145) H Potassium Level 3.5 mEQ/L (3.4-4.9) Chloride Level 107 mEQ/L (98-107) Carbon Dioxide Level 19 mEQ/L (20-30) L Anion Gap 22 (5-15) H Blood Urea Nitrogen 22 mg/dL (7-23) Creatinine 0.9 mg/dL (0.7-1.2) Estimat Glomerular Filtration Rate mL/min (>60) Glucose Level 100 mg/dL (74-106) Calcium Level 7.3 mg/dL (8.6-10.2) L Total Bilirubin 1.2 mg/dL (0.0-1.2) Direct Bilirubin 0.5 mg/dL (0.1-0.3) H Aspartate Amino Transf (AST/SGOT) 78 U/L (5-40) H Alanine Aminotransferase (ALT/SGPT) 61 U/L (3-41) H Alkaline Phosphatase 89 U/L (40-129) Total Creatine Kinase 51 U/L (38-174) Creatine Kinase MB 2.7 ng/mL (< 6.7) Creatine Kinase MB Relative Index 5.2 Troponin I < 0.30 ng/mL (<=0.30) Total Protein 5.7 g/dL (6.6-8.7) L Albumin 2.8 g/dL (3.5-5.2) L Globulin 2.9 g/dL Albumin/Globulin Ratio 0.9 (1.0-2.7) L Arterial Blood pH 7.341 (7.350-7.450) Arterial Blood Partial Pressure CO2 37.9 mmHg (35.0-45.0) Arterial Blood Partial Pressure O2 157.1 mmHg (75.0-100.0) H Arterial Blood HCO3 20.0 mmol/L (22.0-26.0) L Arterial Blood Oxygen Saturation 98.6 % (92.0-98.0) H Arterial Blood Base Excess -5.1 Anam Test Positive Test 10/14/16 09:40 White Blood Count Pending Red Blood Count Pending Hemoglobin Pending Hematocrit Pending Mean Corpuscular Volume Pending Mean Corpuscular Hemoglobin Pending Mean Corpuscular Hemoglobin Concent Pending Red Cell Distribution Width Pending Platelet Count Pending Mean Platelet Volume Pending Neutrophils (%) (Auto) Pending Lymphocytes (%) (Auto) Pending Monocytes (%) (Auto) Pending Eosinophils (%) (Auto) Pending Basophils (%) (Auto) Pending Height (Feet): 5 Height (Inches): 6.00 Weight (Pounds): 150 Medications Current Medications Medications (Trade) Dose Ordered Sig/Elsa Route PRN Reason Start Time Stop Time Status Last Admin Dose Admin Albuterol/ Ipratropium (DuoNeb 0.5-3(2.5)mg/3ml) 3 ml Q4H PRN HHN Shortness of Breath 10/14/16 10:45 10/19/16 10:44 Albuterol/ Ipratropium (DuoNeb 0.5-3(2.5)mg/3ml) 3 ml Q8HRT HHN 10/14/16 15:00 10/19/16 14:59 Dextrose (Dextrose 50%) STAT PRN IV Hypoglycemia 10/14/16 10:45 11/13/16 10:44 Furosemide (Lasix) 40 mg TWICE A DAY ORAL 10/15/16 09:00 11/14/16 08:59 Insulin Aspart (NovoLOG) AC+HS SUBQ 10/14/16 11:30 11/13/16 11:29 Methylprednisolone Sodium Succinate (Solu-MEDROL) 80 mg EVERY 8 HOURS IVP 10/14/16 14:00 11/13/16 13:59 Promethazine HCl/ Codeine (Phenergan with Codeine) 5 ml Q4H PRN ORAL For Cough 10/14/16 13:00 11/13/16 12:59 UNV Rivaroxaban (Xarelto) 15 mg BID ORAL 10/15/16 09:00 11/14/16 08:59 Assessment/Plan Problem List: (1) COPD exacerbation ICD Codes: J44.1 - Chronic obstructive pulmonary disease with (acute) exacerbation SNOMED: 885829279, 056363045 (2) Respiratory failure ICD Codes: J96.90 - Respiratory failure, unspecified, unspecified whether with hypoxia or hypercapnia SNOMED: 535844627 (3) Cardiomyopathy ICD Codes: I42.9 - Cardiomyopathy, unspecified SNOMED: 05012496 (4) CAD (coronary artery disease) ICD Codes: I25.10 - Atherosclerotic heart disease of [place] coronary artery without angina pectoris SNOMED: 24743467 (5) History of CVA (cerebrovascular accident) ICD Codes: Z86.73 - Personal history of transient ischemic attack (TIA), and cerebral infarction without residual deficits SNOMED: 710154601 (6) HTN (hypertension) ICD Codes: I10 - Essential (primary) hypertension SNOMED: 93706631 Assessment/Plan respiratory treatment IV steroids check sputum titrate MURRAY Montoya Oct 14, 2016 13:15
[2016-10-14] MEDS: Solu-MEDROL 40mg Inj IVP SCH ×2 (14:39→22:10)
[2016-10-14 16:00] VITALS: BP 127/84
[2016-10-14 16:01] VITALS: BP 120/92
[2016-10-14] MEDS: DuoNeb 0.5-3(2.5)mg/3ml neb HHN SCH ×2 (16:16→22:18)
[2016-10-14] MEDS: Promethazine/Codeine 5ml UD ORAL PRN (17:24)
--- NOTE | 2016-10-14 17:51 | Cardiac Electrophysiology PN ---
Subjective Subjective [id number] Objective Last 24 Hour Vital Signs Date Time Temp Pulse Resp B/P Pulse Ox O2 Delivery O2 Flow Rate FiO2 10/14/16 16:28 94 24 100 Nasal Cannula 4.0 36 10/14/16 16:19 32 10/14/16 16:19 91 20 94 Nasal Cannula 3.0 32 10/14/16 16:00 98.2 97 20 127/84 94 Nasal Cannula 5.0 10/14/16 15:28 92 10/14/16 14:59 96 20 96 3.0 32 10/14/16 13:01 93 10/14/16 12:00 96.3 20 135/69 100 Venturi Mask 35 10/14/16 11:55 103 22 96 6.0 35 10/14/16 11:39 94 22 119/75 99 Bi-pap 35 10/14/16 11:09 96.5 96 22 119/85 96 Bi-pap 35 10/14/16 10:11 98.7 10/14/16 09:48 102 22 126/109 94 Bi-pap 35 10/14/16 08:55 35 10/14/16 08:36 101 25 97 Facial 15.0 35 10/14/16 08:25 102 22 Bi-pap 40 10/14/16 08:23 94 24 100 Bi-pap 15.0 40 10/14/16 08:09 97 20 96 Bi-pap 15.0 40 10/14/16 08:09 40 10/14/16 08:09 97 20 96 Facial 15.0 40 10/14/16 08:09 97 20 Bi-pap 15.0 40 10/14/16 08:00 40 10/14/16 07:54 97.2 94 17 139/97 97 Non-Rebreather 10.0 Laboratory Tests Test 10/14/16 08:05 10/14/16 08:34 10/14/16 09:12 10/14/16 09:15 White Blood Count 10.2 K/UL (4.8-10.8) Red Blood Count 5.09 M/UL (4.70-6.10) Hemoglobin 16.1 G/DL (14.2-18.0) Hematocrit 51.2 % (42.0-52.0) Mean Corpuscular Volume 101 FL (80-99) H Mean Corpuscular Hemoglobin 31.6 PG (27.0-31.0) H Mean Corpuscular Hemoglobin Concent 31.4 G/DL (32.0-36.0) L Red Cell Distribution Width 14.3 % (11.6-14.8) Platelet Count 217 K/UL (150-450) Mean Platelet Volume 8.4 FL (6.5-10.1) Neutrophils (%) (Auto) 67.3 % (45.0-75.0) Lymphocytes (%) (Auto) 24.2 % (20.0-45.0) Monocytes (%) (Auto) 7.0 % (1.0-10.0) Eosinophils (%) (Auto) 0.7 % (0.0-3.0) Basophils (%) (Auto) 0.8 % (0.0-2.0) Urine Opiates Screen Negative (NEGATIVE) Urine Barbiturates Screen Negative (NEGATIVE) Phencyclidine (PCP) Screen Negative (NEGATIVE) Urine Amphetamines Screen Negative (NEGATIVE) Urine Benzodiazepines Screen Negative (NEGATIVE) Urine Cocaine Screen Positive (NEGATIVE) H Urine Marijuana (THC) Screen Negative (NEGATIVE) Prothrombin Time 18.7 SEC (9.30-11.50) H Prothromb Time International Ratio 1.8 (0.9-1.1) H D-Dimer 446 ng/mL (<500) Sodium Level 148 mEQ/L (135-145) H Potassium Level 3.5 mEQ/L (3.4-4.9) Chloride Level 107 mEQ/L (98-107) Carbon Dioxide Level 19 mEQ/L (20-30) L Anion Gap 22 (5-15) H Blood Urea Nitrogen 22 mg/dL (7-23) Creatinine 0.9 mg/dL (0.7-1.2) Estimat Glomerular Filtration Rate mL/min (>60) Glucose Level 100 mg/dL (74-106) Calcium Level 7.3 mg/dL (8.6-10.2) L Total Bilirubin 1.2 mg/dL (0.0-1.2) Direct Bilirubin 0.5 mg/dL (0.1-0.3) H Aspartate Amino Transf (AST/SGOT) 78 U/L (5-40) H Alanine Aminotransferase (ALT/SGPT) 61 U/L (3-41) H Alkaline Phosphatase 89 U/L (40-129) Total Creatine Kinase 51 U/L (38-174) Creatine Kinase MB 2.7 ng/mL (< 6.7) Creatine Kinase MB Relative Index 5.2 Troponin I < 0.30 ng/mL (<=0.30) Total Protein 5.7 g/dL (6.6-8.7) L Albumin 2.8 g/dL (3.5-5.2) L Globulin 2.9 g/dL Albumin/Globulin Ratio 0.9 (1.0-2.7) L Arterial Blood pH 7.341 (7.350-7.450) Arterial Blood Partial Pressure CO2 37.9 mmHg (35.0-45.0) Arterial Blood Partial Pressure O2 157.1 mmHg (75.0-100.0) H Arterial Blood HCO3 20.0 mmol/L (22.0-26.0) L Arterial Blood Oxygen Saturation 98.6 % (92.0-98.0) H Arterial Blood Base Excess -5.1 Anam Test Positive Test 10/14/16 09:40 White Blood Count 13.5 K/UL (4.8-10.8) H Red Blood Count 5.03 M/UL (4.70-6.10) Hemoglobin 15.9 G/DL (14.2-18.0) Hematocrit 51.7 % (42.0-52.0) Mean Corpuscular Volume 103 FL (80-99) H Mean Corpuscular Hemoglobin 31.7 PG (27.0-31.0) H Mean Corpuscular Hemoglobin Concent 30.8 G/DL (32.0-36.0) L Red Cell Distribution Width 14.3 % (11.6-14.8) Platelet Count 230 K/UL (150-450) Mean Platelet Volume 7.8 FL (6.5-10.1) Neutrophils (%) (Auto) 55.8 % (45.0-75.0) Lymphocytes (%) (Auto) 35.3 % (20.0-45.0) Monocytes (%) (Auto) 8.1 % (1.0-10.0) Eosinophils (%) (Auto) 0.5 % (0.0-3.0) Basophils (%) (Auto) 0.4 % (0.0-2.0) Hemoglobin A1c 5.9 % (< 6.0) BRYAN BOYD Oct 14, 2016 17:51
[2016-10-14 20:00] VITALS: BP 118/90
--- NOTE | 2016-10-14 20:24 | History & Physical ---
History and Physical History & Physicial Dictated for Int Med-Dr Olivarez no. [id number]. SURINDER HELMS Oct 14, 2016 20:24
--- NOTE | 2016-10-14 22:28 | History and Physical Report ---
DATE OF ADMISSION: 10/14/2016 CHIEF COMPLAINT: The patient is a 71-year-old male, who presents with chief complaint of fevers, chills, and nonproductive cough. HISTORY OF PRESENT ILLNESS: This began two days prior to admission. The patient began to experience fevers and chills. The patient also experienced a dry cough. The patient states his oxygen saturation level is down to the 80s. The patient was admitted to [facility] from 09/30/2016 to 10/03/2016 for respiratory failure secondary to chronic obstructive pulmonary disease. Please see history and physical and discharge summary dictated at that time. Upon arrival at [facility], the patient's oxygen saturation was found to be in the 80s. The patient was admitted for acute on chronic exacerbation of congestive heart failure. REVIEW OF SYSTEMS: Constitutional: The patient denies weight loss or weight gain. The patient complains of subjective fevers and chills as above. HEENT: The patient denies any ear or throat pain. The patient denies headache. Cardiovascular: The patient denies palpitations or chest pain. Chest: The patient denies wheezes or shortness of breath. The patient does complain of a nonproductive cough. The patient complains of shortness of breath. Abdomen: The patient denies nausea, vomiting, diarrhea, or constipation. Genitourinary: The patient denies dysuria or increased frequency of urination. Neuromuscular: The patient denies seizures or generalized weakness. PAST MEDICAL HISTORY: Significant for: 1. Chronic obstructive pulmonary disease. 2. Coronary artery disease, status post coronary artery bypass graft. 3. History of respiratory failure requiring BiPAP. 4. Congestive heart failure. 5. Cardiomyopathy. 6. Acute deep venous thrombosis of the left popliteal vein. 7. Hepatitis C. PAST SURGICAL HISTORY: Significant for: 1. Coronary artery bypass graft in 2014. 2. Automatic implanted cardioverter device. CURRENT MEDICATIONS: 1. Albuterol metered-dose inhaler two puffs q.i.d. as needed. 2. Aspirin 81 mg one tablet p.o. daily. 3. Advair 250/50 one puff p.o. twice daily. 4. Lasix 40 mg one tablet p.o. twice daily. 5. Lisinopril 2.5 mg one tablet p.o. daily. 6. Potassium 20 mEq one tablet p.o. daily. 7. Xarelto 15 mg one tablet p.o. twice daily. ALLERGIES: No known drug allergies. SOCIAL HISTORY: The patient is single and lives alone. The patient admits to previous tobacco use, however, he quit a few months previously. The patient denies alcohol use. PHYSICAL EXAMINATION: VITAL SIGNS: Temperature 98.2, respirations 20, pulse 97, and blood pressure 127/84. Pulse ox 94% on 5 liters nasal cannula. GENERAL: The patient is a well-developed and well-nourished male, who is in mild respiratory distress. HEENT: Eyes, pupils are equal and responsive to light and accommodation. Extraocular movements are intact. NECK: Supple without lymphadenopathy. CHEST: Diffuse wheezes in bilateral bases with crackles one-third of the way up. Otherwise, clear to auscultation without wheezes or rales. CARDIOVASCULAR: Regular rhythm and rate. S1 and S2 normal without murmurs, rubs, or gallops. ABDOMEN: Soft, nontender, and nondistended. Positive bowel sounds. No evidence of hepatosplenomegaly. Currently, no rebound or guarding. EXTREMITIES: Negative for clubbing, cyanosis, or edema. RECTAL/GENITAL: Refused. NEUROLOGIC: Cranial nerves II through XII are grossly intact without focal deficits. Motor strength is 5/5 bilaterally. Deep tendon reflexes 2+ plantar. LABORATORY STUDIES: WBC 10.3, hemoglobin 16.1, hematocrit 51.2, and platelets 217,000. Sodium 148, potassium 3.5, chloride 107, CO2 19, BUN 22, and creatinine 0.9. Glucose 100. Chest x-ray showed no acute disease. Arterial blood gas - pH 7.341, pCO2 37.9, pO2 157.1, bicarb 20.0 with oxygen saturation 98.6, base excess -5.1. ASSESSMENT: This is a 71-year-old male: 1. Fever and chills. 2. Cough. 3. Hypoxia. 4. Chronic obstructive pulmonary disease, acute exacerbation. 5. Coronary artery disease. 6. Congestive heart failure. 7. Cardiomyopathy. 8. Acute deep venous thrombosis of left popliteal vein. 9. Hepatitis C. TREATMENT: 1. Fever/chills. The patient has been started empirically on intravenous azithromycin. Pulmonary consultation obtained with Dr. Mishra. Fever and chills and cough may be secondary to acute exacerbation of chronic obstructive pulmonary disease/bronchitis. 2. Coronary artery disease, status post coronary artery bypass graft and congestive heart failure. BNP is pending. Cardiology consultation is pending with Dr. Pineda Crooks. 3. Cardiomyopathy. 4. Acute deep venous thrombosis of left popliteal vein. Continue Xarelto as above. 5. Hepatitis C. Royce Davila M.D. DR: DEON JOB#: [id number] CC:
[2016-10-15] VITALS: BP 132/62
[2016-10-15 04:00] VITALS: BP 118/90
[2016-10-15] MEDS: Solu-MEDROL 40mg Inj IVP SCH ×2 (05:30→13:01)
[2016-10-15] MEDS: NovoLOG Insulin Flexpen SUBQ SCH ×4 (06:12→20:17)
[2016-10-15 07:13] LABS: INR 1.6 (0.9-1.1); PROTHROMBIN TIME 16.2 SEC (9.30-11.50)
[2016-10-15 07:14] LABS: MEAN CORPUSCULAR HEMOGLOBIN 31.8 PG (27.0-31.0); MEAN CORPUSCULAR HGB CONC 32.3 G/DL (32.0-36.0); MEAN CORPUSCULAR VOLUME 99 FL (80-99); MEAN PLATELET VOLUME 8.2 FL (6.5-10.1); PLATELET COUNT 196 K/UL (150-450); RED BLOOD COUNT 4.34 M/UL (4.70-6.10); RED CELL DISTRIBUTION WIDTH 14.1 % (11.6-14.8); WHITE BLOOD COUNT 9.8 K/UL (4.8-10.8)
[2016-10-15 07:37] LABS: TROPONIN I < 0.30 ng/mL (<=0.30)
[2016-10-15 07:52] LABS: ANION GAP 19 (5-15); CALCIUM 9.1 mg/dL (8.6-10.2); CARBON DIOXIDE 23 mEQ/L (20-30); CHLORIDE 99 mEQ/L (98-107); HEMOLYSIS 12; SODIUM 141 mEQ/L (135-145)
[2016-10-15] MEDS: Spironolactone 25mg tab ORAL SCH (07:59)
[2016-10-15] MEDS: Furosemide 40mg tab ORAL SCH ×2 (07:59→17:17)
[2016-10-15] MEDS: Lisinopril 10mg tab ORAL SCH (07:59)
[2016-10-15 08:00] VITALS: BP 137/105
[2016-10-15 08:20] LABS: MAGNESIUM 2.1 mg/dL (1.7-2.5); PHOSPHORUS 3.1 mg/dL (2.5-4.8)
[2016-10-15] MEDS: DuoNeb 0.5-3(2.5)mg/3ml neb HHN SCH ×3 (08:28→23:25)
[2016-10-15 08:33] LABS: LYMPHOCYTES % (MANUAL) 13 % (20-45); METAMYELOCYTES % 1 % (0-0); NEUTROPHILS % (MANUAL) 83 % (45-75); TOTAL CELLS COUNTED 100
[2016-10-15 08:34] LABS: BAND NEUTROPHILS % (MANUAL) 0 % (0-8); BASOPHILS % (MANUAL) 0 % (0-2); EOSINOPHILS % (MANUAL) 0 % (0-3); PLATELET ESTIMATE ADEQUATE; PLATELET MORPHOLOGY NORMAL
--- NOTE | 2016-10-15 08:38 | Consultation ---
DATE OF CONSULTATION: CARDIOLOGY CONSULTATION ATTENDING PHYSICIAN: Barrett Olivarez M.D. REASON FOR CONSULTATION: Congestive heart failure evaluation versus defibrillator. HISTORY OF PRESENT ILLNESS: The patient is a 71-year-old with a history of hypertension and severe cardiomyopathy, ejection fraction only 10% as well as history of defibrillator implantation, who has been having recurrent admissions for congestive heart failure. The patient was brought to the emergency room with increasing shortness of breath and cough. His O2 saturation was 80% on room air. The patient was put on BiPAP in the emergency room. Saturation improved and transferred to [facility]. Cardiology consultation was obtained for further evaluation and management. REVIEW OF SYSTEMS: Performed and was negative other than what was mentioned in history of present illness. PAST MEDICAL HISTORY: 1. Hypertension. 2. Congestive heart failure. 3. Severe cardiomyopathy. 4. Status post [employer] defibrillator implantation, last imaging with normal function. 5. Recurrent ventricular tachycardia. 6. Chronic obstructive pulmonary disease. 7. , on Coumadin. FAMILY HISTORY: Noncontributory. SOCIAL HISTORY: He lives at home. The patient uses cocaine. PHYSICAL EXAMINATION: VITAL SIGNS: Blood pressure is 127/84, pulse 90, respirations 18, and temperature 98.2. HEAD AND NECK: Shows no JVD. LUNGS: Show decreased breath sounds. CARDIOVASCULAR: Shows regular S1 and S2 with no gallop or murmur. ABDOMEN: Soft and nontender. EXTREMITIES: 1+ pitting edema. Pacemaker placement in left subclavian is intact. LABORATORY DATA: His EKG shows sinus tachycardia at a rate of 103 with anterolateral infarct. His labs show that urine toxicology screen is positive for cocaine. His urine toxicology screen was 16. His labs show sodium 148, potassium 3.5, BUN of 22, creatinine 0.9, and glucose of 100. His troponin was negative. White count 13.5, hemoglobin 15.9, hematocrit 51.7, and platelet is 230,000. INR is 1.8. ASSESSMENT AND PLAN: 1. Shortness of breath with combination of chronic obstructive pulmonary disease and congestive heart failure. The patient is on Lasix 40 mg IV b.i.d. continued. We will also resume the patient's heart failure medications. Continue lisinopril and Aldactone and hold off beta-tamar in view of his chronic obstructive pulmonary disease. 2. Recurrent ventricular tachycardia. Resume amiodarone 500 mg daily. He received a [employer] defibrillator with normal function. 3. History of chronic obstructive pulmonary disease, on Solu-Medrol and albuterol. Thank you very much, Dr. Olivarez, for allowing me to participate in the care of this patient. Please do not hesitate to contact me for any questions regarding my evaluation. Pineda Crooks M.D. DR: BROOK JOB#: [id number] CC:
[2016-10-15] MEDS ORDERED: Xarelto 15mg tab ORAL SCH (09:00)
[2016-10-15 11:25] LABS: MAGNESIUM 1.9 mg/dL (1.7-2.5); POTASSIUM 4.1 mEQ/L (3.4-4.9)
[2016-10-15 12:00] VITALS: BP 135/83
--- NOTE | 2016-10-15 13:43 | Pulmonology Progress Note ---
Assessment/Plan Problems: (1) COPD exacerbation (2) Respiratory failure (3) Cardiomyopathy (4) CAD (coronary artery disease) (5) History of CVA (cerebrovascular accident) (6) HTN (hypertension) Assessment/Plan improving titrate fio2 to sat of 92% chest pt decrease steroids Subjective ROS Limited/Unobtainable: No Constitutional: Reports: no symptoms HEENT: Repors: no symptoms Allergies: Coded Allergies: No Known Allergies (Verified , 06/28/10) Objective Last 24 Hour Vital Signs Date Time Temp Pulse Resp B/P Pulse Ox O2 Delivery O2 Flow Rate FiO2 10/15/16 12:00 97.5 97 19 135/83 100 Nasal Cannula 2.0 10/15/16 08:30 86 20 100 Nasal Cannula 2.0 10/15/16 08:20 86 20 100 Nasal Cannula 2.0 28 10/15/16 08:00 96.8 101 19 137/105 96 Nasal Cannula 2.0 10/15/16 08:00 99 10/15/16 07:59 137/105 10/15/16 07:03 Nasal Cannula 2.0 10/15/16 07:02 100 Nasal Cannula 2.0 10/15/16 04:00 97.9 87 20 118/90 100 Nasal Cannula 4.0 10/15/16 04:00 89 10/15/16 00:00 97.4 90 20 132/62 100 Nasal Cannula 2.0 10/15/16 00:00 87 10/14/16 22:30 88 18 99 Nasal Cannula 2.0 28 10/14/16 22:16 28 10/14/16 22:16 87 20 99 Nasal Cannula 2.0 28 10/14/16 20:00 97.9 87 20 118/90 100 Nasal Cannula 3.0 10/14/16 19:30 98 Nasal Cannula 2.0 28 10/14/16 19:18 90 10/14/16 19:00 Nasal Cannula 2.0 28 10/14/16 16:28 94 24 100 Nasal Cannula 4.0 36 10/14/16 16:19 32 10/14/16 16:19 91 20 94 Nasal Cannula 3.0 32 10/14/16 16:01 96.6 89 20 120/92 100 Nasal Cannula 3.0 10/14/16 15:28 92 10/14/16 14:59 96 20 96 3.0 32 Intake and Output 10/14/16 10/15/16 19:00 07:00 Intake Total 250 ml 360 ml Output Total 500 ml Balance 250 ml -140 ml Intake Oral 360 ml IV Total 250 ml Output Urine Total 500 ml # Voids 1 3 # Bowel Movements 1 General Appearance: cachetic HEENT: normocephalic, atraumatic Respiratory/Chest: chest wall non-tender, lungs clear Cardiovascular: normal peripheral pulses, normal rate Abdomen: normal bowel sounds, soft, non tender Genitourinary: normal external genitalia Extremities: no cyanosis Skin: no rash 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, no motor/sensory deficits Laboratory Tests 10/15/16 06:50: White Blood Count 9.8, Red Blood Count 4.34L, Hemoglobin 13.8L, Hematocrit 42.8 , Mean Corpuscular Volume 99, Mean Corpuscular Hemoglobin 31.8H, Mean Corpuscular Hemoglobin Concent 32.3, Red Cell Distribution Width 14.1, Platelet Count 196, Mean Platelet Volume 8.2, Neutrophils (%) (Auto) , Lymphocytes (%) ( Auto) , Monocytes (%) (Auto) , Eosinophils (%) (Auto) , Basophils (%) (Auto) , Differential Total Cells Counted 100, Neutrophils % (Manual) 83H, Lymphocytes % (Manual) 13L, Monocytes % (Manual) 3, Eosinophils % (Manual) 0, Basophils % ( Manual) 0, Metamyelocytes % 1H, Band Neutrophils 0, Platelet Estimate Adequate, Platelet Morphology Normal, Red Blood Cell Morphology Normal, Prothrombin Time 16.2H, Prothromb Time International Ratio 1.6H, Sodium Level 141, Potassium Level 4.0, Chloride Level 99, Carbon Dioxide Level 23, Anion Gap 19H, Blood Urea Nitrogen 32H, Creatinine 1.0, Estimat Glomerular Filtration Rate , Glucose Level 176H, Calcium Level 9.1#, Phosphorus Level 3.1, Magnesium Level 2.1, Troponin I < 0.30, Pro-B-Type Natriuretic Peptide 5096H 10/15/16 10:40: Potassium Level 4.1, Magnesium Level 1.9 Current Medications Medications (Trade) Dose Ordered Sig/Elsa Route PRN Reason Start Time Stop Time Status Last Admin Dose Admin Albuterol/ Ipratropium (DuoNeb 0.5-3(2.5)mg/3ml) 3 ml Q4H PRN HHN Shortness of Breath 10/14/16 10:45 10/19/16 10:44 Albuterol/ Ipratropium (DuoNeb 0.5-3(2.5)mg/3ml) 3 ml Q8HRT HHN 10/14/16 15:00 10/19/16 14:59 10/15/16 08:28 Dextrose (Dextrose 50%) STAT PRN IV Hypoglycemia 10/14/16 10:45 11/13/16 10:44 Furosemide (Lasix) 40 mg TWICE A DAY ORAL 10/15/16 09:00 11/14/16 08:59 10/15/16 07:59 Insulin Aspart (NovoLOG) AC+HS SUBQ 10/14/16 11:30 11/13/16 11:29 10/15/16 12:09 Lisinopril (Zestril) 10 mg DAILY ORAL 10/15/16 09:00 11/14/16 08:59 10/15/16 07:59 Methylprednisolone Sodium Succinate (Solu-MEDROL) 80 mg DAILY IVP 10/16/16 09:00 11/15/16 08:59 Promethazine HCl/ Codeine (Phenergan with Codeine) 5 ml Q4H PRN ORAL For Cough 10/14/16 13:00 11/13/16 12:59 10/14/16 17:24 Spironolactone (Aldactone) 25 mg DAILY ORAL 10/15/16 09:00 11/14/16 08:59 10/15/16 07:59 Warfarin Sodium (Coumadin per pharmacy) 1 ea DAILY PRN MISC Per rx protocol 10/15/16 09:00 11/14/16 08:59 Warfarin Sodium (Coumadin) 5 mg COUMADIN ONCE ORAL 10/15/16 17:00 10/15/16 17:01 MURRAY NELSON Oct 15, 2016 13:43
[2016-10-15 16:03] VITALS: BP 109/77
--- NOTE | 2016-10-15 16:29 | Cardiac Electrophysiology PN ---
Assessment/Plan Assessment/Plan 1. Shortness of breath with combination of CHF and COPD. Continue Lasix 40 mg IV b.i.d., lisinopril and Aldactone and off beta-tamar for chronic obstructive pulmonary disease and active cocaine use.. 2. Recurrent ventricular tachycardia. On amiodarone 200 mg daily. 3. S/P [employer] defibrillator with normal function. 4. S/P CABG 5. Chronic obstructive pulmonary disease, on Solu-Medrol and albuterol. 6. Hep C 7. Acute popliteal DVT on Coumadin. INR 1.6. 8. Cocaine use DW RN Subjective Subjective Feeling better. Had nonsustained VT today but no ICD shocks. Objective Last 24 Hour Vital Signs Date Time Temp Pulse Resp B/P Pulse Ox O2 Delivery O2 Flow Rate FiO2 10/15/16 16:10 88 20 99 Nasal Cannula 2.0 10/15/16 16:03 97.9 90 18 109/77 97 Nasal Cannula 2.0 10/15/16 16:00 101 18 98 Nasal Cannula 2.0 28 10/15/16 12:00 97.5 97 19 135/83 100 Nasal Cannula 2.0 10/15/16 08:30 86 20 100 Nasal Cannula 2.0 10/15/16 08:20 86 20 100 Nasal Cannula 2.0 28 10/15/16 08:00 96.8 101 19 137/105 96 Nasal Cannula 2.0 10/15/16 08:00 99 10/15/16 07:59 137/105 10/15/16 07:03 Nasal Cannula 2.0 10/15/16 07:02 100 Nasal Cannula 2.0 10/15/16 04:00 97.9 87 20 118/90 100 Nasal Cannula 4.0 10/15/16 04:00 89 10/15/16 00:00 97.4 90 20 132/62 100 Nasal Cannula 2.0 10/15/16 00:00 87 10/14/16 22:30 88 18 99 Nasal Cannula 2.0 28 10/14/16 22:16 28 10/14/16 22:16 87 20 99 Nasal Cannula 2.0 28 10/14/16 20:00 97.9 87 20 118/90 100 Nasal Cannula 3.0 10/14/16 19:30 98 Nasal Cannula 2.0 28 10/14/16 19:18 90 10/14/16 19:00 Nasal Cannula 2.0 28 10/14/16 16:28 94 24 100 Nasal Cannula 4.0 36 Intake and Output 10/14/16 10/15/16 19:00 07:00 Intake Total 250 ml 360 ml Output Total 500 ml Balance 250 ml -140 ml Intake Oral 360 ml IV Total 250 ml Output Urine Total 500 ml # Voids 1 3 # Bowel Movements 1 Laboratory Tests Test 10/15/16 06:50 10/15/16 10:40 White Blood Count 9.8 K/UL (4.8-10.8) Red Blood Count 4.34 M/UL (4.70-6.10) L Hemoglobin 13.8 G/DL (14.2-18.0) L Hematocrit 42.8 % (42.0-52.0) Mean Corpuscular Volume 99 FL (80-99) Mean Corpuscular Hemoglobin 31.8 PG (27.0-31.0) H Mean Corpuscular Hemoglobin Concent 32.3 G/DL (32.0-36.0) Red Cell Distribution Width 14.1 % (11.6-14.8) Platelet Count 196 K/UL (150-450) Mean Platelet Volume 8.2 FL (6.5-10.1) Neutrophils (%) (Auto) % (45.0-75.0) Lymphocytes (%) (Auto) % (20.0-45.0) Monocytes (%) (Auto) % (1.0-10.0) Eosinophils (%) (Auto) % (0.0-3.0) Basophils (%) (Auto) % (0.0-2.0) Differential Total Cells Counted 100 Neutrophils % (Manual) 83 % (45-75) H Lymphocytes % (Manual) 13 % (20-45) L Monocytes % (Manual) 3 % (1-10) Eosinophils % (Manual) 0 % (0-3) Basophils % (Manual) 0 % (0-2) Metamyelocytes % 1 % (0-0) H Band Neutrophils 0 % (0-8) Platelet Estimate Adequate Platelet Morphology Normal Red Blood Cell Morphology Normal Prothrombin Time 16.2 SEC (9.30-11.50) H Prothromb Time International Ratio 1.6 (0.9-1.1) H Sodium Level 141 mEQ/L (135-145) Potassium Level 4.0 mEQ/L (3.4-4.9) 4.1 mEQ/L (3.4-4.9) Chloride Level 99 mEQ/L (98-107) Carbon Dioxide Level 23 mEQ/L (20-30) Anion Gap 19 (5-15) H Blood Urea Nitrogen 32 mg/dL (7-23) H Creatinine 1.0 mg/dL (0.7-1.2) Estimat Glomerular Filtration Rate mL/min (>60) Glucose Level 176 mg/dL (74-106) H Calcium Level 9.1 mg/dL (8.6-10.2) # Phosphorus Level 3.1 mg/dL (2.5-4.8) Magnesium Level 2.1 mg/dL (1.7-2.5) 1.9 mg/dL (1.7-2.5) Troponin I < 0.30 ng/mL (<=0.30) Pro-B-Type Natriuretic Peptide 5096 pg/mL (0-125) H Objective HEAD AND NECK: mild JVD. LUNGS: Clear CARDIOVASCULAR: Regular S1 and S2 with no gallop or murmur.ICD left subclavian. Sternotomy intact. ABDOMEN: Soft and nontender. EXTREMITIES: 1+ pitting edema. BRYAN BOYD Oct 15, 2016 16:29
[2016-10-15] MEDS ORDERED: Warfarin Sodium 5mg ORAL ONE (17:00)
--- NOTE | 2016-10-15 18:56 | Internal Med Progress Note ---
Subjective Date of Service: Oct 15, 2016 Physician Name Surinder Helms Attending Physician Barrett Olivarez MD Current Medications Medications (Trade) Dose Ordered Sig/Elsa Route PRN Reason Start Time Stop Time Status Last Admin Dose Admin Albuterol/ Ipratropium (DuoNeb 0.5-3(2.5)mg/3ml) 3 ml Q4H PRN HHN Shortness of Breath 10/14/16 10:45 10/19/16 10:44 Albuterol/ Ipratropium (DuoNeb 0.5-3(2.5)mg/3ml) 3 ml Q8HRT HHN 10/14/16 15:00 10/19/16 14:59 10/15/16 16:03 Dextrose (Dextrose 50%) STAT PRN IV Hypoglycemia 10/14/16 10:45 11/13/16 10:44 Furosemide (Lasix) 40 mg TWICE A DAY ORAL 10/15/16 09:00 11/14/16 08:59 10/15/16 17:17 Insulin Aspart (NovoLOG) AC+HS SUBQ 10/14/16 11:30 11/13/16 11:29 10/15/16 16:22 Lisinopril (Zestril) 10 mg DAILY ORAL 10/15/16 09:00 11/14/16 08:59 10/15/16 07:59 Methylprednisolone Sodium Succinate (Solu-MEDROL) 80 mg DAILY IVP 10/16/16 09:00 11/15/16 08:59 Promethazine HCl/ Codeine (Phenergan with Codeine) 5 ml Q4H PRN ORAL For Cough 10/14/16 13:00 11/13/16 12:59 10/14/16 17:24 Spironolactone (Aldactone) 25 mg DAILY ORAL 10/15/16 09:00 11/14/16 08:59 10/15/16 07:59 Warfarin Sodium (Coumadin per pharmacy) 1 ea DAILY PRN MISC Per rx protocol 10/15/16 09:00 11/14/16 08:59 Allergies: Coded Allergies: No Known Allergies (Verified , 06/28/10) ROS Limited/Unobtainable: No Constitutional: Reports: chills, fever HEENT: Reports: no symptoms Cardiovascular: Reports: no symptoms Respiratory: Reports: shortness of breath Gastrointestinal/Abdominal: Reports: no symptoms Genitourinary: Reports: no symptoms Neurologic/Psychiatric: Reports: no symptoms Subjective 71 YO M admitted with fever and shortness of breath. 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 Tolerating nasal canula. Cover for Int Med-Dr Olivarez. Objective Last Vital Signs Date Time Temp Pulse Resp B/P Pulse Ox O2 Delivery O2 Flow Rate FiO2 10/15/16 16:10 88 20 99 Nasal Cannula 2.0 10/15/16 16:03 97.9 109/77 10/15/16 16:00 28 General Appearance: WD/WN, alert, mild distress EENT: PERRL/EOMI, normal ENT inspection, TMs normal Neck: non-tender, normal alignment, supple Cardiovascular: normal peripheral pulses, normal rate, regular rhythm, no gallop/murmur, no JVD Respiratory/Chest: chest wall non-tender, respiratory distress, crackles/rales , rhonchi - bilaterally, expiratory wheezing Abdomen: normal bowel sounds, non tender, soft, no organomegaly, no mass Extremities: normal range of motion, non-tender 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 Skin: normal pigmentation, warm/dry Laboratory Tests Test 10/15/16 06:50 10/15/16 10:40 White Blood Count 9.8 K/UL (4.8-10.8) Red Blood Count 4.34 M/UL (4.70-6.10) L Hemoglobin 13.8 G/DL (14.2-18.0) L Hematocrit 42.8 % (42.0-52.0) Mean Corpuscular Volume 99 FL (80-99) Mean Corpuscular Hemoglobin 31.8 PG (27.0-31.0) H Mean Corpuscular Hemoglobin Concent 32.3 G/DL (32.0-36.0) Red Cell Distribution Width 14.1 % (11.6-14.8) Platelet Count 196 K/UL (150-450) Mean Platelet Volume 8.2 FL (6.5-10.1) Neutrophils (%) (Auto) % (45.0-75.0) Lymphocytes (%) (Auto) % (20.0-45.0) Monocytes (%) (Auto) % (1.0-10.0) Eosinophils (%) (Auto) % (0.0-3.0) Basophils (%) (Auto) % (0.0-2.0) Differential Total Cells Counted 100 Neutrophils % (Manual) 83 % (45-75) H Lymphocytes % (Manual) 13 % (20-45) L Monocytes % (Manual) 3 % (1-10) Eosinophils % (Manual) 0 % (0-3) Basophils % (Manual) 0 % (0-2) Metamyelocytes % 1 % (0-0) H Band Neutrophils 0 % (0-8) Platelet Estimate Adequate Platelet Morphology Normal Red Blood Cell Morphology Normal Prothrombin Time 16.2 SEC (9.30-11.50) H Prothromb Time International Ratio 1.6 (0.9-1.1) H Sodium Level 141 mEQ/L (135-145) Potassium Level 4.0 mEQ/L (3.4-4.9) 4.1 mEQ/L (3.4-4.9) Chloride Level 99 mEQ/L (98-107) Carbon Dioxide Level 23 mEQ/L (20-30) Anion Gap 19 (5-15) H Blood Urea Nitrogen 32 mg/dL (7-23) H Creatinine 1.0 mg/dL (0.7-1.2) Estimat Glomerular Filtration Rate mL/min (>60) Glucose Level 176 mg/dL (74-106) H Calcium Level 9.1 mg/dL (8.6-10.2) # Phosphorus Level 3.1 mg/dL (2.5-4.8) Magnesium Level 2.1 mg/dL (1.7-2.5) 1.9 mg/dL (1.7-2.5) Troponin I < 0.30 ng/mL (<=0.30) Pro-B-Type Natriuretic Peptide 5096 pg/mL (0-125) H Intake and Output 10/14/16 10/15/16 19:00 07:00 Intake Total 250 ml 360 ml Output Total 500 ml Balance 250 ml -140 ml Intake Oral 360 ml IV Total 250 ml Output Urine Total 500 ml # Voids 1 3 # Bowel Movements 1 Assessment/Plan Problem List: (1) Fever chills (2) Cough (3) Hypoxia (4) COPD exacerbation Assessment & Plan: See pulmonary note. Cont IV solumedrol & duoneb (5) CHF exacerbation Assessment & Plan: See cardiology note. (6) CAD (coronary artery disease) (7) Cardiomyopathy (8) DVT, popliteal, acute Assessment & Plan: Continue coumadin per pharmacy protocol. Status: progressing SURINDER HELMS Oct 15, 2016 18:56
[2016-10-15 20:30] VITALS: BP 107/71
[2016-10-16] VITALS: BP 105/51
[2016-10-16 04:00] VITALS: BP 126/88
[2016-10-16 05:42] LABS: INR 1.5 (0.9-1.1); PROTHROMBIN TIME 15.1 SEC (9.30-11.50)
[2016-10-16 05:44] LABS: BASOPHILS % (AUTO) 0.4 % (0.0-2.0); LYMPHOCYTES % (AUTO) 12.8 % (20.0-45.0); MEAN CORPUSCULAR HEMOGLOBIN 31.8 PG (27.0-31.0); MEAN CORPUSCULAR HGB CONC 31.1 G/DL (32.0-36.0); MEAN CORPUSCULAR VOLUME 102 FL (80-99); MEAN PLATELET VOLUME 7.5 FL (6.5-10.1); MONOCYTES % (AUTO) 2.8 % (1.0-10.0); PLATELET COUNT 200 K/UL (150-450); RED BLOOD COUNT 4.32 M/UL (4.70-6.10); RED CELL DISTRIBUTION WIDTH 14.6 % (11.6-14.8); WHITE BLOOD COUNT 9.5 K/UL (4.8-10.8)
[2016-10-16 06:09] LABS: ANION GAP 16 (5-15); CALCIUM 8.9 mg/dL (8.6-10.2); CARBON DIOXIDE 23 mEQ/L (20-30); CHLORIDE 104 mEQ/L (98-107); CREATININE 1.3 mg/dL (0.7-1.2); HEMOLYSIS 16; POTASSIUM 4.5 mEQ/L (3.4-4.9); SODIUM 143 mEQ/L (135-145)
[2016-10-16] MEDS: NovoLOG Insulin Flexpen SUBQ SCH ×4 (06:28→20:39)
[2016-10-16] MEDS: DuoNeb 0.5-3(2.5)mg/3ml neb HHN SCH ×3 (07:52→23:50)
[2016-10-16 08:00] VITALS: BP 99/80
[2016-10-16] MEDS: Spironolactone 25mg tab ORAL SCH (08:51)
[2016-10-16] MEDS: Lisinopril 10mg tab ORAL SCH (08:51)
[2016-10-16] MEDS: Furosemide 40mg tab ORAL SCH (08:51)
[2016-10-16] MEDS ORDERED: Solu-MEDROL 40mg Inj IVP SCH (09:00)
[2016-10-16 11:31] VITALS: BP 104/64
[2016-10-16] MEDS: Promethazine/Codeine 5ml UD ORAL PRN ×2 (13:26→20:38)
--- NOTE | 2016-10-16 13:42 | Pulmonology Progress Note ---
Assessment/Plan Problems: (1) COPD exacerbation (2) Respiratory failure (3) Cardiomyopathy (4) CAD (coronary artery disease) (5) History of CVA (cerebrovascular accident) (6) HTN (hypertension) Assessment/Plan improving titrate fio2 to sat of 92% chest pt decrease steroids to 40 qd decrease lasix to qd because of rising bun med/surg repeat labs in am. Subjective ROS Limited/Unobtainable: No Constitutional: Reports: no symptoms HEENT: Repors: no symptoms Respiratory: Reports: no symptoms Allergies: Coded Allergies: No Known Allergies (Verified , 06/28/10) Objective Last 24 Hour Vital Signs Date Time Temp Pulse Resp B/P Pulse Ox O2 Delivery O2 Flow Rate FiO2 10/16/16 12:00 93 10/16/16 11:31 96.8 96 17 104/64 98 Nasal Cannula 2.0 10/16/16 08:51 99/80 10/16/16 08:00 97.0 79 20 99/80 100 Nasal Cannula 2.0 10/16/16 08:00 96 10/16/16 08:00 76 16 99 Nasal Cannula 2.0 28 10/16/16 07:52 74 16 97 Nasal Cannula 2.0 28 10/16/16 07:26 98 Nasal Cannula 2.0 28 10/16/16 07:26 Nasal Cannula 2.0 28 10/16/16 04:00 100 10/16/16 04:00 97.0 95 20 126/88 100 Nasal Cannula 2.0 10/16/16 00:00 98 10/16/16 00:00 98.6 75 24 105/51 94 Nasal Cannula 5.0 10/15/16 23:34 73 18 99 Nasal Cannula 2.0 28 10/15/16 23:24 69 18 97 Nasal Cannula 2.0 28 10/15/16 20:30 98.6 106 18 107/71 98 Nasal Cannula 2.0 10/15/16 20:00 97 10/15/16 19:50 Nasal Cannula 2.0 28 10/15/16 19:50 98 Nasal Cannula 2.0 28 10/15/16 16:10 88 20 99 Nasal Cannula 2.0 10/15/16 16:03 97.9 90 18 109/77 97 Nasal Cannula 2.0 10/15/16 16:00 106 10/15/16 16:00 101 18 98 Nasal Cannula 2.0 28 Intake and Output 10/15/16 10/16/16 19:00 07:00 Output Total 200 ml Balance -200 ml Output Urine Total 200 ml # Voids 1 General Appearance: WD/WN HEENT: normocephalic, atraumatic Respiratory/Chest: chest wall non-tender Cardiovascular: normal peripheral pulses, normal rate Abdomen: normal bowel sounds, soft, non tender Extremities: no cyanosis Skin: no rash 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 Complete 10/14/16 11:13 Rectum VRE Culture - Final NO VANCOMYCIN RESISTANT ENTEROCOCCUS ... Complete Laboratory Tests 10/16/16 03:40: White Blood Count 9.5, Red Blood Count 4.32L, Hemoglobin 13.8L, Hematocrit 44.3 , Mean Corpuscular Volume 102H, Mean Corpuscular Hemoglobin 31.8H, Mean Corpuscular Hemoglobin Concent 31.1L, Red Cell Distribution Width 14.6, Platelet Count 200, Mean Platelet Volume 7.5, Neutrophils (%) (Auto) 84.0H, Lymphocytes (%) (Auto) 12.8L, Monocytes (%) (Auto) 2.8, Eosinophils (%) (Auto) 0.0, Basophils (%) (Auto) 0.4, Prothrombin Time 15.1H, Prothromb Time International Ratio 1.5H, Sodium Level 143, Potassium Level 4.5, Chloride Level 104, Carbon Dioxide Level 23, Anion Gap 16H, Blood Urea Nitrogen 37H, Creatinine 1.3H, Estimat Glomerular Filtration Rate , Glucose Level 181H, Calcium Level 8.9 Current Medications Medications (Trade) Dose Ordered Sig/Elsa Route PRN Reason Start Time Stop Time Status Last Admin Dose Admin Albuterol/ Ipratropium (DuoNeb 0.5-3(2.5)mg/3ml) 3 ml Q4H PRN HHN Shortness of Breath 10/14/16 10:45 10/19/16 10:44 Albuterol/ Ipratropium (DuoNeb 0.5-3(2.5)mg/3ml) 3 ml Q8HRT HHN 10/14/16 15:00 10/19/16 14:59 10/16/16 07:52 Dextrose (Dextrose 50%) STAT PRN IV Hypoglycemia 10/14/16 10:45 11/13/16 10:44 Furosemide (Lasix) 40 mg TWICE A DAY ORAL 10/15/16 09:00 11/14/16 08:59 10/16/16 08:51 Insulin Aspart (NovoLOG) AC+HS SUBQ 10/14/16 11:30 11/13/16 11:29 10/16/16 11:50 Lisinopril (Zestril) 10 mg DAILY ORAL 10/15/16 09:00 11/14/16 08:59 10/16/16 08:51 Methylprednisolone Sodium Succinate (Solu-MEDROL) 80 mg DAILY IVP 10/16/16 09:00 11/15/16 08:59 10/16/16 08:52 Promethazine HCl/ Codeine (Phenergan with Codeine) 5 ml Q4H PRN ORAL For Cough 10/14/16 13:00 11/13/16 12:59 10/16/16 13:26 Spironolactone (Aldactone) 25 mg DAILY ORAL 10/15/16 09:00 11/14/16 08:59 10/16/16 08:51 Warfarin Sodium (Coumadin per pharmacy) 1 ea DAILY PRN MISC Per rx protocol 10/15/16 09:00 11/14/16 08:59 Warfarin Sodium (Coumadin) 6 mg COUMADIN ONCE ORAL 10/16/16 17:00 10/16/16 17:01 MURRAY NELSON Oct 16, 2016 13:42
[2016-10-16 16:00] VITALS: BP 120/77
--- NOTE | 2016-10-16 16:14 | Cardiac Electrophysiology PN ---
Assessment/Plan Assessment/Plan 1. Shortness of breath with combination of CHF and COPD. Continue Lasix 40 mg po daily, lisinopril and Aldactone and off beta-tamar for chronic obstructive pulmonary disease and active cocaine use.. 2. Recurrent ventricular tachycardia. On amiodarone 200 mg daily. 3. S/P [employer] defibrillator with normal function. 4. S/P CABG 5. Chronic obstructive pulmonary disease, on Solu-Medrol and albuterol. 6. Hep C 7. Acute popliteal DVT on Coumadin. INR 1.5 today. 8. Cocaine use. Urine Tox screen positive again for cocaine. 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 Transferred to nonmonitored bed.No chest pain. Objective Last 24 Hour Vital Signs Date Time Temp Pulse Resp B/P Pulse Ox O2 Delivery O2 Flow Rate FiO2 10/16/16 16:06 86 17 99 Nasal Cannula 2.0 28 10/16/16 13:48 81 16 96 Nasal Cannula 2.0 28 10/16/16 12:00 93 10/16/16 11:31 96.8 96 17 104/64 98 Nasal Cannula 2.0 10/16/16 08:51 99/80 10/16/16 08:00 97.0 79 20 99/80 100 Nasal Cannula 2.0 10/16/16 08:00 96 10/16/16 08:00 76 16 99 Nasal Cannula 2.0 28 10/16/16 07:52 74 16 97 Nasal Cannula 2.0 28 10/16/16 07:26 98 Nasal Cannula 2.0 28 10/16/16 07:26 Nasal Cannula 2.0 28 10/16/16 04:00 100 10/16/16 04:00 97.0 95 20 126/88 100 Nasal Cannula 2.0 10/16/16 00:00 98 10/16/16 00:00 98.6 75 24 105/51 94 Nasal Cannula 5.0 10/15/16 23:34 73 18 99 Nasal Cannula 2.0 28 10/15/16 23:24 69 18 97 Nasal Cannula 2.0 28 10/15/16 20:30 98.6 106 18 107/71 98 Nasal Cannula 2.0 10/15/16 20:00 97 10/15/16 19:50 Nasal Cannula 2.0 28 10/15/16 19:50 98 Nasal Cannula 2.0 28 Intake and Output 10/15/16 10/16/16 19:00 07:00 Output Total 200 ml Balance -200 ml Output Urine Total 200 ml # Voids 1 Laboratory Tests Test 10/16/16 03:40 White Blood Count 9.5 K/UL (4.8-10.8) Red Blood Count 4.32 M/UL (4.70-6.10) L Hemoglobin 13.8 G/DL (14.2-18.0) L Hematocrit 44.3 % (42.0-52.0) Mean Corpuscular Volume 102 FL (80-99) H Mean Corpuscular Hemoglobin 31.8 PG (27.0-31.0) H Mean Corpuscular Hemoglobin Concent 31.1 G/DL (32.0-36.0) L Red Cell Distribution Width 14.6 % (11.6-14.8) Platelet Count 200 K/UL (150-450) Mean Platelet Volume 7.5 FL (6.5-10.1) Neutrophils (%) (Auto) 84.0 % (45.0-75.0) H Lymphocytes (%) (Auto) 12.8 % (20.0-45.0) L Monocytes (%) (Auto) 2.8 % (1.0-10.0) Eosinophils (%) (Auto) 0.0 % (0.0-3.0) Basophils (%) (Auto) 0.4 % (0.0-2.0) Prothrombin Time 15.1 SEC (9.30-11.50) H Prothromb Time International Ratio 1.5 (0.9-1.1) H Sodium Level 143 mEQ/L (135-145) Potassium Level 4.5 mEQ/L (3.4-4.9) Chloride Level 104 mEQ/L (98-107) Carbon Dioxide Level 23 mEQ/L (20-30) Anion Gap 16 (5-15) H Blood Urea Nitrogen 37 mg/dL (7-23) H Creatinine 1.3 mg/dL (0.7-1.2) H Estimat Glomerular Filtration Rate mL/min (>60) Glucose Level 181 mg/dL (74-106) H Calcium Level 8.9 mg/dL (8.6-10.2) Microbiology Date/Time Source Procedure Growth Status 10/14/16 08:34 Blood Blood Culture - Preliminary NO GROWTH AFTER 24 HOURS Resulted 10/14/16 08:05 Blood Blood Culture - Preliminary NO GROWTH AFTER 24 HOURS Resulted 10/14/16 16:50 Sputum Gram Stain - Final Resulted 10/14/16 16:50 Sputum Sputum Culture - Preliminary NORMAL UPPER RESPIRATORY ANEESH PRESENT Resulted 10/14/16 11:13 Nasal Nares MRSA Culture - Final NO METHICILLIN RESISTANT STAPH AUREUS... Complete 10/14/16 11:13 Rectum VRE Culture - Final NO VANCOMYCIN RESISTANT ENTEROCOCCUS ... Complete Objective HEAD AND NECK: mild JVD. LUNGS: Clear CARDIOVASCULAR: Regular S1 and S2 with no gallop or murmur.ICD left subclavian. Sternotomy intact. ABDOMEN: Soft and nontender. EXTREMITIES: 1+ pitting edema. BRYAN BOYD Oct 16, 2016 16:14
[2016-10-16] MEDS ORDERED: Warfarin Sodium 3mg ORAL ONE ×2 (17:00)
[2016-10-16] MEDS ORDERED: Warfarin Sodium 5mg ORAL ONE (17:00)
--- NOTE | 2016-10-16 18:13 | Internal Med Progress Note ---
Subjective Date of Service: Oct 16, 2016 Physician Name Surinder Davila Attending Physician Barrett Olivarez MD Current Medications Medications (Trade) Dose Ordered Sig/Elsa Route PRN Reason Start Time Stop Time Status Last Admin Dose Admin Albuterol/ Ipratropium (DuoNeb 0.5-3(2.5)mg/3ml) 3 ml Q4H PRN HHN Shortness of Breath 10/16/16 14:45 10/21/16 14:44 Albuterol/ Ipratropium (DuoNeb 0.5-3(2.5)mg/3ml) 3 ml Q8HRT HHN 10/16/16 15:00 10/21/16 14:59 10/16/16 15:55 Dextrose (Dextrose 50%) STAT PRN IV Hypoglycemia 10/16/16 15:00 11/15/16 14:59 Enoxaparin Sodium (Lovenox) 70 mg Q12HR SUBQ 10/16/16 21:00 11/15/16 20:59 Furosemide (Lasix) 40 mg DAILY ORAL 10/17/16 09:00 11/16/16 08:59 Insulin Aspart (NovoLOG) AC+HS SUBQ 10/16/16 16:30 11/15/16 16:29 10/16/16 16:44 Lisinopril (Zestril) 10 mg DAILY ORAL 10/17/16 09:00 11/16/16 08:59 Methylprednisolone Sodium Succinate (Solu-MEDROL) 40 mg DAILY IVP 10/17/16 09:00 11/16/16 08:59 Promethazine HCl/ Codeine (Phenergan with Codeine) 5 ml Q4H PRN ORAL For Cough 10/16/16 15:00 11/15/16 14:59 Spironolactone (Aldactone) 25 mg DAILY ORAL 10/17/16 09:00 11/16/16 08:59 Warfarin Sodium (Coumadin per pharmacy) 1 ea DAILY PRN MISC Per rx protocol 10/16/16 15:00 11/15/16 14:59 Allergies: Coded Allergies: No Known Allergies (Verified , 06/28/10) ROS Limited/Unobtainable: No Constitutional: Reports: chills, fever HEENT: Reports: no symptoms Cardiovascular: Reports: no symptoms Respiratory: Reports: shortness of breath Gastrointestinal/Abdominal: Reports: no symptoms Genitourinary: Reports: no symptoms Neurologic/Psychiatric: Reports: no symptoms Subjective 71 YO M admitted with fever and shortness of breath. Tolerating nasal canula. Cover for Cem Olivarez. Objective Last Vital Signs Date Time Temp Pulse Resp B/P Pulse Ox O2 Delivery O2 Flow Rate FiO2 10/16/16 16:06 86 17 99 Nasal Cannula 2.0 28 10/16/16 16:00 97.2 120/77 Laboratory Tests Test 10/16/16 03:40 White Blood Count 9.5 K/UL (4.8-10.8) Red Blood Count 4.32 M/UL (4.70-6.10) L Hemoglobin 13.8 G/DL (14.2-18.0) L Hematocrit 44.3 % (42.0-52.0) Mean Corpuscular Volume 102 FL (80-99) H Mean Corpuscular Hemoglobin 31.8 PG (27.0-31.0) H Mean Corpuscular Hemoglobin Concent 31.1 G/DL (32.0-36.0) L Red Cell Distribution Width 14.6 % (11.6-14.8) Platelet Count 200 K/UL (150-450) Mean Platelet Volume 7.5 FL (6.5-10.1) Neutrophils (%) (Auto) 84.0 % (45.0-75.0) H Lymphocytes (%) (Auto) 12.8 % (20.0-45.0) L Monocytes (%) (Auto) 2.8 % (1.0-10.0) Eosinophils (%) (Auto) 0.0 % (0.0-3.0) Basophils (%) (Auto) 0.4 % (0.0-2.0) Prothrombin Time 15.1 SEC (9.30-11.50) H Prothromb Time International Ratio 1.5 (0.9-1.1) H Sodium Level 143 mEQ/L (135-145) Potassium Level 4.5 mEQ/L (3.4-4.9) Chloride Level 104 mEQ/L (98-107) Carbon Dioxide Level 23 mEQ/L (20-30) Anion Gap 16 (5-15) H Blood Urea Nitrogen 37 mg/dL (7-23) H Creatinine 1.3 mg/dL (0.7-1.2) H Estimat Glomerular Filtration Rate mL/min (>60) Glucose Level 181 mg/dL (74-106) H Calcium Level 8.9 mg/dL (8.6-10.2) Microbiology Date/Time Source Procedure Growth Status 10/14/16 08:34 Blood Blood Culture - Preliminary NO GROWTH AFTER 24 HOURS Resulted 10/14/16 08:05 Blood Blood Culture - Preliminary NO GROWTH AFTER 24 HOURS Resulted 10/14/16 16:50 Sputum Gram Stain - Final Resulted 10/14/16 16:50 Sputum Sputum Culture - Preliminary NORMAL UPPER RESPIRATORY ANEESH PRESENT Resulted 10/14/16 11:13 Nasal Nares MRSA Culture - Final NO METHICILLIN RESISTANT STAPH AUREUS... Complete 10/14/16 11:13 Rectum VRE Culture - Final NO VANCOMYCIN RESISTANT ENTEROCOCCUS ... Complete Intake and Output 10/15/16 10/16/16 19:00 07:00 Output Total 200 ml Balance -200 ml Output Urine Total 200 ml # Voids 1 Objective General Appearance: WD/WN, alert, mild distress EENT: PERRL/EOMI, normal ENT inspection, TMs normal Neck: non-tender, normal alignment, supple Cardiovascular: normal peripheral pulses, normal rate, regular rhythm, no gallop/murmur, no JVD Respiratory/Chest: chest wall non-tender, respiratory distress, crackles/rales , rhonchi - bilaterally, expiratory wheezing Abdomen: normal bowel sounds, non tender, soft, no organomegaly, no mass Extremities: normal range of motion, non-tender 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 Cont IV solumedrol & duoneb (5) CHF exacerbation Assessment & Plan: See cardiology note. (6) CAD (coronary artery disease) (7) Cardiomyopathy (8) DVT, popliteal, acute Assessment & Plan: Continue coumadin per pharmacy protocol. Status: progressing SCOOTERSURINDER Oct 16, 2016 18:13
[2016-10-16 19:48] VITALS: BP 144/93
[2016-10-16] MEDS: Enoxaparin Sodium 300mg/3ml vial SUBQ SCH (20:39)
[2016-10-17] VITALS (7 sets, daily range): BP systolic 105–148; BP diastolic 75–96
[2016-10-17] MEDS: DuoNeb 0.5-3(2.5)mg/3ml neb HHN PRN ×2 (05:41→17:36)
[2016-10-17] MEDS: NovoLOG Insulin Flexpen SUBQ SCH ×4 (06:39→20:52)
[2016-10-17 07:10] LABS: MEAN CORPUSCULAR HEMOGLOBIN 31.8 PG (27.0-31.0); MEAN CORPUSCULAR HGB CONC 31.5 G/DL (32.0-36.0); MEAN CORPUSCULAR VOLUME 101 FL (80-99); MEAN PLATELET VOLUME 8.4 FL (6.5-10.1); PLATELET COUNT 187 K/UL (150-450); RED BLOOD COUNT 4.51 M/UL (4.70-6.10); WHITE BLOOD COUNT 21.2 K/UL (4.8-10.8)
[2016-10-17] MEDS: DuoNeb 0.5-3(2.5)mg/3ml neb HHN SCH ×3 (07:23→22:19)
[2016-10-17 07:24] LABS: INR 1.3 (0.9-1.1); PROTHROMBIN TIME 13.4 SEC (9.30-11.50)
[2016-10-17 07:35] LABS: ALANINE AMINOTRANSFERASE 71 U/L (3-41); ALBUMIN/GLOBULIN RATIO 1.1 (1.0-2.7); ANION GAP 16 (5-15); ASPARTATE AMINO TRANSFERASE 69 U/L (5-40); CALCIUM 9.4 mg/dL (8.6-10.2); CARBON DIOXIDE 25 mEQ/L (20-30); CHLORIDE 101 mEQ/L (98-107); CREATININE 1.5 mg/dL (0.7-1.2); HEMOLYSIS 13; MAGNESIUM 2.2 mg/dL (1.7-2.5); POTASSIUM 4.5 mEQ/L (3.4-4.9); SODIUM 142 mEQ/L (135-145); TOTAL PROTEIN 6.8 g/dL (6.6-8.7)
[2016-10-17] MEDS ORDERED: Solu-MEDROL 40mg Inj IVP SCH ×2 (09:00)
[2016-10-17] MEDS ORDERED: Furosemide 40mg tab ORAL SCH (09:00)
[2016-10-17] MEDS: Lisinopril 10mg tab ORAL SCH (09:19)
[2016-10-17] MEDS: Spironolactone 25mg tab ORAL SCH (09:19)
[2016-10-17] MEDS: Furosemide 40mg tab ORAL SCH (09:19)
[2016-10-17] MEDS: Enoxaparin Sodium 300mg/3ml vial SUBQ SCH ×2 (09:20→20:55)
[2016-10-17 09:50] LABS: BAND NEUTROPHILS % (MANUAL) 1 % (0-8); BASOPHILS % (MANUAL) 0 % (0-2); EOSINOPHILS % (MANUAL) 0 % (0-3); LYMPHOCYTES % (MANUAL) 5 % (20-45); NEUTROPHILS % (MANUAL) 85 % (45-75); PLATELET ESTIMATE ADEQUATE; PLATELET MORPHOLOGY NORMAL; TOTAL CELLS COUNTED 100
[2016-10-17 09:51] LABS: ANISOCYTOSIS 1+; HYPOCHROMASIA 1+; MACROCYTES 1+
--- NOTE | 2016-10-17 15:34 | Internal Med Progress Note ---
Subjective Date of Service: Oct 17, 2016 Physician Name Surinder Helms Attending Physician Barrett Olivarez MD Current Medications Medications (Trade) Dose Ordered Sig/Elsa Route PRN Reason Start Time Stop Time Status Last Admin Dose Admin Albuterol/ Ipratropium (DuoNeb 0.5-3(2.5)mg/3ml) 3 ml Q4H PRN HHN Shortness of Breath 10/16/16 14:45 10/21/16 14:44 10/17/16 05:41 Albuterol/ Ipratropium (DuoNeb 0.5-3(2.5)mg/3ml) 3 ml Q8HRT HHN 10/16/16 15:00 10/21/16 14:59 10/17/16 15:12 Dextrose (Dextrose 50%) STAT PRN IV Hypoglycemia 10/16/16 15:00 11/15/16 14:59 Enoxaparin Sodium (Lovenox) 70 mg Q12HR SUBQ 10/16/16 21:00 11/15/16 20:59 10/17/16 09:20 Furosemide (Lasix) 40 mg DAILY ORAL 10/17/16 09:00 11/16/16 08:59 10/17/16 09:19 Insulin Aspart (NovoLOG) AC+HS SUBQ 10/16/16 16:30 11/15/16 16:29 10/17/16 12:05 Lisinopril (Zestril) 10 mg DAILY ORAL 10/17/16 09:00 11/16/16 08:59 10/17/16 09:19 Methylprednisolone Sodium Succinate (Solu-MEDROL) 40 mg DAILY IVP 10/17/16 09:00 11/16/16 08:59 10/17/16 09:20 Promethazine HCl/ Codeine (Phenergan with Codeine) 5 ml Q4H PRN ORAL For Cough 10/16/16 15:00 11/15/16 14:59 10/16/16 20:38 Spironolactone (Aldactone) 25 mg DAILY ORAL 10/17/16 09:00 11/16/16 08:59 10/17/16 09:19 Warfarin Sodium (Coumadin per pharmacy) 1 ea DAILY PRN MISC Per rx protocol 10/16/16 15:00 11/15/16 14:59 Warfarin Sodium (Coumadin) 7.5 mg COUMADIN ORAL 10/17/16 17:00 10/17/16 17:01 Allergies: Coded Allergies: No Known Allergies (Verified , 06/28/10) ROS Limited/Unobtainable: No Constitutional: Reports: no symptoms HEENT: Reports: no symptoms Cardiovascular: Reports: no symptoms Respiratory: Reports: cough, shortness of breath Gastrointestinal/Abdominal: Reports: no symptoms Genitourinary: Reports: no symptoms Neurologic/Psychiatric: Reports: no symptoms Subjective 71 YO M admitted with fever and shortness of breath. Tolerating nasal canula. Cover for Int Pool-Dr Olivarez. Objective Last Vital Signs Date Time Temp Pulse Resp B/P Pulse Ox O2 Delivery O2 Flow Rate FiO2 10/17/16 15:18 63 18 99 Nasal Cannula 5.0 40 10/17/16 12:00 95.5 139/96 Laboratory Tests Test 10/17/16 04:35 White Blood Count 21.2 K/UL (4.8-10.8) #H Red Blood Count 4.51 M/UL (4.70-6.10) L Hemoglobin 14.3 G/DL (14.2-18.0) Hematocrit 45.5 % (42.0-52.0) Mean Corpuscular Volume 101 FL (80-99) H Mean Corpuscular Hemoglobin 31.8 PG (27.0-31.0) H Mean Corpuscular Hemoglobin Concent 31.5 G/DL (32.0-36.0) L Red Cell Distribution Width 14.0 % (11.6-14.8) Platelet Count 187 K/UL (150-450) Mean Platelet Volume 8.4 FL (6.5-10.1) Neutrophils (%) (Auto) % (45.0-75.0) Lymphocytes (%) (Auto) % (20.0-45.0) Monocytes (%) (Auto) % (1.0-10.0) Eosinophils (%) (Auto) % (0.0-3.0) Basophils (%) (Auto) % (0.0-2.0) Differential Total Cells Counted 100 Neutrophils % (Manual) 85 % (45-75) H Lymphocytes % (Manual) 5 % (20-45) L Monocytes % (Manual) 9 % (1-10) Eosinophils % (Manual) 0 % (0-3) Basophils % (Manual) 0 % (0-2) Band Neutrophils 1 % (0-8) Platelet Estimate Adequate Platelet Morphology Normal Hypochromasia 1+ Anisocytosis 1+ Macrocytosis 1+ Prothrombin Time 13.4 SEC (9.30-11.50) H Prothromb Time International Ratio 1.3 (0.9-1.1) H Activated Partial Thromboplast Time 33 SEC (23-33) Sodium Level 142 mEQ/L (135-145) Potassium Level 4.5 mEQ/L (3.4-4.9) Chloride Level 101 mEQ/L (98-107) Carbon Dioxide Level 25 mEQ/L (20-30) Anion Gap 16 (5-15) H Blood Urea Nitrogen 47 mg/dL (7-23) H Creatinine 1.5 mg/dL (0.7-1.2) H Estimat Glomerular Filtration Rate mL/min (>60) Glucose Level 136 mg/dL (74-106) H Calcium Level 9.4 mg/dL (8.6-10.2) Phosphorus Level 3.0 mg/dL (2.5-4.8) Magnesium Level 2.2 mg/dL (1.7-2.5) Total Bilirubin 1.0 mg/dL (0.0-1.2) Aspartate Amino Transf (AST/SGOT) 69 U/L (5-40) H Alanine Aminotransferase (ALT/SGPT) 71 U/L (3-41) H Alkaline Phosphatase 143 U/L (40-129) H Total Protein 6.8 g/dL (6.6-8.7) Albumin 3.6 g/dL (3.5-5.2) Globulin 3.2 g/dL Albumin/Globulin Ratio 1.1 (1.0-2.7) Microbiology Date/Time Source Procedure Growth Status 10/14/16 16:50 Sputum Gram Stain - Final Resulted 10/14/16 16:50 Sputum Culture - Preliminary Streptococcus Pneumoniae Gram Negative Bacillus 2 Zonia Albicans Usual Upper Respiratory Dyan Resulted Intake and Output 10/16/16 10/17/16 19:00 07:00 Intake Total 1240 ml 300 ml Output Total 400 ml 3 ml Balance 840 ml 297 ml Intake Oral 1240 ml 300 ml Output Urine Total 400 ml 3 ml # Voids 3 # Bowel Movements 1 Objective General Appearance: WD/WN, alert, mild distress EENT: PERRL/EOMI, normal ENT inspection, TMs normal Neck: non-tender, normal alignment, supple Cardiovascular: normal peripheral pulses, normal rate, regular rhythm, no gallop/murmur, no JVD Respiratory/Chest: chest wall non-tender, respiratory distress, crackles/rales , rhonchi - bilaterally, expiratory wheezing Abdomen: normal bowel sounds, non tender, soft, no organomegaly, no mass Extremities: normal range of motion, non-tender 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 Cont IV solumedrol & duoneb (5) CHF exacerbation Assessment & Plan: See cardiology note. (6) CAD (coronary artery disease) (7) Cardiomyopathy (8) DVT, popliteal, acute Assessment & Plan: Continue coumadin per pharmacy protocol. Status: progressing SURINDER HELMS Oct 17, 2016 15:34
[2016-10-17] MEDS ORDERED: Warfarin Sodium 7.5mg ORAL SCH (17:00)
--- NOTE | 2016-10-17 18:23 | Cardiac Electrophysiology PN ---
Assessment/Plan Assessment/Plan 1. Shortness of breath with combination of CHF and COPD. Continue Lasix 40 mg po daily, lisinopril and Aldactone. Keep off beta-tamar for chronic obstructive pulmonary disease and active cocaine use.. 2. Recurrent ventricular tachycardia. On amiodarone 200 mg daily. 3. S/P [employer] defibrillator with normal function. 4. S/P CABG 5. Chronic obstructive pulmonary disease, on Solu-Medrol and albuterol. 6. Hep C 7. Acute popliteal DVT on Lovenox and Coumadin. INR 1.3 today. 8. Cocaine use. Urine Tox screen positive again for cocaine.Says ran out of Tylenol and used Cocaine for pain. DW RN Subjective Subjective Feeling better. No chest pain or SOB. Objective Last 24 Hour Vital Signs Date Time Temp Pulse Resp B/P Pulse Ox O2 Delivery O2 Flow Rate FiO2 10/17/16 17:38 68 16 98 Nasal Cannula 3.0 32 10/17/16 17:38 32 10/17/16 17:37 63 16 97 Nasal Cannula 3.0 32 10/17/16 16:00 98.2 102 18 130/88 100 Nasal Cannula 2.0 10/17/16 15:18 63 18 99 Nasal Cannula 5.0 40 10/17/16 15:13 40 10/17/16 15:12 48 18 98 Nasal Cannula 5.0 40 10/17/16 12:00 95.5 99 18 139/96 100 Nasal Cannula 2.0 10/17/16 10:46 36 10/17/16 10:46 81 16 97 Nasal Cannula 4.0 36 10/17/16 09:19 105/75 10/17/16 08:00 97.9 107 18 105/75 99 Room Air 10/17/16 07:23 Nasal Cannula 5.0 40 10/17/16 07:23 93 Nasal Cannula 5.0 40 10/17/16 07:00 120 20 93 Nasal Cannula 5.0 40 10/17/16 07:00 103 22 93 Nasal Cannula 5.0 40 10/17/16 05:48 97 20 100 Nasal Cannula 3.0 10/17/16 05:46 98 20 99 Nasal Cannula 3.0 10/17/16 04:00 96.8 79 18 131/79 100 Nasal Cannula 2.0 10/17/16 00:00 97.0 92 18 125/93 95 Nasal Cannula 2.0 10/16/16 23:52 85 18 99 Nasal Cannula 2.0 28 10/16/16 23:51 106 18 97 Nasal Cannula 2.0 28 10/16/16 20:38 97 Nasal Cannula 2.0 28 10/16/16 20:38 Nasal Cannula 2.0 28 10/16/16 19:48 97.2 105 22 144/93 97 Nasal Cannula 2.0 Intake and Output 10/16/16 10/17/16 19:00 07:00 Intake Total 1240 ml 300 ml Output Total 400 ml 3 ml Balance 840 ml 297 ml Intake Oral 1240 ml 300 ml Output Urine Total 400 ml 3 ml # Voids 3 # Bowel Movements 1 Laboratory Tests Test 10/17/16 04:35 White Blood Count 21.2 K/UL (4.8-10.8) #H Red Blood Count 4.51 M/UL (4.70-6.10) L Hemoglobin 14.3 G/DL (14.2-18.0) Hematocrit 45.5 % (42.0-52.0) Mean Corpuscular Volume 101 FL (80-99) H Mean Corpuscular Hemoglobin 31.8 PG (27.0-31.0) H Mean Corpuscular Hemoglobin Concent 31.5 G/DL (32.0-36.0) L Red Cell Distribution Width 14.0 % (11.6-14.8) Platelet Count 187 K/UL (150-450) Mean Platelet Volume 8.4 FL (6.5-10.1) Neutrophils (%) (Auto) % (45.0-75.0) Lymphocytes (%) (Auto) % (20.0-45.0) Monocytes (%) (Auto) % (1.0-10.0) Eosinophils (%) (Auto) % (0.0-3.0) Basophils (%) (Auto) % (0.0-2.0) Differential Total Cells Counted 100 Neutrophils % (Manual) 85 % (45-75) H Lymphocytes % (Manual) 5 % (20-45) L Monocytes % (Manual) 9 % (1-10) Eosinophils % (Manual) 0 % (0-3) Basophils % (Manual) 0 % (0-2) Band Neutrophils 1 % (0-8) Platelet Estimate Adequate Platelet Morphology Normal Hypochromasia 1+ Anisocytosis 1+ Macrocytosis 1+ Prothrombin Time 13.4 SEC (9.30-11.50) H Prothromb Time International Ratio 1.3 (0.9-1.1) H Activated Partial Thromboplast Time 33 SEC (23-33) Sodium Level 142 mEQ/L (135-145) Potassium Level 4.5 mEQ/L (3.4-4.9) Chloride Level 101 mEQ/L (98-107) Carbon Dioxide Level 25 mEQ/L (20-30) Anion Gap 16 (5-15) H Blood Urea Nitrogen 47 mg/dL (7-23) H Creatinine 1.5 mg/dL (0.7-1.2) H Estimat Glomerular Filtration Rate mL/min (>60) Glucose Level 136 mg/dL (74-106) H Calcium Level 9.4 mg/dL (8.6-10.2) Phosphorus Level 3.0 mg/dL (2.5-4.8) Magnesium Level 2.2 mg/dL (1.7-2.5) Total Bilirubin 1.0 mg/dL (0.0-1.2) Aspartate Amino Transf (AST/SGOT) 69 U/L (5-40) H Alanine Aminotransferase (ALT/SGPT) 71 U/L (3-41) H Alkaline Phosphatase 143 U/L (40-129) H Total Protein 6.8 g/dL (6.6-8.7) Albumin 3.6 g/dL (3.5-5.2) Globulin 3.2 g/dL Albumin/Globulin Ratio 1.1 (1.0-2.7) Objective HEAD AND NECK: mild JVD. LUNGS: Clear CARDIOVASCULAR: Regular S1 and S2 with no murmur.ICD left subclavian. Sternotomy scar healed. ABDOMEN: Soft and nontender. EXTREMITIES: 1+ pitting edema. BRYAN BOYD Oct 17, 2016 18:23
--- NOTE | 2016-10-17 21:47 | Pulmonology Progress Note ---
Assessment/Plan Problems: (1) COPD exacerbation (2) Respiratory failure (3) Cardiomyopathy (4) CAD (coronary artery disease) (5) History of CVA (cerebrovascular accident) (6) HTN (hypertension) Assessment/Plan improving titrate fio2 to sat of 92% chest pt decrease steroids to 40 qd decrease lasix to qd because of rising bun med/surg repeat labs in am. Subjective ROS Limited/Unobtainable: No Respiratory: Reports: dyspnea on exertion, productive cough, shortness of breath, wheezing Neurologic: Reports: confusion, weakness Allergies: Coded Allergies: No Known Allergies (Verified , 06/28/10) Objective Last 24 Hour Vital Signs Date Time Temp Pulse Resp B/P Pulse Ox O2 Delivery O2 Flow Rate FiO2 10/17/16 19:53 Nasal Cannula 5.0 40 10/17/16 19:53 100 Nasal Cannula 5.0 40 10/17/16 17:38 68 16 98 Nasal Cannula 3.0 32 10/17/16 17:38 32 10/17/16 17:37 63 16 97 Nasal Cannula 3.0 32 10/17/16 16:00 98.2 102 18 130/88 100 Nasal Cannula 2.0 10/17/16 15:18 63 18 99 Nasal Cannula 5.0 40 10/17/16 15:13 40 10/17/16 15:12 48 18 98 Nasal Cannula 5.0 40 10/17/16 12:00 95.5 99 18 139/96 100 Nasal Cannula 2.0 10/17/16 10:46 36 10/17/16 10:46 81 16 97 Nasal Cannula 4.0 36 10/17/16 09:19 105/75 10/17/16 08:00 97.9 107 18 105/75 99 Room Air 10/17/16 07:23 Nasal Cannula 5.0 40 10/17/16 07:23 93 Nasal Cannula 5.0 40 10/17/16 07:00 120 20 93 Nasal Cannula 5.0 40 10/17/16 07:00 103 22 93 Nasal Cannula 5.0 40 10/17/16 05:48 97 20 100 Nasal Cannula 3.0 10/17/16 05:46 98 20 99 Nasal Cannula 3.0 10/17/16 04:00 96.8 79 18 131/79 100 Nasal Cannula 2.0 10/17/16 00:00 97.0 92 18 125/93 95 Nasal Cannula 2.0 10/16/16 23:52 85 18 99 Nasal Cannula 2.0 28 10/16/16 23:51 106 18 97 Nasal Cannula 2.0 28 Intake and Output 10/16/16 10/17/16 19:00 07:00 Intake Total 1240 ml 300 ml Output Total 400 ml 3 ml Balance 840 ml 297 ml Intake Oral 1240 ml 300 ml Output Urine Total 400 ml 3 ml # Voids 3 # Bowel Movements 1 General Appearance: no acute distress HEENT: normocephalic, atraumatic, PERRL Respiratory/Chest: chest wall non-tender, decreased breath sounds, accessory muscle use, crackles/rales, rhonchi, expiratory wheezing Cardiovascular: normal peripheral pulses, normal rate, regular rhythm, no JVD Abdomen: normal bowel sounds, soft, non tender, no organomegaly Genitourinary: normal external genitalia Extremities: no cyanosis, no clubbing Skin: no rash, no lesions Neurologic/Psychiatric: responsive, abnormal CN, disoriented Laboratory Tests 10/17/16 04:35: White Blood Count 21.2#H, Red Blood Count 4.51L, Hemoglobin 14.3, Hematocrit 45.5, Mean Corpuscular Volume 101H, Mean Corpuscular Hemoglobin 31.8H, Mean Corpuscular Hemoglobin Concent 31.5L, Red Cell Distribution Width 14.0, Platelet Count 187, Mean Platelet Volume 8.4, Neutrophils (%) (Auto) , Lymphocytes (%) (Auto) , Monocytes (%) (Auto) , Eosinophils (%) (Auto) , Basophils (%) (Auto) , Differential Total Cells Counted 100, Neutrophils % ( Manual) 85H, Lymphocytes % (Manual) 5L, Monocytes % (Manual) 9, Eosinophils % ( Manual) 0, Basophils % (Manual) 0, Band Neutrophils 1, Platelet Estimate Adequate, Platelet Morphology Normal, Hypochromasia 1+, Anisocytosis 1+, Macrocytosis 1+, Prothrombin Time 13.4H, Prothromb Time International Ratio 1.3H , Activated Partial Thromboplast Time 33, Sodium Level 142, Potassium Level 4.5 , Chloride Level 101, Carbon Dioxide Level 25, Anion Gap 16H, Blood Urea Nitrogen 47H, Creatinine 1.5H, Estimat Glomerular Filtration Rate , Glucose Level 136H, Calcium Level 9.4, Phosphorus Level 3.0, Magnesium Level 2.2, Total Bilirubin 1.0, Aspartate Amino Transf (AST/SGOT) 69H, Alanine Aminotransferase ( ALT/SGPT) 71H, Alkaline Phosphatase 143H, Total Protein 6.8, Albumin 3.6, Globulin 3.2, Albumin/Globulin Ratio 1.1 Current Medications Medications (Trade) Dose Ordered Sig/Elsa Route PRN Reason Start Time Stop Time Status Last Admin Dose Admin Albuterol/ Ipratropium (DuoNeb 0.5-3(2.5)mg/3ml) 3 ml Q4H PRN HHN Shortness of Breath 10/16/16 14:45 10/21/16 14:44 10/17/16 17:36 Albuterol/ Ipratropium (DuoNeb 0.5-3(2.5)mg/3ml) 3 ml Q8HRT HHN 10/16/16 15:00 10/21/16 14:59 10/17/16 15:12 Dextrose (Dextrose 50%) STAT PRN IV Hypoglycemia 10/16/16 15:00 11/15/16 14:59 Enoxaparin Sodium (Lovenox) 70 mg Q12HR SUBQ 10/16/16 21:00 11/15/16 20:59 10/17/16 20:55 Furosemide (Lasix) 40 mg DAILY ORAL 10/17/16 09:00 11/16/16 08:59 10/17/16 09:19 Insulin Aspart (NovoLOG) AC+HS SUBQ 10/16/16 16:30 11/15/16 16:29 10/17/16 20:52 Lisinopril (Zestril) 10 mg DAILY ORAL 10/17/16 09:00 11/16/16 08:59 10/17/16 09:19 Methylprednisolone Sodium Succinate (Solu-MEDROL) 40 mg DAILY IVP 10/17/16 09:00 11/16/16 08:59 10/17/16 09:20 Promethazine HCl/ Codeine (Phenergan with Codeine) 5 ml Q4H PRN ORAL For Cough 10/16/16 15:00 11/15/16 14:59 10/16/16 20:38 Spironolactone (Aldactone) 25 mg DAILY ORAL 10/17/16 09:00 11/16/16 08:59 10/17/16 09:19 Warfarin Sodium (Coumadin per pharmacy) 1 ea DAILY PRN MISC Per rx protocol 10/16/16 15:00 11/15/16 14:59 MURRAY NELSON Oct 17, 2016 21:47
[2016-10-18] VITALS: BP 127/79
[2016-10-18] MEDS: DuoNeb 0.5-3(2.5)mg/3ml neb HHN PRN ×2 (02:21→21:30)
[2016-10-18 04:00] VITALS: BP 126/66
[2016-10-18] MEDS: NovoLOG Insulin Flexpen SUBQ SCH ×4 (06:21→20:28)
[2016-10-18] MEDS: DuoNeb 0.5-3(2.5)mg/3ml neb HHN SCH ×2 (07:35→11:51)
[2016-10-18 08:00] VITALS: BP 135/80
[2016-10-18] MEDS: Spironolactone 25mg tab ORAL SCH (09:35)
[2016-10-18] MEDS: Lisinopril 10mg tab ORAL SCH (09:35)
[2016-10-18] MEDS: Furosemide 40mg tab ORAL SCH (09:36)
[2016-10-18] MEDS: Enoxaparin Sodium 300mg/3ml vial SUBQ SCH ×2 (09:37→20:27)
[2016-10-18] MEDS: Promethazine/Codeine 5ml UD ORAL PRN (09:43)
[2016-10-18] MEDS: PredniSONE 20mg tab ORAL SCH (10:08)
[2016-10-18 12:00] VITALS: BP 136/79
--- NOTE | 2016-10-18 13:57 | Internal Med Progress Note ---
Subjective Date of Service: Oct 18, 2016 Physician Name Royce Helms Attending Physician Barrett Olivarez MD Current Medications Medications (Trade) Dose Ordered Sig/Elsa Route PRN Reason Start Time Stop Time Status Last Admin Dose Admin Albuterol/ Ipratropium (DuoNeb 0.5-3(2.5)mg/3ml) 3 ml Q4H PRN HHN Shortness of Breath 10/16/16 14:45 10/21/16 14:44 10/18/16 02:21 Albuterol/ Ipratropium (DuoNeb 0.5-3(2.5)mg/3ml) 3 ml Q8HRT HHN 10/16/16 15:00 10/21/16 14:59 10/18/16 11:51 Dextrose (Dextrose 50%) STAT PRN IV Hypoglycemia 10/16/16 15:00 11/15/16 14:59 Enoxaparin Sodium (Lovenox) 70 mg Q12HR SUBQ 10/16/16 21:00 11/15/16 20:59 10/18/16 09:37 Furosemide (Lasix) 40 mg DAILY ORAL 10/17/16 09:00 11/16/16 08:59 10/18/16 09:36 Insulin Aspart (NovoLOG) AC+HS SUBQ 10/16/16 16:30 11/15/16 16:29 10/18/16 12:56 Lisinopril (Zestril) 10 mg DAILY ORAL 10/17/16 09:00 11/16/16 08:59 10/18/16 09:35 Prednisone (predniSONE) 40 mg DAILY ORAL 10/18/16 10:00 11/17/16 09:59 10/18/16 10:08 Promethazine HCl/ Codeine (Phenergan with Codeine) 5 ml Q4H PRN ORAL For Cough 10/16/16 15:00 11/15/16 14:59 10/18/16 09:43 Spironolactone (Aldactone) 25 mg DAILY ORAL 10/17/16 09:00 11/16/16 08:59 10/18/16 09:35 Warfarin Sodium (Coumadin per pharmacy) 1 ea DAILY PRN MISC Per rx protocol 10/16/16 15:00 11/15/16 14:59 Warfarin Sodium (Coumadin) 7.5 mg COUMADIN ORAL 10/18/16 17:00 10/18/16 17:01 Allergies: Coded Allergies: No Known Allergies (Verified , 06/28/10) ROS Limited/Unobtainable: No Constitutional: Reports: chills, fever HEENT: Reports: no symptoms Cardiovascular: Reports: no symptoms Respiratory: Reports: cough, shortness of breath Gastrointestinal/Abdominal: Reports: no symptoms Genitourinary: Reports: no symptoms Neurologic/Psychiatric: Reports: no symptoms Subjective 71 YO M admitted with fever and shortness of breath. Tolerating nasal canula. Worsening leukocytosis. Cover for Int Med-Dr Olivarez. Objective Last Vital Signs Date Time Temp Pulse Resp B/P Pulse Ox O2 Delivery O2 Flow Rate FiO2 10/18/16 12:00 96.6 100 20 136/79 100 Nasal Cannula 2.0 10/18/16 11:57 28 Intake and Output 10/17/16 10/18/16 19:00 07:00 Intake Total 960 ml 120 ml Output Total 700 ml 580 ml Balance 260 ml -460 ml Intake Oral 960 ml 120 ml Output Urine Total 700 ml 580 ml # Bowel Movements 1 Objective General Appearance: WD/WN, alert, mild distress EENT: PERRL/EOMI, normal ENT inspection, TMs normal Neck: non-tender, normal alignment, supple Cardiovascular: normal peripheral pulses, normal rate, regular rhythm, no gallop/murmur, no JVD Respiratory/Chest: chest wall non-tender, respiratory distress, crackles/rales , rhonchi - bilaterally, expiratory wheezing Abdomen: normal bowel sounds, non tender, soft, no organomegaly, no mass Extremities: normal range of motion, non-tender 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 Cont IV solumedrol & duoneb (5) CHF exacerbation Assessment & Plan: See cardiology note. (6) CAD (coronary artery disease) (7) Cardiomyopathy (8) DVT, popliteal, acute Assessment & Plan: Continue coumadin per pharmacy protocol. (9) Leukocytosis Assessment & Plan: Stat CXR. Start levaquin IV. ID consult. Status: not improved ROYCE HELMS Oct 18, 2016 13:57
[2016-10-18 16:29] VITALS: BP 117/70
[2016-10-18] MEDS ORDERED: Warfarin Sodium 7.5mg ORAL SCH (17:00)
[2016-10-18 20:26] VITALS: BP 120/70
--- NOTE | 2016-10-18 23:09 | Pulmonology Progress Note ---
Assessment/Plan Problems: (1) COPD exacerbation (2) Respiratory failure (3) Cardiomyopathy (4) CAD (coronary artery disease) (5) History of CVA (cerebrovascular accident) (6) HTN (hypertension) Assessment/Plan improving titrate fio2 to sat of 92% chest pt decrease steroids to 40 qd decrease lasix to qd because of rising bun med/surg repeat labs in am. Subjective ROS Limited/Unobtainable: No Respiratory: Reports: dyspnea at rest, dyspnea on exertion, productive cough, shortness of breath, wheezing Neurologic: Reports: confusion, weakness Allergies: Coded Allergies: No Known Allergies (Verified , 06/28/10) Objective Last 24 Hour Vital Signs Date Time Temp Pulse Resp B/P Pulse Ox O2 Delivery O2 Flow Rate FiO2 10/18/16 21:36 85 20 99 Nasal Cannula 3.0 32 10/18/16 21:28 83 23 98 Nasal Cannula 3.0 32 10/18/16 21:28 32 10/18/16 20:26 97.3 93 19 120/70 98 Nasal Cannula 3.0 10/18/16 20:06 Nasal Cannula 2.0 10/18/16 20:06 99 Nasal Cannula 2.0 28 10/18/16 16:29 96.6 92 20 117/70 99 Nasal Cannula 3.0 10/18/16 15:55 Nasal Cannula 10/18/16 15:55 Nasal Cannula 10/18/16 12:00 96.6 100 20 136/79 100 Nasal Cannula 2.0 10/18/16 11:57 103 24 100 Nasal Cannula 2.0 10/18/16 11:46 28 10/18/16 11:46 101 22 100 Nasal Cannula 2.0 10/18/16 09:35 135/80 10/18/16 08:00 98.4 94 20 135/80 98 Nasal Cannula 2.0 10/18/16 07:53 Nasal Cannula 2.0 10/18/16 07:52 100 20 100 Nasal Cannula 2.0 10/18/16 07:42 28 10/18/16 07:42 99 22 100 Nasal Cannula 2.0 10/18/16 07:40 100 Nasal Cannula 2.0 28 10/18/16 04:00 97.9 99 22 126/66 99 Nasal Cannula 3.0 10/18/16 02:24 32 10/18/16 02:23 74 22 98 Nasal Cannula 3.0 32 10/18/16 00:00 97.5 96 20 127/79 99 Nasal Cannula 3.0 Intake and Output 10/17/16 10/18/16 19:00 07:00 Intake Total 960 ml 120 ml Output Total 700 ml 580 ml Balance 260 ml -460 ml Intake Oral 960 ml 120 ml Output Urine Total 700 ml 580 ml # Bowel Movements 1 General Appearance: no acute distress HEENT: normocephalic, atraumatic, PERRL Respiratory/Chest: chest wall non-tender, decreased breath sounds, accessory muscle use, rhonchi Cardiovascular: normal peripheral pulses, normal rate, regular rhythm, no JVD Abdomen: normal bowel sounds, soft, non tender, no organomegaly Genitourinary: normal external genitalia Extremities: no cyanosis Skin: lesions Neurologic/Psychiatric: responsive, abnormal CN, motor weakness, disoriented Current Medications Medications (Trade) Dose Ordered Sig/Elsa Route PRN Reason Start Time Stop Time Status Last Admin Dose Admin Albuterol/ Ipratropium (DuoNeb 0.5-3(2.5)mg/3ml) 3 ml Q4H PRN HHN Shortness of Breath 10/16/16 14:45 10/21/16 14:44 10/18/16 21:30 Albuterol/ Ipratropium (DuoNeb 0.5-3(2.5)mg/3ml) 3 ml Q8HRT HHN 10/16/16 15:00 10/21/16 14:59 10/18/16 11:51 Dextrose (Dextrose 50%) STAT PRN IV Hypoglycemia 10/16/16 15:00 11/15/16 14:59 Enoxaparin Sodium (Lovenox) 70 mg Q12HR SUBQ 10/16/16 21:00 11/15/16 20:59 10/18/16 20:27 Furosemide (Lasix) 40 mg DAILY ORAL 10/17/16 09:00 11/16/16 08:59 10/18/16 09:36 Insulin Aspart (NovoLOG) AC+HS SUBQ 10/16/16 16:30 11/15/16 16:29 10/18/16 20:28 Levofloxacin (Levaquin) 100 ml @ 100 mls/hr Q24H IVPB 10/18/16 15:00 10/25/16 14:59 10/18/16 16:07 Lisinopril (Zestril) 10 mg DAILY ORAL 10/17/16 09:00 11/16/16 08:59 10/18/16 09:35 Prednisone 40 mg 40 mg DAILY ORAL 10/18/16 10:00 11/17/16 09:59 10/18/16 10:08 Promethazine HCl/ Codeine (Phenergan with Codeine) 5 ml Q4H PRN ORAL For Cough 10/16/16 15:00 11/15/16 14:59 10/18/16 09:43 Spironolactone (Aldactone) 25 mg DAILY ORAL 10/17/16 09:00 11/16/16 08:59 10/18/16 09:35 Warfarin Sodium (Coumadin per pharmacy) 1 ea DAILY PRN MISC Per rx protocol 10/16/16 15:00 11/15/16 14:59 MURRAY NELSON Oct 18, 2016 23:09
[2016-10-19] VITALS: BP 134/64
[2016-10-19] MEDS: DuoNeb 0.5-3(2.5)mg/3ml neb HHN SCH ×4 (00:05→23:14)
[2016-10-19 03:53] VITALS: BP 124/70
[2016-10-19] MEDS: NovoLOG Insulin Flexpen SUBQ SCH ×4 (06:30→20:58)
[2016-10-19 07:26] LABS: BASOPHILS % (AUTO) 0.7 % (0.0-2.0); EOSINOPHILS % (AUTO) 0.2 % (0.0-3.0); LYMPHOCYTES % (AUTO) 12.6 % (20.0-45.0); MEAN CORPUSCULAR HGB CONC 31.5 G/DL (32.0-36.0); MEAN CORPUSCULAR VOLUME 102 FL (80-99); MEAN PLATELET VOLUME 9.3 FL (6.5-10.1); MONOCYTES % (AUTO) 5.3 % (1.0-10.0); NEUTROPHILS % (AUTO) 81.3 % (45.0-75.0); PLATELET COUNT 161 K/UL (150-450); RED BLOOD COUNT 4.67 M/UL (4.70-6.10); RED CELL DISTRIBUTION WIDTH 14.2 % (11.6-14.8); WHITE BLOOD COUNT 14.2 K/UL (4.8-10.8)
[2016-10-19 08:00] VITALS: BP 123/87
[2016-10-19 08:09] LABS: ANION GAP 16 (5-15); CALCIUM 9.4 mg/dL (8.6-10.2); CARBON DIOXIDE 25 mEQ/L (20-30); CHLORIDE 102 mEQ/L (98-107); CREATININE 1.2 mg/dL (0.7-1.2); HEMOLYSIS 11; POTASSIUM 5.3 mEQ/L (3.4-4.9); SODIUM 143 mEQ/L (135-145)
[2016-10-19 08:28] LABS: INR 3.2 (0.9-1.1); PROTHROMBIN TIME 34.1 SEC (9.30-11.50)
[2016-10-19] MEDS: Furosemide 40mg tab ORAL SCH (09:37)
[2016-10-19] MEDS: Spironolactone 25mg tab ORAL SCH (09:37)
[2016-10-19] MEDS: PredniSONE 20mg tab ORAL SCH (09:37)
[2016-10-19] MEDS: Lisinopril 10mg tab ORAL SCH (09:37)
[2016-10-19] MEDS: Promethazine/Codeine 5ml UD ORAL PRN ×2 (09:38→18:15)
[2016-10-19] MEDS: Enoxaparin Sodium 300mg/3ml vial SUBQ SCH (09:51)
--- NOTE | 2016-10-19 10:10 | Diagnostic Imaging Report ---
Indication: COUGH Technique: One view of the chest Comparison: 10/14/2016 Findings: Interim development of a right-sided pleural effusion. There is some parenchymal opacity of the right lung base, as well. Left chest AICD is again demonstrated. Heart is enlarged. Left lung and pleural space are clear. Impression: Basilar pleural fluid and parenchymal consolidation, new since 10/14/2016 Other findings as noted This agrees with the preliminary interpretation provided overnight by Dr. Mast
[2016-10-19 12:00] VITALS: BP 122/97
--- NOTE | 2016-10-19 12:46 | Internal Med Progress Note ---
Subjective Date of Service: Oct 19, 2016 Physician Name Surinder Helms Attending Physician Barrett Olivarez MD Current Medications Medications (Trade) Dose Ordered Sig/Elsa Route PRN Reason Start Time Stop Time Status Last Admin Dose Admin Albuterol/ Ipratropium (DuoNeb 0.5-3(2.5)mg/3ml) 3 ml Q4H PRN HHN Shortness of Breath 10/16/16 14:45 10/21/16 14:44 10/18/16 21:30 Albuterol/ Ipratropium (DuoNeb 0.5-3(2.5)mg/3ml) 3 ml Q8HRT HHN 10/16/16 15:00 10/21/16 14:59 10/19/16 08:09 Dextrose (Dextrose 50%) STAT PRN IV Hypoglycemia 10/16/16 15:00 11/15/16 14:59 Enoxaparin Sodium (Lovenox) 70 mg Q12HR SUBQ 10/16/16 21:00 11/15/16 20:59 10/19/16 09:51 Furosemide (Lasix) 40 mg DAILY ORAL 10/17/16 09:00 11/16/16 08:59 10/19/16 09:37 Insulin Aspart (NovoLOG) AC+HS SUBQ 10/16/16 16:30 11/15/16 16:29 10/18/16 20:28 Levofloxacin (Levaquin) 100 ml @ 100 mls/hr Q24H IVPB 10/18/16 15:00 10/25/16 14:59 10/18/16 16:07 Lisinopril (Zestril) 10 mg DAILY ORAL 10/17/16 09:00 11/16/16 08:59 10/19/16 09:37 Prednisone 40 mg 40 mg DAILY ORAL 10/18/16 10:00 11/17/16 09:59 10/19/16 09:37 Promethazine HCl/ Codeine (Phenergan with Codeine) 5 ml Q4H PRN ORAL For Cough 10/16/16 15:00 11/15/16 14:59 10/19/16 09:38 Spironolactone (Aldactone) 25 mg DAILY ORAL 10/17/16 09:00 11/16/16 08:59 10/19/16 09:37 Warfarin Sodium (Coumadin per pharmacy) 1 ea DAILY PRN MISC Per rx protocol 10/16/16 15:00 11/15/16 14:59 Allergies: Coded Allergies: No Known Allergies (Verified , 06/28/10) ROS Limited/Unobtainable: No Constitutional: Reports: no symptoms HEENT: Reports: no symptoms Cardiovascular: Reports: no symptoms Respiratory: Reports: cough, shortness of breath Gastrointestinal/Abdominal: Reports: no symptoms Genitourinary: Reports: no symptoms Neurologic/Psychiatric: Reports: no symptoms Subjective 71 YO M admitted with fever and shortness of breath. Tolerating nasal canula. Worsening leukocytosis. Cover for Int Pool-Dr Olivarez. Objective Last Vital Signs Date Time Temp Pulse Resp B/P Pulse Ox O2 Delivery O2 Flow Rate FiO2 10/19/16 09:37 124/70 10/19/16 08:00 100 22 Nasal Cannula 3.0 34 10/19/16 08:00 97.4 10/19/16 07:29 99 Laboratory Tests Test 10/19/16 05:45 White Blood Count 14.2 K/UL (4.8-10.8) H Red Blood Count 4.67 M/UL (4.70-6.10) L Hemoglobin 15.0 G/DL (14.2-18.0) Hematocrit 47.5 % (42.0-52.0) Mean Corpuscular Volume 102 FL (80-99) H Mean Corpuscular Hemoglobin 32.0 PG (27.0-31.0) H Mean Corpuscular Hemoglobin Concent 31.5 G/DL (32.0-36.0) L Red Cell Distribution Width 14.2 % (11.6-14.8) Platelet Count 161 K/UL (150-450) Mean Platelet Volume 9.3 FL (6.5-10.1) Neutrophils (%) (Auto) 81.3 % (45.0-75.0) H Lymphocytes (%) (Auto) 12.6 % (20.0-45.0) L Monocytes (%) (Auto) 5.3 % (1.0-10.0) Eosinophils (%) (Auto) 0.2 % (0.0-3.0) Basophils (%) (Auto) 0.7 % (0.0-2.0) Prothrombin Time 34.1 SEC (9.30-11.50) H Prothromb Time International Ratio 3.2 (0.9-1.1) H Sodium Level 143 mEQ/L (135-145) Potassium Level 5.3 mEQ/L (3.4-4.9) H Chloride Level 102 mEQ/L (98-107) Carbon Dioxide Level 25 mEQ/L (20-30) Anion Gap 16 (5-15) H Blood Urea Nitrogen 37 mg/dL (7-23) H Creatinine 1.2 mg/dL (0.7-1.2) Estimat Glomerular Filtration Rate mL/min (>60) Glucose Level 117 mg/dL (74-106) H Calcium Level 9.4 mg/dL (8.6-10.2) Intake and Output 10/18/16 10/19/16 19:00 07:00 Intake Total 820 ml 600 ml Output Total 900 ml 700 ml Balance -80 ml -100 ml Intake Oral 720 ml 600 ml IV Total 100 ml Output Urine Total 900 ml 700 ml Objective General Appearance: WD/WN, alert, mild distress EENT: PERRL/EOMI, normal ENT inspection, TMs normal Neck: non-tender, normal alignment, supple Cardiovascular: normal peripheral pulses, normal rate, regular rhythm, no gallop/murmur, no JVD Respiratory/Chest: chest wall non-tender, respiratory distress, crackles/rales , rhonchi - bilaterally, expiratory wheezing Abdomen: normal bowel sounds, non tender, soft, no organomegaly, no mass Extremities: normal range of motion, non-tender 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 Cont IV solumedrol & duoneb (5) CHF exacerbation Assessment & Plan: See cardiology note. (6) CAD (coronary artery disease) (7) Cardiomyopathy (8) DVT, popliteal, acute Assessment & Plan: Continue coumadin per pharmacy protocol. (9) Leukocytosis Assessment & Plan: Stat CXR. Start levaquin IV. ID consult. (10) Pneumonia Assessment & Plan: RLL. Cont levaquin. See pulmonary note. Status: progressing SURINDER HELMS Oct 19, 2016 12:46
--- NOTE | 2016-10-19 15:32 | Cardiac Electrophysiology PN ---
Assessment/Plan Assessment/Plan 1. Shortness of breath with combination of CHF and COPD. Continue Lasix 40 mg po daily, lisinopril and Aldactone. Off beta-tamar for chronic obstructive pulmonary disease and active cocaine use.. 2. Recurrent ventricular tachycardia. On amiodarone 200 mg daily. 3. S/P [employer] defibrillator with normal function. 4. S/P CABG 5. Chronic obstructive pulmonary disease, on Solu-Medrol and albuterol. 6. Hep C 7. Acute popliteal DVT on Lovenox and Coumadin. INR 3.2 today.DC Lovenox. 8. Cocaine use. Urine Tox screen positive again for cocaine. DW RN Subjective Subjective Feeling better. No chest pain or SOB.Getting nebulizer treatment.Off tele. Objective Last 24 Hour Vital Signs Date Time Temp Pulse Resp B/P Pulse Ox O2 Delivery O2 Flow Rate FiO2 10/19/16 15:00 78 20 95 Nasal Cannula 2.0 10/19/16 15:00 78 20 99 Nasal Cannula 2.0 10/19/16 12:00 97.0 96 22 122/97 99 Nasal Cannula 2.0 10/19/16 09:37 124/70 10/19/16 08:00 100 22 Nasal Cannula 3.0 34 10/19/16 08:00 97.4 100 123/87 10/19/16 07:29 98 20 99 Nasal Cannula 2.0 10/19/16 07:29 100 20 100 Nasal Cannula 2.0 10/19/16 07:29 Nasal Cannula 2.0 28 10/19/16 07:29 99 Nasal Cannula 2.0 28 10/19/16 03:53 97.4 104 22 124/70 99 Nasal Cannula 3.0 10/19/16 00:00 101 22 100 Nasal Cannula 2.0 10/19/16 00:00 96.8 101 22 134/64 99 Nasal Cannula 10/18/16 23:49 101 20 100 Nasal Cannula 2.0 10/18/16 21:36 85 20 99 Nasal Cannula 3.0 32 10/18/16 21:28 83 23 98 Nasal Cannula 3.0 32 10/18/16 21:28 32 10/18/16 20:26 97.3 93 19 120/70 98 Nasal Cannula 3.0 10/18/16 20:06 Nasal Cannula 2.0 28 10/18/16 20:06 99 Nasal Cannula 2.0 28 10/18/16 16:29 96.6 92 20 117/70 99 Nasal Cannula 3.0 10/18/16 15:55 Nasal Cannula 10/18/16 15:55 Nasal Cannula Intake and Output 10/18/16 10/19/16 19:00 07:00 Intake Total 820 ml 600 ml Output Total 900 ml 700 ml Balance -80 ml -100 ml Intake Oral 720 ml 600 ml IV Total 100 ml Output Urine Total 900 ml 700 ml Laboratory Tests Test 10/19/16 05:45 White Blood Count 14.2 K/UL (4.8-10.8) H Red Blood Count 4.67 M/UL (4.70-6.10) L Hemoglobin 15.0 G/DL (14.2-18.0) Hematocrit 47.5 % (42.0-52.0) Mean Corpuscular Volume 102 FL (80-99) H Mean Corpuscular Hemoglobin 32.0 PG (27.0-31.0) H Mean Corpuscular Hemoglobin Concent 31.5 G/DL (32.0-36.0) L Red Cell Distribution Width 14.2 % (11.6-14.8) Platelet Count 161 K/UL (150-450) Mean Platelet Volume 9.3 FL (6.5-10.1) Neutrophils (%) (Auto) 81.3 % (45.0-75.0) H Lymphocytes (%) (Auto) 12.6 % (20.0-45.0) L Monocytes (%) (Auto) 5.3 % (1.0-10.0) Eosinophils (%) (Auto) 0.2 % (0.0-3.0) Basophils (%) (Auto) 0.7 % (0.0-2.0) Prothrombin Time 34.1 SEC (9.30-11.50) H Prothromb Time International Ratio 3.2 (0.9-1.1) H Sodium Level 143 mEQ/L (135-145) Potassium Level 5.3 mEQ/L (3.4-4.9) H Chloride Level 102 mEQ/L (98-107) Carbon Dioxide Level 25 mEQ/L (20-30) Anion Gap 16 (5-15) H Blood Urea Nitrogen 37 mg/dL (7-23) H Creatinine 1.2 mg/dL (0.7-1.2) Estimat Glomerular Filtration Rate mL/min (>60) Glucose Level 117 mg/dL (74-106) H Calcium Level 9.4 mg/dL (8.6-10.2) Objective HEAD AND NECK: mild JVD. LUNGS: Clear CARDIOVASCULAR: Regular S1 and S2 with no murmur.ICD left subclavian. Sternotomy scar healed. ABDOMEN: Soft and nontender. EXTREMITIES: 1+ pitting edema. BRYAN BOYD Oct 19, 2016 15:32
[2016-10-19 16:00] VITALS: BP 122/94
[2016-10-19] MEDS: DuoNeb 0.5-3(2.5)mg/3ml neb HHN PRN (19:56)
[2016-10-19 20:00] VITALS: BP 132/99
--- NOTE | 2016-10-19 23:41 | Pulmonology Progress Note ---
Assessment/Plan Problems: (1) COPD exacerbation (2) Respiratory failure (3) Cardiomyopathy (4) CAD (coronary artery disease) (5) History of CVA (cerebrovascular accident) (6) HTN (hypertension) Assessment/Plan improving titrate fio2 to sat of 92% chest pt decrease steroids to 40 qd decrease lasix to qd because of rising bun med/surg repeat labs in am. Subjective ROS Limited/Unobtainable: Yes Respiratory: Reports: dyspnea on exertion, productive cough, shortness of breath, sputum, wheezing Neurologic: Reports: confusion, weakness Allergies: Coded Allergies: No Known Allergies (Verified , 06/28/10) Objective Last 24 Hour Vital Signs Date Time Temp Pulse Resp B/P Pulse Ox O2 Delivery O2 Flow Rate FiO2 10/19/16 23:25 82 20 98 Nasal Cannula 2.0 10/19/16 23:15 72 20 96 Nasal Cannula 2.0 10/19/16 20:10 83 16 100 Nasal Cannula 3.0 32 10/19/16 20:00 97.0 98 20 132/99 94 Nasal Cannula 2.0 10/19/16 19:58 79 20 98 Nasal Cannula 3.0 32 10/19/16 19:58 32 10/19/16 19:09 Nasal Cannula 2.0 28 10/19/16 19:08 99 Nasal Cannula 2.0 28 10/19/16 16:00 94 22 122/94 97 Nasal Cannula 10/19/16 15:00 78 20 95 Nasal Cannula 2.0 10/19/16 15:00 78 20 99 Nasal Cannula 2.0 10/19/16 12:00 97.0 96 22 122/97 99 Nasal Cannula 2.0 10/19/16 09:37 124/70 10/19/16 08:00 100 22 Nasal Cannula 3.0 34 10/19/16 08:00 97.4 100 123/87 10/19/16 07:29 98 20 99 Nasal Cannula 2.0 10/19/16 07:29 100 20 100 Nasal Cannula 2.0 10/19/16 07:29 Nasal Cannula 2.0 28 10/19/16 07:29 99 Nasal Cannula 2.0 28 10/19/16 03:53 97.4 104 22 124/70 99 Nasal Cannula 3.0 10/19/16 00:00 101 22 100 Nasal Cannula 2.0 10/19/16 00:00 96.8 101 22 134/64 99 Nasal Cannula 10/18/16 23:49 101 20 100 Nasal Cannula 2.0 Intake and Output 10/18/16 10/19/16 19:00 07:00 Intake Total 820 ml 600 ml Output Total 900 ml 700 ml Balance -80 ml -100 ml Intake Oral 720 ml 600 ml IV Total 100 ml Output Urine Total 900 ml 700 ml General Appearance: no acute distress HEENT: normocephalic, atraumatic, PERRL Respiratory/Chest: chest wall non-tender, decreased breath sounds, accessory muscle use, rhonchi Cardiovascular: normal peripheral pulses, normal rate, regular rhythm, no JVD Abdomen: normal bowel sounds, soft, non tender, no organomegaly Genitourinary: normal external genitalia Extremities: no cyanosis Neurologic/Psychiatric: responsive, motor weakness, aphasia Laboratory Tests 10/19/16 05:45: White Blood Count 14.2H, Red Blood Count 4.67L, Hemoglobin 15.0, Hematocrit 47.5 , Mean Corpuscular Volume 102H, Mean Corpuscular Hemoglobin 32.0H, Mean Corpuscular Hemoglobin Concent 31.5L, Red Cell Distribution Width 14.2, Platelet Count 161, Mean Platelet Volume 9.3, Neutrophils (%) (Auto) 81.3H, Lymphocytes (%) (Auto) 12.6L, Monocytes (%) (Auto) 5.3, Eosinophils (%) (Auto) 0.2, Basophils (%) (Auto) 0.7, Prothrombin Time 34.1H, Prothromb Time International Ratio 3.2H, Sodium Level 143, Potassium Level 5.3H, Chloride Level 102, Carbon Dioxide Level 25, Anion Gap 16H, Blood Urea Nitrogen 37H, Creatinine 1.2, Estimat Glomerular Filtration Rate , Glucose Level 117H, Calcium Level 9.4 Current Medications Medications (Trade) Dose Ordered Sig/Elsa Route PRN Reason Start Time Stop Time Status Last Admin Dose Admin Albuterol/ Ipratropium (DuoNeb 0.5-3(2.5)mg/3ml) 3 ml Q4H PRN HHN Shortness of Breath 10/16/16 14:45 10/21/16 14:44 10/19/16 19:56 Albuterol/ Ipratropium (DuoNeb 0.5-3(2.5)mg/3ml) 3 ml Q8HRT HHN 10/16/16 15:00 10/21/16 14:59 10/19/16 23:14 Dextrose (Dextrose 50%) STAT PRN IV Hypoglycemia 10/16/16 15:00 11/15/16 14:59 Furosemide (Lasix) 40 mg DAILY ORAL 10/17/16 09:00 11/16/16 08:59 10/19/16 09:37 Insulin Aspart (NovoLOG) AC+HS SUBQ 10/16/16 16:30 11/15/16 16:29 10/19/16 20:58 Levofloxacin (Levaquin) 100 ml @ 100 mls/hr Q24H IVPB 10/18/16 15:00 10/25/16 14:59 10/19/16 15:27 Lisinopril (Zestril) 10 mg DAILY ORAL 10/17/16 09:00 11/16/16 08:59 10/19/16 09:37 Prednisone 40 mg 40 mg DAILY ORAL 10/18/16 10:00 11/17/16 09:59 10/19/16 09:37 Promethazine HCl/ Codeine (Phenergan with Codeine) 5 ml Q4H PRN ORAL For Cough 10/16/16 15:00 11/15/16 14:59 10/19/16 18:15 Spironolactone (Aldactone) 25 mg DAILY ORAL 10/17/16 09:00 11/16/16 08:59 10/19/16 09:37 Warfarin Sodium (Coumadin per pharmacy) 1 ea DAILY PRN MISC Per rx protocol 10/16/16 15:00 11/15/16 14:59 MURRAY NELSON Oct 19, 2016 23:41
[2016-10-20] VITALS: BP 153/87
[2016-10-20] MEDS: DuoNeb 0.5-3(2.5)mg/3ml neb HHN PRN ×2 (03:09→19:44)
[2016-10-20 04:00] VITALS: BP 144/75
[2016-10-20] MEDS: NovoLOG Insulin Flexpen SUBQ SCH ×4 (06:30→20:41)
[2016-10-20 07:27] LABS: INR 3.3 (0.9-1.1); PROTHROMBIN TIME 35.2 SEC (9.30-11.50)
[2016-10-20] MEDS: DuoNeb 0.5-3(2.5)mg/3ml neb HHN SCH ×4 (07:56→23:18)
[2016-10-20 08:00] VITALS: BP 124/96
[2016-10-20] MEDS: PredniSONE 20mg tab ORAL SCH (09:24)
[2016-10-20] MEDS: Furosemide 40mg tab ORAL SCH (09:24)
[2016-10-20] MEDS: Lisinopril 10mg tab ORAL SCH (09:24)
[2016-10-20] MEDS: Spironolactone 25mg tab ORAL SCH (09:26)
[2016-10-20 12:00] VITALS: BP 134/90
[2016-10-20 16:00] VITALS: BP 137/91
--- NOTE | 2016-10-20 16:16 | Cardiac Electrophysiology PN ---
Assessment/Plan Assessment/Plan 1.CHF and COPD exacerbation. Continue Lasix 40 mg po daily, lisinopril and Aldactone. Off beta-tamar for chronic obstructive pulmonary disease and active cocaine use. 2. Recurrent ventricular tachycardia. On amiodarone 200 mg daily. 3. S/P [employer] defibrillator with normal function. 4. S/P CABG 5. Chronic obstructive pulmonary disease, on Solu-Medrol and albuterol. 6. Hep C 7. Acute popliteal DVT on Lovenox and Coumadin. INR 3.2 8. Cocaine use. Urine Tox screen positive again for cocaine. DW RN Subjective Subjective Feeling better. No chest pain or SOB.Off tele. Objective Last 24 Hour Vital Signs Date Time Temp Pulse Resp B/P Pulse Ox O2 Delivery O2 Flow Rate FiO2 10/20/16 15:28 Nasal Cannula 10/20/16 15:28 Nasal Cannula 10/20/16 12:00 97.0 67 20 134/90 95 Nasal Cannula 10/20/16 09:24 124/96 10/20/16 08:00 97.8 69 20 124/96 96 Nasal Cannula 10/20/16 07:56 2.0 28 10/20/16 07:55 80 23 100 Nasal Cannula 2.0 10/20/16 07:46 75 20 98 Nasal Cannula 2.0 10/20/16 07:45 99 Nasal Cannula 2.0 28 10/20/16 04:00 97.5 97 20 144/75 98 Nasal Cannula 2.0 10/20/16 03:12 103 20 98 Nasal Cannula 3.0 32 10/20/16 03:10 32 10/20/16 03:10 102 20 97 Nasal Cannula 3.0 32 10/20/16 00:00 97.3 107 18 153/87 97 Nasal Cannula 2.0 10/19/16 23:25 82 20 98 Nasal Cannula 2.0 10/19/16 23:15 72 20 96 Nasal Cannula 2.0 10/19/16 20:10 83 16 100 Nasal Cannula 3.0 32 10/19/16 20:00 97.0 98 20 132/99 94 Nasal Cannula 2.0 10/19/16 19:58 79 20 98 Nasal Cannula 3.0 32 10/19/16 19:58 32 10/19/16 19:09 Nasal Cannula 2.0 28 10/19/16 19:08 99 Nasal Cannula 2.0 28 Intake and Output 10/19/16 10/20/16 19:00 07:00 Intake Total 380 ml 240 ml Output Total 550 ml 850 ml Balance -170 ml -610 ml Intake Oral 280 ml 240 ml IV Total 100 ml Output Urine Total 550 ml 850 ml # Voids 3 Laboratory Tests Test 10/20/16 05:55 Prothrombin Time 35.2 SEC (9.30-11.50) H Prothromb Time International Ratio 3.3 (0.9-1.1) H Objective HEAD AND NECK: mild JVD. LUNGS: Clear CARDIOVASCULAR: Regular S1 and S2 with no murmur.ICD left subclavian. Sternotomy scar healed. ABDOMEN: Soft and nontender. EXTREMITIES: 1+ pitting edema. BRYAN BOYD Oct 20, 2016 16:16
--- NOTE | 2016-10-20 16:55 | Internal Med Progress Note ---
Subjective Date of Service: Oct 20, 2016 Physician Name Royce Helms Attending Physician Barrett Olivarez MD Current Medications Medications (Trade) Dose Ordered Sig/Elsa Route PRN Reason Start Time Stop Time Status Last Admin Dose Admin Albuterol/ Ipratropium (DuoNeb 0.5-3(2.5)mg/3ml) 3 ml Q4H PRN HHN Shortness of Breath 10/16/16 14:45 10/21/16 14:44 10/20/16 03:09 Albuterol/ Ipratropium (DuoNeb 0.5-3(2.5)mg/3ml) 3 ml Q8HRT HHN 10/16/16 15:00 10/21/16 14:59 10/20/16 07:56 Dextrose (Dextrose 50%) STAT PRN IV Hypoglycemia 10/16/16 15:00 11/15/16 14:59 Furosemide (Lasix) 40 mg DAILY ORAL 10/17/16 09:00 11/16/16 08:59 10/20/16 09:24 Insulin Aspart (NovoLOG) AC+HS SUBQ 10/16/16 16:30 11/15/16 16:29 10/20/16 12:11 Levofloxacin (Levaquin) 100 ml @ 100 mls/hr Q24H IVPB 10/18/16 15:00 10/25/16 14:59 10/20/16 14:21 Lisinopril (Zestril) 10 mg DAILY ORAL 10/17/16 09:00 11/16/16 08:59 10/20/16 09:24 Prednisone 40 mg 40 mg DAILY ORAL 10/18/16 10:00 11/17/16 09:59 10/20/16 09:24 Promethazine HCl/ Codeine (Phenergan with Codeine) 5 ml Q4H PRN ORAL For Cough 10/16/16 15:00 11/15/16 14:59 10/19/16 18:15 Spironolactone (Aldactone) 25 mg DAILY ORAL 10/17/16 09:00 11/16/16 08:59 10/20/16 09:26 Warfarin Sodium (Coumadin per pharmacy) 1 ea DAILY PRN MISC Per rx protocol 10/16/16 15:00 11/15/16 14:59 Allergies: Coded Allergies: No Known Allergies (Verified , 12/4/10) Subjective 71 YO M admitted with fever and shortness of breath. Tolerating nasal canula. Cover for Int Med-Dr Olivarez. Objective Last Vital Signs Date Time Temp Pulse Resp B/P Pulse Ox O2 Delivery O2 Flow Rate FiO2 10/20/16 15:28 Nasal Cannula 10/20/16 12:00 97.0 67 20 134/90 95 10/20/16 07:56 2.0 28 Laboratory Tests Test 10/20/16 05:55 Prothrombin Time 35.2 SEC (9.30-11.50) H Prothromb Time International Ratio 3.3 (0.9-1.1) H Intake and Output 10/19/16 10/20/16 19:00 07:00 Intake Total 380 ml 240 ml Output Total 550 ml 850 ml Balance -170 ml -610 ml Intake Oral 280 ml 240 ml IV Total 100 ml Output Urine Total 550 ml 850 ml # Voids 3 Objective General Appearance: WD/WN, alert, mild distress EENT: PERRL/EOMI, normal ENT inspection, TMs normal Neck: non-tender, normal alignment, supple Cardiovascular: normal peripheral pulses, normal rate, regular rhythm, no gallop/murmur, no JVD Respiratory/Chest: chest wall non-tender, respiratory distress, crackles/rales , rhonchi - bilaterally, expiratory wheezing Abdomen: normal bowel sounds, non tender, soft, no organomegaly, no mass Extremities: normal range of motion, non-tender 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 Cont IV solumedrol & duoneb (5) CHF exacerbation Assessment & Plan: See cardiology note. (6) CAD (coronary artery disease) (7) Cardiomyopathy (8) DVT, popliteal, acute Assessment & Plan: Continue coumadin per pharmacy protocol. (9) Leukocytosis Assessment & Plan: Stat CXR. Start levaquin IV. ID consult. (10) Pneumonia Assessment & Plan: RLL. Cont levaquin. See pulmonary note. Status: progressing Assessment/Plan Discharge planning: alf fac vs home with home health ROYCE HELMS Oct 20, 2016 16:55
[2016-10-20 20:00] VITALS: BP 131/75
[2016-10-20] MEDS: Promethazine/Codeine 5ml UD ORAL PRN (20:38)
--- NOTE | 2016-10-20 23:00 | Pulmonology Progress Note ---
Assessment/Plan Problems: (1) COPD exacerbation (2) Respiratory failure (3) Cardiomyopathy (4) CAD (coronary artery disease) (5) History of CVA (cerebrovascular accident) (6) HTN (hypertension) Assessment/Plan improving titrate fio2 to sat of 92% chest pt decrease steroids to 40 qd decrease lasix to qd because of rising bun med/surg repeat labs in am. Subjective ROS Limited/Unobtainable: Yes Constitutional: Reports: anorexia, fatigue Respiratory: Reports: dyspnea at rest, dyspnea on exertion, productive cough, shortness of breath, sputum Neurologic: Reports: confusion, weakness Allergies: Coded Allergies: No Known Allergies (Verified , 06/28/10) Objective Last 24 Hour Vital Signs Date Time Temp Pulse Resp B/P Pulse Ox O2 Delivery O2 Flow Rate FiO2 10/20/16 20:00 97.5 60 16 131/75 94 Room Air 10/20/16 19:02 81 20 98 Nasal Cannula 3.0 32 10/20/16 19:00 97 Nasal Cannula 2.0 28 10/20/16 19:00 Nasal Cannula 2.0 28 10/20/16 18:52 72 20 97 Nasal Cannula 3.0 32 10/20/16 18:52 32 10/20/16 16:00 97.3 102 15 137/91 96 Room Air 10/20/16 15:28 Nasal Cannula 10/20/16 15:28 Nasal Cannula 10/20/16 12:00 97.0 67 20 134/90 95 Nasal Cannula 10/20/16 09:24 124/96 10/20/16 08:00 97.8 69 20 124/96 96 Nasal Cannula 10/20/16 07:56 2.0 10/20/16 07:55 80 23 100 Nasal Cannula 2.0 10/20/16 07:46 75 20 98 Nasal Cannula 2.0 10/20/16 07:45 99 Nasal Cannula 2.0 28 10/20/16 04:00 97.5 97 20 144/75 98 Nasal Cannula 2.0 10/20/16 03:12 103 20 98 Nasal Cannula 3.0 32 10/20/16 03:10 32 10/20/16 03:10 102 20 97 Nasal Cannula 3.0 32 10/20/16 00:00 97.3 107 18 153/87 97 Nasal Cannula 2.0 10/19/16 23:25 82 20 98 Nasal Cannula 2.0 10/19/16 23:15 72 20 96 Nasal Cannula 2.0 Intake and Output 10/19/16 10/20/16 19:00 07:00 Intake Total 380 ml 240 ml Output Total 550 ml 850 ml Balance -170 ml -610 ml Intake Oral 280 ml 240 ml IV Total 100 ml Output Urine Total 550 ml 850 ml # Voids 3 General Appearance: no acute distress HEENT: normocephalic, atraumatic, PERRL Respiratory/Chest: chest wall non-tender, decreased breath sounds, accessory muscle use, crackles/rales, rhonchi Cardiovascular: normal peripheral pulses, normal rate, regular rhythm, no JVD Abdomen: normal bowel sounds, soft, non tender, no organomegaly Genitourinary: normal external genitalia Extremities: no cyanosis Neurologic/Psychiatric: responsive, abnormal CN, motor weakness, disoriented, aphasia Laboratory Tests 10/20/16 05:55: Prothrombin Time 35.2H, Prothromb Time International Ratio 3.3H Current Medications Medications (Trade) Dose Ordered Sig/Elsa Route PRN Reason Start Time Stop Time Status Last Admin Dose Admin Albuterol/ Ipratropium (DuoNeb 0.5-3(2.5)mg/3ml) 3 ml Q4H PRN HHN Shortness of Breath 10/16/16 14:45 10/21/16 14:44 10/20/16 19:44 Albuterol/ Ipratropium (DuoNeb 0.5-3(2.5)mg/3ml) 3 ml Q8HRT HHN 10/16/16 15:00 10/21/16 14:59 10/20/16 07:56 Dextrose (Dextrose 50%) STAT PRN IV Hypoglycemia 10/16/16 15:00 11/15/16 14:59 Furosemide (Lasix) 40 mg DAILY ORAL 10/17/16 09:00 11/16/16 08:59 10/20/16 09:24 Insulin Aspart (NovoLOG) AC+HS SUBQ 10/16/16 16:30 11/15/16 16:29 10/20/16 20:41 Levofloxacin (Levaquin) 100 ml @ 100 mls/hr Q24H IVPB 10/18/16 15:00 10/25/16 14:59 10/20/16 14:21 Lisinopril (Zestril) 10 mg DAILY ORAL 10/17/16 09:00 11/16/16 08:59 10/20/16 09:24 Prednisone 40 mg 40 mg DAILY ORAL 10/18/16 10:00 11/17/16 09:59 10/20/16 09:24 Promethazine HCl/ Codeine (Phenergan with Codeine) 5 ml Q4H PRN ORAL For Cough 10/16/16 15:00 11/15/16 14:59 10/20/16 20:38 Spironolactone (Aldactone) 25 mg DAILY ORAL 10/17/16 09:00 11/16/16 08:59 10/20/16 09:26 Warfarin Sodium (Coumadin per pharmacy) 1 ea DAILY PRN MISC Per rx protocol 10/16/16 15:00 11/15/16 14:59 MURRAY NELSON Oct 20, 2016 23:00
[2016-10-21] VITALS: BP 115/76
[2016-10-21 04:00] VITALS: BP 117/71
[2016-10-21] MEDS: NovoLOG Insulin Flexpen SUBQ SCH ×2 (06:07→12:27)
[2016-10-21 06:51] LABS: INR 2.7 (0.9-1.1); PROTHROMBIN TIME 28.7 SEC (9.30-11.50)
[2016-10-21 07:20] LABS: BASOPHILS % (AUTO) 0.3 % (0.0-2.0); EOSINOPHILS % (AUTO) 0.2 % (0.0-3.0); LYMPHOCYTES % (AUTO) 10.1 % (20.0-45.0); MEAN CORPUSCULAR HGB CONC 31.4 G/DL (32.0-36.0); MEAN CORPUSCULAR VOLUME 102 FL (80-99); MEAN PLATELET VOLUME 9.2 FL (6.5-10.1); MONOCYTES % (AUTO) 6.4 % (1.0-10.0); PLATELET COUNT 154 K/UL (150-450); RED BLOOD COUNT 4.63 M/UL (4.70-6.10); RED CELL DISTRIBUTION WIDTH 14.4 % (11.6-14.8); WHITE BLOOD COUNT 15.2 K/UL (4.8-10.8)
[2016-10-21 07:21] LABS: ANION GAP 15 (5-15); CALCIUM 9.5 mg/dL (8.6-10.2); CARBON DIOXIDE 26 mEQ/L (20-30); CHLORIDE 102 mEQ/L (98-107); CREATININE 1.1 mg/dL (0.7-1.2); HEMOLYSIS 14; SODIUM 143 mEQ/L (135-145)
[2016-10-21] MEDS: DuoNeb 0.5-3(2.5)mg/3ml neb HHN SCH ×2 (07:25→14:54)
[2016-10-21 08:00] VITALS: BP 132/65
[2016-10-21] MEDS: Spironolactone 25mg tab ORAL SCH (09:30)
[2016-10-21] MEDS: Furosemide 40mg tab ORAL SCH (09:30)
[2016-10-21] MEDS: PredniSONE 20mg tab ORAL SCH (09:30)
[2016-10-21] MEDS: Lisinopril 10mg tab ORAL SCH (09:30)
--- NOTE | 2016-10-21 11:08 | Internal Med Progress Note ---
Subjective Date of Service: Oct 21, 2016 Physician Name Surinder Davila Attending Physician Barrett Olivarez MD Current Medications Medications (Trade) Dose Ordered Sig/Elsa Route PRN Reason Start Time Stop Time Status Last Admin Dose Admin Albuterol/ Ipratropium (DuoNeb 0.5-3(2.5)mg/3ml) 3 ml Q4H PRN HHN Shortness of Breath 10/16/16 14:45 10/21/16 14:44 10/20/16 19:44 Albuterol/ Ipratropium (DuoNeb 0.5-3(2.5)mg/3ml) 3 ml Q8HRT HHN 10/16/16 15:00 10/21/16 14:59 10/21/16 07:25 Dextrose (Dextrose 50%) STAT PRN IV Hypoglycemia 10/16/16 15:00 11/15/16 14:59 Furosemide (Lasix) 40 mg DAILY ORAL 10/17/16 09:00 11/16/16 08:59 10/21/16 09:30 Insulin Aspart (NovoLOG) AC+HS SUBQ 10/16/16 16:30 11/15/16 16:29 10/20/16 20:41 Levofloxacin (Levaquin) 100 ml @ 100 mls/hr Q24H IVPB 10/18/16 15:00 10/25/16 14:59 10/20/16 14:21 Lisinopril (Zestril) 10 mg DAILY ORAL 10/17/16 09:00 11/16/16 08:59 10/21/16 09:30 Prednisone 40 mg 40 mg DAILY ORAL 10/18/16 10:00 11/17/16 09:59 10/21/16 09:30 Promethazine HCl/ Codeine (Phenergan with Codeine) 5 ml Q4H PRN ORAL For Cough 10/16/16 15:00 11/15/16 14:59 10/20/16 20:38 Spironolactone (Aldactone) 25 mg DAILY ORAL 10/17/16 09:00 11/16/16 08:59 10/21/16 09:30 Warfarin Sodium (Coumadin per pharmacy) 1 ea DAILY PRN MISC Per rx protocol 10/16/16 15:00 11/15/16 14:59 Warfarin Sodium (Coumadin) 5 mg COUMADIN ONCE ORAL 10/21/16 17:00 10/21/16 17:01 Allergies: Coded Allergies: No Known Allergies (Verified , 06/28/10) ROS Limited/Unobtainable: No Constitutional: Reports: no symptoms HEENT: Reports: no symptoms Cardiovascular: Reports: no symptoms Respiratory: Reports: no symptoms Gastrointestinal/Abdominal: Reports: no symptoms Genitourinary: Reports: no symptoms Neurologic/Psychiatric: Reports: no symptoms Subjective 71 YO M admitted with fever and shortness of breath. Tolerating nasal canula. Cover for Cem Lanza-Dr Olivarez. Patient wants to discharge home with [facility]. Objective Last Vital Signs Date Time Temp Pulse Resp B/P Pulse Ox O2 Delivery O2 Flow Rate FiO2 10/21/16 09:30 132/65 10/21/16 08:00 98.2 70 17 96 Nasal Cannula 10/21/16 07:36 2.0 10/21/16 07:25 28 Laboratory Tests Test 10/21/16 05:50 White Blood Count 15.2 K/UL (4.8-10.8) H Red Blood Count 4.63 M/UL (4.70-6.10) L Hemoglobin 14.8 G/DL (14.2-18.0) Hematocrit 47.0 % (42.0-52.0) Mean Corpuscular Volume 102 FL (80-99) H Mean Corpuscular Hemoglobin 32.0 PG (27.0-31.0) H Mean Corpuscular Hemoglobin Concent 31.4 G/DL (32.0-36.0) L Red Cell Distribution Width 14.4 % (11.6-14.8) Platelet Count 154 K/UL (150-450) Mean Platelet Volume 9.2 FL (6.5-10.1) Neutrophils (%) (Auto) 83.0 % (45.0-75.0) H Lymphocytes (%) (Auto) 10.1 % (20.0-45.0) L Monocytes (%) (Auto) 6.4 % (1.0-10.0) Eosinophils (%) (Auto) 0.2 % (0.0-3.0) Basophils (%) (Auto) 0.3 % (0.0-2.0) Prothrombin Time 28.7 SEC (9.30-11.50) H Prothromb Time International Ratio 2.7 (0.9-1.1) H Sodium Level 143 mEQ/L (135-145) Potassium Level 5.0 mEQ/L (3.4-4.9) H Chloride Level 102 mEQ/L (98-107) Carbon Dioxide Level 26 mEQ/L (20-30) Anion Gap 15 (5-15) Blood Urea Nitrogen 41 mg/dL (7-23) H Creatinine 1.1 mg/dL (0.7-1.2) Estimat Glomerular Filtration Rate mL/min (>60) Glucose Level 103 mg/dL (74-106) Calcium Level 9.5 mg/dL (8.6-10.2) Intake and Output 10/20/16 10/21/16 19:00 07:00 Intake Total 460 ml 610 ml Output Total 850 ml Balance 460 ml -240 ml Intake Oral 360 ml 610 ml IV Total 100 ml Output Urine Total 850 ml # Voids 3 3 # Bowel Movements 1 1 Objective General Appearance: WD/WN, alert, mild distress EENT: PERRL/EOMI, normal ENT inspection, TMs normal Neck: non-tender, normal alignment, supple Cardiovascular: normal peripheral pulses, normal rate, regular rhythm, no gallop/murmur, no JVD Respiratory/Chest: chest wall non-tender, respiratory distress, crackles/rales , rhonchi - bilaterally, expiratory wheezing Abdomen: normal bowel sounds, non tender, soft, no organomegaly, no mass Extremities: normal range of motion, non-tender Neurologic: director of 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 Cont IV solumedrol & duoneb (5) CHF exacerbation Assessment & Plan: See cardiology note. (6) CAD (coronary artery disease) (7) Cardiomyopathy (8) DVT, popliteal, acute Assessment & Plan: Continue coumadin per pharmacy protocol. (9) Leukocytosis Assessment & Plan: Stat CXR. Start levaquin IV. ID consult. (10) Pneumonia Assessment & Plan: RLL. Cont levaquin. See pulmonary note. Assessment/Plan Discharge planning: home with [facility] SCOOTERSURINDER Oct 21, 2016 11:07
[2016-10-21] MEDS ORDERED: PREDNISONE20 MG ORAL (11:09)
[2016-10-21 12:00] VITALS: BP 124/90
--- NOTE | 2016-10-21 12:29 | Cardiac Electrophysiology PN ---
Assessment/Plan Assessment/Plan 1.CHF and COPD exacerbation. Continue Lasix 40 mg po daily, lisinopril and Aldactone. Off beta-tamar for chronic obstructive pulmonary disease and active cocaine use. 2. Recurrent ventricular tachycardia. On amiodarone 200 mg daily.No ICD shock 3. S/P [employer] defibrillator with normal function. 4. S/P CABG 5. Chronic obstructive pulmonary disease, on Solu-Medrol and albuterol. 6. Hep C 7. Acute popliteal DVT on Coumadin. INR 2.7 8. Cocaine use. Urine Tox screen positive again for cocaine. DW RN Subjective Subjective Feeling better. No chest pain or SOB.Off tele.Right leg still swollen. RN at bedside. Objective Last 24 Hour Vital Signs Date Time Temp Pulse Resp B/P Pulse Ox O2 Delivery O2 Flow Rate FiO2 10/21/16 09:30 132/65 10/21/16 08:00 98.2 70 17 132/65 96 Nasal Cannula 10/21/16 07:36 92 20 98 Nasal Cannula 2.0 10/21/16 07:25 92 18 98 Nasal Cannula 2.0 10/21/16 07:25 Nasal Cannula 2.0 28 10/21/16 07:25 98 Nasal Cannula 2.0 28 10/21/16 04:00 97.7 98 18 117/71 100 Room Air 10/21/16 03:20 89 20 98 Nasal Cannula 3.0 32 10/21/16 03:10 32 10/21/16 03:10 89 20 97 Nasal Cannula 3.0 32 10/21/16 00:00 97.3 96 20 115/76 100 Nasal Cannula 2.0 10/20/16 23:18 79 20 98 Nasal Cannula 2.0 10/20/16 23:00 83 20 100 Nasal Cannula 2.0 10/20/16 20:00 97.5 60 16 131/75 94 Room Air 10/20/16 19:02 81 20 98 Nasal Cannula 3.0 32 10/20/16 19:00 97 Nasal Cannula 2.0 28 10/20/16 19:00 Nasal Cannula 2.0 28 10/20/16 18:52 72 20 97 Nasal Cannula 3.0 32 10/20/16 18:52 32 10/20/16 16:00 97.3 102 15 137/91 96 Room Air 10/20/16 15:28 Nasal Cannula 10/20/16 15:28 Nasal Cannula Intake and Output 10/20/16 10/21/16 19:00 07:00 Intake Total 460 ml 610 ml Output Total 850 ml Balance 460 ml -240 ml Intake Oral 360 ml 610 ml IV Total 100 ml Output Urine Total 850 ml # Voids 3 3 # Bowel Movements 1 1 Laboratory Tests Test 10/21/16 05:50 White Blood Count 15.2 K/UL (4.8-10.8) H Red Blood Count 4.63 M/UL (4.70-6.10) L Hemoglobin 14.8 G/DL (14.2-18.0) Hematocrit 47.0 % (42.0-52.0) Mean Corpuscular Volume 102 FL (80-99) H Mean Corpuscular Hemoglobin 32.0 PG (27.0-31.0) H Mean Corpuscular Hemoglobin Concent 31.4 G/DL (32.0-36.0) L Red Cell Distribution Width 14.4 % (11.6-14.8) Platelet Count 154 K/UL (150-450) Mean Platelet Volume 9.2 FL (6.5-10.1) Neutrophils (%) (Auto) 83.0 % (45.0-75.0) H Lymphocytes (%) (Auto) 10.1 % (20.0-45.0) L Monocytes (%) (Auto) 6.4 % (1.0-10.0) Eosinophils (%) (Auto) 0.2 % (0.0-3.0) Basophils (%) (Auto) 0.3 % (0.0-2.0) Prothrombin Time 28.7 SEC (9.30-11.50) H Prothromb Time International Ratio 2.7 (0.9-1.1) H Sodium Level 143 mEQ/L (135-145) Potassium Level 5.0 mEQ/L (3.4-4.9) H Chloride Level 102 mEQ/L (98-107) Carbon Dioxide Level 26 mEQ/L (20-30) Anion Gap 15 (5-15) Blood Urea Nitrogen 41 mg/dL (7-23) H Creatinine 1.1 mg/dL (0.7-1.2) Estimat Glomerular Filtration Rate mL/min (>60) Glucose Level 103 mg/dL (74-106) Calcium Level 9.5 mg/dL (8.6-10.2) Objective HEAD AND NECK: mild JVD. LUNGS: Clear CARDIOVASCULAR: Regular S1 and S2 with no murmur.ICD left subclavian. Sternotomy scar healed. ABDOMEN: Soft EXTREMITIES: Right leg 2 plus pitting edema. BRYAN BOYD Oct 21, 2016 12:29
[2016-10-21] MEDS ORDERED: LEVAQUIN500 MG ORAL (14:50)
[2016-10-21] MEDS ORDERED: Warfarin Sodium 5mg ORAL ONE (17:00)
--- NOTE | 2016-10-21 22:44 | Pulmonology Progress Note ---
Assessment/Plan Problems: (1) COPD exacerbation (2) Respiratory failure (3) Cardiomyopathy (4) CAD (coronary artery disease) (5) History of CVA (cerebrovascular accident) (6) HTN (hypertension) Assessment/Plan improving titrate fio2 to sat of 92% chest pt decrease steroids to 40 qd decrease lasix to qd because of rising bun med/surg repeat labs in am. Subjective ROS Limited/Unobtainable: Yes Constitutional: Reports: anorexia, fatigue Respiratory: Reports: dyspnea at rest, dyspnea on exertion, productive cough, shortness of breath, sputum, wheezing Neurologic: Reports: confusion, weakness Allergies: Coded Allergies: No Known Allergies (Verified , 06/28/10) Objective Last 24 Hour Vital Signs Date Time Temp Pulse Resp B/P Pulse Ox O2 Delivery O2 Flow Rate FiO2 10/21/16 15:04 86 18 98 Nasal Cannula 2.0 10/21/16 14:52 88 18 96 Nasal Cannula 2.0 10/21/16 12:00 97.2 83 19 124/90 100 Nasal Cannula 10/21/16 09:30 132/65 10/21/16 08:00 98.2 70 17 132/65 96 Nasal Cannula 10/21/16 07:36 92 20 98 Nasal Cannula 2.0 10/21/16 07:25 92 18 98 Nasal Cannula 2.0 10/21/16 07:25 Nasal Cannula 2.0 28 10/21/16 07:25 98 Nasal Cannula 2.0 28 10/21/16 04:00 97.7 98 18 117/71 100 Room Air 10/21/16 03:20 89 20 98 Nasal Cannula 3.0 32 10/21/16 03:10 32 10/21/16 03:10 89 20 97 Nasal Cannula 3.0 32 10/21/16 00:00 97.3 96 20 115/76 100 Nasal Cannula 2.0 10/20/16 23:18 79 20 98 Nasal Cannula 2.0 10/20/16 23:00 83 20 100 Nasal Cannula 2.0 Intake and Output 10/20/16 10/21/16 19:00 07:00 Intake Total 460 ml 610 ml Output Total 850 ml Balance 460 ml -240 ml Intake Oral 360 ml 610 ml IV Total 100 ml Output Urine Total 850 ml # Voids 3 3 # Bowel Movements 1 1 General Appearance: no acute distress HEENT: normocephalic, atraumatic, PERRL Respiratory/Chest: chest wall non-tender, decreased breath sounds, accessory muscle use, rhonchi, expiratory wheezing Cardiovascular: normal peripheral pulses, normal rate, regular rhythm, no JVD Abdomen: normal bowel sounds, soft, non tender, no organomegaly, non distended Genitourinary: normal external genitalia Extremities: no cyanosis Neurologic/Psychiatric: 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 care 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 practitioner 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 grossly normal, responsive, abnormal CN Laboratory Tests 10/21/16 05:50: White Blood Count 15.2H, Red Blood Count 4.63L, Hemoglobin 14.8, Hematocrit 47.0 , Mean Corpuscular Volume 102H, Mean Corpuscular Hemoglobin 32.0H, Mean Corpuscular Hemoglobin Concent 31.4L, Red Cell Distribution Width 14.4, Platelet Count 154, Mean Platelet Volume 9.2, Neutrophils (%) (Auto) 83.0H, Lymphocytes (%) (Auto) 10.1L, Monocytes (%) (Auto) 6.4, Eosinophils (%) (Auto) 0.2, Basophils (%) (Auto) 0.3, Prothrombin Time 28.7H, Prothromb Time International Ratio 2.7H, Sodium Level 143, Potassium Level 5.0H, Chloride Level 102, Carbon Dioxide Level 26, Anion Gap 15, Blood Urea Nitrogen 41H, Creatinine 1.1, Estimat Glomerular Filtration Rate , Glucose Level 103, Calcium Level 9.5 MURRAY NELSON Oct 21, 2016 22:44
--- NOTE | 2016-10-22 14:34 | Discharge Summary ---
Discharge Summary Hospital Course Date of Admission Oct 14, 2016 at 08:27 Date of Discharge Oct 21, 2016 at 17:30 Admitting Diagnosis copd exacebration HPI Smith Hidalgo Jr is a 71 year old male who was admitted on Oct 14, 2016 at 08: 27 for Chronic Obstructive Pulmonary Disease Exacerbation Hospital Course [id number] Discharge Discharge Disposition Patient was discharged to Home with Home Health(06) Discharge Diagnoses: Alejandra Garcia NP Oct 22, 2016 14:34
--- NOTE | 2016-10-23 00:58 | Discharge Summary 2 SIG ---
DATE OF ADMISSION: 10/14/2016 DATE OF DISCHARGE: 10/21/2016 CONSULTANTS: 1. Lucy Mishra M.D. 2. Pineda Crooks M.D. BRIEF HOSPITAL COURSE: The patient is a 71-year-old male, who presented to ED complaining of fever, chills and nonproductive cough. Symptoms began two days prior to admission with O2 saturation level down to 80s. On evaluation at ED, the patient was hypoxemic and chest x-ray showed no acute disease. Dr. Mishra was consulted for respiratory failure. The patient was initially placed on BiPAP at ED and was given respiratory treatment and started on IV steroids every eight hours. [address]. Crooks was consulted. EKG showed sinus tachycardia at a rate of 103 with anterolateral infarct. Troponin was negative. Urine toxicology positive for cocaine. The patient's BNP was elevated to 5096 and was given Lasix. He has a [employer] defibrillator, which has normal function and was resumed on amiodarone 500 mg daily. He had venous duplex of the lower extremity done that showed an acute thrombus on the left leg and was given Lovenox and Coumadin. He eventually tapered off BiPAP and steroids was decreased to 40 mg every day. There was rise in renal function. Lasix was decreased to daily dose. Sputum culture done, showed growth of Streptococcus Zonia and Stenotrophomonas. A stat chest x-ray done showed parenchymal consolidation. He was given Levaquin and was eventually discharged home with home health. FINAL DIAGNOSES: 1. Acute left leg deep vein thrombosis. 2. Acute chronic obstructive pulmonary disease exacerbation. 3. Acute pneumonia. 4. Coronary artery disease. 5. Acute on chronic systolic heart failure. 6. Cirrhosis. 7. Recurrent ventricular tachycardia. 8. [employer] defibrillator with normal function. 9. Cocaine use. 10. Hepatitis C. 11. Cardiomyopathy. Royce Davila M.D. I have been assigned to dictate discharge summary on this account and I was not involved in the patient's management. Alejandra Garcia N.P. DR: ERIKA JOB#: [id number] CC: KEYSHAWN
--- NOTE | 2016-10-28 10:37 | Diagnostic Imaging Report ---
APPROVED REPORT CPT Code: 65699 Present Symptoms DVT of Lower Extremity: Left Shortness of breath Comments: Hx Acute DVT in the left popliteal vein 09/30/2016. RIGHT LEG: Venous imaging reveals a patent deep venous system. There is no evidence of thrombus within the femoral, popliteal or tibial segments. The greater saphenous vein was not well visualized. Doppler indicates normal spontaneous flow within these segments. LEFT LEG: Venous imaging reveals acute, non-occlusive thrombus in the proximal popliteal vein at the valve cusps. The remainder of the deep venous system is within normal limits. Imaging also reveals acute, non-occlusive thrombus in the proximal anterior tibial vein. There is no evidence of thrombus in the posterior tibial or peroneal calf veins. Greater saphenous vein also within normal limits. SANTI Pathak was notified of abnormal results at 19:50 hrs.
== END 2016-10-21 17:30 | disposition home or self-care (01) | DRG 139 ==
LOC: EDBD 07:55 → EMR 08:09 → 2W 08:27 → EDBEDREQ 08:40 → 4W 10-16 14:37 → SDSOVERFLO 10-16 16:34 → 4W 10-16 16:36
PROC: 5A09357 Assistance with Respiratory Ventilation, Less than 24 Consecutive Hours, Continuous Positive Airway Pressure (ICD-10-PCS; principal; 2016-10-14)
DX: J15.4 Pneumonia due to other streptococci (principal); J96.91 Respiratory failure, unspecified with hypoxia; I47.2 Ventricular tachycardia; I50.23 Acute on chronic systolic (congestive) heart failure; J15.8 Pneumonia due to other specified bacteria; J44.1 Chronic obstructive pulmonary disease with (acute) exacerbation; F14.90 Cocaine use, unspecified, uncomplicated; I25.10 Atherosclerotic heart disease of native coronary artery without angina pectoris; I42.9 Cardiomyopathy, unspecified; Z95.1 Presence of aortocoronary bypass graft; B19.20 Unspecified viral hepatitis C without hepatic coma; Z87.891 Personal history of nicotine dependence; I82.432 Acute embolism and thrombosis of left popliteal vein; K74.60 Unspecified cirrhosis of liver; Z95.810 Presence of automatic (implantable) cardiac defibrillator; N18.9 Chronic kidney disease, unspecified; Z86.73 Personal history of transient ischemic attack (TIA), and cerebral infarction without residual deficits
CPT/HCPCS: 36415; 36600; 71010; 80048; 80053; 80300; 82248; 82550; 82553; 82803; 82962; 83036; 83735; 83880; 84100; 84132; 84484; 85007; 85025; 85379; 85610; 85730; 87040; 87070; 87081; 87181; 87205; 93005; 93970; 94640; 94660; 94664; 94760; J1815; J7620

== ENCOUNTER 2016-10-27 12:25 | Emergency (ER) | payer MEDICARE, MEDICAID ==
[~2016-10-27] VITALS: Ht 175.3 cm; Wt 69.4 kg
[~2016-10-27 12:25] MED LIST changes: +LEVAQUIN500 MG ORAL; +POTASSIUM CHLO20 ME1 ORAL; +PREDNISONE20 MG ORAL; +PROCTOSOL-HC1 APPLIC TOPIC; +XARELTO20 MG ORAL
[2016-10-27] MEDS ORDERED: XARELTO10 MG ORAL (12:35)
[2016-10-27 13:16] VITALS: BP 140/85
[2016-10-27 13:20] VITALS: BP 140/85
[2016-10-27] MEDS ORDERED: VENTOLIN HFA18 GM INH (13:37)
[2016-10-27] MEDS ORDERED: ADVAIR 250/501 PUFFS INH (13:43)
--- NOTE | 2016-10-29 09:14 | Emergency Room Report ---
History of Present Illness General Chief Complaint: General Complaint Source: Patient, Medical Record Present Illness HPI Patient present with complaints of swelling to his right leg Patient reports that he was recently diagnosed with DVT Appears the swelling has mildly increased from previous However the swelling was present upon disposition home Denies any chest pain or shortness of breath denies any headache or visual changes I spoke to the patient's also voiced concern regarding discoloration of the right leg No reports of any vomiting or diarrhea Patient denies any flank pain He reports that he is taking his xarelto on a continuous basis And has noticed more bruising easily Patient also has a home health nurse who does visit him on a daily basis Allergies: Coded Allergies: No Known Allergies (Verified , 06/28/10) Patient History Past Medical History: see triage record Pertinent Family History: none Reviewed Nursing Documentation: PMH: Agreed, PSxH: Agreed Nursing Documentation-PMH Hx Cardiac Problems: Yes - CABG, open heart surgery 2011, left foot fx 2017 Hx Hypertension: Yes Hx Pacemaker: Yes - Defibrilator Hx Asthma: Yes Hx COPD: Yes Hx Cancer: No Hx Gastrointestinal Problems: No Hx Neurological Problems: Yes Hx Cerebrovascular Accident: Yes - 2009 Review of Systems All Other Systems: negative except mentioned in HPI Physical Exam Vital Signs Date Time Temp Pulse Resp B/P Pulse Ox O2 Delivery O2 Flow Rate FiO2 10/27/16 12:27 99.1 101 16 141/90 98 Room Air Sp02 EP Interpretation: reviewed, normal General Appearance: well appearing, no apparent distress Head: normocephalic, atraumatic Eyes: bilateral eye EOMI, bilateral eye PERRL ENT: normal pharynx, no angioedema Neck: full range of motion, supple Respiratory: chest non-tender, lungs clear Cardiovascular #1: regular rate, rhythm Gastrointestinal: non tender, soft Musculoskeletal: other - She does have increased tone to the right leg involving the calf area compared to the left side, nontender on palpation sensory intact Neurologic: alert, oriented x3, responsive Skin: other - Patient does have swelling to the right lower extremity, patient also has mild ecchymosis of the foot, no obvious ischemia, palpable pulses are noted Lymphatic: other - Right lower extremity edema Medical Decision Making Diagnostic Impression: Primary Impression: DVT Additional Impression: Encounter for generalized patient complaints ER Course Patient's medical records are reviewed Patient was just recently disposition from the hospital diagnosis of right- sided DVT Patient is also on anticoagulation As the patient is on xarelto, coagulation studies will not be very helpful Patient appears to have findings that the Bradley diagnosed and other consideration patient has close outpatient followup I do not feel any further inpatient workup was required the patient is discharged for close outpatient followup Last Vital Signs Date Time Temp Pulse Resp B/P Pulse Ox O2 Delivery O2 Flow Rate FiO2 10/27/16 13:20 98.9 78 16 140/85 98 Room Air Status: unchanged Disposition: HOME, SELF-CARE Condition: Stable Referrals: NOT CHOSEN IPA/MD,REFERRING (PCP) Patient Instructions: Deep Vein Thrombosis Additional Instructions: Patient is provided with the discharge instructions notified to follow up with primary doctor in the next 2-3 days otherwise return to the er with any worsening symptoms. Please note that this report is being documented using [employer] technology. This can lead to erroneous entry secondary to incorrect interpretation by the dictating instrument. RAIMUNDO BORRERO D.O. Oct 29, 2016 09:14
== END 2016-10-27 13:30 | disposition home or self-care (01) ==
LOC: EDBD 12:25 → EDUNIT# 12:25 → EMR 13:30
DX: I82.401 Acute embolism and thrombosis of unspecified deep veins of right lower extremity (principal); I10 Essential (primary) hypertension; Z95.1 Presence of aortocoronary bypass graft; Z95.810 Presence of automatic (implantable) cardiac defibrillator; J44.9 Chronic obstructive pulmonary disease, unspecified; J45.909 Unspecified asthma, uncomplicated; Z86.73 Personal history of transient ischemic attack (TIA), and cerebral infarction without residual deficits; Z79.01 Long term (current) use of anticoagulants
CPT/HCPCS: 99283

== ENCOUNTER 2016-11-26 16:24 | Inpatient (IN) | payer MEDICARE, MEDICAID ==
[~2016-11-26] VITALS: Ht 177.8 cm; Wt 67.1 kg
[~2016-11-26 16:24] MED LIST changes: +ADVAIR 250/501 PUFFS INH
[2016-11-26 16:30] VITALS: BP 113/87
[2016-11-26 17:08] LABS: ABG ALLEN TEST POSITIVE; ABG BASE EXCESS 0.6; ABG PCO2 31.4 mmHg (35.0-45.0)
[2016-11-26 17:17] LABS: EOSINOPHILS % (AUTO) 0.4 % (0.0-3.0); LYMPHOCYTES % (AUTO) 42.3 % (20.0-45.0); MEAN CORPUSCULAR HGB CONC 33.7 G/DL (32.0-36.0); MEAN CORPUSCULAR VOLUME 98 FL (80-99); MEAN PLATELET VOLUME 8.7 FL (6.5-10.1); MONOCYTES % (AUTO) 10.8 % (1.0-10.0); NEUTROPHILS % (AUTO) 44.6 % (45.0-75.0); PLATELET COUNT 169 K/UL (150-450); RED BLOOD COUNT 4.83 M/UL (4.70-6.10); RED CELL DISTRIBUTION WIDTH 15.5 % (11.6-14.8); WHITE BLOOD COUNT 8.7 K/UL (4.8-10.8)
[2016-11-26 17:29] LABS: INR 1.6 (0.9-1.1); PROTHROMBIN TIME 16.8 SEC (9.30-11.50)
[2016-11-26 17:30] VITALS: BP 103/87
[2016-11-26] MEDS ORDERED: Albuterol ud Inhalation HHN ONE (17:30)
[2016-11-26] MEDS ORDERED: Solu-MEDROL 125mg Inj IVP ONE (17:30)
[2016-11-26] MEDS ORDERED: Ipratropium 0.02% Inh Soln 2.5ml UD HHN ONE (17:30)
[2016-11-26 17:44] LABS: REFLEX LACTIC ACID YES OR NO YES
[2016-11-26 18:24] VITALS: BP 106/87
--- NOTE | 2016-11-26 18:41 | Emergency Room Report ---
History of Present Illness General Chief Complaint: Dyspnea/Respdistress Source: Patient, EMS Present Illness HPI Patient presents with complaints of shortness of breath Patient has been here previously with COPD and respiratory distress patient had previous DVT At this time reports his breathing worsened over the past several days Patient denies any chest pain He has had increased cough Denies any sputum production Denies any pleurisy denies any recent travel Patient reports that he is taking all his medications including blood thinners Allergies: Coded Allergies: No Known Allergies (Verified , 06/28/10) Patient History Past Medical History: see triage record Pertinent Family History: none Reviewed Nursing Documentation: PMH: Agreed, PSxH: Agreed Nursing Documentation-PMH Past Medical History: No History, Except For Hx Cardiac Problems: Yes - CABAG 2012 Hx Hypertension: Yes Hx Pacemaker: Yes - Defibrilator Hx Asthma: Yes Hx COPD: Yes Hx Cancer: No Hx Gastrointestinal Problems: No Hx Neurological Problems: Yes Hx Cerebrovascular Accident: Yes Review of Systems All Other Systems: negative except mentioned in HPI Physical Exam Vital Signs Date Time Temp Pulse Resp B/P Pulse Ox O2 Delivery O2 Flow Rate FiO2 11/26/16 16:18 99.1 76 22 156/92 95 Nasal Cannula 6.0 Sp02 EP Interpretation: reviewed, normal General Appearance: mild distress - Patient appears tachypneic and short of breath Head: normocephalic, atraumatic Eyes: bilateral eye EOMI, bilateral eye PERRL ENT: hearing grossly normal, normal pharynx, TMs + canals normal, uvula midline Neck: full range of motion, supple, no meningismus, no bony tend Respiratory: no respiratory distress, no retraction, no accessory muscle use, crackles - Along with wheezing in both lower lobes Cardiovascular #1: normal peripheral pulses, regular rate, rhythm, no gallop, no JVD, no murmur Gastrointestinal: normal bowel sounds, non tender, soft, no mass, no organomegaly, non-distended, no guarding, no hernia, no pulsatile mass, no rebound Genitourinary: no CVA tenderness Musculoskeletal: other - Patient has continued swelling in the right leg from previous DVT, however looks significantly improved from previous Neurologic: oriented x3, responsive, 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 as tested, motor strength/ tone normal, sensory intact Psychiatric: mood/affect normal Skin: other - edema with mild erythema right lower extremity Lymphatic: no adenopathy Medical Decision Making Diagnostic Impression: Primary Impression: Respiratory distress Additional Impressions: COPD exacerbation Cocaine abuse ER Course Patient is a fairly complex patient with multiple differential to consideration including but not limited to cardiac cardiopulmonary and vascular emergencies Patient's workup also revealed positive cocaine Patient has done better after breathing treatments He also does have history of DVT and given the presentation Lovenox was provided Patient's kidney function is not appropriate at this time for CT imaging for pulmonary embolism However given the patient's significant improvement patient will be admitted to the floor for further care Labs Test 11/26/16 16:50 11/26/16 16:55 11/26/16 18:15 11/26/16 18:43 White Blood Count 8.7 K/UL (4.8-10.8) Red Blood Count 4.83 M/UL (4.70-6.10) Hemoglobin 15.9 G/DL (14.2-18.0) Hematocrit 47.3 % (42.0-52.0) Mean Corpuscular Volume 98 FL (80-99) Mean Corpuscular Hemoglobin 33.0 PG (27.0-31.0) Mean Corpuscular Hemoglobin Concent 33.7 G/DL (32.0-36.0) Red Cell Distribution Width 15.5 % (11.6-14.8) Platelet Count 169 K/UL (150-450) Mean Platelet Volume 8.7 FL (6.5-10.1) Neutrophils (%) (Auto) 44.6 % (45.0-75.0) Lymphocytes (%) (Auto) 42.3 % (20.0-45.0) Monocytes (%) (Auto) 10.8 % (1.0-10.0) Eosinophils (%) (Auto) 0.4 % (0.0-3.0) Basophils (%) (Auto) 2.0 % (0.0-2.0) Prothrombin Time 16.8 SEC (9.30-11.50) Prothromb Time International Ratio 1.6 (0.9-1.1) Activated Partial Thromboplast Time 37 SEC (23-33) Lactic Acid Level 2.60 mmol/L (0.66-2.22) 2.60 mmol/L (0.66-2.22) Arterial Blood pH 7.480 (7.350-7.450) Arterial Blood Partial Pressure CO2 31.4 mmHg (35.0-45.0) Arterial Blood Partial Pressure O2 165.4 mmHg (75.0-100.0) Arterial Blood HCO3 23.1 mmol/L (22.0-26.0) Arterial Blood Oxygen Saturation 99.1 % (92.0-98.0) Arterial Blood Base Excess 0.6 Anam Test Positive Sodium Level 139 mEQ/L (135-145) Potassium Level 4.9 mEQ/L (3.4-4.9) Chloride Level 99 mEQ/L (98-107) Carbon Dioxide Level 24 mEQ/L (20-30) Anion Gap 16 (5-15) Blood Urea Nitrogen 28 mg/dL (7-23) Creatinine 1.4 mg/dL (0.7-1.2) Estimat Glomerular Filtration Rate mL/min (>60) Glucose Level 87 mg/dL (74-106) Calcium Level 9.3 mg/dL (8.6-10.2) Total Bilirubin 0.7 mg/dL (0.0-1.2) Aspartate Amino Transf (AST/SGOT) 38 U/L (5-40) Alanine Aminotransferase (ALT/SGPT) 18 U/L (3-41) Alkaline Phosphatase 90 U/L (40-129) Total Creatine Kinase 57 U/L (38-174) Creatine Kinase MB 2.9 ng/mL (< 6.7) Creatine Kinase MB Relative Index 5.0 Pro-B-Type Natriuretic Peptide 5339 pg/mL (0-125) Total Protein 6.9 g/dL (6.6-8.7) Albumin 3.4 g/dL (3.5-5.2) Globulin 3.5 g/dL Albumin/Globulin Ratio 0.9 (1.0-2.7) Lipase 57 U/L (< 60) Urine Opiates Screen Negative (NEGATIVE) Urine Barbiturates Screen Negative (NEGATIVE) Phencyclidine (PCP) Screen Negative (NEGATIVE) Urine Amphetamines Screen Positive (NEGATIVE) Urine Benzodiazepines Screen Negative (NEGATIVE) Urine Cocaine Screen Positive (NEGATIVE) Urine Marijuana (THC) Screen Negative (NEGATIVE) Rhythm Strip Diag. Results EP Interpretation: yes Rate: 88 Rhythm: NSR, no PVC's, no ectopy Chest X-Ray Diagnostic Results EP Interpretation: Yes Findings: no consolidation, no effusion, no pneumothorax Number of Views: 1 Last Vital Signs Date Time Temp Pulse Resp B/P Pulse Ox O2 Delivery O2 Flow Rate FiO2 11/26/16 18:24 100 33 106/87 99 Nasal Cannula 2.0 11/26/16 16:30 97.6 Status: improved Disposition: ADMITTED INPATIENT Condition: Serious Referrals: Barrett Olivarez MD (PCP) RAIMUNDO BORRERO D.O. November 26, 2016 18:41
[2016-11-26 18:57] LABS: ALANINE AMINOTRANSFERASE 18 U/L (3-41); ALBUMIN/GLOBULIN RATIO 0.9 (1.0-2.7); ANION GAP 16 (5-15); ASPARTATE AMINO TRANSFERASE 38 U/L (5-40); CALCIUM 9.3 mg/dL (8.6-10.2); CARBON DIOXIDE 24 mEQ/L (20-30); CHLORIDE 99 mEQ/L (98-107); CREATININE 1.4 mg/dL (0.7-1.2); HEMOLYSIS 21; LIPASE 57 U/L (< 60); POTASSIUM 4.9 mEQ/L (3.4-4.9); SODIUM 139 mEQ/L (135-145); TOTAL PROTEIN 6.9 g/dL (6.6-8.7)
[2016-11-26 19:07] LABS: CKMB 2.9 ng/mL (< 6.7)
[2016-11-26 19:23] VITALS: BP 108/91
[2016-11-26] MEDS ORDERED: Enoxaparin 100mg Inj SUBQ SCH (20:45)
[2016-11-26 20:52] VITALS: BP 116/98
[2016-11-26] MEDS ORDERED: Promethazine/Codeine 5ml UD ORAL PRN (21:30)
[2016-11-26] MEDS ORDERED: LORazepam Inj 2mg/ml 1ml IV PRN (21:30)
[2016-11-26] MEDS ORDERED: Nitroglycerin Subl 0.4mg tab (Bottle Of 25) SL PRN (21:30)
[2016-11-26] MEDS ORDERED: Morphine Sulfate 2mg/ml Inj IVP PRN (21:30)
[2016-11-26 21:42] VITALS: BP 91/52
[2016-11-26] MEDS: Piperacillin/Tazobactam 3.375 GM in D5W 110 ML IVPB SCH (23:49)
[2016-11-26] MEDS: Solu-MEDROL 125mg Inj IV SCH (23:51)
[2016-11-27 00:11] VITALS: BP 104/76
[2016-11-27 03:58] VITALS: BP 111/70
[2016-11-27] MEDS: Piperacillin/Tazobactam 3.375 GM in D5W 110 ML IVPB SCH ×3 (05:48→21:28)
[2016-11-27] MEDS: Solu-MEDROL 125mg Inj IV SCH ×4 (05:48→23:50)
[2016-11-27] MEDS: DuoNeb 0.5-3(2.5)mg/3ml neb HHN PRN (06:43)
[2016-11-27 08:00] VITALS: BP 137/93
[2016-11-27] MEDS: Xarelto 15mg tab ORAL SCH ×2 (08:59→21:19)
[2016-11-27] MEDS: Theophylline ER 100mg ORAL SCH ×2 (08:59→21:17)
[2016-11-27] MEDS ORDERED: Heparin 5000 units/ml inj SUBQ SCH (09:00)
[2016-11-27] MEDS ORDERED: Furosemide 40mg tab ORAL SCH (09:00)
--- NOTE | 2016-11-27 10:53 | Diagnostic Imaging Report ---
Indication: Dyspnea Comparison: 10/18/16 A single view chest radiograph was obtained. Findings: The heart is enlarged. Basilar densities likely atelectasis noted. Sternotomy and pacemaker are present. Impression: No significant change accounting for differences in lung volume in technique. Suspected mild basilar atelectasis.
[2016-11-27 11:42] VITALS: BP 124/96
[2016-11-27 11:44] LABS: TROPONIN I < 0.30 ng/mL (<=0.30)
--- NOTE | 2016-11-27 13:38 | Consultation ---
History of Present Illness General Date patient seen: November 27, 2016 Chief Complaint: Dyspnea/Respdistress Referring physician: Dr. bar Present Illness HPI 71 year old male with hx of COPD/Emphysema presents with complaints of shortness of breath, increased cough. NO fever, chills. Allergies: Coded Allergies: No Known Allergies (Verified , 06/28/10) Medication History Scheduled Fluticasone/Salmeterol (Advair 250-50 Diskus), 2 PUFF INH QD to BID, (Reported) Furosemide* (Lasix*), 40 MG ORAL TWICE A DAY, (Reported) Lisinopril* (Lisinopril*), 2.5 MG ORAL DAILY, (Reported) Rivaroxaban (Xarelto), 15 MG ORAL BID, (Reported) Rivaroxaban (Xarelto), 20 MG ORAL DAILY START ON 10/27, (Reported) Scheduled PRN Albuterol Sulfate (Ventolin Hfa), 1 PUFF INH EVERY 6 HOURS PRN for Shortness of Breath, (Reported) Hydrocortisone (Proctosol-Hc), 1 APPLIC TOPIC DAILY PRN for Itching, (Reported) Discontinued Medications Potassium Chloride* (K-Dur*), 20 MEQ ORAL DAILY, (Reported) Discontinued Reason: Pt stopped taking med Prednisone* (Prednisone*), 20 MG ORAL DAILY Discontinued Reason: Pt stopped taking med Patient History Healthcare decision maker pt laert and oriented Resuscitation status Full Code Advanced Directive on File Past Medical/Surgical History Past Medical/Surgical History: (1) S/P CABG (coronary artery bypass graft) (2) AICD (automatic cardioverter/defibrillator) present (3) Cocaine abuse (4) HTN (hypertension) (5) CAD (coronary artery disease) Review of Systems All Other Systems: negative except mentioned in HPI Physical Exam General Appearance: cachetic Lines, tubes and drains: peripheral HEENT: normocephalic, atraumatic Neck: non-tender, normal alignment Respiratory/Chest: chest wall non-tender, lungs clear Breasts: no masses Cardiovascular/Chest: normal peripheral pulses, normal rate Abdomen: normal bowel sounds, non tender Genitourinary/Rectal: normal genital exam, normal rectal exam Extremities: normal range of motion, non-tender Skin Exam: normal pigmentation 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 Last 24 Hour Vital Signs Date Time Temp Pulse Resp B/P Pulse Ox O2 Delivery O2 Flow Rate FiO2 11/27/16 11:42 97.2 94 22 124/96 99 Room Air 11/27/16 08:00 95.5 93 24 137/93 95 Room Air 11/27/16 06:35 87 20 100 Nasal Cannula 2.0 11/27/16 06:35 Nasal Cannula 2.0 11/27/16 06:34 100 Nasal Cannula 2.0 11/27/16 06:33 95 15 Nasal Cannula 2.0 11/27/16 04:00 89 11/27/16 03:58 98.1 79 20 111/70 96 Room Air 11/27/16 00:11 98.4 76 19 104/76 98 Nasal Cannula 2.0 11/27/16 00:00 91 11/26/16 21:42 96.3 90 20 91/52 93 Nasal Cannula 2.0 11/26/16 21:39 97.6 98 22 116/98 100 Nasal Cannula 2.0 11/26/16 20:52 97.6 98 22 116/98 100 Nasal Cannula 2.0 11/26/16 20:00 Nasal Cannula 2.0 28 11/26/16 20:00 99 Nasal Cannula 2.0 28 11/26/16 19:23 97.5 97 19 108/91 100 Nasal Cannula 2.0 11/26/16 18:24 100 33 106/87 99 Nasal Cannula 2.0 11/26/16 17:57 93 12 99 2.0 11/26/16 17:32 95 17 99 Nasal Cannula 6.0 11/26/16 17:30 96 20 103/87 100 Nasal Cannula 2.0 11/26/16 17:28 95 15 Nasal Cannula 6.0 11/26/16 16:30 97.6 93 21 113/87 100 Nasal Cannula 6.0 11/26/16 16:28 76 22 Nasal Cannula 6.0 11/26/16 16:18 99.1 76 22 156/92 95 Nasal Cannula 6.0 Intake and Output 11/26/16 11/27/16 19:00 07:00 Intake Total 1293.0 ml Output Total 500 ml Balance 793.0 ml Intake IV Total 1293.0 ml Output Urine Total 500 ml # Voids 1 Laboratory Tests Test 11/26/16 16:50 11/26/16 16:55 11/26/16 18:15 11/26/16 18:43 White Blood Count 8.7 K/UL (4.8-10.8) Red Blood Count 4.83 M/UL (4.70-6.10) Hemoglobin 15.9 G/DL (14.2-18.0) Hematocrit 47.3 % (42.0-52.0) Mean Corpuscular Volume 98 FL (80-99) Mean Corpuscular Hemoglobin 33.0 PG (27.0-31.0) H Mean Corpuscular Hemoglobin Concent 33.7 G/DL (32.0-36.0) Red Cell Distribution Width 15.5 % (11.6-14.8) H Platelet Count 169 K/UL (150-450) Mean Platelet Volume 8.7 FL (6.5-10.1) Neutrophils (%) (Auto) 44.6 % (45.0-75.0) L Lymphocytes (%) (Auto) 42.3 % (20.0-45.0) Monocytes (%) (Auto) 10.8 % (1.0-10.0) H Eosinophils (%) (Auto) 0.4 % (0.0-3.0) Basophils (%) (Auto) 2.0 % (0.0-2.0) Prothrombin Time 16.8 SEC (9.30-11.50) H Prothromb Time International Ratio 1.6 (0.9-1.1) H Activated Partial Thromboplast Time 37 SEC (23-33) H Lactic Acid Level 2.60 mmol/L (0.66-2.22) H 2.60 mmol/L (0.66-2.22) H Arterial Blood pH 7.480 (7.350-7.450) Arterial Blood Partial Pressure CO2 31.4 mmHg (35.0-45.0) L Arterial Blood Partial Pressure O2 165.4 mmHg (75.0-100.0) H Arterial Blood HCO3 23.1 mmol/L (22.0-26.0) Arterial Blood Oxygen Saturation 99.1 % (92.0-98.0) H Arterial Blood Base Excess 0.6 Anam Test Positive Sodium Level 139 mEQ/L (135-145) Potassium Level 4.9 mEQ/L (3.4-4.9) Chloride Level 99 mEQ/L (98-107) Carbon Dioxide Level 24 mEQ/L (20-30) Anion Gap 16 (5-15) H Blood Urea Nitrogen 28 mg/dL (7-23) H Creatinine 1.4 mg/dL (0.7-1.2) H Estimat Glomerular Filtration Rate mL/min (>60) Glucose Level 87 mg/dL (74-106) Calcium Level 9.3 mg/dL (8.6-10.2) Total Bilirubin 0.7 mg/dL (0.0-1.2) Aspartate Amino Transf (AST/SGOT) 38 U/L (5-40) Alanine Aminotransferase (ALT/SGPT) 18 U/L (3-41) Alkaline Phosphatase 90 U/L (40-129) Total Creatine Kinase 57 U/L (38-174) Creatine Kinase MB 2.9 ng/mL (< 6.7) Creatine Kinase MB Relative Index 5.0 Pro-B-Type Natriuretic Peptide 5339 pg/mL (0-125) H Total Protein 6.9 g/dL (6.6-8.7) Albumin 3.4 g/dL (3.5-5.2) L Globulin 3.5 g/dL Albumin/Globulin Ratio 0.9 (1.0-2.7) L Lipase 57 U/L (< 60) Urine Opiates Screen Negative (NEGATIVE) Urine Barbiturates Screen Negative (NEGATIVE) Phencyclidine (PCP) Screen Negative (NEGATIVE) Urine Amphetamines Screen Positive (NEGATIVE) H Urine Benzodiazepines Screen Negative (NEGATIVE) Urine Cocaine Screen Positive (NEGATIVE) H Urine Marijuana (THC) Screen Negative (NEGATIVE) Test 11/27/16 11:03 Troponin I < 0.30 ng/mL (<=0.30) Height (Feet): 5 Height (Inches): 10.00 Weight (Pounds): 150 Medications Current Medications Medications (Trade) Dose Ordered Sig/Elsa Route PRN Reason Start Time Stop Time Status Last Admin Dose Admin Albuterol/ Ipratropium (DuoNeb 0.5-3(2.5)mg/3ml) 3 ml Q4H PRN HHN dyspnea 11/26/16 21:30 12/01/16 21:29 11/27/16 06:43 Dextrose (Dextrose 50%) STAT PRN IV Hypoglycemia 11/26/16 21:30 12/26/16 21:29 Furosemide (Lasix) 40 mg TWICE A DAY ORAL 11/27/16 09:00 12/27/16 08:59 11/27/16 08:59 Heparin Sodium (Porcine) (Heparin 5000 units/ml) 5,000 units EVERY 12 HOURS SUBQ 11/27/16 09:00 12/27/16 08:59 UNV Lorazepam (Ativan 2mg/ml 1ml) 0.5 mg Q4H PRN IV For Anxiety 11/26/16 21:30 12/03/16 21:29 Methylprednisolone Sodium Succinate (Solu-MEDROL) 60 mg EVERY 6 HOURS IV 11/27/16 00:00 12/27/16 00:00 11/27/16 12:56 Morphine Sulfate (Morphine Sulfate) 2 mg Q4H PRN IVP severe pain 7-10 11/26/16 21:30 12/03/16 21:29 Nitroglycerin (Ntg) 0.4 mg Q5M X 3 DOSES PRN SL Prn Chest Pain 11/26/16 21:30 12/26/16 21:29 Ondansetron HCl (Zofran) 4 mg Q6H PRN IVP Nausea & Vomiting 11/26/16 21:30 12/26/16 21:29 Piperacillin Sod/ Tazobactam Sod/ Dextrose (Zosyn/D5W) 110 ml @ 27.5 mls/hr EVERY 8 HOURS IVPB 11/26/16 23:00 12/03/16 22:59 11/27/16 12:56 Promethazine HCl/ Codeine (Phenergan with Codeine) 5 ml Q6H PRN ORAL cough 11/26/16 21:30 12/26/16 21:29 Rivaroxaban (Xarelto) 15 mg Q12H ORAL 11/27/16 09:00 12/27/16 08:59 11/27/16 08:59 Temazepam (Restoril) 15 mg HSPRN PRN ORAL Insomnia 11/26/16 21:30 12/03/16 21:29 Theophylline 100 mg 100 mg EVERY 12 HOURS ORAL 11/27/16 09:00 12/27/16 08:59 11/27/16 08:59 Assessment/Plan Problem List: (1) COPD with acute exacerbation ICD Codes: J44.1 - Chronic obstructive pulmonary disease with (acute) exacerbation SNOMED: 389412191 (2) AICD (automatic cardioverter/defibrillator) present ICD Codes: Z95.810 - Presence of automatic (implantable) cardiac defibrillator SNOMED: 38596575, 407356673 (3) HTN (hypertension) ICD Codes: I10 - Essential (primary) hypertension SNOMED: 33444125 (4) CAD (coronary artery disease) ICD Codes: I25.10 - Atherosclerotic heart disease of kaibab coronary artery without angina pectoris SNOMED: 02715128 (5) Cocaine abuse ICD Codes: F14.10 - Cocaine abuse, uncomplicated SNOMED: 74254029, 200854395 (6) S/P CABG (coronary artery bypass graft) ICD Codes: Z95.1 - Presence of aortocoronary bypass graft SNOMED: 044259597, 574464794 Assessment/Plan respiratory treatment IV steroids IV antibioitics check sputum cardio to see for arrhythmias MURRAY NELSON November 27, 2016 13:38
--- NOTE | 2016-11-27 14:18 | Cardiac Electrophysiology PN ---
Subjective Subjective [id number] Objective Last 24 Hour Vital Signs Date Time Temp Pulse Resp B/P Pulse Ox O2 Delivery O2 Flow Rate FiO2 11/27/16 11:42 97.2 94 22 124/96 99 Room Air 11/27/16 08:00 95.5 93 24 137/93 95 Room Air 11/27/16 06:35 87 20 100 Nasal Cannula 2.0 11/27/16 06:35 Nasal Cannula 2.0 11/27/16 06:34 100 Nasal Cannula 2.0 11/27/16 06:33 95 15 Nasal Cannula 2.0 11/27/16 04:00 89 11/27/16 03:58 98.1 79 20 111/70 96 Room Air 11/27/16 00:11 98.4 76 19 104/76 98 Nasal Cannula 2.0 11/27/16 00:00 91 11/26/16 21:42 96.3 90 20 91/52 93 Nasal Cannula 2.0 11/26/16 21:39 97.6 98 22 116/98 100 Nasal Cannula 2.0 11/26/16 20:52 97.6 98 22 116/98 100 Nasal Cannula 2.0 11/26/16 20:00 Nasal Cannula 2.0 28 11/26/16 20:00 99 Nasal Cannula 2.0 28 11/26/16 19:23 97.5 97 19 108/91 100 Nasal Cannula 2.0 11/26/16 18:24 100 33 106/87 99 Nasal Cannula 2.0 11/26/16 17:57 93 12 99 2.0 11/26/16 17:32 95 17 99 Nasal Cannula 6.0 11/26/16 17:30 96 20 103/87 100 Nasal Cannula 2.0 11/26/16 17:28 95 15 Nasal Cannula 6.0 11/26/16 16:30 97.6 93 21 113/87 100 Nasal Cannula 6.0 11/26/16 16:28 76 22 Nasal Cannula 6.0 11/26/16 16:18 99.1 76 22 156/92 95 Nasal Cannula 6.0 Intake and Output 11/26/16 11/27/16 19:00 07:00 Intake Total 1293.0 ml Output Total 500 ml Balance 793.0 ml IV Total 1293.0 ml Output Urine Total 500 ml # Voids 1 Laboratory Tests Test 11/26/16 16:50 11/26/16 16:55 11/26/16 18:15 11/26/16 18:43 White Blood Count 8.7 K/UL (4.8-10.8) Red Blood Count 4.83 M/UL (4.70-6.10) Hemoglobin 15.9 G/DL (14.2-18.0) Hematocrit 47.3 % (42.0-52.0) Mean Corpuscular Volume 98 FL (80-99) Mean Corpuscular Hemoglobin 33.0 PG (27.0-31.0) H Mean Corpuscular Hemoglobin Concent 33.7 G/DL (32.0-36.0) Red Cell Distribution Width 15.5 % (11.6-14.8) H Platelet Count 169 K/UL (150-450) Mean Platelet Volume 8.7 FL (6.5-10.1) Neutrophils (%) (Auto) 44.6 % (45.0-75.0) L Lymphocytes (%) (Auto) 42.3 % (20.0-45.0) Monocytes (%) (Auto) 10.8 % (1.0-10.0) H Eosinophils (%) (Auto) 0.4 % (0.0-3.0) Basophils (%) (Auto) 2.0 % (0.0-2.0) Prothrombin Time 16.8 SEC (9.30-11.50) H Prothromb Time International Ratio 1.6 (0.9-1.1) H Activated Partial Thromboplast Time 37 SEC (23-33) H Lactic Acid Level 2.60 mmol/L (0.66-2.22) H 2.60 mmol/L (0.66-2.22) H Arterial Blood pH 7.480 (7.350-7.450) Arterial Blood Partial Pressure CO2 31.4 mmHg (35.0-45.0) L Arterial Blood Partial Pressure O2 165.4 mmHg (75.0-100.0) H Arterial Blood HCO3 23.1 mmol/L (22.0-26.0) Arterial Blood Oxygen Saturation 99.1 % (92.0-98.0) H Arterial Blood Base Excess 0.6 Anam Test Positive Sodium Level 139 mEQ/L (135-145) Potassium Level 4.9 mEQ/L (3.4-4.9) Chloride Level 99 mEQ/L (98-107) Carbon Dioxide Level 24 mEQ/L (20-30) Anion Gap 16 (5-15) H Blood Urea Nitrogen 28 mg/dL (7-23) H Creatinine 1.4 mg/dL (0.7-1.2) H Estimat Glomerular Filtration Rate mL/min (>60) Glucose Level 87 mg/dL (74-106) Calcium Level 9.3 mg/dL (8.6-10.2) Total Bilirubin 0.7 mg/dL (0.0-1.2) Aspartate Amino Transf (AST/SGOT) 38 U/L (5-40) Alanine Aminotransferase (ALT/SGPT) 18 U/L (3-41) Alkaline Phosphatase 90 U/L (40-129) Total Creatine Kinase 57 U/L (38-174) Creatine Kinase MB 2.9 ng/mL (< 6.7) Creatine Kinase MB Relative Index 5.0 Pro-B-Type Natriuretic Peptide 5339 pg/mL (0-125) H Total Protein 6.9 g/dL (6.6-8.7) Albumin 3.4 g/dL (3.5-5.2) L Globulin 3.5 g/dL Albumin/Globulin Ratio 0.9 (1.0-2.7) L Lipase 57 U/L (< 60) Urine Opiates Screen Negative (NEGATIVE) Urine Barbiturates Screen Negative (NEGATIVE) Phencyclidine (PCP) Screen Negative (NEGATIVE) Urine Amphetamines Screen Positive (NEGATIVE) H Urine Benzodiazepines Screen Negative (NEGATIVE) Urine Cocaine Screen Positive (NEGATIVE) H Urine Marijuana (THC) Screen Negative (NEGATIVE) Test 11/27/16 11:03 Troponin I < 0.30 ng/mL (<=0.30) BRYAN BOYD November 27, 2016 14:18
[2016-11-27] MEDS ORDERED: Tubing IV Secondary IV ONE (15:26)
[2016-11-27] MEDS ORDERED: NS 275ml ONE (15:26)
[2016-11-27 16:00] VITALS: BP 114/77
[2016-11-27 20:32] VITALS: BP 125/75
--- NOTE | 2016-11-27 22:28 | Consultation ---
DATE OF CONSULTATION: 11/27/2016 CARDIOLOGY CONSULTATION: REASON FOR CONSULTATION: Evaluation of congestive heart failure and evaluation of the patient's defibrillator. HISTORY OF PRESENT ILLNESS: The patient is a 71-year-old gentleman that I am quite familiar from multiple hospitalization including recent one about a month ago. The patient has history of hypertension, congestive heart failure as well as history of [employer] defibrillator implantation as well as recurrent ventricular tachycardia. The patient also has history of COPD with history of coronary artery bypass graft. COPD. The patient also has history of cocaine use and his urine toxicology screen last time was positive for cocaine. The patient for this reason has been kept off beta-blockers. The patient presented to the emergency room for increasing shortness of breath. Cardiology consultation was obtained for further evaluation and management. PAST MEDICAL HISTORY: 1. Hypertension. 2. History of coronary artery disease . 3. History of coronary bypass graft. 4. History of congestive heart failure. 5. History of [employer] defibrillator implantation. 6. Recurrent ventricular tachycardia. 7. COPD. 8. Hepatitis C. 9. History of DVT. SOCIAL HISTORY: He still occasionally uses cocaine. FAMILY HISTORY: Noncontributory. REVIEW OF SYSTEM: Negative other than what is mentioned in history of present illness. PHYSICAL EXAMINATION: VITAL SIGNS: Blood pressure is 124/96, pulse 94, respirations 22, and temperature 97.2 degrees. HEAD AND NECK: Shows no JVD. LUNGS: Clear. CARDIOVASCULAR: Shows regular S1 and S2 with no gallop or murmur. There is a defibrillator in the left subclavian. Sternotomy scar is intact ABDOMEN: Soft and nontender. EXTREMITIES: Shows 1+ pitting edema. LABORATORY DATA: Show a white count of 8.7, hemoglobin 15.9, hematocrit 47.3, and platelet count 169,000. Sodium 139, potassium 4.9, BUN 20, and creatinine 1.4. His BNP is 5239. Troponin is negative. ASSESSMENT AND PLAN: 1. Exacerbation of congestive heart failure. This is likely precipitated from also polysubstance abuse. The patient's urine toxicology screen is positive for amphetamine as well as cocaine. We will avoid beta-blockers in view of cocaine use. Continue lisinopril, Aldactone, and Lasix. 2. Status post [employer] defibrillator implantation interrogated showed normal function. 3. History of deep venous thrombosis. The patient currently on Xarelto and the patient has history of ventricular tachycardia. The patient continues to have runs of ventricular tachycardia. Resume amiodarone 200 mg daily. 4. Chronic obstructive pulmonary disease on theophylline and prednisone. Thank very much, Dr. Olivarez, for allowing me to participate in the care of this patient. Please do not hesitate to contact for any questions regarding my evaluation. Pineda Crooks M.D. DR: Jade JOB#: [id number] CC:
--- NOTE | 2016-11-27 22:58 | History and Physical Report ---
DATE OF ADMISSION: 11/26/2016 CHIEF COMPLAINT: The patient is a 71-year-old male who presents with chief complaint of shortness of breath. HISTORY OF PRESENT ILLNESS: The patient was admitted to [facility] from 10/14/2016 to 10/21/2016. The patient was admitted for acute COPD exacerbation. The patient was found to have an acute left leg deep venous thrombosis. The patient presented to [place] emergency room complaining of a two-day history of cough. The patient also complains of subjective fevers and chills. The patient complains of sputum production of a base color. The patient had an initial chest x-ray, which revealed bibasilar densities. The patient was admitted for acute exacerbation of chronic obstructive pulmonary disease and pneumonia. REVIEW OF SYSTEMS: Constitutional: The patient denies any weight loss or weight gain. The patient denies fevers or chills. HEENT: The patient denies ear or throat pain. The patient denies headache. Cardiovascular: The patient denies palpitations or chest pain. Chest: The patient complains of shortness of breath as above. The patient denies wheezes. Abdominal: The patient denies nausea, vomiting, diarrhea, or constipation. Genitourinary: The patient denies dysuria or increased frequency of urination. Neuromuscular: The patient denies seizures or generalized weakness. PAST MEDICAL HISTORY: Significant for, 1. Acute left leg deep venous thrombosis. 2. Chronic obstructive pulmonary disease. 3. Coronary artery disease, status post coronary artery bypass graft. 4. History of respiratory failure requiring BiPAP. 5. Congestive heart failure. 6. Cardiomyopathy. 7. History of renal calculi. 8. Hepatitis C. PAST SURGICAL HISTORY: Significant for, 1. Coronary artery bypass graft in 2014. 2. AICD placement. CURRENT MEDICATIONS: 1. Albuterol metered-dose inhaler 2 puffs p.o. q.6 h. 2. Advair 250/50 mcg 2 puffs p.o. twice daily. 3. Lasix 40 mg 1 tablet p.o. twice daily. 4. Lisinopril 2.5 mg 1 tablet p.o. daily. 5. Xarelto 20 mg 1 tablet p.o. daily. ALLERGIES: No known drug allergies. SOCIAL HISTORY: The patient is single and lives alone. The patient admits to previous tobacco use, however, he quit with his coronary artery bypass graft in 2012. The patient denies alcohol use. PHYSICAL EXAMINATION: VITAL SIGNS: Temperature 97.6, respirations 22, pulse 98, blood pressure 116/98, and oxygen saturation 93% to 100% on 2 liters nasal cannula. GENERAL: The patient is thin-appearing male, who appears older than his stated age. HEENT: Eyes, pupils are equal and responsive to light and accommodation. Extraocular movements are intact. NECK: Supple without lymphadenopathy. CHEST: Few scattered wheezes bilaterally with decreased breath sounds in bilateral bases, otherwise, clear to auscultation without wheezes or rales. CARDIOVASCULAR: Regular rate. S1 and S2 are normal without murmurs, rubs, or gallops. ABDOMEN: Soft, nontender, and nondistended. Positive bowel sounds. No evidence of hepatosplenomegaly. Currently, no rebound or guarding. EXTREMITIES: Negative for clubbing, cyanosis, or edema. RECTAL/GENITAL: Refused. NEUROLOGIC: Cranial nerves II through XII are grossly intact without focal deficits. Motor strength is 5/5 bilaterally. Deep tendon reflexes are 2+ plantar. LABORATORY AND DIAGNOSTIC DATA: WBC 8.7, hemoglobin 15.9, hematocrit 47.3, and platelets 169,000. Sodium 139, potassium 4.9, chloride 99, CO2 24, BUN 28, creatinine 1.4, and glucose 87. Lactic acid elevated at 2.6. BNP elevated at 5399. Troponin was less than 0.3. Chest x-ray revealed bibasilar densities, otherwise, without acute disease. ASSESSMENT: This is a 71-year-old male with, 1. Pneumonia. 2. Chronic obstructive pulmonary disease, acute exacerbation. 3. Deep venous thrombosis of the left popliteal vein. 4. Coronary artery disease. 5. Congestive heart failure. 6. Cardiomyopathy. 7. History of renal calculi. TREATMENT: 1. Pneumonia. An Infectious Disease consultation has been obtained with Dr. Samson. The patient has been started empirically on Zosyn. We will follow recommendations of Dr. Samson. 2. Chronic obstructive pulmonary disease acute exacerbation. A pulmonary consultation has been obtained with Dr. Lucy Mishra. The patient is currently on Duo-Nebs q.4 h. and Solu-Medrol 60 mg IV q.6 h. The patient has also been started on Yadiel-Dur 100 mg 1 tablet p.o. twice daily. We will follow recommendation of Pulmonary. 3. Deep venous thrombosis of the left popliteal vein. Continue Xarelto as above. 4. Coronary artery disease. The patient is status post coronary artery bypass graft. A Cardiology consultation has been obtained with Dr. Pineda Crooks. 5. Congestive heart failure. As above, a Cardiology consultation has been obtained with Dr. Pineda Crooks. The patient is currently on intravenous Lasix. 6. Cardiomyopathy. 7. Renal calculi. Royce Davila M.D. DR: TAO JOB#: [id number] CC:
[2016-11-28] VITALS (7 sets, daily range): BP systolic 113–128; BP diastolic 77–94
[2016-11-28] MEDS: Solu-MEDROL 125mg Inj IV SCH ×3 (05:42→17:01)
[2016-11-28] MEDS: Piperacillin/Tazobactam 3.375 GM in D5W 110 ML IVPB SCH ×3 (05:42→22:27)
[2016-11-28 08:38] LABS: MEAN CORPUSCULAR HEMOGLOBIN 31.5 PG (27.0-31.0); MEAN CORPUSCULAR HGB CONC 31.7 G/DL (32.0-36.0); MEAN CORPUSCULAR VOLUME 99 FL (80-99); PLATELET COUNT 165 K/UL (150-450); RED BLOOD COUNT 4.49 M/UL (4.70-6.10); RED CELL DISTRIBUTION WIDTH 15.9 % (11.6-14.8); WHITE BLOOD COUNT 12.4 K/UL (4.8-10.8)
[2016-11-28] MEDS: Lisinopril 10mg tab ORAL SCH (08:55)
[2016-11-28] MEDS: Spironolactone 25mg tab ORAL SCH (08:55)
[2016-11-28] MEDS: Amiodarone 200mg tab ORAL SCH (08:55)
[2016-11-28] MEDS: Theophylline ER 100mg ORAL SCH ×2 (08:55→21:13)
[2016-11-28 08:57] LABS: ANION GAP 15 (5-15); CALCIUM 9.5 mg/dL (8.6-10.2); CARBON DIOXIDE 23 mEQ/L (20-30); CHLORIDE 103 mEQ/L (98-107); CREATININE 1.6 mg/dL (0.7-1.2); HEMOLYSIS 10; POTASSIUM 4.9 mEQ/L (3.4-4.9); SODIUM 141 mEQ/L (135-145)
[2016-11-28 08:58] LABS: TROPONIN I < 0.30 ng/mL (<=0.30)
[2016-11-28 11:19] LABS: ANISOCYTOSIS 1+; BAND NEUTROPHILS % (MANUAL) 0 % (0-8); BASOPHILS % (MANUAL) 0 % (0-2); EOSINOPHILS % (MANUAL) 0 % (0-3); HYPOCHROMASIA 1+; LYMPHOCYTES % (MANUAL) 4 % (20-45); NEUTROPHILS % (MANUAL) 94 % (45-75); NUCLEATED RED BLOOD CELLS 2 /100 WBC; PLATELET ESTIMATE ADEQUATE; PLATELET MORPHOLOGY NORMAL; TOTAL CELLS COUNTED 100
--- NOTE | 2016-11-28 13:33 | Internal Med Progress Note ---
Subjective Date of Service: November 28, 2016 Physician Name Royce Davila Attending Physician Barrett Olivarez MD Current Medications Medications (Trade) Dose Ordered Sig/Elsa Route PRN Reason Start Time Stop Time Status Last Admin Dose Admin Albuterol/ Ipratropium (DuoNeb 0.5-3(2.5)mg/3ml) 3 ml Q4H PRN HHN dyspnea 11/26/16 21:30 12/01/16 21:29 11/27/16 06:43 Amiodarone HCl (Cordarone) 200 mg DAILY ORAL 11/28/16 09:00 12/28/16 08:59 11/28/16 08:55 Dextrose (Dextrose 50%) STAT PRN IV Hypoglycemia 11/26/16 21:30 12/26/16 21:29 Furosemide (Lasix) 40 mg EVERY 12 HOURS IV 11/27/16 21:00 12/27/16 20:59 11/28/16 08:55 Lisinopril (Zestril) 10 mg DAILY ORAL 11/28/16 09:00 12/28/16 08:59 11/28/16 08:55 Lorazepam (Ativan 2mg/ml 1ml) 0.5 mg Q4H PRN IV For Anxiety 11/26/16 21:30 12/03/16 21:29 Methylprednisolone Sodium Succinate (Solu-MEDROL) 60 mg EVERY 6 HOURS IV 11/27/16 00:00 12/27/16 00:00 11/28/16 12:26 Morphine Sulfate (Morphine Sulfate) 2 mg Q4H PRN IVP severe pain 7-10 11/26/16 21:30 12/03/16 21:29 Nitroglycerin (Ntg) 0.4 mg Q5M X 3 DOSES PRN SL Prn Chest Pain 11/26/16 21:30 12/26/16 21:29 Ondansetron HCl (Zofran) 4 mg Q6H PRN IVP Nausea & Vomiting 11/26/16 21:30 12/26/16 21:29 Piperacillin Sod/ Tazobactam Sod/ Dextrose (Zosyn/D5W) 110 ml @ 27.5 mls/hr EVERY 8 HOURS IVPB 11/26/16 23:00 12/03/16 22:59 11/28/16 05:42 Promethazine HCl/ Codeine (Phenergan with Codeine) 5 ml Q6H PRN ORAL cough 11/26/16 21:30 12/26/16 21:29 Rivaroxaban (Xarelto) 20 mg QPM ORAL 11/28/16 16:30 12/28/16 16:29 Spironolactone (Aldactone) 25 mg DAILY ORAL 11/28/16 09:00 12/28/16 08:59 11/28/16 08:55 Temazepam (Restoril) 15 mg HSPRN PRN ORAL Insomnia 11/26/16 21:30 12/03/16 21:29 Theophylline 100 mg 100 mg EVERY 12 HOURS ORAL 11/27/16 09:00 12/27/16 08:59 11/28/16 08:55 Allergies: Coded Allergies: No Known Allergies (Verified , 06/28/10) ROS Limited/Unobtainable: No Constitutional: Reports: no symptoms HEENT: Reports: no symptoms Cardiovascular: Reports: no symptoms Respiratory: Reports: cough, shortness of breath Gastrointestinal/Abdominal: Reports: no symptoms Genitourinary: Reports: no symptoms Neurologic/Psychiatric: Reports: no symptoms Subjective 71 YO M admitted with Shortness of breath. Now CHF exacerbation. Cover for Int Med-Dr Olivarez. Objective Last Vital Signs Date Time Temp Pulse Resp B/P Pulse Ox O2 Delivery O2 Flow Rate FiO2 11/28/16 12:00 97.0 88 20 128/81 96 Nasal Cannula 2.0 11/26/16 20:00 28 Laboratory Tests Test 11/28/16 07:45 White Blood Count 12.4 K/UL (4.8-10.8) H Red Blood Count 4.49 M/UL (4.70-6.10) L Hemoglobin 14.1 G/DL (14.2-18.0) L Hematocrit 44.5 % (42.0-52.0) Mean Corpuscular Volume 99 FL (80-99) Mean Corpuscular Hemoglobin 31.5 PG (27.0-31.0) H Mean Corpuscular Hemoglobin Concent 31.7 G/DL (32.0-36.0) L Red Cell Distribution Width 15.9 % (11.6-14.8) H Platelet Count 165 K/UL (150-450) Mean Platelet Volume 9.0 FL (6.5-10.1) Neutrophils (%) (Auto) % (45.0-75.0) Lymphocytes (%) (Auto) % (20.0-45.0) Monocytes (%) (Auto) % (1.0-10.0) Eosinophils (%) (Auto) % (0.0-3.0) Basophils (%) (Auto) % (0.0-2.0) Differential Total Cells Counted 100 Neutrophils % (Manual) 94 % (45-75) H Lymphocytes % (Manual) 4 % (20-45) L Monocytes % (Manual) 2 % (1-10) Eosinophils % (Manual) 0 % (0-3) Basophils % (Manual) 0 % (0-2) Band Neutrophils 0 % (0-8) Nucleated Red Blood Cells 2 /100 WBC Platelet Estimate Adequate Platelet Morphology Normal Hypochromasia 1+ Anisocytosis 1+ Sodium Level 141 mEQ/L (135-145) Potassium Level 4.9 mEQ/L (3.4-4.9) Chloride Level 103 mEQ/L (98-107) Carbon Dioxide Level 23 mEQ/L (20-30) Anion Gap 15 (5-15) Blood Urea Nitrogen 39 mg/dL (7-23) H Creatinine 1.6 mg/dL (0.7-1.2) H Estimat Glomerular Filtration Rate mL/min (>60) Glucose Level 153 mg/dL (74-106) H Calcium Level 9.5 mg/dL (8.6-10.2) Troponin I < 0.30 ng/mL (<=0.30) Pro-B-Type Natriuretic Peptide 6064 pg/mL (0-125) H Microbiology Date/Time Source Procedure Growth Status 11/26/16 16:50 Blood Blood Culture - Preliminary NO GROWTH AFTER 24 HOURS Resulted 11/26/16 16:40 Blood Blood Culture - Preliminary NO GROWTH AFTER 24 HOURS Resulted 11/28/16 06:23 Sputum Gram Stain - Final Resulted 11/28/16 06:23 Sputum Sputum Culture Pending Resulted Intake and Output 11/27/16 11/28/16 19:00 07:00 Intake Total 120 ml 145.7 ml Output Total 800 ml 700 ml Balance -680 ml -554.3 ml Intake Oral 120 ml IV Total 145.7 ml Output Urine Total 800 ml 700 ml Objective General: alert, cooperative, no distress, appears stated age Head: normocephalic, without obvious abnormality, atraumatic Eyes: conjunctivae/corneas clear. PERRL, EOM's intact Throat: lips, mucosa, and tongue normal. MMM Neck: supple, symmetrical, trachea midline, and no JVD Lungs: Crackles bilat bases; otherwise, clear to auscultation bilaterally Heart: regular rate and rhythm, S1, S2 normal, no murmur, click, rub or gallop Abdomen: soft, non-tender, non-distended, bowel sounds normal; no masses or organomegaly Extremities: extremities normal, atraumatic, no cyanosis or edema Pulses: 2+ and symmetric Skin: skin color, texture, turgor normal; no rashes or lesions Neurologic: grossly normal, no focal deficits Assessment/Plan Problem List: (1) COPD exacerbation Assessment & Plan: Continue zosyn and IV solumedrol per pulmonary. (2) Pneumonia (3) DVT, popliteal, acute Assessment & Plan: Cont xarelto (4) CAD (coronary artery disease) (5) Cardiomyopathy (6) HTN (hypertension) Assessment & Plan: Cont lisinopril. (7) CHF exacerbation (8) Methamphetamine abuse (9) AICD (automatic cardioverter/defibrillator) present Assessment & Plan: S/P interrogation - see cardiology note. (10) Cocaine abuse Status: ROYCE Muro November 28, 2016 13:32
[2016-11-28] MEDS: Xarelto 10mg tab ORAL SCH (15:39)
--- NOTE | 2016-11-28 16:46 | Cardiac Electrophysiology PN ---
Assessment/Plan Assessment/Plan 1. Exacerbation of congestive heart failure. Precipitated from also polysubstance abuse. The patient's urine toxicology screen is positive for amphetamine as well as cocaine. Avoid beta- blockers in view of cocaine use. Continue lisinopril, Aldactone, and Lasix. 2. Status post [facility] defibrillator implantation interrogated showed normal function. 3. History of deep venous thrombosis. Continue Xarelto 4. Nonsustained V. On amiodarone 200 mg daily. 5. Chronic obstructive pulmonary disease on theophylline and prednisone. PANCHO RN Subjective Subjective Comfortable in NAD. No chest pain or SOB.Had nonsustained VT today but no shock from ICD. Objective Last 24 Hour Vital Signs Date Time Temp Pulse Resp B/P Pulse Ox O2 Delivery O2 Flow Rate FiO2 11/28/16 12:00 97.0 88 20 128/81 96 Nasal Cannula 2.0 11/28/16 08:55 128/92 11/28/16 08:00 97.5 88 20 116/94 96 Nasal Cannula 2.0 11/28/16 08:00 93 11/28/16 04:05 98.5 88 19 128/92 100 Nasal Cannula 2.0 11/28/16 04:00 94 11/28/16 00:09 98.8 94 20 119/81 98 Nasal Cannula 2.0 11/28/16 00:00 96 11/27/16 21:44 95 Nasal Cannula 2.0 11/27/16 20:32 98.3 76 21 125/75 93 Nasal Cannula 2.0 11/27/16 20:00 94 11/27/16 19:15 Nasal Cannula 2.0 Intake and Output 11/27/16 11/28/16 19:00 07:00 Intake Total 120 ml 145.7 ml Output Total 800 ml 700 ml Balance -680 ml -554.3 ml Intake Oral 120 ml IV Total 145.7 ml Output Urine Total 800 ml 700 ml Laboratory Tests Test 11/28/16 07:45 White Blood Count 12.4 K/UL (4.8-10.8) H Red Blood Count 4.49 M/UL (4.70-6.10) L Hemoglobin 14.1 G/DL (14.2-18.0) L Hematocrit 44.5 % (42.0-52.0) Mean Corpuscular Volume 99 FL (80-99) Mean Corpuscular Hemoglobin 31.5 PG (27.0-31.0) H Mean Corpuscular Hemoglobin Concent 31.7 G/DL (32.0-36.0) L Red Cell Distribution Width 15.9 % (11.6-14.8) H Platelet Count 165 K/UL (150-450) Mean Platelet Volume 9.0 FL (6.5-10.1) Neutrophils (%) (Auto) % (45.0-75.0) Lymphocytes (%) (Auto) % (20.0-45.0) Monocytes (%) (Auto) % (1.0-10.0) Eosinophils (%) (Auto) % (0.0-3.0) Basophils (%) (Auto) % (0.0-2.0) Differential Total Cells Counted 100 Neutrophils % (Manual) 94 % (45-75) H Lymphocytes % (Manual) 4 % (20-45) L Monocytes % (Manual) 2 % (1-10) Eosinophils % (Manual) 0 % (0-3) Basophils % (Manual) 0 % (0-2) Band Neutrophils 0 % (0-8) Nucleated Red Blood Cells 2 /100 WBC Platelet Estimate Adequate Platelet Morphology Normal Hypochromasia 1+ Anisocytosis 1+ Sodium Level 141 mEQ/L (135-145) Potassium Level 4.9 mEQ/L (3.4-4.9) Chloride Level 103 mEQ/L (98-107) Carbon Dioxide Level 23 mEQ/L (20-30) Anion Gap 15 (5-15) Blood Urea Nitrogen 39 mg/dL (7-23) H Creatinine 1.6 mg/dL (0.7-1.2) H Estimat Glomerular Filtration Rate mL/min (>60) Glucose Level 153 mg/dL (74-106) H Calcium Level 9.5 mg/dL (8.6-10.2) Troponin I < 0.30 ng/mL (<=0.30) Pro-B-Type Natriuretic Peptide 6064 pg/mL (0-125) H Microbiology Date/Time Source Procedure Growth Status 11/26/16 16:50 Blood Blood Culture - Preliminary NO GROWTH AFTER 24 HOURS Resulted 11/26/16 16:40 Blood Blood Culture - Preliminary NO GROWTH AFTER 24 HOURS Resulted 11/28/16 06:23 Sputum Gram Stain - Final Resulted 11/28/16 06:23 Sputum Sputum Culture Pending Resulted Objective HEAD AND NECK: Shows no JVD. LUNGS: Clear. CARDIOVASCULAR: Shows regular S1 and S2 with no gallop or murmur. There is a defibrillator in the left subclavian. Sternotomy scar is intact ABDOMEN: Soft and nontender. EXTREMITIES: Shows 1+ pitting edema. BRYAN BOYD November 28, 2016 16:46
--- NOTE | 2016-11-28 17:38 | Cardiology Report ---
APPROVED REPORT EKG Measurement Heart [id number] Normal sinus rhythm Possible Left atrial enlargement Anteroseptal infarct, age undetermined Abnormal ECG
--- NOTE | 2016-11-28 21:52 | Pulmonology Progress Note ---
Assessment/Plan Problems: (1) COPD with acute exacerbation (2) AICD (automatic cardioverter/defibrillator) present (3) HTN (hypertension) (4) CAD (coronary artery disease) (5) Cocaine abuse (6) S/P CABG (coronary artery bypass graft) Assessment/Plan improving still has episodes of vtach respiratory treatment titrate fio2 Subjective ROS Limited/Unobtainable: No Constitutional: Reports: no symptoms HEENT: Repors: no symptoms Respiratory: Reports: no symptoms Allergies: Coded Allergies: No Known Allergies (Verified , 06/28/10) Objective Last 24 Hour Vital Signs Date Time Temp Pulse Resp B/P Pulse Ox O2 Delivery O2 Flow Rate FiO2 11/28/16 20:28 98.3 61 20 122/77 93 Room Air 11/28/16 19:09 Nasal Cannula 2.0 28 11/28/16 19:09 100 Nasal Cannula 2.0 28 11/28/16 16:00 97.3 48 20 113/78 97 Nasal Cannula 2.0 11/28/16 16:00 87 11/28/16 12:00 97.0 88 20 128/81 96 Nasal Cannula 2.0 11/28/16 12:00 97 11/28/16 08:55 128/92 11/28/16 08:00 97.5 88 20 116/94 96 Nasal Cannula 2.0 11/28/16 08:00 93 11/28/16 07:30 Nasal Cannula 2.0 11/28/16 07:30 96 Nasal Cannula 2.0 28 11/28/16 04:05 98.5 88 19 128/92 100 Nasal Cannula 2.0 11/28/16 04:00 94 11/28/16 00:09 98.8 94 20 119/81 98 Nasal Cannula 2.0 11/28/16 00:00 96 Intake and Output 11/27/16 11/28/16 19:00 07:00 Intake Total 120 ml 145.7 ml Output Total 800 ml 700 ml Balance -680 ml -554.3 ml Intake Oral 120 ml IV Total 145.7 ml Output Urine Total 800 ml 700 ml Objective General Appearance: cachetic Lines, tubes and drains: peripheral HEENT: normocephalic, atraumatic Neck: non-tender, normal alignment Respiratory/Chest: chest wall non-tender, lungs clear Breasts: no masses Cardiovascular/Chest: normal peripheral pulses, normal rate Abdomen: normal bowel sounds, non tender Genitourinary/Rectal: normal genital exam, normal rectal exam Extremities: normal range of motion, non-tender Skin Exam: normal pigmentation 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 Microbiology Date/Time Source Procedure Growth Status 11/26/16 16:50 Blood Blood Culture - Preliminary NO GROWTH AFTER 24 HOURS Resulted 11/26/16 16:40 Blood Blood Culture - Preliminary NO GROWTH AFTER 24 HOURS Resulted 11/28/16 06:23 Sputum Gram Stain - Final Resulted 11/28/16 06:23 Sputum Sputum Culture Pending Resulted Laboratory Tests 11/28/16 07:45: White Blood Count 12.4H, Red Blood Count 4.49L, Hemoglobin 14.1L, Hematocrit 44.5, Mean Corpuscular Volume 99, Mean Corpuscular Hemoglobin 31.5H, Mean Corpuscular Hemoglobin Concent 31.7L, Red Cell Distribution Width 15.9H, Platelet Count 165, Mean Platelet Volume 9.0, Neutrophils (%) (Auto) , Lymphocytes (%) (Auto) , Monocytes (%) (Auto) , Eosinophils (%) (Auto) , Basophils (%) (Auto) , Differential Total Cells Counted 100, Neutrophils % ( Manual) 94H, Lymphocytes % (Manual) 4L, Monocytes % (Manual) 2, Eosinophils % ( Manual) 0, Basophils % (Manual) 0, Band Neutrophils 0, Nucleated Red Blood Cells 2, Platelet Estimate Adequate, Platelet Morphology Normal, Hypochromasia 1 +, Anisocytosis 1+, Sodium Level 141, Potassium Level 4.9, Chloride Level 103, Carbon Dioxide Level 23, Anion Gap 15, Blood Urea Nitrogen 39H, Creatinine 1.6H , Estimat Glomerular Filtration Rate , Glucose Level 153H, Calcium Level 9.5, Troponin I < 0.30, Pro-B-Type Natriuretic Peptide 6064H Current Medications Medications (Trade) Dose Ordered Sig/Elsa Route PRN Reason Start Time Stop Time Status Last Admin Dose Admin Albuterol/ Ipratropium (DuoNeb 0.5-3(2.5)mg/3ml) 3 ml Q4H PRN HHN dyspnea 11/26/16 21:30 12/01/16 21:29 11/27/16 06:43 Amiodarone HCl (Cordarone) 200 mg DAILY ORAL 11/28/16 09:00 12/28/16 08:59 11/28/16 08:55 Dextrose (Dextrose 50%) STAT PRN IV Hypoglycemia 11/26/16 21:30 12/26/16 21:29 Furosemide (Lasix) 40 mg EVERY 12 HOURS IV 11/27/16 21:00 12/27/16 20:59 11/28/16 21:14 Lisinopril (Zestril) 10 mg DAILY ORAL 11/28/16 09:00 12/28/16 08:59 11/28/16 08:55 Lorazepam (Ativan 2mg/ml 1ml) 0.5 mg Q4H PRN IV For Anxiety 11/26/16 21:30 12/03/16 21:29 Methylprednisolone Sodium Succinate (Solu-MEDROL) 60 mg EVERY 6 HOURS IV 11/27/16 00:00 12/27/16 00:00 11/28/16 17:01 Morphine Sulfate (Morphine Sulfate) 2 mg Q4H PRN IVP severe pain 7-10 11/26/16 21:30 12/03/16 21:29 Nitroglycerin (Ntg) 0.4 mg Q5M X 3 DOSES PRN SL Prn Chest Pain 11/26/16 21:30 12/26/16 21:29 Ondansetron HCl (Zofran) 4 mg Q6H PRN IVP Nausea & Vomiting 11/26/16 21:30 12/26/16 21:29 Piperacillin Sod/ Tazobactam Sod/ Dextrose (Zosyn/D5W) 110 ml @ 27.5 mls/hr EVERY 8 HOURS IVPB 11/26/16 23:00 12/03/16 22:59 11/28/16 14:24 Promethazine HCl/ Codeine (Phenergan with Codeine) 5 ml Q6H PRN ORAL cough 11/26/16 21:30 12/26/16 21:29 Rivaroxaban (Xarelto) 20 mg QPM ORAL 11/28/16 16:30 12/28/16 16:29 11/28/16 15:39 Spironolactone (Aldactone) 25 mg DAILY ORAL 11/28/16 09:00 12/28/16 08:59 11/28/16 08:55 Temazepam (Restoril) 15 mg HSPRN PRN ORAL Insomnia 11/26/16 21:30 12/03/16 21:29 Theophylline 100 mg 100 mg EVERY 12 HOURS ORAL 11/27/16 09:00 12/27/16 08:59 11/28/16 21:13 MURRAY NELSON November 28, 2016 21:52
[2016-11-29] MEDS: Solu-MEDROL 125mg Inj IV SCH ×4 (00:50→17:54)
[2016-11-29 04:04] VITALS: BP 123/70
[2016-11-29] MEDS: Piperacillin/Tazobactam 3.375 GM in D5W 110 ML IVPB SCH ×2 (05:09→13:33)
[2016-11-29 07:09] LABS: MEAN CORPUSCULAR HGB CONC 31.3 G/DL (32.0-36.0); MEAN CORPUSCULAR VOLUME 99 FL (80-99); MEAN PLATELET VOLUME 9.4 FL (6.5-10.1); PLATELET COUNT 163 K/UL (150-450); RED BLOOD COUNT 4.45 M/UL (4.70-6.10); RED CELL DISTRIBUTION WIDTH 15.8 % (11.6-14.8); WHITE BLOOD COUNT 17.6 K/UL (4.8-10.8)
[2016-11-29 07:42] LABS: ANION GAP 17 (5-15); CALCIUM 9.2 mg/dL (8.6-10.2); CARBON DIOXIDE 25 mEQ/L (20-30); CHLORIDE 101 mEQ/L (98-107); CREATININE 1.5 mg/dL (0.7-1.2); HEMOLYSIS 41; POTASSIUM 3.7 mEQ/L (3.4-4.9); SODIUM 143 mEQ/L (135-145)
[2016-11-29 08:20] VITALS: BP 116/79
[2016-11-29] MEDS: Amiodarone 200mg tab ORAL SCH (09:24)
[2016-11-29] MEDS: Spironolactone 25mg tab ORAL SCH (09:25)
[2016-11-29] MEDS: Lisinopril 10mg tab ORAL SCH (09:25)
[2016-11-29] MEDS: Theophylline ER 100mg ORAL SCH ×2 (09:25→21:26)
[2016-11-29 10:43] LABS: ANISOCYTOSIS 1+; BAND NEUTROPHILS % (MANUAL) 0 % (0-8); BASOPHILS % (MANUAL) 0 % (0-2); EOSINOPHILS % (MANUAL) 0 % (0-3); LYMPHOCYTES % (MANUAL) 7 % (20-45); NEUTROPHILS % (MANUAL) 92 % (45-75); PLATELET ESTIMATE ADEQUATE; PLATELET MORPHOLOGY NORMAL; TOTAL CELLS COUNTED 100
[2016-11-29 10:44] LABS: HYPOCHROMASIA 1+
[2016-11-29 11:47] VITALS: BP 142/67
[2016-11-29] MEDS: Xarelto 10mg tab ORAL SCH (15:38)
[2016-11-29 15:45] VITALS: BP 116/68
--- NOTE | 2016-11-29 15:45 | Internal Med Progress Note ---
Subjective Date of Service: November 29, 2016 Physician Name Surinder Davila Attending Physician Barrett Olivarez MD Current Medications Medications (Trade) Dose Ordered Sig/Elsa Route PRN Reason Start Time Stop Time Status Last Admin Dose Admin Albuterol/ Ipratropium (DuoNeb 0.5-3(2.5)mg/3ml) 3 ml Q4H PRN HHN dyspnea 11/26/16 21:30 12/01/16 21:29 11/27/16 06:43 Amiodarone HCl 200 mg 200 mg DAILY ORAL 11/28/16 09:00 12/28/16 08:59 11/29/16 09:24 Dextrose (Dextrose 50%) STAT PRN IV Hypoglycemia 11/26/16 21:30 12/26/16 21:29 Furosemide (Lasix) 40 mg EVERY 12 HOURS IV 11/27/16 21:00 12/27/16 20:59 11/29/16 09:24 Lisinopril (Zestril) 10 mg DAILY ORAL 11/28/16 09:00 12/28/16 08:59 11/29/16 09:25 Lorazepam (Ativan 2mg/ml 1ml) 0.5 mg Q4H PRN IV For Anxiety 11/26/16 21:30 12/03/16 21:29 Methylprednisolone Sodium Succinate (Solu-MEDROL) 60 mg EVERY 6 HOURS IV 11/27/16 00:00 12/27/16 00:00 11/29/16 11:44 Morphine Sulfate (Morphine Sulfate) 2 mg Q4H PRN IVP severe pain 7-10 11/26/16 21:30 12/03/16 21:29 Nitroglycerin (Ntg) 0.4 mg Q5M X 3 DOSES PRN SL Prn Chest Pain 11/26/16 21:30 12/26/16 21:29 Ondansetron HCl (Zofran) 4 mg Q6H PRN IVP Nausea & Vomiting 11/26/16 21:30 12/26/16 21:29 Piperacillin Sod/ Tazobactam Sod/ Dextrose (Zosyn/D5W) 110 ml @ 27.5 mls/hr EVERY 8 HOURS IVPB 11/26/16 23:00 11/29/16 16:00 11/29/16 13:33 Piperacillin Sod/ Tazobactam Sod/ Sodium Chloride (Zosyn/Sodium Chloride) 110 ml @ 27.5 mls/hr EVERY 8 HOURS IVPB 11/29/16 22:00 12/06/16 21:59 Promethazine HCl/ Codeine (Phenergan with Codeine) 5 ml Q6H PRN ORAL cough 11/26/16 21:30 12/26/16 21:29 Rivaroxaban (Xarelto) 20 mg QPM ORAL 11/28/16 16:30 12/28/16 16:29 11/29/16 15:38 Spironolactone (Aldactone) 25 mg DAILY ORAL 11/28/16 09:00 12/28/16 08:59 11/29/16 09:25 Temazepam (Restoril) 15 mg HSPRN PRN ORAL Insomnia 11/26/16 21:30 12/03/16 21:29 Theophylline 100 mg 100 mg EVERY 12 HOURS ORAL 11/27/16 09:00 12/27/16 08:59 11/29/16 09:25 Allergies: Coded Allergies: No Known Allergies (Verified , 06/28/10) ROS Limited/Unobtainable: No Constitutional: Reports: no symptoms HEENT: Reports: no symptoms Cardiovascular: Reports: no symptoms Respiratory: Reports: cough, shortness of breath Gastrointestinal/Abdominal: Reports: no symptoms Genitourinary: Reports: no symptoms Neurologic/Psychiatric: Reports: no symptoms Subjective 71 YO M admitted with Shortness of breath. Now CHF exacerbation. Cover for Int Pool-Dr Olivarez. Objective Last Vital Signs Date Time Temp Pulse Resp B/P Pulse Ox O2 Delivery O2 Flow Rate FiO2 11/29/16 11:47 97.0 83 22 142/67 97 Nasal Cannula 2.0 11/29/16 07:37 28 Laboratory Tests Test 11/29/16 04:50 White Blood Count 17.6 K/UL (4.8-10.8) H Red Blood Count 4.45 M/UL (4.70-6.10) L Hemoglobin 13.8 G/DL (14.2-18.0) L Hematocrit 44.0 % (42.0-52.0) Mean Corpuscular Volume 99 FL (80-99) Mean Corpuscular Hemoglobin 31.0 PG (27.0-31.0) Mean Corpuscular Hemoglobin Concent 31.3 G/DL (32.0-36.0) L Red Cell Distribution Width 15.8 % (11.6-14.8) H Platelet Count 163 K/UL (150-450) Mean Platelet Volume 9.4 FL (6.5-10.1) Neutrophils (%) (Auto) % (45.0-75.0) Lymphocytes (%) (Auto) % (20.0-45.0) Monocytes (%) (Auto) % (1.0-10.0) Eosinophils (%) (Auto) % (0.0-3.0) Basophils (%) (Auto) % (0.0-2.0) Differential Total Cells Counted 100 Neutrophils % (Manual) 92 % (45-75) H Lymphocytes % (Manual) 7 % (20-45) L Monocytes % (Manual) 1 % (1-10) Eosinophils % (Manual) 0 % (0-3) Basophils % (Manual) 0 % (0-2) Band Neutrophils 0 % (0-8) Platelet Estimate Adequate Platelet Morphology Normal Hypochromasia 1+ Anisocytosis 1+ Sodium Level 143 mEQ/L (135-145) Potassium Level 3.7 mEQ/L (3.4-4.9) Chloride Level 101 mEQ/L (98-107) Carbon Dioxide Level 25 mEQ/L (20-30) Anion Gap 17 (5-15) H Blood Urea Nitrogen 41 mg/dL (7-23) H Creatinine 1.5 mg/dL (0.7-1.2) H Estimat Glomerular Filtration Rate mL/min (>60) Glucose Level 176 mg/dL (74-106) H Calcium Level 9.2 mg/dL (8.6-10.2) Pro-B-Type Natriuretic Peptide 4280 pg/mL (0-125) H Microbiology Date/Time Source Procedure Growth Status 11/26/16 16:50 Blood Blood Culture - Preliminary NO GROWTH AFTER 48 HOURS Resulted 11/26/16 16:40 Blood Blood Culture - Preliminary NO GROWTH AFTER 48 HOURS Resulted 11/28/16 06:23 Sputum Gram Stain - Final Resulted 11/28/16 06:23 Sputum Sputum Culture - Preliminary Resulted Intake and Output 11/28/16 11/29/16 19:00 07:00 Intake Total 412.5 ml 27.5 ml Output Total 700 ml Balance 412.5 ml -672.5 ml Intake Oral 220 ml IV Total 192.5 ml 27.5 ml Output Urine Total 700 ml # Voids 5 Objective General: alert, cooperative, no distress, appears stated age Head: normocephalic, without obvious abnormality, atraumatic Eyes: conjunctivae/corneas clear. PERRL, EOM's intact Throat: lips, mucosa, and tongue normal. MMM Neck: supple, symmetrical, trachea midline, and no JVD Lungs: Crackles bilat bases; otherwise, clear to auscultation bilaterally Heart: regular rate and rhythm, S1, S2 normal, no murmur, click, rub or gallop Abdomen: soft, non-tender, non-distended, bowel sounds normal; no masses or organomegaly Extremities: extremities normal, atraumatic, no cyanosis or edema Pulses: 2+ and symmetric Skin: skin color, texture, turgor normal; no rashes or lesions Neurologic: grossly normal, no focal deficits Assessment/Plan Problem List: (1) COPD exacerbation Assessment & Plan: Continue zosyn and IV solumedrol per pulmonary. (2) Pneumonia (3) DVT, popliteal, acute Assessment & Plan: Cont xarelto (4) CAD (coronary artery disease) Assessment & Plan: See cardiology note. (5) Cardiomyopathy (6) HTN (hypertension) Assessment & Plan: Cont lisinopril. (7) CHF exacerbation Assessment & Plan: Cont lasix and aldactone per cardiology (8) Methamphetamine abuse (9) AICD (automatic cardioverter/defibrillator) present Assessment & Plan: S/P interrogation - see cardiology note. (10) Cocaine abuse Status: SURINDER Muro November 29, 2016 15:45
[2016-11-29] MEDS: DuoNeb 0.5-3(2.5)mg/3ml neb HHN PRN (19:28)
[2016-11-29 20:00] VITALS: BP 117/40
[2016-11-29] MEDS: Piperacillin/Tazobactam 3.375 GM in NS 110 ML IVPB SCH (21:38)
--- NOTE | 2016-11-29 22:33 | Pulmonology Progress Note ---
Assessment/Plan Problems: (1) COPD with acute exacerbation (2) AICD (automatic cardioverter/defibrillator) present (3) HTN (hypertension) (4) CAD (coronary artery disease) (5) Cocaine abuse (6) S/P CABG (coronary artery bypass graft) Assessment/Plan improving ICD checked out titrate fio2 dc planning Subjective ROS Limited/Unobtainable: Yes Constitutional: Reports: no symptoms HEENT: Repors: no symptoms Allergies: Coded Allergies: No Known Allergies (Verified , 06/28/10) Objective Last 24 Hour Vital Signs Date Time Temp Pulse Resp B/P Pulse Ox O2 Delivery O2 Flow Rate FiO2 11/29/16 20:00 97.2 101 18 117/40 100 Room Air 11/29/16 19:33 94 20 95 Nasal Cannula 2.0 28 11/29/16 19:32 93 20 93 Nasal Cannula 2.0 11/29/16 19:30 93 Nasal Cannula 2.0 11/29/16 19:30 Nasal Cannula 2.0 28 11/29/16 16:00 91 11/29/16 15:45 97.0 87 22 116/68 99 Nasal Cannula 2.0 11/29/16 12:00 91 11/29/16 11:47 97.0 83 22 142/67 97 Nasal Cannula 2.0 11/29/16 09:25 116/79 11/29/16 08:20 97.2 83 22 116/79 100 Nasal Cannula 2.0 11/29/16 08:00 86 11/29/16 07:37 Nasal Cannula 2.0 28 11/29/16 07:36 98 Nasal Cannula 2.0 28 11/29/16 04:04 98.6 85 19 123/70 96 Simple Mask 11/29/16 04:00 98 11/29/16 00:00 96 11/28/16 23:56 98.5 81 19 121/77 99 Room Air Intake and Output 11/28/16 11/29/16 19:00 07:00 Intake Total 412.5 ml 27.5 ml Output Total 700 ml Balance 412.5 ml -672.5 ml Intake Oral 220 ml IV Total 192.5 ml 27.5 ml Output Urine Total 700 ml # Voids 5 Objective General Appearance: cachetic Lines, tubes and drains: peripheral HEENT: normocephalic, atraumatic Neck: non-tender, normal alignment Respiratory/Chest: chest wall non-tender, lungs clear Breasts: no masses Cardiovascular/Chest: normal peripheral pulses, normal rate Abdomen: normal bowel sounds, non tender Genitourinary/Rectal: normal genital exam, normal rectal exam Extremities: normal range of motion, non-tender Skin Exam: normal pigmentation 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 Microbiology Date/Time Source Procedure Growth Status 11/28/16 06:23 Sputum Gram Stain - Final Resulted 11/28/16 06:23 Sputum Sputum Culture - Preliminary Resulted Laboratory Tests 11/29/16 04:50: White Blood Count 17.6H, Red Blood Count 4.45L, Hemoglobin 13.8L, Hematocrit 44.0, Mean Corpuscular Volume 99, Mean Corpuscular Hemoglobin 31.0, Mean Corpuscular Hemoglobin Concent 31.3L, Red Cell Distribution Width 15.8H, Platelet Count 163, Mean Platelet Volume 9.4, Neutrophils (%) (Auto) , Lymphocytes (%) (Auto) , Monocytes (%) (Auto) , Eosinophils (%) (Auto) , Basophils (%) (Auto) , Differential Total Cells Counted 100, Neutrophils % ( Manual) 92H, Lymphocytes % (Manual) 7L, Monocytes % (Manual) 1, Eosinophils % ( Manual) 0, Basophils % (Manual) 0, Band Neutrophils 0, Platelet Estimate Adequate, Platelet Morphology Normal, Hypochromasia 1+, Anisocytosis 1+, Sodium Level 143, Potassium Level 3.7, Chloride Level 101, Carbon Dioxide Level 25, Anion Gap 17H, Blood Urea Nitrogen 41H, Creatinine 1.5H, Estimat Glomerular Filtration Rate , Glucose Level 176H, Calcium Level 9.2, Pro-B-Type Natriuretic Peptide 4280H Current Medications Medications (Trade) Dose Ordered Sig/Elsa Route PRN Reason Start Time Stop Time Status Last Admin Dose Admin Albuterol/ Ipratropium (DuoNeb 0.5-3(2.5)mg/3ml) 3 ml Q4H PRN HHN dyspnea 11/26/16 21:30 12/01/16 21:29 11/29/16 19:28 Amiodarone HCl 200 mg 200 mg DAILY ORAL 11/28/16 09:00 12/28/16 08:59 11/29/16 09:24 Dextrose (Dextrose 50%) STAT PRN IV Hypoglycemia 11/26/16 21:30 12/26/16 21:29 Furosemide (Lasix) 40 mg EVERY 12 HOURS IV 11/27/16 21:00 12/27/16 20:59 11/29/16 21:26 Lisinopril (Zestril) 10 mg DAILY ORAL 11/28/16 09:00 12/28/16 08:59 11/29/16 09:25 Lorazepam (Ativan 2mg/ml 1ml) 0.5 mg Q4H PRN IV For Anxiety 11/26/16 21:30 12/03/16 21:29 Methylprednisolone Sodium Succinate (Solu-MEDROL) 60 mg EVERY 6 HOURS IV 11/27/16 00:00 12/27/16 00:00 11/29/16 17:54 Morphine Sulfate (Morphine Sulfate) 2 mg Q4H PRN IVP severe pain 7-10 11/26/16 21:30 12/03/16 21:29 Nitroglycerin (Ntg) 0.4 mg Q5M X 3 DOSES PRN SL Prn Chest Pain 11/26/16 21:30 12/26/16 21:29 Ondansetron HCl (Zofran) 4 mg Q6H PRN IVP Nausea & Vomiting 11/26/16 21:30 12/26/16 21:29 Piperacillin Sod/ Tazobactam Sod/ Sodium Chloride (Zosyn/Sodium Chloride) 110 ml @ 27.5 mls/hr EVERY 8 HOURS IVPB 11/29/16 22:00 12/06/16 21:59 11/29/16 21:38 Promethazine HCl/ Codeine (Phenergan with Codeine) 5 ml Q6H PRN ORAL cough 11/26/16 21:30 12/26/16 21:29 Rivaroxaban (Xarelto) 20 mg QPM ORAL 11/28/16 16:30 12/28/16 16:29 11/29/16 15:38 Spironolactone (Aldactone) 25 mg DAILY ORAL 11/28/16 09:00 12/28/16 08:59 11/29/16 09:25 Temazepam (Restoril) 15 mg HSPRN PRN ORAL Insomnia 11/26/16 21:30 12/03/16 21:29 Theophylline (Yadiel-Dur) 100 mg EVERY 12 HOURS ORAL 11/27/16 09:00 12/27/16 08:59 11/29/16 21:26 MURRAY NELSON November 29, 2016 22:33
[2016-11-30] VITALS: BP 116/68
[2016-11-30] MEDS: Solu-MEDROL 125mg Inj IV SCH ×4 (00:30→18:06)
[2016-11-30 04:00] VITALS: BP 106/77
[2016-11-30] MEDS: Piperacillin/Tazobactam 3.375 GM in NS 110 ML IVPB SCH ×2 (05:13→14:00)
[2016-11-30 06:22] LABS: MEAN CORPUSCULAR HEMOGLOBIN 31.4 PG (27.0-31.0); MEAN CORPUSCULAR HGB CONC 32.4 G/DL (32.0-36.0); MEAN CORPUSCULAR VOLUME 97 FL (80-99); MEAN PLATELET VOLUME 9.2 FL (6.5-10.1); PLATELET COUNT 163 K/UL (150-450); RED BLOOD COUNT 4.38 M/UL (4.70-6.10); RED CELL DISTRIBUTION WIDTH 15.4 % (11.6-14.8); WHITE BLOOD COUNT 16.1 K/UL (4.8-10.8)
[2016-11-30 06:37] LABS: ANION GAP 15 (5-15); CALCIUM 8.9 mg/dL (8.6-10.2); CARBON DIOXIDE 26 mEQ/L (20-30); CHLORIDE 103 mEQ/L (98-107); CREATININE 1.3 mg/dL (0.7-1.2); HEMOLYSIS 2; SODIUM 144 mEQ/L (135-145)
[2016-11-30 08:00] VITALS: BP 122/92
[2016-11-30] MEDS: DuoNeb 0.5-3(2.5)mg/3ml neb HHN PRN ×3 (08:26→15:49)
--- NOTE | 2016-11-30 09:47 | Internal Med Progress Note ---
Subjective Date of Service: November 30, 2016 Physician Name Surinder Helms Attending Physician Barrett Olivarez MD Current Medications Medications (Trade) Dose Ordered Sig/Elsa Route PRN Reason Start Time Stop Time Status Last Admin Dose Admin Albuterol/ Ipratropium (DuoNeb 0.5-3(2.5)mg/3ml) 3 ml Q4H PRN HHN dyspnea 11/26/16 21:30 12/01/16 21:29 11/30/16 08:26 Amiodarone HCl 200 mg 200 mg DAILY ORAL 11/28/16 09:00 12/28/16 08:59 11/29/16 09:24 Dextrose (Dextrose 50%) STAT PRN IV Hypoglycemia 11/26/16 21:30 12/26/16 21:29 Furosemide (Lasix) 40 mg EVERY 12 HOURS IV 11/27/16 21:00 12/27/16 20:59 11/29/16 21:26 Lisinopril (Zestril) 10 mg DAILY ORAL 11/28/16 09:00 12/28/16 08:59 11/29/16 09:25 Lorazepam (Ativan 2mg/ml 1ml) 0.5 mg Q4H PRN IV For Anxiety 11/26/16 21:30 12/03/16 21:29 Methylprednisolone Sodium Succinate (Solu-MEDROL) 60 mg EVERY 6 HOURS IV 11/27/16 00:00 12/27/16 00:00 11/30/16 05:15 Morphine Sulfate (Morphine Sulfate) 2 mg Q4H PRN IVP severe pain 7-10 11/26/16 21:30 12/03/16 21:29 Nitroglycerin (Ntg) 0.4 mg Q5M X 3 DOSES PRN SL Prn Chest Pain 11/26/16 21:30 12/26/16 21:29 Ondansetron HCl (Zofran) 4 mg Q6H PRN IVP Nausea & Vomiting 11/26/16 21:30 12/26/16 21:29 Piperacillin Sod/ Tazobactam Sod/ Sodium Chloride (Zosyn/Sodium Chloride) 110 ml @ 27.5 mls/hr EVERY 8 HOURS IVPB 11/29/16 22:00 12/06/16 21:59 11/30/16 05:13 Promethazine HCl/ Codeine (Phenergan with Codeine) 5 ml Q6H PRN ORAL cough 11/26/16 21:30 12/26/16 21:29 Rivaroxaban (Xarelto) 20 mg QPM ORAL 11/28/16 16:30 12/28/16 16:29 11/29/16 15:38 Spironolactone (Aldactone) 25 mg DAILY ORAL 11/28/16 09:00 12/28/16 08:59 11/29/16 09:25 Temazepam (Restoril) 15 mg HSPRN PRN ORAL Insomnia 11/26/16 21:30 12/03/16 21:29 Theophylline (Yadiel-Dur) 100 mg EVERY 12 HOURS ORAL 11/27/16 09:00 12/27/16 08:59 11/29/16 21:26 Allergies: Coded Allergies: No Known Allergies (Verified , 06/28/10) ROS Limited/Unobtainable: No Constitutional: Reports: no symptoms HEENT: Reports: no symptoms Cardiovascular: Reports: no symptoms Respiratory: Reports: shortness of breath Gastrointestinal/Abdominal: Reports: no symptoms Genitourinary: Reports: no symptoms Neurologic/Psychiatric: Reports: no symptoms Subjective 71 YO M admitted with Shortness of breath. Now CHF exacerbation. Cover for Int Med-Dr Olivarez. Objective Last Vital Signs Date Time Temp Pulse Resp B/P Pulse Ox O2 Delivery O2 Flow Rate FiO2 11/30/16 08:40 78 18 100 Nasal Cannula 2.0 28 11/30/16 08:00 97.3 122/92 Laboratory Tests Test 11/30/16 06:10 White Blood Count 16.1 K/UL (4.8-10.8) H Red Blood Count 4.38 M/UL (4.70-6.10) L Hemoglobin 13.8 G/DL (14.2-18.0) L Hematocrit 42.5 % (42.0-52.0) Mean Corpuscular Volume 97 FL (80-99) Mean Corpuscular Hemoglobin 31.4 PG (27.0-31.0) H Mean Corpuscular Hemoglobin Concent 32.4 G/DL (32.0-36.0) Red Cell Distribution Width 15.4 % (11.6-14.8) H Platelet Count 163 K/UL (150-450) Mean Platelet Volume 9.2 FL (6.5-10.1) Neutrophils (%) (Auto) % (45.0-75.0) Lymphocytes (%) (Auto) % (20.0-45.0) Monocytes (%) (Auto) % (1.0-10.0) Eosinophils (%) (Auto) % (0.0-3.0) Basophils (%) (Auto) % (0.0-2.0) Neutrophils % (Manual) Pending Lymphocytes % (Manual) Pending Platelet Estimate Pending Platelet Morphology Pending Sodium Level 144 mEQ/L (135-145) Potassium Level 3.0 mEQ/L (3.4-4.9) L Chloride Level 103 mEQ/L (98-107) Carbon Dioxide Level 26 mEQ/L (20-30) Anion Gap 15 (5-15) Blood Urea Nitrogen 35 mg/dL (7-23) H Creatinine 1.3 mg/dL (0.7-1.2) H Estimat Glomerular Filtration Rate mL/min (>60) Glucose Level 145 mg/dL (74-106) H Calcium Level 8.9 mg/dL (8.6-10.2) Microbiology Date/Time Source Procedure Growth Status 11/28/16 06:23 Sputum Gram Stain - Final Complete 11/28/16 06:23 Sputum Sputum Culture - Final NORMAL UPPER RESPIRATORY ANEESH PRESENT Complete Intake and Output 11/29/16 11/30/16 19:00 07:00 Intake Total 672.5 ml 137.5 ml Output Total 800 ml 1400 ml Balance -127.5 ml -1262.5 ml Intake Oral 480 ml IV Total 192.5 ml 137.5 ml Output Urine Total 800 ml 1400 ml # Voids 3 Objective General: alert, cooperative, no distress, appears stated age Head: normocephalic, without obvious abnormality, atraumatic Eyes: conjunctivae/corneas clear. PERRL, EOM's intact Throat: lips, mucosa, and tongue normal. MMM Neck: supple, symmetrical, trachea midline, and no JVD Lungs: Crackles bilat bases; otherwise, clear to auscultation bilaterally Heart: regular rate and rhythm, S1, S2 normal, no murmur, click, rub or gallop Abdomen: soft, non-tender, non-distended, bowel sounds normal; no masses or organomegaly Extremities: extremities normal, atraumatic, no cyanosis or edema Pulses: 2+ and symmetric Skin: skin color, texture, turgor normal; no rashes or lesions Neurologic: grossly normal, no focal deficits Assessment/Plan Problem List: (1) COPD exacerbation Assessment & Plan: Continue zosyn and IV solumedrol per pulmonary. (2) Pneumonia (3) DVT, popliteal, acute Assessment & Plan: Cont xarelto (4) CAD (coronary artery disease) Assessment & Plan: See cardiology note. (5) Cardiomyopathy (6) HTN (hypertension) Assessment & Plan: Cont lisinopril. (7) CHF exacerbation Assessment & Plan: Cont lasix and aldactone per cardiology (8) Methamphetamine abuse (9) AICD (automatic cardioverter/defibrillator) present Assessment & Plan: S/P interrogation - see cardiology note. (10) Cocaine abuse (11) Ventricular tachycardia, non-sustained Assessment & Plan: Continue amiodarone per cardiology (12) Hypokalemia Assessment & Plan: Replace with oral potassium Status: progressing Assessment/Plan Discharge planning when on oral prednisone. SURINDER HELMS November 30, 2016 09:47
[2016-11-30] MEDS: Theophylline ER 100mg ORAL SCH (09:59)
[2016-11-30] MEDS: Amiodarone 200mg tab ORAL SCH (10:00)
[2016-11-30] MEDS: Spironolactone 25mg tab ORAL SCH (10:00)
[2016-11-30] MEDS: Lisinopril 10mg tab ORAL SCH (10:01)
[2016-11-30 10:08] LABS: ANISOCYTOSIS 1+; BAND NEUTROPHILS % (MANUAL) 0 % (0-8); BASOPHILS % (MANUAL) 0 % (0-2); EOSINOPHILS % (MANUAL) 0 % (0-3); LYMPHOCYTES % (MANUAL) 7 % (20-45); MACROCYTES 1+; NEUTROPHILS % (MANUAL) 91 % (45-75); PLATELET ESTIMATE ADEQUATE; PLATELET MORPHOLOGY NORMAL; TOTAL CELLS COUNTED 100
--- NOTE | 2016-11-30 11:34 | Diagnostic Imaging Report ---
APPROVED REPORT CPT Code: 50490 Present Symptoms Shortness of breath BILATERAL: Imaging reveals a patent deep venous system bilaterally. There is no evidence of thrombus within the femoral, popliteal or tibial segments. The greater saphenous veins are also within normal limits. Doppler indicates normal spontaneous flow within these segments.
[2016-11-30 12:00] VITALS: BP 121/72
--- NOTE | 2016-11-30 12:31 | Cardiac Electrophysiology PN ---
Assessment/Plan Assessment/Plan 1. Exacerbation of congestive heart failure. Precipitated by polysubstance abuse as his urine toxicology screen is positive for amphetamine as well as cocaine. Avoid beta-blockers in view of cocaine use. Continue lisinopril, Aldactone, and Lasix. 2. Status [address] [facility] defibrillator implantation interrogation showed normal function. 3. History of deep venous thrombosis. Continue Xarelto 4. Nonsustained VT. On amiodarone 200 mg daily. 5. Chronic obstructive pulmonary disease on theophylline and prednisone. PANCHO RN Subjective Subjective Comfortable in NAD. No chest pain or SOB.Had run of nonsustained VT. ICD interrogated that showed Nl Fx. Objective Last 24 Hour Vital Signs Date Time Temp Pulse Resp B/P Pulse Ox O2 Delivery O2 Flow Rate FiO2 11/30/16 12:00 98.0 56 18 121/72 Nasal Cannula 2.0 96 11/30/16 11:15 28 11/30/16 11:14 100 18 100 Nasal Cannula 2.0 11/30/16 10:29 100 11/30/16 10:01 138/68 11/30/16 08:40 78 18 100 Nasal Cannula 2.0 11/30/16 08:26 28 11/30/16 08:26 76 18 98 Nasal Cannula 2.0 11/30/16 08:26 Nasal Cannula 2.0 28 11/30/16 08:26 98 Nasal Cannula 2.0 28 11/30/16 08:00 97.3 66 18 122/92 Nasal Cannula 2.0 99 11/30/16 04:00 97.5 89 20 106/77 98 Room Air 11/30/16 04:00 94 11/30/16 00:00 96.8 68 20 116/68 99 Room Air 11/30/16 00:00 93 11/29/16 20:00 91 11/29/16 20:00 97.2 101 18 117/40 100 Room Air 11/29/16 19:33 94 20 95 Nasal Cannula 2.0 11/29/16 19:32 93 20 93 Nasal Cannula 2.0 28 11/29/16 19:30 93 Nasal Cannula 2.0 28 11/29/16 19:30 Nasal Cannula 2.0 28 11/29/16 16:00 91 11/29/16 15:45 97.0 87 22 116/68 99 Nasal Cannula 2.0 Intake and Output 11/29/16 11/30/16 19:00 07:00 Intake Total 672.5 ml 137.5 ml Output Total 800 ml 1400 ml Balance -127.5 ml -1262.5 ml Intake Oral 480 ml IV Total 192.5 ml 137.5 ml Output Urine Total 800 ml 1400 ml # Voids 3 Laboratory Tests Test 11/30/16 06:10 White Blood Count 16.1 K/UL (4.8-10.8) H Red Blood Count 4.38 M/UL (4.70-6.10) L Hemoglobin 13.8 G/DL (14.2-18.0) L Hematocrit 42.5 % (42.0-52.0) Mean Corpuscular Volume 97 FL (80-99) Mean Corpuscular Hemoglobin 31.4 PG (27.0-31.0) H Mean Corpuscular Hemoglobin Concent 32.4 G/DL (32.0-36.0) Red Cell Distribution Width 15.4 % (11.6-14.8) H Platelet Count 163 K/UL (150-450) Mean Platelet Volume 9.2 FL (6.5-10.1) Neutrophils (%) (Auto) % (45.0-75.0) Lymphocytes (%) (Auto) % (20.0-45.0) Monocytes (%) (Auto) % (1.0-10.0) Eosinophils (%) (Auto) % (0.0-3.0) Basophils (%) (Auto) % (0.0-2.0) Differential Total Cells Counted 100 Neutrophils % (Manual) 91 % (45-75) H Lymphocytes % (Manual) 7 % (20-45) L Monocytes % (Manual) 2 % (1-10) Eosinophils % (Manual) 0 % (0-3) Basophils % (Manual) 0 % (0-2) Band Neutrophils 0 % (0-8) Platelet Estimate Adequate Platelet Morphology Normal Anisocytosis 1+ Macrocytosis 1+ Sodium Level 144 mEQ/L (135-145) Potassium Level 3.0 mEQ/L (3.4-4.9) L Chloride Level 103 mEQ/L (98-107) Carbon Dioxide Level 26 mEQ/L (20-30) Anion Gap 15 (5-15) Blood Urea Nitrogen 35 mg/dL (7-23) H Creatinine 1.3 mg/dL (0.7-1.2) H Estimat Glomerular Filtration Rate mL/min (>60) Glucose Level 145 mg/dL (74-106) H Calcium Level 8.9 mg/dL (8.6-10.2) Microbiology Date/Time Source Procedure Growth Status 11/28/16 06:23 Sputum Gram Stain - Final Complete 11/28/16 06:23 Sputum Sputum Culture - Final NORMAL UPPER RESPIRATORY ANEESH PRESENT Complete Objective HEAD AND NECK: Shows no JVD. LUNGS: Clear. CARDIOVASCULAR: Shows regular S1 and S2 with no gallop or murmur. There is a defibrillator in the left subclavian. Sternotomy scar is intact ABDOMEN: Soft and nontender. EXTREMITIES: Shows 1+ pitting edema right leg. Left leg no edema. BRYAN BOYD November 30, 2016 12:31
--- NOTE | 2016-11-30 14:35 | Pulmonology Progress Note ---
Assessment/Plan Problems: (1) COPD with acute exacerbation (2) AICD (automatic cardioverter/defibrillator) present (3) HTN (hypertension) (4) CAD (coronary artery disease) (5) Cocaine abuse (6) S/P CABG (coronary artery bypass graft) Assessment/Plan improving ICD checked out titrate fio2 dc planning for today Subjective ROS Limited/Unobtainable: No Constitutional: Reports: no symptoms Respiratory: Reports: no symptoms Allergies: Coded Allergies: No Known Allergies (Verified , 06/28/10) Objective Last 24 Hour Vital Signs Date Time Temp Pulse Resp B/P Pulse Ox O2 Delivery O2 Flow Rate FiO2 11/30/16 13:43 110 11/30/16 12:00 98.0 56 18 121/72 Nasal Cannula 2.0 96 11/30/16 11:15 28 11/30/16 11:14 100 18 100 Nasal Cannula 2.0 28 11/30/16 10:29 100 11/30/16 10:01 138/68 11/30/16 08:40 78 18 100 Nasal Cannula 2.0 28 11/30/16 08:26 28 11/30/16 08:26 76 18 98 Nasal Cannula 2.0 28 11/30/16 08:26 Nasal Cannula 2.0 28 11/30/16 08:26 98 Nasal Cannula 2.0 28 11/30/16 08:00 97.3 66 18 122/92 Nasal Cannula 2.0 99 11/30/16 04:00 97.5 89 20 106/77 98 Room Air 11/30/16 04:00 94 11/30/16 00:00 96.8 68 20 116/68 99 Room Air 11/30/16 00:00 93 11/29/16 20:00 91 11/29/16 20:00 97.2 101 18 117/40 100 Room Air 11/29/16 19:33 94 20 95 Nasal Cannula 2.0 28 11/29/16 19:32 93 20 93 Nasal Cannula 2.0 28 11/29/16 19:30 93 Nasal Cannula 2.0 28 11/29/16 19:30 Nasal Cannula 2.0 28 11/29/16 16:00 91 11/29/16 15:45 97.0 87 22 116/68 99 Nasal Cannula 2.0 Intake and Output 11/29/16 11/30/16 19:00 07:00 Intake Total 672.5 ml 137.5 ml Output Total 800 ml 1400 ml Balance -127.5 ml -1262.5 ml Intake Oral 480 ml IV Total 192.5 ml 137.5 ml Output Urine Total 800 ml 1400 ml # Voids 3 Objective General Appearance: cachetic Lines, tubes and drains: peripheral HEENT: normocephalic, atraumatic Neck: non-tender, normal alignment Respiratory/Chest: chest wall non-tender, lungs clear Breasts: no masses Cardiovascular/Chest: normal peripheral pulses, normal rate Abdomen: normal bowel sounds, non tender Genitourinary/Rectal: normal genital exam, normal rectal exam Extremities: normal range of motion, non-tender Skin Exam: normal pigmentation Neurologic: metal hanging helper II-XII grossly normal Microbiology Date/Time Source Procedure Growth Status 11/28/16 06:23 Sputum Gram Stain - Final Complete 11/28/16 06:23 Sputum Sputum Culture - Final NORMAL UPPER RESPIRATORY ANEESH PRESENT Complete Laboratory Tests 11/30/16 06:10: White Blood Count 16.1H, Red Blood Count 4.38L, Hemoglobin 13.8L, Hematocrit 42.5, Mean Corpuscular Volume 97, Mean Corpuscular Hemoglobin 31.4H, Mean Corpuscular Hemoglobin Concent 32.4, Red Cell Distribution Width 15.4H, Platelet Count 163, Mean Platelet Volume 9.2, Neutrophils (%) (Auto) , Lymphocytes (%) (Auto) , Monocytes (%) (Auto) , Eosinophils (%) (Auto) , Basophils (%) (Auto) , Differential Total Cells Counted 100, Neutrophils % ( Manual) 91H, Lymphocytes % (Manual) 7L, Monocytes % (Manual) 2, Eosinophils % ( Manual) 0, Basophils % (Manual) 0, Band Neutrophils 0, Platelet Estimate Adequate, Platelet Morphology Normal, Anisocytosis 1+, Macrocytosis 1+, Sodium Level 144, Potassium Level 3.0L, Chloride Level 103, Carbon Dioxide Level 26, Anion Gap 15, Blood Urea Nitrogen 35H, Creatinine 1.3H, Estimat Glomerular Filtration Rate , Glucose Level 145H, Calcium Level 8.9 Current Medications Medications (Trade) Dose Ordered Sig/Elsa Route PRN Reason Start Time Stop Time Status Last Admin Dose Admin Albuterol/ Ipratropium (DuoNeb 0.5-3(2.5)mg/3ml) 3 ml Q4H PRN N dyspnea 11/26/16 21:30 12/01/16 21:29 11/30/16 11:12 Amiodarone HCl 200 mg 200 mg DAILY ORAL 11/28/16 09:00 12/28/16 08:59 11/30/16 10:00 Dextrose (Dextrose 50%) STAT PRN IV Hypoglycemia 11/26/16 21:30 12/26/16 21:29 Furosemide (Lasix) 40 mg EVERY 12 HOURS IV 11/27/16 21:00 12/27/16 20:59 11/30/16 09:53 Lisinopril (Zestril) 10 mg DAILY ORAL 11/28/16 09:00 12/28/16 08:59 11/30/16 10:01 Lorazepam (Ativan 2mg/ml 1ml) 0.5 mg Q4H PRN IV For Anxiety 11/26/16 21:30 12/03/16 21:29 Methylprednisolone Sodium Succinate (Solu-MEDROL) 60 mg EVERY 6 HOURS IV 11/27/16 00:00 12/27/16 00:00 11/30/16 09:52 Morphine Sulfate (Morphine Sulfate) 2 mg Q4H PRN IVP severe pain 7-10 11/26/16 21:30 12/03/16 21:29 Nitroglycerin (Ntg) 0.4 mg Q5M X 3 DOSES PRN SL Prn Chest Pain 11/26/16 21:30 12/26/16 21:29 Ondansetron HCl (Zofran) 4 mg Q6H PRN IVP Nausea & Vomiting 11/26/16 21:30 12/26/16 21:29 Piperacillin Sod/ Tazobactam Sod/ Sodium Chloride (Zosyn/Sodium Chloride) 110 ml @ 27.5 mls/hr EVERY 8 HOURS IVPB 11/29/16 22:00 12/06/16 21:59 11/30/16 05:13 Promethazine HCl/ Codeine (Phenergan with Codeine) 5 ml Q6H PRN ORAL cough 11/26/16 21:30 12/26/16 21:29 Rivaroxaban (Xarelto) 20 mg QPM ORAL 11/28/16 16:30 12/28/16 16:29 11/29/16 15:38 Spironolactone (Aldactone) 25 mg DAILY ORAL 11/28/16 09:00 12/28/16 08:59 11/30/16 10:00 Temazepam (Restoril) 15 mg HSPRN PRN ORAL Insomnia 11/26/16 21:30 12/03/16 21:29 Theophylline (Yadiel-Dur) 100 mg EVERY 12 HOURS ORAL 11/27/16 09:00 12/27/16 08:59 11/30/16 09:59 MURRAY NELSON November 30, 2016 14:35
[2016-11-30 16:00] VITALS: BP 119/57
[2016-11-30] MEDS: Xarelto 10mg tab ORAL SCH (17:55)
--- NOTE | 2016-12-02 13:52 | Discharge Summary ---
Discharge Summary Hospital Course Date of Admission November 26, 2016 at 17:25 Date of Discharge November 30, 2016 at 17:58 Admitting Diagnosis DYSPNEA HPI Smith Hidalgo Jr is a 71 year old male who was admitted on November 26, 2016 at 17: 25 for Dyspnea Hospital Course dc summary #[id number] Discharge Medications Continued Medications: Albuterol Sulfate (Ventolin Hfa) 18 Gm Hfa.aer.ad 1 PUFF INH EVERY 6 HOURS PRN for Shortness of Breath Fluticasone/Salmeterol (Advair 250-50 Diskus) 1 Each Blst.w.dev 2 PUFF INH QD to BID, EA Furosemide* (Lasix*) 40 Mg Tablet 40 MG ORAL TWICE A DAY, TAB 0 Refills Hydrocortisone (Proctosol-Hc) 28.35 Gm Cream.appl 1 APPLIC TOPIC DAILY PRN for Itching, GM Lisinopril* (Lisinopril*) 2.5 Mg Tablet 2.5 MG ORAL DAILY, TAB 0 Refills Discharge Condition Upon Discharge: stable Discharge Disposition Patient was discharged to Home (01) Discharge Diagnoses: Discharge Instructions Discharge Instructions Special Instructions I have been assigned to complete a D/C Summary on this account. I was not involved in the patient management Roxann Lucio NP (Vanchtein) December 02, 2016 13:52
--- NOTE | 2016-12-02 23:49 | Discharge Summary 2 SIG ---
DATE OF ADMISSION: 11/26/2016 DATE OF DISCHARGE: 11/30/2016 REASON FOR ADMISSION: The patient is a 71-year-old male with history of coronary artery disease, cardiomyopathy with ejection fraction less than 10%, congestive heart failure status post CABG, COPD, hepatitis C, and hypertension, presented to the emergency room with complaint of dyspnea. The patient also had a recently diagnosed DVT and taking Xarelto. The patient reported his breathing worsen over the past few days. The patient denied chest pain. He had increased cough. No wheezing. Reported of chest tightness. He denies sputum production. He denies any pleurisy. He denied any recent traveling. Vital signs in the emergency room were stable except pulse oximetry. The patient required supplemental oxygen, which was given via nasal cannula. Lactic acid was 2.6. No leukocytosis. Stable hemoglobin and hematocrit. Electrolytes were stable. BUN 20 and creatinine 1.4. Stable LFT. ProBNP was 5339. Lipase was 57. Urine tox screen was positive for amphetamines and positive for cocaine. The patient was afebrile. The patient was placed on 6 liters of oxygen via nasal cannula. Saturation was 95%. Chest x-ray revealed cardiomegaly, basilar density likely atelectasis. The patient was admitted for further management. ADMITTING DIAGNOSES: Include, 1. Acute chronic obstructive pulmonary disease exacerbation. 2. Respiratory distress. 3. Polysubstance abuse (cocaine and amphetamine). HOSPITAL STAY: The patient was admitted to the telemetry floor. Pulmonology and Cardiology consults were requested. The patient with a known cardiomyopathy ejection fraction of less than 10%. According to cloth edge singer, the patient had acute CHF exacerbation likely secondary to polysubstance abuse and urine tox screen was positive for amphetamine and cocaine. He recommended to avoid beta-tamar and continue medical management of systolic heart failure with ED inhibitor and diuretics such as Lasix and Aldactone. ProBNP was trading. A small decrease noted. Troponin x2 was negative. EKG revealed no acute ischemic changes. AICD interrogation was done at this admission and it revealed normal intact functioning. Xarelto was continued. The patient had a recent history of DVT. Venous duplex bilateral lower extremity revealed no evidence of acute DVT. The patient had a run of nonsustained ventricular tachycardia on telemetry. Per cloth edge singer, amiodarone was added to his existing regimen. In terms of the acute COPD, the patient was on supplemental oxygen. Pulmonary toilet was provided as needed. The patient was on empiric antibiotics. The patient was started on IV steroids, which were gradually tapered. The patient was also started on theophylline. Antitussive was provided as needed. The patient was on Xarelto. Sputum culture was negative. Blood culture was negative. Antibiotics were stopped. The patient was stable for discharge. Counseled on abstinence from street drugs. DISCHARGE DIAGNOSES: Include, 1. Acute chronic obstructive pulmonary disease exacerbation. 2. Acute respiratory distress. 3. Acute systolic congestive heart failure exacerbation. 4. Automatic implanted cardioverter defibrillator status post interrogation. 5. Recent history of deep vein thrombosis. 6. Nonsustained ventricular tachycardia. DISCHARGE MEDICATIONS: See medication reconciliation list. DISCHARGE INSTRUCTIONS: Follow up with primary medical doctor and cloth edge singer. Barrett Olivarez M.D. I have been assigned to dictate discharge summary on this account and I was not involved in the patient's management. Roxann Carlsoncapital district psychiatric centerNancy N.PEldon DR: ANKITA JOB#: [id number] CC:
== END 2016-11-30 17:58 | disposition home or self-care (01) | DRG 140 ==
LOC: EDBD 16:24 → EMR 17:03 → 2E 17:25 → EDBEDREQ 20:40
DX: J44.1 Chronic obstructive pulmonary disease with (acute) exacerbation (principal); I50.23 Acute on chronic systolic (congestive) heart failure; I47.2 Ventricular tachycardia; I42.9 Cardiomyopathy, unspecified; I25.10 Atherosclerotic heart disease of native coronary artery without angina pectoris; F15.10 Other stimulant abuse, uncomplicated; F14.10 Cocaine abuse, uncomplicated; Z95.1 Presence of aortocoronary bypass graft; Z95.810 Presence of automatic (implantable) cardiac defibrillator; Z86.718 Personal history of other venous thrombosis and embolism; Z79.01 Long term (current) use of anticoagulants; B19.20 Unspecified viral hepatitis C without hepatic coma; E87.6 Hypokalemia
CPT/HCPCS: 36415; 36600; 71010; 80048; 80053; 80300; 82550; 82553; 82803; 83605; 83690; 83880; 84484; 85007; 85025; 85610; 85730; 87040; 87070; 87205; 93005; 93970; 94640; 94664; 94760; J7620; J8499